=== PATIENT | male | born 2000 | race African-American/Black ===

== ENCOUNTER 2020-11-23 13:03 | Emergency (ER) | payer OTHER ==
[~2020-11-23] VITALS: Ht 185.4 cm; Wt 80.0 kg
[~2020-11-23 13:03] MED LIST: ASPE4PAD TOP; METH-1165 PO; NAPR-837 PO
--- NOTE | 2020-11-23 15:15 | REP ---
INDICATION: pain, dizziness after injury. COMPARISON: None. TECHNIQUE: 4.5 mm contiguous transaxial sections were obtained from the skull base to the cerebral convexities with thin cuts through the posterior fossa without the administration of intravenous contrast. FINDINGS: The ventricles and sulci are consistent with the patient's age. There are no extra-axial fluid collections. There is no mass effect. The deep cerebral white matter is consistent with the patient's age. The orbital and petrous structures, cerebellopontine angles, and posterior fossa are unremarkable. The sella turcica, cavernous, and paracavernous structures are essentially unremarkable. The visualized portions of the paranasal sinuses and mastoid air cells are clear. Images of the skull base show no gross abnormality. IMPRESSION: Essentially unremarkable CT examination of the brain. <Electronically signed by George Simms > 11/23/20 [id number]
[2020-11-23] MEDS ORDERED: diphenhydrAMINE 25MG CAP PO ONE (16:30)
[2020-11-23] MEDS ORDERED: ONDANSETRON 4 MG ORAL DISINTEGRATING TAB PO ONE (16:30)
[2020-11-23] MEDS ORDERED: KETOROLAC 60MG 2ML VIAL IM ONE (17:00)
--- NOTE | 2020-11-23 19:00 | REPVR ---
PROCEDURE INFORMATION: Exam: CT Cervical Spine Without Contrast Exam date and time: 11/23/2020 4:52 PM Age: 20 years old Clinical indication: Neck pain TECHNIQUE: Imaging protocol: Computed tomography images of the cervical spine without contrast. Radiation optimization: All CT scans at this facility use at least one of these dose optimization techniques: automated exposure control; mA and/or kV adjustment per patient size (includes targeted exams where dose is matched to clinical indication); or iterative reconstruction. COMPARISON: CT Head without contrast 11/23/2020 2:52 PM FINDINGS: Bones/joints: No acute fracture. Normal alignment. Discs/Spinal canal/Neural foramina: No significant disc protrusion. No severe spinal canal stenosis. No significant neural foraminal narrowing. Lungs: Lung apices are normal. Soft tissues: Unremarkable. IMPRESSION: No acute findings. Electronically signed by: Eloy Hanna On 11/23/2020 19:00:45 PM
[2020-11-23 19:21] VITALS: BP 140/68
== END 2020-11-23 19:26 | disposition home or self-care (01) ==
LOC: M ED 13:03
DX: G44.319 Acute post-traumatic headache, not intractable (principal)
CPT/HCPCS: 70450; 72125; 96372; 99283; J1885; Q0162

== ENCOUNTER 2020-12-03 17:23 | Emergency (ER) | payer OTHER ==
[~2020-12-03] VITALS: Ht 185.4 cm; Wt 79.3 kg
[2020-12-03 17:23] VITALS: BP 121/64
[2020-12-03] MEDS ORDERED: NAPR-885 (17:37)
[2020-12-03] MEDS ORDERED: METH-1165 (17:37)
== END 2020-12-03 19:50 | disposition home or self-care (01) ==
LOC: M ED 17:23
DX: M79.10 Myalgia, unspecified site (principal); R06.02 Shortness of breath; D55.0 Anemia due to glucose-6-phosphate dehydrogenase [G6PD] deficiency; Z88.2 Allergy status to sulfonamides; Z88.8 Allergy status to other drugs, medicaments and biological substances; Z88.6 Allergy status to analgesic agent; Z79.1 Long term (current) use of non-steroidal anti-inflammatories (NSAID); Z79.899 Other long term (current) drug therapy

== ENCOUNTER 2020-12-13 14:13 | Emergency (ER) | payer OTHER ==
[~2020-12-13] VITALS: Ht 180.3 cm; Wt 77.7 kg
[~2020-12-13 14:13] MED LIST changes: +METH-1165; +NAPR-885
[2020-12-13 14:14] VITALS: BP 132/72
[2020-12-13 16:19] LABS: GC DNA AMPLIFICATION NEGATIVE (NEGATIVE)
[2020-12-13] MEDS ORDERED: AMIT25TA17 PO (21:57)
[2020-12-13] MEDS ORDERED: CIPR500T39 PO (23:13)
[2021-03-20] MEDS ORDERED: TIZA10TA (18:54)
== END 2020-12-13 17:35 | disposition left against medical advice (07) ==
LOC: M ED 14:13
DX: Z11.3 Encounter for screening for infections with a predominantly sexual mode of transmission (principal); N39.0 Urinary tract infection, site not specified; D55.0 Anemia due to glucose-6-phosphate dehydrogenase [G6PD] deficiency; Z79.899 Other long term (current) drug therapy; Z88.8 Allergy status to other drugs, medicaments and biological substances; Z88.6 Allergy status to analgesic agent; Z88.2 Allergy status to sulfonamides

== ENCOUNTER 2020-12-13 21:43 | Emergency (ER) | payer OTHER ==
[~2020-12-13] VITALS: Ht 180.3 cm; Wt 78.9 kg
[2020-12-13] MEDS ORDERED: AMIT25TA17 PO (21:57)
[2020-12-13] MEDS ORDERED: CIPROFLOXACIN 500MG TABLET PO ONE (23:05)
[2020-12-13] MEDS ORDERED: CIPR500T39 PO (23:13)
[2020-12-13 23:19] VITALS: BP 119/69
[2021-03-20] MEDS ORDERED: TIZA10TA (18:54)
== END 2020-12-13 23:20 | disposition home or self-care (01) ==
LOC: M ED 21:43
DX: Z11.3 Encounter for screening for infections with a predominantly sexual mode of transmission (principal); N39.0 Urinary tract infection, site not specified; D55.0 Anemia due to glucose-6-phosphate dehydrogenase [G6PD] deficiency; Z79.899 Other long term (current) drug therapy; Z88.2 Allergy status to sulfonamides; Z88.8 Allergy status to other drugs, medicaments and biological substances; Z88.6 Allergy status to analgesic agent

== ENCOUNTER 2020-12-25 07:50 | Emergency (ER) | payer OTHER ==
[~2020-12-25] VITALS: Ht 180.3 cm; Wt 78.1 kg
[~2020-12-25 07:50] MED LIST changes: +AMIT25TA17 PO; +CIPR500T39 PO
[2020-12-25] MEDS ORDERED: diphenhydrAMINE 50MG/ML VIAL (J1200) IV STA (08:09)
[2020-12-25] MEDS ORDERED: METOCLOPRAMIDE INJ 10MG/2ML VIAL (J2765 PER 1) IV ONE (08:10)
[2020-12-25] MEDS ORDERED: KETOROLAC 30 MG/ML 1ML VIAL IV ONE (08:10)
[2020-12-25] MEDS ORDERED: NS 1,000 ML IV ONE (08:10)
[2020-12-25] MEDS ORDERED: PROMETHAZINE INJ 25 MG/ML VIAL (J2550) IV ONE (09:40)
[2020-12-25] MEDS ORDERED: PROMETHAZINE INJ 25 MG/ML VIAL (J2550) IM ONE (09:55)
[2020-12-25 14:05] VITALS: BP 122/73
== END 2020-12-25 14:06 | disposition home or self-care (01) ==
LOC: M ED 07:50
DX: R51.9 Headache, unspecified (principal); Z88.1 Allergy status to other antibiotic agents; Z88.2 Allergy status to sulfonamides; Z88.6 Allergy status to analgesic agent; Z88.8 Allergy status to other drugs, medicaments and biological substances
CPT/HCPCS: 96361; 96372; 96374; 99283; J1200; J1885; J2765

== ENCOUNTER 2021-01-17 10:54 | Emergency (ER) | payer OTHER ==
[~2021-01-17] VITALS: Ht 180.3 cm; Wt 77.6 kg
[2021-01-17] MEDS ORDERED: DULO1CAP4 (11:17)
[2021-01-17] MEDS ORDERED: CYCL5TAB (11:17)
[2021-01-17 12:35] LABS: BASO % 0.8 % (0.0-1.0); EOS # 0.1 10^3/uL (0.0-0.5); EOS % 1.4 % (0.0-3.0); HEMATOCRIT 46.3 % (42.0-52.0); HEMOGLOBIN 15.6 g/dl (13.5-17.5); LYMPH # 1.6 10^3/uL (1.5-5.0); LYMPH % 43.2 % (24.0-44.0); MEAN CORPUSCULAR HEMOGLOBIN 31.4 pg (27.0-33.0); MEAN CORPUSCULAR HGB CONC 33.7 g/dl (32.0-36.5); MEAN CORPUSCULAR VOLUME 93.2 fl (80.0-96.0); MONO # 0.4 10^3/uL (0.0-0.8); MONO % 11.1 % (2.0-8.0); NEUTROPHILS # 1.6 10^3/uL (1.5-8.5); NEUTROPHILS % 43.2 % (36.0-66.0); PLATELET COUNT, AUTOMATED 143 10^3/uL (150-450); RED BLOOD COUNT 4.97 10^6/uL (4.30-6.10); WHITE BLOOD COUNT 3.7 10^3/uL (4.0-10.0)
[2021-01-17 13:07] LABS: ERYTHROCYTE SEDIMENTATION RATE 2 mm/hr (0-15)
[2021-01-17 13:09] LABS: ALT/SGPT 25 U/L (12-78); BILIRUBIN,DIRECT 0.2 MG/DL (0.0-0.2); BILIRUBIN,TOTAL 1.9 MG/DL (0.2-1.0); C REACTIVE PROTEIN QUANTITATIV < 0.30 MG/DL (0.00-0.30); LIPASE 80 U/L (73-393); TOTAL PROTEIN 7.6 GM/DL (6.4-8.2)
[2021-01-17 13:28] VITALS: BP 117/59
== END 2021-01-17 13:30 | disposition home or self-care (01) ==
LOC: M ED 10:54
DX: K62.5 Hemorrhage of anus and rectum (principal); D72.819 Decreased white blood cell count, unspecified; D69.6 Thrombocytopenia, unspecified; R10.9 Unspecified abdominal pain; D55.0 Anemia due to glucose-6-phosphate dehydrogenase [G6PD] deficiency; F41.9 Anxiety disorder, unspecified; Z88.2 Allergy status to sulfonamides; Z88.8 Allergy status to other drugs, medicaments and biological substances; Z88.6 Allergy status to analgesic agent; Z79.899 Other long term (current) drug therapy

== ENCOUNTER 2021-01-30 10:23 | Emergency (ER) | payer OTHER ==
[~2021-01-30] VITALS: Ht 185.4 cm; Wt 79.0 kg
[~2021-01-30 10:23] MED LIST changes: +CYCL5TAB; +DULO1CAP4
[2021-01-30 12:46] LABS: HEMATOCRIT 44.6 % (42.0-52.0); HEMOGLOBIN 15.1 g/dl (13.5-17.5); MEAN CORPUSCULAR HEMOGLOBIN 31.5 pg (27.0-33.0); MEAN CORPUSCULAR HGB CONC 33.9 g/dl (32.0-36.5); MEAN CORPUSCULAR VOLUME 93.1 fl (80.0-96.0); PLATELET COUNT, AUTOMATED 169 10^3/uL (150-450); RED BLOOD COUNT 4.79 10^6/uL (4.30-6.10); WHITE BLOOD COUNT 4.7 10^3/uL (4.0-10.0)
[2021-01-30] MEDS ORDERED: ISOVUE-370 76% 100ML VIAL As Ordered ONE (13:22)
[2021-01-30 13:32] LABS: ALBUMIN 4.2 GM/DL (3.2-5.2); BILIRUBIN,DIRECT 0.4 MG/DL (0.0-0.2); BILIRUBIN,TOTAL 1.7 MG/DL (0.2-1.0); TOTAL PROTEIN 7.9 GM/DL (6.4-8.2)
[2021-01-30 13:42] LABS: ATYPICAL LYMPH 9 % (0-5); BASOPHILS 2 % (0-1); EOSINOPHILS 1 % (0-3); LYMPHOCYTES 47 % (16-44); MONOCYTES 1 % (0-5); NEUTROPHILS 40 % (28-66); PLATELET ESTIMATE NORMAL (NORMAL)
--- NOTE | 2021-01-30 13:50 | REP ---
INDICATION: lower abd pain/diarrhea. COMPARISON: None TECHNIQUE: Axial contrast-enhanced images from the lung bases to the pubic symphysis using 100 cc Isovue 370 intravenous contrast material. Coronal and sagittal reformations obtained. This CT examination was performed using the following dose reduction techniques: Automated exposure control, adjustment of mA and/or kv according to the patient's size, and the use of iterative reconstruction technique. FINDINGS: Lung bases are clear. Liver, spleen, pancreas, gallbladder, bilateral adrenal glands and kidneys are normal. The enteric system is without obstruction or acute inflammatory process. Normal terminal ileum and appendix are identified in the right lower quadrant. Pelvis demonstrates normal bladder and age-appropriate prostate/seminal vesicles. No ascites. No free air. No intraperitoneal or retroperitoneal adenopathy. Abdominal aorta and vasculature appear normal. Musculoskeletal structures are intact and without acute osseous abnormality. IMPRESSION: No acute abdominopelvic pathology appreciated. <Electronically signed by Alfred Alejandra > 01/30/21 [id number]
[2021-01-30 14:30] VITALS: BP 139/80
[2021-01-30 14:36] LABS: MONO REFLEX EBV COMP NEGATIVE (NEGATIVE)
[2021-01-30 16:05] LABS: HEPATITIS A ANTIBODY IGM NEGATIVE (NEGATIVE); HEPATITIS B CORE ANTIBODY IGM NEGATIVE (NEGATIVE); HEPATITIS B SURFACE ANTIGEN NEGATIVE (NEGATIVE); HIV 1&2 SCREEN CENTAUR NEGATIVE (NEGATIVE)
[2021-02-02 14:12] LABS: EBV AB TO NUCLEAR ANTIGEN >600.0 U/mL (0.0-17.9); EBV VIRAL CAPSID AG IgM <36.0 U/mL (0.0-35.9)
== END 2021-01-30 14:30 | disposition home or self-care (01) ==
LOC: M ED 10:23
DX: D72.820 Lymphocytosis (symptomatic) (principal); R19.7 Diarrhea, unspecified; R51.9 Headache, unspecified; R19.5 Other fecal abnormalities; R11.2 Nausea with vomiting, unspecified; D55.0 Anemia due to glucose-6-phosphate dehydrogenase [G6PD] deficiency; Z88.2 Allergy status to sulfonamides; Z88.6 Allergy status to analgesic agent; Z79.899 Other long term (current) drug therapy
CPT/HCPCS: 36415; 74177; 80047; 80076; 83690; 85025; 86308; 86664; 86665; 86705; 86709; 86780; 86803; 87340; 87389; 87471; 99284; Q9967

== ENCOUNTER 2021-02-04 10:39 | Emergency (ER) | payer OTHER ==
[~2021-02-04] VITALS: Ht 180.3 cm; Wt 80.3 kg
[2021-02-04] MEDS ORDERED: PREPARATION H OINTMENT (HEMORRHOID) TOP ONE (13:35)
[2021-02-04 13:37] LABS: HEMATOCRIT 47.6 % (42.0-52.0); MEAN CORPUSCULAR HEMOGLOBIN 31.3 pg (27.0-33.0); MEAN CORPUSCULAR HGB CONC 33.6 g/dl (32.0-36.5); PLATELET COUNT, AUTOMATED 180 10^3/uL (150-450); RED BLOOD COUNT 5.12 10^6/uL (4.30-6.10); WHITE BLOOD COUNT 4.8 10^3/uL (4.0-10.0)
[2021-02-04 13:43] LABS: ALBUMIN 4.2 GM/DL (3.2-5.2); BILIRUBIN,DIRECT 0.3 MG/DL (0.0-0.2); BILIRUBIN,TOTAL 1.4 MG/DL (0.2-1.0); TOTAL PROTEIN 7.9 GM/DL (6.4-8.2)
[2021-02-04] MEDS ORDERED: NS 1,000 ML IV ONE (13:45)
[2021-02-04] MEDS ORDERED: TOPA1TAB PO (14:05)
[2021-02-04 14:21] LABS: ATYPICAL LYMPH 10 % (0-5); BASOPHILS 1 % (0-1); LYMPHOCYTES 41 % (16-44); MONOCYTES 5 % (0-5); NEUTROPHILS 42 % (28-66)
[2021-02-04 14:22] LABS: PLATELET ESTIMATE NORMAL (NORMAL)
--- NOTE | 2021-02-04 15:14 | REPVR ---
PROCEDURE INFORMATION: Exam: CT Lumbar Spine Without Contrast Exam date and time: 02/04/2021 2:57 PM Age: 21 years old Clinical indication: Low back pain; Additional info: 3 months back pain with lymphocytosis TECHNIQUE: Imaging protocol: Computed tomography images of the lumbar spine without contrast. Axial, coronal and sagittal reformatted images were created and reviewed. Radiation optimization: All CT scans at this facility use at least one of these dose optimization techniques: automated exposure control; mA and/or kV adjustment per patient size (includes targeted exams where dose is matched to clinical indication); or iterative reconstruction. 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 Normal lumbar lordosis. Alignment anatomic. Mild levoscoliosis. No CT evidence of acute fracture, dislocation or subluxation. Vertebral body heights maintained. Discs/Spinal canal/Neural foramina: Intervertebral disc spaces preserved. No significant spinal canal or neural foraminal stenosis. Soft tissues: Grossly unremarkable. IMPRESSION: No acute lumbar spine pathology. Electronically signed by: Chacho Tierney On 02/04/2021 15:14:21 PM
[2021-02-04 15:48] VITALS: BP 131/69
== END 2021-02-04 15:58 | disposition home or self-care (01) ==
LOC: M ED 10:39
DX: K52.9 Noninfective gastroenteritis and colitis, unspecified (principal); K64.9 Unspecified hemorrhoids; D72.89 Other specified disorders of white blood cells; M54.9 Dorsalgia, unspecified; G89.29 Other chronic pain; Z88.2 Allergy status to sulfonamides; Z88.8 Allergy status to other drugs, medicaments and biological substances; Z86.69 Personal history of other diseases of the nervous system and sense organs

== ENCOUNTER 2021-02-23 19:35 | Emergency (ER) | payer OTHER ==
[~2021-02-23] VITALS: Ht 185.4 cm; Wt 79.2 kg
[~2021-02-23 19:35] MED LIST changes: +TOPA1TAB PO
[2021-02-23 19:36] VITALS: BP 134/74
[2021-02-23] MEDS ORDERED: methocarbamoL 750 MG TAB PO ONE (23:15)
[2021-02-23] MEDS ORDERED: ACETAMINOPHEN 500 MG TAB PO ONE (23:15)
[2021-02-23] MEDS ORDERED: METH-1165 PO (23:59)
--- NOTE | 2021-02-24 00:16 | REPVR ---
PROCEDURE INFORMATION: Exam: XR Right Knee Exam date and time: 02/23/2021 11:25 PM Age: 21 years old Clinical indication: Pain; Knee; Bilateral; Additional info: Knee pain, swelling, R/O tumor TECHNIQUE: Imaging protocol: XR Right knee. Views: 1 or 2 views. COMPARISON: No relevant prior studies available. FINDINGS: Bones/joints: No fracture. No dislocation. Joint spaces are preserved. No lytic or blastic lesions. Soft tissues: Normal. IMPRESSION: No acute findings. PROCEDURE INFORMATION: Exam: XR Left Knee Exam date and time: 02/23/2021 11:25 PM Age: 21 years old Clinical indication: Pain; Knee; Bilateral; Additional info: Knee pain, swelling, R/O tumor TECHNIQUE: Imaging protocol: XR Left knee. Views: 1 or 2 views. COMPARISON: No relevant prior studies available. FINDINGS: Bones/joints: No fracture. No dislocation. Joint spaces are preserved. No lytic or blastic lesions. Soft tissues: Normal. IMPRESSION: No acute findings. Electronically signed by: José Locke On 02/24/2021 00:16:07 AM
--- NOTE | 2021-02-24 00:18 | REPVR ---
PROCEDURE INFORMATION: Exam: XR Thoracic Spine Exam date and time: 02/23/2021 11:25 PM Age: 21 years old Clinical indication: Pain in thoracic spine; Other: Unknown; Additional info: Pain whole back TECHNIQUE: Imaging protocol: XR of the thoracic spine. Views: 3 views. COMPARISON: CT Spine, lumbar w/o contrast 02/04/2021 2:35 PM FINDINGS: Bones/joints: Normal. No acute fracture. Normal alignment. Soft tissues: Unremarkable. IMPRESSION: No acute fracture. Electronically signed by: José Locke On 02/24/2021 00:18:07 AM
--- NOTE | 2021-02-24 00:19 | REPVR ---
PROCEDURE INFORMATION: Exam: XR Lumbosacral Spine Exam date and time: 02/23/2021 11:25 PM Age: 21 years old Clinical indication: Low back pain; Additional info: Whole back pain TECHNIQUE: Imaging protocol: XR of the lumbosacral spine. Views: 4 or 5 views. COMPARISON: CT Spine, lumbar w/o contrast 02/04/2021 2:35 PM FINDINGS: Bones/joints: Normal. No acute fracture. Normal alignment. Disc spaces and vertebral body heights are well preserved. Soft tissues: Unremarkable. IMPRESSION: No acute findings. Electronically signed by: José Locke On 02/24/2021 00:19:05 AM
[2021-02-25 17:10] LABS: Lyme Disease IgG/IgM Antibodie <0.91 ISR (0.00-0.90); Lyme Disease IgM Ab Quantitati <0.80 index (0.00-0.79)
== END 2021-02-24 00:34 | disposition home or self-care (01) ==
LOC: M ED 19:35
DX: G89.29 Other chronic pain (principal); M54.9 Dorsalgia, unspecified; M25.561 Pain in right knee; M25.562 Pain in left knee; D75.A Glucose-6-phosphate dehydrogenase (G6PD) deficiency without anemia; R51.9 Headache, unspecified; Z79.899 Other long term (current) drug therapy; Z88.1 Allergy status to other antibiotic agents; Z88.2 Allergy status to sulfonamides; Z88.8 Allergy status to other drugs, medicaments and biological substances

== ENCOUNTER 2021-03-02 17:57 | Emergency (ER) | payer OTHER ==
[~2021-03-02] VITALS: Ht 185.4 cm; Wt 77.7 kg
[2021-03-02 17:58] VITALS: BP 140/76
[2021-03-02] MEDS ORDERED: ALLE12TA31 PO (22:06)
[2021-03-02] MEDS ORDERED: AFRISPR3 (22:06)
== END 2021-03-02 22:21 | disposition home or self-care (01) ==
LOC: M ED 17:57
DX: J30.89 Other allergic rhinitis (principal); D75.A Glucose-6-phosphate dehydrogenase (G6PD) deficiency without anemia; Z79.899 Other long term (current) drug therapy
CPT/HCPCS: 99283; U0003

== ENCOUNTER 2021-03-08 15:45 | Emergency (ER) | payer OTHER ==
[~2021-03-08] VITALS: Ht 185.4 cm; Wt 81.0 kg
[~2021-03-08 15:45] MED LIST changes: +AFRISPR3; +ALLE12TA31 PO
[2021-03-08] MEDS ORDERED: ACET1TAB55 PO (17:27)
[2021-03-08] MEDS ORDERED: VITA1CAP25 PO (17:27)
[2021-03-08] MEDS ORDERED: PROC2.5C PR (17:27)
[2021-03-08] MEDS ORDERED: [UNRECOGNIZED DRUG - OTHER] PO (17:27)
[2021-03-08 18:16] LABS: BASO % 0.6 % (0.0-1.0); EOS # 0.1 10^3/uL (0.0-0.5); EOS % 1.2 % (0.0-3.0); HEMATOCRIT 46.4 % (42.0-52.0); LYMPH # 2.3 10^3/uL (1.5-5.0); LYMPH % 46.3 % (24.0-44.0); MEAN CORPUSCULAR HEMOGLOBIN 31.6 pg (27.0-33.0); MEAN CORPUSCULAR HGB CONC 34.5 g/dl (32.0-36.5); MEAN CORPUSCULAR VOLUME 91.5 fl (80.0-96.0); MONO # 0.5 10^3/uL (0.0-0.8); MONO % 9.1 % (2.0-8.0); NEUTROPHILS # 2.2 10^3/uL (1.5-8.5); NEUTROPHILS % 42.6 % (36.0-66.0); PLATELET COUNT, AUTOMATED 174 10^3/uL (150-450); RED BLOOD COUNT 5.07 10^6/uL (4.30-6.10); WHITE BLOOD COUNT 5.1 10^3/uL (4.0-10.0)
[2021-03-08 18:26] LABS: INR 0.97; PROTHROMBIN TIME 13.3 SECONDS (12.7-14.5)
[2021-03-08 18:27] LABS: PARTIAL THROMBOPLASTIN TIME 27.4 SECONDS (25.9-37.0)
--- NOTE | 2021-03-08 18:44 | REP ---
INDICATION: pain. Bilateral testalgia. COMPARISON: None. TECHNIQUE: High-resolution bilateral scrotal sonography. FINDINGS: Testicular parenchyma is homogeneous bilaterally. Right testis measures 4.5 x 2.1 x 2.8 cm. Left testicular dimensions are 4.3 x 1.8 x 2.5 cm. No intratesticular mass lesion is seen. The right epididymis is slightly larger than the left but not hyperemic. There is no evidence of hydrocele, varicocele, or hernia. Testicular Doppler flow is preserved. Resistive indices are 0.43 and 0.62 on the right and left respectively. IMPRESSION: Normal bilateral scrotal sonography. <Electronically signed by Sarmad West > 03/08/21 [id number]
[2021-03-08 18:50] LABS: ALT/SGPT 24 U/L (12-78); BILIRUBIN,DIRECT 0.2 MG/DL (0.0-0.2); BILIRUBIN,TOTAL 1.3 MG/DL (0.2-1.0); LIPASE 83 U/L (73-393)
[2021-03-08 18:52] LABS: GC DNA AMPLIFICATION NEGATIVE (NEGATIVE)
[2021-03-08 20:04] LABS: BLOOD UREA NITROGEN 17 MG/DL (7-18); CALCIUM LEVEL 9.4 MG/DL (8.5-10.1); CARBON DIOXIDE LEVEL 26 MEQ/L (21-32); CHLORIDE LEVEL 105 MEQ/L (98-107); CREATININE FOR GFR 1.14 MG/DL (0.70-1.30); GLOMERULAR FILTRATION RATE > 60.0 (>60); GLUCOSE, FASTING 103 MG/DL (70-100); POTASSIUM SERUM 5.6 MEQ/L (3.5-5.1); SODIUM LEVEL 137 MEQ/L (136-145)
[2021-03-08] MEDS ORDERED: ISOVUE-370 76% 100ML VIAL As Ordered ONE (20:11)
--- NOTE | 2021-03-08 21:20 | REPVR ---
PROCEDURE INFORMATION: Exam: CT Abdomen And Pelvis With Contrast Exam date and time: 03/08/2021 8:34 PM Age: 21 years old Clinical indication: Other: Urinary incontinence; Abdominal pain; Additional info: Abd pain TECHNIQUE: Imaging protocol: Computed tomography of the abdomen and pelvis with contrast. Radiation optimization: All CT scans at this facility use at least one of these dose optimization techniques: automated exposure control; mA and/or kV adjustment per patient size (includes targeted exams where dose is matched to clinical indication); or iterative reconstruction. Contrast material: ISOVUE 370; Contrast volume: 100 ml; Contrast route: INTRAVENOUS (IV); COMPARISON: CT ABD/PEL W/IV CONTRAST ONLY 01/30/2021 1:24 PM FINDINGS: Liver: There is a diffuse decrease in hepatic parenchymal density, consistent with steatosis. Gallbladder and bile ducts: Normal. No calcified stones. No ductal dilation. Pancreas: Normal. No ductal dilation. Spleen: Normal. No splenomegaly. Adrenal glands: Normal. No mass. Kidneys and ureters: Normal. No hydronephrosis. Stomach and bowel: Unremarkable. No obstruction. No mucosal thickening. Appendix: No evidence of appendicitis. Intraperitoneal space: Minimal free fluid in the dependent pelvis. Vasculature: Unremarkable. No abdominal aortic aneurysm. Lymph nodes: Unremarkable. No enlarged lymph nodes. Urinary bladder: Unremarkable as visualized. Reproductive: Unremarkable as visualized. Bones/joints: Unremarkable. No acute fracture. Soft tissues: Unremarkable. IMPRESSION: 1. There is a diffuse decrease in hepatic parenchymal density, consistent with steatosis. 2. Minimal free fluid in the dependent pelvis. 3. No acute findings. Electronically signed by: Lamont Siegel On 03/08/2021 21:20:34 PM
[2021-03-08 21:44] VITALS: BP 124/70
== END 2021-03-08 21:47 | disposition home or self-care (01) ==
LOC: M ED 15:45
DX: R32 Unspecified urinary incontinence (principal); R35.0 Frequency of micturition; R36.9 Urethral discharge, unspecified; N48.89 Other specified disorders of penis; D55.0 Anemia due to glucose-6-phosphate dehydrogenase [G6PD] deficiency; R51.9 Headache, unspecified; Z88.2 Allergy status to sulfonamides; Z88.6 Allergy status to analgesic agent; Z88.8 Allergy status to other drugs, medicaments and biological substances
CPT/HCPCS: 36415; 74177; 76870; 80048; 80076; 81001; 83690; 85025; 85610; 85730; 87661; 93976; 99284; Q9967

== ENCOUNTER 2021-03-17 17:55 | Emergency (ER) | payer OTHER ==
[~2021-03-17] VITALS: Ht 185.4 cm; Wt 80.2 kg
[2021-03-17 17:55] VITALS: BP 130/63
[~2021-03-17 17:55] MED LIST changes: +ACET1TAB55 PO; +PROC2.5C PR; +VITA1CAP25 PO; +[UNRECOGNIZED DRUG - OTHER] PO
== END 2021-03-17 23:53 | disposition left against medical advice (07) ==
LOC: M ED 17:55
DX: Z53.21 Procedure and treatment not carried out due to patient leaving prior to being seen by health care provider (principal)

== ENCOUNTER 2021-03-20 18:45 | Emergency (ER) | payer OTHER ==
[~2021-03-20] VITALS: Ht 185.4 cm; Wt 79.9 kg
[2021-03-20] MEDS ORDERED: TIZA4TAB4 (18:54)
--- OUTSIDE RECORDS SUMMARY | 2021-03-20 18:57 | CCD ---
Author Author [facility] Organization [facility] Address Unknown Phone Unavailable Care Team Providers Care Crane Hooker Name Role Phone NO, PCP Unavailable Unavailable Alexi Leiva MD Unavailable Unavailable Alexi Leiva MD Unavailable Unavailable Alexi Leiva MD Unavailable Unavailable Alexi Leiva MD Unavailable Unavailable Alexi Leiva MD Unavailable Unavailable Alexi Leiva MD Unavailable Unavailable Alexi Leiva MD Unavailable Unavailable Alexi Leiva MD Unavailable Unavailable Alexi Leiva MD Unavailable Unavailable Alexi Leiva MD Unavailable Unavailable Alexi Leiva MD Unavailable Unavailable Alexi Leiva MD Unavailable Unavailable Alexi Leiva MD Unavailable Unavailable Alexi Leiva MD Unavailable Unavailable Alexi Leiva MD Unavailable Unavailable Alexi Leiva MD Unavailable Unavailable Alexi Leiva MD Unavailable Unavailable Alexi Leiva MD Unavailable Unavailable Alexi Leiva MD Unavailable Unavailable Alexi Leiva MD Unavailable Unavailable Alexi Leiva MD Unavailable Unavailable Alexi Leiva MD Unavailable Unavailable Alexi Leiva MD Unavailable Unavailable Alexi Leiva MD Unavailable Unavailable Alexi Leiva MD Unavailable Unavailable Alexi Leiva MD Unavailable Unavailable Alexi Leiva MD Unavailable Unavailable Alexi Leiva MD Unavailable Unavailable Alexi Leiva MD Unavailable Unavailable Alexi Leiva MD Unavailable Unavailable Alexi Leiva MD Unavailable Unavailable Alexi Leiva MD Unavailable Unavailable BolAlexi hernandez MD Unavailable Unavailable Alexi Leiva MD Unavailable Unavailable BolAlexi hernandez MD Unavailable Unavailable Alexi Leiva MD Unavailable Unavailable BolAlexi hernandez MD Unavailable Unavailable Alexi Leiva MD Unavailable Unavailable BolAlexi hernandez MD Unavailable Unavailable Alexi Leiva MD Unavailable Unavailable BolAlexi hernandez MD Unavailable Unavailable Alexi Leiva MD Unavailable Unavailable Alexi Leiva MD Unavailable Unavailable Alexi Leiva MD Unavailable Unavailable Alexi Leiva MD Unavailable Unavailable Alexi Leiva MD Unavailable Unavailable Alexi Leiva MD Unavailable Unavailable Alexi Leiva MD Unavailable Unavailable Alexi Leiva MD Unavailable Unavailable Shivani Winn MD Unavailable Unavailable Shivani Winn MD Unavailable Unavailable Shivani Winn MD Unavailable Unavailable Shivani Winn MD Unavailable Unavailable Shivani Winn MD Unavailable Unavailable Shivani Winn MD Unavailable Unavailable Shivani Winn MD Unavailable Unavailable Shivani Winn MD Unavailable Unavailable Shivani Winn MD Unavailable Unavailable Shivani Winn MD Unavailable Unavailable Shivani Winn MD Unavailable Unavailable Shivani Winn MD Unavailable Unavailable Shivani Winn MD Unavailable Unavailable Shivani Winn MD Unavailable Unavailable Shivani Winn MD Unavailable Unavailable Shivani Winn MD Unavailable Unavailable Shivani Winn MD Unavailable Unavailable Shivani Winn MD Unavailable Unavailable Shivani Winn MD Unavailable Unavailable Shivani Winn MD Unavailable Unavailable Shivani Winn MD Unavailable Unavailable Shivani Winn MD Unavailable Unavailable Shivani Winn MD Unavailable Unavailable Shivani Winn MD Unavailable Unavailable Shivani Winn MD Unavailable Unavailable Shivani Winn MD Unavailable Unavailable Shivani Winn MD Unavailable Unavailable Shivani Winn MD Unavailable Unavailable Shivani Winn MD Unavailable Unavailable Shivani Winn MD Unavailable Unavailable Shivani Winn MD Unavailable Unavailable hSivani Winn MD Unavailable Unavailable Shivani Winn MD Unavailable Unavailable Shivani Winn MD Unavailable Unavailable Shivani Winn MD Unavailable Unavailable Shivani Winn MD Unavailable Unavailable Shivani Winn MD Unavailable Unavailable Shivani Winn MD Unavailable Unavailable Shivani Winn MD Unavailable Unavailable Shivani Winn MD Unavailable Unavailable Shivani Winn MD Unavailable Unavailable Shivani Winn MD Unavailable Unavailable Shivani Winn MD Unavailable Unavailable Shivani Winn MD Unavailable Unavailable Sihvani Winn MD Unavailable Unavailable Shivani Winn MD Unavailable Unavailable Shivani Winn MD Unavailable Unavailable Shivani Winn MD Unavailable Unavailable Shivani Winn MD Unavailable Unavailable Shivani Winn MD Unavailable Unavailable Shivani Winn MD Unavailable Unavailable Shivani Winn MD Unavailable Unavailable Shivani Winn MD Unavailable Unavailable Shivani Winn MD Unavailable Unavailable Shivani Winn MD Unavailable Unavailable Shivani Winn MD Unavailable Unavailable Shivani Winn MD Unavailable Unavailable Shivani Winn MD Unavailable Unavailable Shivani Winn MD Unavailable Unavailable Shivani Winn MD Unavailable Unavailable Shivani Winn MD Unavailable Unavailable Shivani Winn MD Unavailable Unavailable Shivani Winn MD Unavailable Unavailable Shivani Winn MD Unavailable Unavailable Shivani Winn MD Unavailable Unavailable Shivani Winn MD Unavailable Unavailable Shivani Winn MD Unavailable Unavailable Shivani Winn MD Unavailable Unavailable Shivani Winn MD Unavailable Unavailable Tatum, O Samah MD Unavailable Unavailable Tatum, O Samah MD Unavailable Unavailable Tatum, O Samah MD Unavailable Unavailable Tatum, O Samah MD Unavailable Unavailable Tatum, O Samah MD Unavailable Unavailable Tatum, O Samah MD Unavailable Unavailable Tatum, O Samah MD Unavailable Unavailable Tatum, O Samah MD Unavailable Unavailable Tatum, O Samah MD Unavailable Unavailable Tatum, O Samah MD Unavailable Unavailable ATIF ZAPATA SUNIL Unavailable Unavailable ANNIE, L CECY MD Unavailable Unavailable ANNIE, L CECY MD Unavailable Unavailable ANNIE, L CECY MD Unavailable Unavailable ANNIE, L CECY MD Unavailable Unavailable ANNIE, L CECY MD Unavailable Unavailable ANNIE, L CECY MD Unavailable Unavailable ANNIE, L CECY MD Unavailable Unavailable ANNIE, L CECY MD Unavailable Unavailable ANNIE, L CECY MD Unavailable Unavailable ANNIE, L CECY MD Unavailable Unavailable ANNIE, L CECY MD Unavailable Unavailable ANNIE, L CECY MD Unavailable Unavailable ANNIE, L CECY MD Unavailable Unavailable ANNIE, L CECY MD Unavailable Unavailable ANNIE, L CECY MD Unavailable Unavailable ANNIE, L CECY MD Unavailable Unavailable ANNIE, L CECY MD Unavailable Unavailable ANNIE, L CECY MD Unavailable Unavailable ANNIE, L CECY MD Unavailable Unavailable ANNIE, L CECY MD Unavailable Unavailable Re-disclosure Warning The records that you are about to access may contain information from federally-assisted alcohol or drug abuse programs. If such information is present, then the following federally mandated warning applies: This information has been disclosed to you from records protected by federal confidentiality rules (42 CFR part 2). The federal rules prohibit you from making any further disclosure of this information unless further disclosure is expressly permitted by the written consent of the person to whom it pertains or as otherwise permitted by 42 CFR part 2. A general authorization for the release of medical or other information is NOT sufficient for this purpose. The Federal rules restrict any use of the information to criminally investigate or prosecute any alcohol or drug abuse patient.The records that you are about to access may contain highly sensitive health information, the redisclosure of which is protected by Article 27-F of the [facility] Public Health law. If you continue you may have access to information: Regarding HIV / AIDS; Provided by facilities licensed or operated by the [facility] Office of Mental Health; or Provided by the [facility] Office for People With Developmental Disabilities. If such information is present, then the following [facility] mandated warning applies: This information has been disclosed to you from confidential records which are protected by state law. State law prohibits you from making any further disclosure of this information without the specific written consent of the person to whom it pertains, or as otherwise permitted by law. Any unauthorized further disclosure in violation of state law may result in a fine or chcf sentence or both. A general authorization for the release of medical or other information is NOT sufficient authorization for further disc losure. Encounters Encounter Providers Location Date Indications Data Source(s ) Emergency Attender: CECY VALENCIA MDConsultant: PCP NO 03/15/2021 03:33:00 PM EDT - 03/15/2021 03:53:00 PM EDT [facility] Patient discharged. Lucas Leiva MD: [id number] [address], [place] [address], Ph. Attender: Lucas Leiva MD [place] - [facility] - Main Office 03/10/2021 12:00:00 AM EDT [facility] ([facility]) Emergency Attender: CECY VALENCIA MDConsultant: PCP NO 02/28/2021 01:50:00 PM EDT - 02/28/2021 04:32:00 PM EDT [facility] Patient discharged. Outpatient Attender: Deirdre Winn MD Main office [facility] 02/02/2021 08:00:00 AM EDT [facility] ([facility]) Outpatient Attender: SUNIL ZAPATAConsultant: PCP NO 12/22/2020 07:01:00 AM EDT - 12/22/2020 08:01:00 AM EDT [facility] Emergency Attender: CECY LENTZonsultant: PCP NO 12/18/2020 03:12:00 PM EDT - 12/18/2020 06:04:00 PM EDT [facility] Patient discharged. Medications Medication Brand Name Start Date Product Form Dose Route Admi nistrative Instructions Pharmacy Instructions Status Indications Reaction Description Data Source(s) topiramate 25 MG Oral Tablet Topiramate 02/02/2021 12:00:00 AM EDT active [facility] ([facility], ) Nurtec Nurtec 02/02/2021 12:00:00 AM EDT active [facility] ([facility], ) topiramate 100 MG Oral Tablet Topiramate 02/02/2021 12:00:00 AM EDT ORAL active [facility] ([facility], ) Natural Fiber Laxative Therapy oral powder completed Natural Fiber Laxative Therapy oral powder [facility] ([facility]) Hydrocortisone 25 MG/ML Topical Cream [P roctosol] Proctosol HC 2.5 % topical cream perineal applicator Proctosol HC 2.5 % topical cream perineal applicator completed hydrocortisone 25 MG/ML Topical Cream [Proctosol] [facility] ([facility]) duloxetine 20 MG Delayed Release Oral Ca psule duloxetine 20 mg capsule,delayed release duloxetine 20 mg capsule,delayed release completed duloxetine 20 MG Delayed Release Oral Capsule [facility] ([facility]) Acetaminophen 325 MG Oral Tablet acetaminophen 325 mg tablet acetaminophen 325 mg tablet completed acetaminophe n 325 MG Oral Tablet [facility] ([facility]) Ciprofloxacin 500 MG Oral Tablet ciprofl oxacin 500 mg tablet TAKE 1 TABLET BY MOUTH TWICE DAILY ciprofloxacin 500 mg tablet TAKE 1 TABLE T BY MOUTH TWICE DAILY completed ciprofloxacin 50 0 MG Oral Tablet [facility] ([facility]) Amitriptyline Hydrochloride 25 MG Oral Tablet amitript yline 25 mg tablet amitriptyline 25 mg tablet completed amitriptyline hydrochloride 25 MG Oral Tablet [facility] ([facility]) Sumatriptan 50 MG Oral Tablet sumatriptan 50 mg tablet sumat riptan 50 mg tablet completed sumatriptan 50 MG Oral Tablet [facility] ([facility]) Methocarbamol 500 MG Oral Tablet methocarbamol 500 mg tablet methocarbamol 500 mg tablet completed methocarbamo l 500 MG Oral Tablet [facility] ([facility]) Diclofenac Sodium 0.01 MG/MG Topical Gel [Voltaren] Vo ltaren 1 % topical gel Voltaren 1 % topical gel completed diclofenac sodium 0.01 MG/MG Topical Gel [Voltaren] [facility] ([facility]) Naproxen 500 MG Oral Tablet naproxen 500 mg tablet TAKE 1 TABLET BY MOUTH TWICE DAILY TAKE WITH FOOD naproxen 500 mg tablet TAKE 1 TABLET BY MOUTH TWICE DAILY TAKE WITH FOOD completed naproxe n 500 MG Oral Tablet [facility] ([facility]) topiramate 25 MG Oral Tablet topiramate 25 mg tablet topiramate 25 mg tablet completed topiramate 25 MG Oral Tablet [facility] ([facility]) Methocarbamol 750 MG Oral Tablet methocarbamol 750 mg tablet methocarbamol 750 mg tablet completed methocarbamo l 750 MG Oral Tablet [facility] ([facility]) Cyclobenzaprine hydrochloride 5 MG Oral Tablet cyclobe nzaprine 5 mg tablet cyclobenzaprine 5 mg tablet completed cyclobenzaprine hydrochloride 5 MG Oral Tablet [facility] ([facility]) Amitriptyline Hydrochloride 10 MG Oral Tablet amitript yline 10 mg tablet amitriptyline 10 mg tablet completed amitriptyline hydrochloride 10 MG Oral Tablet [facility] ([facility]) Insurance Providers Payer name Policy type / Coverage type Policy ID Covered libertarian ID Covered libertarian's relationship to covarrubias Policy Covarrubias Plan Information [facility] [employer] [facility] [id number] SP [id number] [facility] HUMA[employer] - O/P [id number] 18 [id number] [facility] [employer] - O/P [id number] 18 [id number] [facility] HU[employer] - O/P . 18 . 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 Diagnosis 02/28/2021 01:5 0:00 PM EDT [facility] N433 Hydrocele, unspecified Hydrocele, unspecified Diagnosi s 02/28/2021 01:50:00 PM EDT [facility] R300 Dysuria Dysuria Diagnosis 02/28/2021 01:50:00 PM ED T [facility] [id number] Personal history of traumatic brain inju ry Personal history of traumatic brain injury Diagnosis 12/22/2020 07:01:00 AM EDT [facility] R2689 Other abnormalities of gait and mobility Other abnormalities of gait and mobility Diagnosis 12/22/2020 07:01:00 AM EDT [facility] J26507 Migraine, unspecified, not intractable, without status migrainosus Migraine, unspecified, not intractable, without status migrainosus Diagnosis 12/22/2020 07:01:00 AM EDT [facility] [id number] Chronic migraine without aura, intractab le, with status migrainosus Chronic migraine without aura, intractable, with status migrainosus Diagnosis 12/18/2020 03:12:00 PM EDT [facility] R519 Headache, unspecified Headache, unspecified Diagnosis 12/18/2020 03:12:00 PM EDT [facility] [id number] Concussion injury of brain Concussion injury of brain Problem 02/02/2021 12:00:00 AM EDT [facility] ([facility] ) [id number] Migraine Migraine Problem 02/02/2021 12:00:00 AM ED T [facility] ([facility]) Surgeries/Procedures Procedure Description Date Indications Data Source(s) MRI, lumbar spine, w/o contrast 03/10/2021 12:00:00 AM EDT [facility] ([facility]) OFFICE CONSULTATION NEW/ESTAB PATIENT 60 MIN 12:00:00 AM EDT [facility] ([facility], ) Results ID Date Data Source [id number] 03/15/2021 03:33:00 PM EDT [facility] 1 Medication Reconciliation Report [facility] Emergency Department [address] [place] [address] Phone #: ext- [phone] 03/15/2021 15:01 Patient: JULISA GHOSH Sex: M : 2000 Age: 21yWeight: 77.5 kgHeight/Length: 73 in.BMI: 22.5ALLERGIES: No Known Drug AllergyThe patient's Home Medications are listed below:CONTINUE TAKING THE FOLLOWING MEDICATIONS: Methocarbamol Oral (750 mg) 1 tablet, daily Topiramate Oral 100 mg, dailyThe source(s) of the original Home Medication information:Not obtained.The following Medications were given to the patient in the Emergency Department:None.The following Medications were prescribed to the patient:Benadryl 25 mg capsule Take 1 capsule three times a day as needed for 10 days -- for pruritus. [id number] capsule. Refills: 0. Substitution permitted.Pharmacy - [facility] - [id number] ; [place] [address]. . -- MICHAEL Ramsey Name Value Range Interpretation Code Description Data [facility](s) Supporting Document(s) ID Date Data Source [id number] 03/15/2021 03:33:00 PM EDT [place] [address] Medication Administration Record [facility] Emergency Department [address] [place] [address] Phone #: ext- [phone] 03/15/2021 15:01 Patient: JULISA GHOSH Sex: M : 2000 Age: 21yWeight: 77.5 kgHeight/Length: 73 inBMI: 22.5ALLERGIES: No Known Drug AllergyDate/Time Medication Administered Medication Ordered Name Value Range Interpretation Code Description Data [facility] rce(s) Supporting Document(s) ID Date Data Source [id number] 03/15/2021 03:33:00 PM EDT [facility] 1 General Instructions [facility] Emergency Department [address] [place] [address] Phone #: ext- [phone] 03/15/2021 15:01 Patient: JULISA GHOSH Sex: M : 2000 Age: 21yGeneralized pruritus of undetermined cause.INSTRUCTIONSWarnings: Further evaluation is necessary. It is very important to follow up with a healthcare provider.GENERAL WARNINGS: Return or contact your physician immediately if your condition worsens orchanges unexpectedly, if not improving as expected, or if other problems arise. Specifically return if pain,vomiting, bleeding, breathing difficulty or fever.Your Current Medications: Your current home medications have been reviewed.CONTINUE TAKING THE FOLLOWING MEDICATIONS:Methocarbamol Oral : Tablet 750 mg, 1 tablet daily.Topiramate Oral : 100 mg daily.Prescription Medications:Benadryl 25 mg capsule Take 1 capsule three times a day as needed for 10 days -- for pruritus. [id number] capsule. Refills: 0. Substitution permitted.Pharmacy - [facility] - [address] ; [place] [id number]. .Understanding of the discharge instructions verbalized by patient. Expected course of illness, dischargeinstructions, activity level, follow-up appointment and risks and bene fits of treatment reviewed with patientand understanding verbalized. Agrees to plan of care.Follow-up with: [facility] [place] [facility], , , [address], [place], [address] Follow up in one even if well. Call for the next available appointment. Reason for referral: evaluation nilo dermatology/electrical subcontractor referral if symptoms persist. Summary of care provided to patient viapaper. 2 General Instructions [facility] Emergency Department [address] [place] [address] Phone #: ext- [phone] 03/15/2021 15:01 Patient: JULISA GHOSH Sex: M : 2000 Age: 21y(Electronically signed by MICHAEL Ramsey 03/15/2021 16:26) Name Value Range Interpretation Code Description Data Ina rce(s) Supporting Document(s) ID Date Data Source [id number] 03/15/2021 03:33:00 PM EDT [facility] 1 Clinical Report - Nurses [facility] Emergency Department [address] [place] [address] Phone #: ext- [phone] 03/15/2021 15:01 Patient: JULISA GHOSH Sex: M : 2000 Age: 21yTRIAGEArrived by private vehicle. Historian: patient. Accompanied by friend.Acuity: LEVEL 4.Chief Complaint: (generalized itching).Onset. (6 months ago). 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 SEPSIS SCREEN NEGATIVE. No suspected or confirmedsigns of infection present.ELIEZER COMA SCORE: 15- eyes open- spontaneous (4); best verbal response- oriented (5); bestmotor response- obeys commands (6). --15:03/15/21 Roe Hurley RN15:04 03/15/21. BP: 121/69. MAP: 86. HR: 67. RR: 16. O2 saturation: 98%. Temp: 99.8 F. Pain level now:0/10. --15:09 03/15/21 Roe Hurley RN.Weight: 77.5 kg stated. Height/Length: 73 inches Per Patient. BMI: 22.5. --15:04 03/15/21 Roe Hurley RN.MedicationsTopiramate Oral 100 mg, daily. --15:06 03/15/21 Roe Hurley RN Methocarbamol Oral (Tablet 750 mg) 1 tablet, daily. --15:06 03/15/21 Roe Hurley RN.AllergiesNo Known Drug Allergy. --15:06 03/15/21 Roe Hurley RN.PROBLEMS:Back Pain.TBI. --15:07 03/15/21 Roe Hurley RN.ADDITIONAL SURGERIES:no known surgeries.HistoryPAST MEDICAL HX: Immunizations: up-to-date. 2 Clinical Report - Nurses [facility] Emergency Department [address] [place] [address] Phone #: ext- [phone] 03/15/2021 15:01 Patient: JULISA GHOSH Sex: M : 2000 Age: 21y SOCIAL HX: Never smoker. No alcohol use or drug use. He was offered HIV testing but declined and hepatitis C testing but declined. He has not traveled outside the [place] Infectious disease exposure: No infectious disease exposure. The patient was not exposed to Coronavirus. SELF HARM ASSESSMENT: Self harm assessment was performed. The patient answered "no" to the question(s) "Have you recently felt down, depressed, or hopeless?", "Do you have thoughts of harming or killing yourself?", "Do you have a plan for harming or killing yourself?", "Have you recently had thoughts about harming or killing others?", "Do you have any dangerous items in your possession?", "Have you noticed less interest or pleasure in doing things?", "Are you here because you tried to hurt yourself?" and "Have you ever tried to hurt yourself before today?". ABUSE ASSESSMENT: No report of abuse. NUTRITIONAL RISK ASSESSMENT: The nutritional risk assessment revealed no deficiencies. FUNCTIONAL ASSESSMENT: Functional assessment: no impairments noted. LEARNING NEEDS ASSESSMENT: The learning needs assessment revealed no barriers. FALL RISK ASSESSMENT: Fall risk assessment completed. No risk factors identified. SKIN INTEGRITY ASSESSMENT: Skin integrity risk assessment completed. No skin integrity risk identified. --15:03/15/21 Roe Hurley RN. Interventions Identification band on patient. To treatment room. --15:03/15/21 Roe Hurley RN.PHYSICAL [id number] 03/15/21. Ambulatory to room.GENERAL / NEURO / PSYCH: Alert. Oriented X 4. Appears in no acute distress.HEENT: No facial asymmetry noted. Mucous membranes are pink.RESPIRATORY: Respirations not labored. Chest nontender.CVS: Pulses within normal limits.GI / : Abdomen soft and nontender.SKIN: Skin intact. Skin is warm and dry. Normal skin turgor. No skin rash. --15:24 03/15/21 CYNDI Hernandez.NURSING PROGRESS NOTES15:15 03/15/21. Patient gowned. Two patient identifiers checked. Call light placed in reach. Bedplaced in lowest position. Brakes of bed on. Patient ready for evaluation- PA notified. --15:25 03/15/21Michelle Sam RN.DISPOSITION / DISCHARGE 15:53 03/15/21. Condition at departure: stable. No learning barriers present. Discharge instructions 3 Clinical Report - Nurses [facility] Emergency Department [address] [place] [address] Phone #: ext- [phone] 03/15/2021 15:01 Patient: JULISA GHOSH Sex: M : 2000 Age: 21y provided and reviewed with the patient. Reviewed medication(s) side effects, precautions, dosing and course information. Prescription(s) sent electronically to pharmacy ([facility]). Patient verbalized understanding. Written instructions provided in Taiwanese. The patient was discharged home. He left ambulatory and via private vehicle. Patient driving. --15:54 03/15/21 Michelle Sam RN 15:50 03/15/21. BP: 117/72. MAP: 87. HR: 66. RR: 14. O2 saturation: 100%. Temp: 99 F. Pain level now: 010. --15:54 03/15/21 Michelle Sam RN.Locked/Released at 03/15/2021 15:55 by Michelle Sam RN Name Value Range Interpretation Code Description Data Ina rce(s) Supporting Document(s) ID Date Data Source [id number] 03/15/2021 03:33:00 PM EDT [facility] 1 Clinical Report - Physicians/Mid Levels [facility] Emergency Department [address] [place] [address] Phone #: ext- [phone] 03/15/2021 15:01 Patient: JULISA GHOSH Sex: M : 2000 Age: 21y Time Seen: 15:20 03/15/2021. Arrived- By private vehicle. Historian- patient. Disposition decision: 15:29 03/15/2021.HISTORY OF PRESENT ILLNESS Chief Complaint: (itching all over x 6 mos.). This started about 6 months ago; Pt states he has had bouts of daily episodic itchiness to entire body x 6 mos. No palliative/provocative factors, no skin rash, no fever, or other constitutional symptoms. It is described as itchy. Not painful. It has been generalized in location. No cause has been identified. No recent medication, insect bite or food exposure. Was not recently exposed to poison donnell or poison oak. Similar symptoms previously. Patient has had similar symptoms many times. Recent medical care: Not recently seen/assessed.REVIEW OF SYSTEMSNo fever, chills, sore throat, cough or difficulty breathing. No hoarseness, lump in throat, enlarged l ymphnodes, headache or eye irritation. No chest pain, abdominal pain, nausea, diarrhea or difficulty withurination. No genital lesions, joint pain or vomiting.PAST HISTORYSee nurses notes. Tetanus immunization status is up-to-date. Problems: Back Pain. TBI. Additional Surgeries: no known surgeries. Medications: Methocarbamol Oral (Tablet 750 mg) 1 tablet, daily. Topiramate Oral 100 mg, daily. Allergies: No Known Drug Allergy.SOCIAL HISTORYNever smoker. No alcohol use or drug use. No recent travel.ADDITIONAL NOTESThe nursing notes have been reviewed with agreement regarding the chief complaint, HPI, ROS, PMH andpatient medications and allergies. 2 Clinical Report - Physicians/Mid Levels [facility] Emergency Department [address] [place] [address] Phone #: ext- [phone] 03/15/2021 15:01 Patient: JULISA GHOSH Sex: M : 2000 Age: 21yPHYSICAL EXAMVital Signs: 03/15/2021 15:04 BP: 121/69. MAP: 86. HR: 67. RR: 16. O2 saturation: 98%. Temp: 99.8 F.Pain level now: 0/10. Have been reviewed as normal and appear to be correct. Blood pressure normal.Mean arterial pressure- normal. Heart rate normal. Respiratory rate normal. Temperature normal.Oxygen saturation normal.Appearance: Alert. Oriented X3. No acute distress.Eyes: Pupils equal, round and reactive to light. Conjunctivae and eyelids normal.ENT: Ears normal. Nose normal. Pharynx normal.Neck: Neck supple.CVS: Normal heart rate and rhythm. Heart sounds normal.Respiratory: No respiratory distress. Breath sounds normal. Chest nontender.Abdomen: Nontender. No organomegaly.Skin: Skin warm and dry. Normal skin color. No rash. Normal skin turgor.Extremities: Normal external inspection. Extremities nontender.Neuro: Oriented X 3. No motor deficit. No sensory deficit.PROGRESS AND PROCEDURESDisposition: Discharged home in good and improved condition.Discharge decision based on the following: p michaelient's condition is stable; patient is ambulatory; patient'sexam is stable; stable condition on repeat evaluation; social support is adequate; transportation isavailable; follow-up is available; clinical impression is consistent with outpatient treatment.CLINICAL IMPRESSION Generalized pruritus of undetermined cause.INSTRUCTIONS Warnings: Further evaluation is necessary. It is very important to follow up with a healthcare provider. GENERAL WARNINGS: Return or contact your physician immediately if your condition worsens or changes unexpectedly, if not improving as expected, or if other problems arise. Specifically return if pain, vomiting, bleeding, breathing difficulty or fever. Your Current Medications: Your current home medications have been reviewed. CONTINUE TAKING THE FOLLOWING MEDICATIONS: Methocarbamol Oral : Tablet 750 mg, 1 tablet daily. Topiramate Oral : 100 mg daily. Prescription Medications: Benadryl 25 mg capsule Take 1 capsule three times a day as needed for 10 days -- for pruritus. Dispense 30 capsule. Refills: 0. Substitution permitted. 3 Clinical Report - Physicians/Mid Levels [facility] Emergency Department [address] [place] [address] Phone #: ext- [phone] 03/15/2021 15:01 Patient: JULISA GHOSH Sex: M : 2000 Age: 21y Pharmacy - [facility] [address] [facility] ; [place] [address]. . Understanding of the discharge instructions verbalized by patient. Expected course of illness, discharge instructions, activity level, follow-up appointment and risks and benefits of treatment reviewed with patient and understanding verbalized. Agrees to plan of care. Follow-[facility] with: [facility] [place] [facility], , , [id number] [place] [address], , [place], [address] Follow up in one even if well. Call for the next available appointment. Reason for referral: evaluation and recommend dermatology/electrical subcontractor referral if symptoms persist. Summary of care provided to patient via paper.(Electronically signed by MICHAEL Ramsey 03/15/2021 16:26) Name Value Range Interpretation Code Description Data Ina rce(s) Supporting Document(s) ID Date Data Source [id number] 03/02/2021 09:25:00 PM EDT [facility] Name Value Range Interpretation Code Description Data Ina rce(s) Supporting Document(s) SARS COVID ANTIGEN NEGATIVE [facility] This lab was ordered by KAUSHAL goins nd reported by [facility]. ID Date Data Source [id number] 03/01/2021 10:32:00 AM EDT [facility] [address] [place] [address] PHONE: [phone] FAX: [phone] Name .................. : DAVINA Parrish Acct Number.................. : [id number] ROOM. ................. : VT-08 Number ................... : [id number] Stay type ............. : E/R Discharge Date......... ... : 02/28/21 Admit Date ......... : 02/28/21 Admit Phys .................... : COONEYNORM Date of ....... : 2000 Family Phys ................... : NO PCP Phone .................. : [phone] Age ................................ : 21 Film# .................. .:[id number] Sex ................................. : M Unsigned transcriptions are preliminary reports and do not represent a medical or legal document SCROTAL [id number] COMPLETE:02/28/21 14:22 [id number] Reason(s): Testicle/Scrotum Pain ULTRASOUND SCROTUM INDICATION: Testicular/scrotal pain COMPARISON: None TECHNIQUE: Multiple images were taken in longitudinal and transverse projections. Limited Color Doppler was also performed. FINDINGS: RIGHT: TESTICLE: 4.0 x 1.9 x 2.4 cm. Volume 9.8 cc. Uniform, homogenous echogenicity. No masses. Normal blood flow. EPIDIDYMIS: The epididymis is unremarkable. HYDROCELE: Small VARICOCELE: Moderate varicocele. Maximum vessel diameter at rest 4.5 mm which increases to 4.8 mm with Valsalva. LEFT: TESTICLE: 4.3 x 1.9 x 3.0 cm. Volume 12.9 cc. Uniform, homogenous echogenicity. No masses. Normal blood flow. EPIDIDYMIS: The epididymis is unremarkable. HYDROCELE: None. VARICOCELE: Small varicocele. Maximum vessel diameter at rest 1.7 mm, increases to 2.2 mm with Valsalva. IMPRESSION: 1. No evidence of testicular torsion. Page 1 of 2 [facility] [address] [place] [address] PHONE: [phone] FAX: [phone] Name .................. : YOUSUFCLAY HDZY Shivani Acct Number.................. : [id number] ROOM. ................. : VT-08 Number ................... : [id number] Stay type ............. : E/R Discharge Date......... ... : 02/28/21 Admit Date ......... : 02/28/21 Admit Phys .................... : COONEYNORM Date of ....... : 2000 Family Phys ................... : NO PCP Phone .................. : [phone] Age ................................ : 21 Film# .................. .:[id number] Sex ................................. : M Unsigned transcriptions are preliminary reports and do not represent a medical or legal document SCROTAL [id number] COMPLETE:02/28/21 14:22 [id number] Reason(s): Testicle/Scrotum Pain 2. Bilateral varicoceles, right greater than left. 3. Small bilateral hydroceles. Preliminary report for this exam was provided by [facility]. Electronically Reviewed and Signed By Neeraj Raygoza MD , 03/01/21 10:32, JWAlexi Transcribe Initials: HAYLEY , Transcribe Date: 02/28/21 17:13, Dictation Date: Copy for: MATTHEW GRANADO via fax Copy for: EMERGENCY DEPT via mode Copy for: 710 MED REC DISCHARGED Page 2 of 2 Name Value Range Interpretation Code Description Data Ina rce(s) Supporting Document(s) ID Date Data Source [id number] 02/28/2021 01:50:00 PM EDT [facility] 1 OrderSheet [facility] Emergency Department [address] [place] [address] Phone #: [phone]- [phone] 02/28/2021 13:48 Patient: JULISA GHOSH Sex: M : 2000 Age: 21yWEIGHT:77.5 kg HEIGHT:73 inches BMI:22.5ALLERGIES: Aspirin, Macrobid, Primaquine Phosphate, SulfaCHIEF COMPLAINT: dysuria, Rt, testicular pain:, LtDIAGNOSIS: Hydrocele, Scrotal varicesLAB ORDERSOrder Description Priority Entered Acknowledged InitialedUA Reflex to UA 14:22 02/28/2021 14:31 [place] Tech[facility] PA; Qipn5Cujmuewrc/GC STAT 14:22 02/28/2021 14:31 [facility] TechLewis; Tech1 NOTES: urineSyphilis 14:22 02/28/2021 15:03 Johnnie Mcclain R.N. PA;DIAGNOSTIC STUDY ORDERSOrder Description Priority Entered Acknowledged InitialedUS Scrotal STAT 14:22 02/28/2021 14:34 [place](Oxygen?(No)) Johnnie [facility] TechLewis; Tech1 Reason for Study: Testicle/Scrotum PainMEDICATION/IV/DRIP/FLUID ORDERSOrder Description Priority Entered Acknowledged InitialedGENERAL ORDERSOrder Description Priority Entered Acknowledged Initialed[Electronically signed by Sheri Drew R.N. (16:32 02/28/2021)][Electronically signed by Johnnie Ulrich (22:06 02/28/2021)][Electronically locked by Sheri Drew R.N. (16:32 02/28/2021)] Name Value Range Interpretation Code Description Data Ina rce(s) Supporting Document(s) ID Date Data Source [id number] 02/28/2021 01:50:00 PM EDT [facility] 1 Medication Reconciliation Report [facility] Emergency Department [address] [place] [address] Phone #: [phone]- [phone] 02/28/2021 13:48 Patient: JULISA GHOSH Sex: M : 2000 Age: 21yWeight: 77.5 kgHeight/Length: 73 in.BMI: 22.5ALLERGIES: Aspirin, Macrobid, Primaquine Phosphate, SulfaThe patient's Home Medications are listed below:CONTINUE TAKING THE FOLLOWING MEDICATIONS: Amitriptyline HCl Oral Robaxin Oral SUMAtriptan Succinate Oral Topiramate Oral Vitamin D OralThe source(s) of the original Home Medication information:Not obtained.The following Medications were given to the patient in the Emergency Department:None.The following Medications were prescribed to the patient:Pending - ibuprofen 800 mg tablet Take 1 tablet three times a day as needed for pain for 15 days --Dispense 45 tablet. Refills: 0. Substitution permitted.Pharmacy - [facility] [phone] ; [place] [address]. . -- MICHAEL Buck Name Value Range Interpretation Code Description Data Ina rce(s) Supporting Document(s) ID Date Data Source [id number] 02/28/2021 01:50:00 PM EDT [facility] 1 Medication Administration Record [facility] Emergency Department [address] [place] [address] Phone #: ext- [phone] 02/28/2021 13:48 Patient: JULISA GHOSH Acct#: [id number] Sex: M : 2000 Age: 21yWeight: 77.5 kgHeight/Length: 73 inBMI: 22.5ALLERGIES: Macrobid, Aspirin, Sulfa, Primaquine PhosphateDate/Time Medication Administered Medication Ordered Name Value Range Interpretation Code Description Data Ina rce(s) Supporting Document(s) ID Date Data Source [id number] 02/28/2021 01:50:00 PM EDT [facility] 1 General Instructions [facility] Emergency Department [address] [place] [address] Phone #: ext- [phone] 02/28/2021 13:48 Patient: JULISA GHOSH Sex: M : 2000 Age: 21yRight and left acute hydrocele. No infected hydrocele.Scrotal varicocele on the right side.Erectile Dysfunction.INSTRUCTIONS(see your BN PA for a referral to Urology).Warnings: Further evaluation is necessary in order to conduct further tests. It is very important to follow upwith a healthcare provider.GENERAL WARNINGS: Return or contact your physician immediately if your condition worsens orchanges unexpectedly, if not improving as expected, or if other problems arise. Sp ecifically return if painworsens.Your Current Medications: Your current home medications have been reviewed.CONTINUE TAKING THE FOLLOWING MEDICATIONS:Amitriptyline HCl Oral.Robaxin Oral.SUMAtriptan Succinate Oral.Topiramate Oral.Vitamin D Oral.Prescription Medications:Pending - ibuprofen 800 mg tablet Take 1 tablet three times a day as needed for pain for 15 days --Dispense 45 tablet. Refills: 0. Substitution permitted.Pharmacy - [facility] [phone] ; [place] [address]. .Understanding of the discharge instructions verbalized by patient.Follow-up with: Rajan Doe M.D., Urology, , [address] [place] [address], [id number] Follow up. Call for the next available appointment. Reason for referral: evaluation and treatment.Summary of care provided to patient. ADDITIONAL INFORMATIONHydrocele (Type Not Specified) 2 General Instructions [facility] Emergency Department [address] [place] [address] Phone #: ext- [phone] 02/28/2021 13:48 Patient: JULISA GHOSH Sex: M : 2000 Age: 21yThe testicles first form in the abdomen of the male fetus. Just before , the testicles move downinto the scrotum. As this happens, fluid from the abdomen may pass into the scrotum and becomesealed off there in a small sac. This is called a non-communicating hydrocele.In some babies, the passage between the abdomen and the scrotum remains open. In this case, thebulge may get bigger and smaller as the fluid passes back and forth fr om the abdomen to thescrotum. This is called a communicating hydrocele.The danger of this second kind of hydrocele is that it can lead to a hernia. A hernia looks like apainless bulge in the groin or scrotum. A hernia in a baby can cause tissue (gangrene) andrupture of the intestine. This is a life- threatening emergency and requires surgery right away. So youshould watch for this condition.Most hydroceles shrink and disappear by the age of 1 or 2 years and need no treatment. If thehydrocele doesn't go away by 2 years of age, it may need to be corrected with surgery.Home careA small hydrocele won't interfere in any way with normal activity. You don't need to take any specialprecautions. Just observe the size of your baby's scrotum as you provide daily care and tell yourchild's healthcare provider right away if you notice any changes.Follow-up careFollow up with your child's healthcare provider, or as advised. This is to be sure the hydrocele isshrinking and that no hernia appears.When to seek medical adviceCall your child's healthcare provider right away if any of these occur: A new bulge in the groin that appears just above the thigh crease or in the scrotum Changes in size of the hydrocele. This can mean that it gets smaller, then larger, then smaller. Or it gets larger and stays larger. Pain, redness or tenderness in the hydrocele Pain in the testicle that happens with nausea, vomiting, or both [employer]. [address] [place] [address]. All rights reserved. This information is not intended as asubstitute for professional medical care. Always follow your healthcare professional's instructions.VaricoceleA varicocele is a swelling in the veins above the testicles. It's similar to a varicose vein in the legs. 3 General Instructions [facility] Emergency Department [address] [place] [address] Phone #: ext- [phone] 02/28/2021 13:48 Patient: JULISA GHOSH Sex: M : 2000 Age: 21yThe swelling happens when too much blood collects in the veins. It most often occurs around the lefttesticle. A varicocele may cause the sac of skin covering the testicles (the scrotum) to have a bluishcolor. It may also cause an achy or heavy feeling in the scrotum. The pain may be worse later in theday or after you have been standing for a long time. Some varicoceles can be seen all the time.Others can be seen only when you are standing. Or they may only be seen when a Valsalvamaneuver is done. This means bearing down in your belly (abdomen) to increase pressure.In most cases, a varicocele is not serious and doesn't need to be treated. But it's linked to beingunable to have a child (infertility). If you and your partner are trying to have a baby, talk with yourhealthcare provider about your options.No medicines are available to fix this condition. Surgery can be done to close off the enlarged veins.A varicocele is not serious. And all surgery has risks. So you and your healthcare provider mayconsider surgery only if: The pain becomes worse or you have new symptoms The testicle shrinks (atrophy) You want to try to improve your fertilityHome careTo help lessen discomfort, aching, or pain: Wear a jockstrap or snug underwear 4 General Instructions [facility] Emergency Department [address] [place] [address] Phone #: ext- [phone] 02/28/2021 13:48 Patient: JULISA GHOSH Sex: M : 2000 Age: 21y Take an [id number] pain reliever, such as ibuprofenFollow-up careFollow up with your healthcare provider, or as advised. Schedule regular exams with your provider sothe varicocele can be watched. Be sure to keep all your appointments. Tell your provider if you noticeany changes in your testicles or scrotum.When to seek medical adviceCall your healthcare provider right away if any of these occur: Increasing pain in your scrotum Trouble urinating A lump in the testicle A bulge in the groin area appears or gets bigger [phone] [employer]. [address] [place] [address]. All rights reserved. This information is not intended as asubstitute for professional medical care. Always follow your healthcare professional's instructions. You have been given the following additional information: Hydrocele, Type Not Specified Varicocele(Electronically signed by MICHAEL Buck 02/28/2021 22:06) Name Value Range Interpretation Code Description Data Ina rce(s) Supporting Document(s) ID Date Data Source [id number] 02/28/2021 01:50:00 PM EDT [facility] 1 Clinical Report - Nurses [facility] Emergency Department [address] [place] [address] Phone #: ext- [phone] 02/28/2021 13:48 Patient: JULISA GHOSH Sex: M : 2000 Age: 21yTRIAGEArrived by private vehicle. Historian: patient.Chief Complaint: PAIN WITH URINATION and TESTICULAR PAIN.( Pt reports erectile dysfunction x2 months, reports genital itching that went away, +dysuria.). He has hadtesticular pain, and discomfort with urination and been unable to void. No fever.SEPSIS SCREEN: SIRS SCREEN NEGATIVE. SEPSIS SCREEN NEGATIVE. No suspected or confirmedsigns of infection present. --14:07 02/28/21 Adele Cruz R.N.14:00 02/28/21. BP: 126/76. MAP: 92. HR: 73. RR: 18. O2 saturation: 97%. Temp: 98.8 F. Pain level now:8/10. Describes the quality as aching. Additional comments: Pain to back, neck, knee, feet. --14:0702/28/21 Adele Cruz R.N.Acuity: LEVEL 3. --14:07 02/28/21 Adele Cruz R.N.Weight: 77.5 kg. Height/Length: 73 inches. BMI: 22.5. --14:06 02/28/21 Adele Cruz R.N.MedicationsTopiramate Oral. --14:03 02/28/21 Adele Cruz R.N. Amitriptyline HCl Oral. --14:04 02/28/21 Adele Cruz R.N. Robaxin Oral. --14:04 02/28/21 Adele Cruz R.N. Vitamin D Oral. --14:04 02/28/21 Adele Cruz R.N. SUMAtriptan Succinate Oral. --14:04 02/28/21 Adele Cruz R.N.AllergiesPrimaquine Phosphate. --14:02 02/28/21September R.N.Sulfa. --14:03 02/28/21September RPepeN.Aspirin. --14:03 02/28/21September R.N.Macrobid. --14:03 02/28/21 AnthonySeptember, R.N.ADDITIONAL SURGERIES:no known surgeries.HistoryPAST MEDICAL HX: No history of UTI or sexually transmitted disease. Immunizations: up-to-date.SOCIAL HX: Never smoker. No alcohol use or drug use. He was offered HIV testing but declined andhepatitis C testing but declined. He has not traveled outside the [place]Infectious disease exposure: No infectious disease exposure. The patient was not exposed to Coronavirus. 2 Clinical Report - Nurses [facility] Emergency Department [address] [place] [address] Phone #: ext- [phone] 02/28/2021 13:48 Patient: JULISA GHOSH Sex: M : 2000 Age: 21y SELF HARM ASSESSMENT: Self harm assessment was performed. The patient answered "no" to the question(s) "Have you recently felt down, depressed, or hopeless?" and "Have you recently had thoughts about harming or killing others?". ABUSE ASSESSMENT: Abuse assessment. No suspicion of abuse. No report of abuse. NUTRITIONAL RISK ASSESSMENT: The nutritional risk assessment revealed no deficiencies. FUNCTIONAL ASSESSMENT: Functional assessment: no impairments noted. LEARNING NEEDS ASSESSMENT: The learning needs assessment revealed no barriers. FALL RISK ASSESSMENT: Fall risk assessment completed. No risk factors identified. SKIN INTEGRITY ASSESSMENT: Skin integrity risk assessment completed. No skin integrity risk identified. --14:07 02/28/21 Anthony Adele, R.N.PHYSICAL ASSESSMENTAmbulatory to room.GENERAL / NEURO / PSYCH: Alert. Oriented X 4. Appears in no acute distress. Appears anxious.RESPIRATORY: Respirations not labored.CVS: Normal heart rate and rhythm.GI / : Penile abnormality noted associated with painful urination (Genital exam deferred.).SKIN: Skin is warm and dry. --14:21 02/28/21 Adele Cruz R.N.NURSING PROGRESS NOTESPatient gowned. Two patient identifiers checked. Call light placed in reach. Patient placed in chair.Patient ready for evaluation- chart flagged and ED physician notified. ( Pt given urine cup, encouragedsample, pt unable at this time.). --14:20 02/28/21 Adele Cruz R.N. Patient transported to hospital for behavioral medicine by wheelchair with mask and radiology assistant. --14:35 02/28/21 [place] fish bailer, [place], ER Tech1.DISPOSITION / DISCHARGE 16:32 02/28/21. [place] Coma Scale: 15- eyes open- spontaneous (4); best verbal response- oriented (5); best motor response- obeys commands (6). Condition at departure: improved and stable. No learning barriers present. Discharge instructions provided and reviewed with the patient. Reviewed medication(s) side effects, precautions, dosing and course information. Prescription(s) sent electronically to pharmacy. Patient verbalized understanding. Written instructions provided in Taiwanese. The patient was discharged by the physician. He was discharged home. He left ambulatory and via private vehicle. Patient driving. --16:32 02/28/21 Sheri Drew R.N. 16:31 02/28/21. BP: 115/69. MAP: 84. HR: 61. RR: 16. O2 saturation: 100%. Temp: 98.1 F. Pain level 3 Clinical Report - Nurses [facility] Emergency Department [address] [place] [address] Phone #: ext- [phone] 02/28/2021 13:48 Patient: JULISA GHOSH Sex: M : 2000 Age: 21y now: 12/13. --16:32 02/28/21 Sheri Drew R.N.Locked/Released at 02/28/2021 16:32 by Sheri Drew R.N. Name Value Range Interpretation Code Description Data Ina rce(s) Supporting Document(s) ID Date Data Source [id number] 02/28/2021 01:50:00 PM EDT [facility] 1 Clinical Report - Physicians/Mid Levels [facility] Emergency Department [address] [place] [address] Phone #: ext- [phone] 02/28/2021 13:48 Patient: JULSIA GHOSH Sex: M : 2000 Age: 21y Time Seen: 14:20 02/28/2021. Arrived- By private vehicle. Historian- patient.HISTORY OF PRESENT ILLNESS Chief Complaint: DYSURIA and RIGHT and LEFT TESTICULAR PAIN. (ED). This started ED x 2 month; Pt reports erectile dysfunction x2 months, reports genital itching that went away, +dysuria.). He has had testicular pain, and discomfort with urination and been unable to void. No fever. and is still present. The problem is described as mild. It was gradual in onset and has been constant. No penile discharge, urinary frequency, genital lesion, urgency of urination or Garay catheter problem. No inguinal swelling or problem with the foreskin. He has had discomfort with urination. He has had mild testicular pain, involving the right testicle and left testicle. Able to void. Not voiding only small amounts. The patient has had unprotected intercourse. Similar symptoms previously. Patient has had similar symptoms several times. Recent medical care: Not recently seen/assessed.REVIEW OF SYSTEMSNo fever, chills, flank pain, hematuria or abdominal pain. No vomiting, diarrhea, black stools, bloodystools or headache. No sore throat, blurred vision, chest pain, difficulty breathing or cough. No joint painor back pain.PAST HISTORYAdditional Surgeries:no known surgeries. Medications: SUMAtriptan Succinate Oral. Vitamin D Oral. Robaxin Oral. Amitriptyline HCl Oral. Topiramate Oral. Allergies: Aspirin. Macrobid. Primaquine Phosphate. Sulfa.SOCIAL HISTORYNever smoker. No alcohol use or drug use. 2 Clinical Report - Physicians/Mid Levels [facility] Emergency Department [address] [place] [address] Phone #: ext- [phone] 02/28/2021 13:48 Patient: JULISA GHOSH Sex: M : 2000 Age: 21yPHYSICAL EXAMVital Signs: 02/28/2021 14:00 BP: 126/76. MAP: 92. HR: 73. RR: 18. O2 saturation: 97%. Temp: 98.8 F.Pain level now: 8/10. Have been reviewed as normal. Oxygen saturation normal.Appearance: Alert. Oriented X3. No acute distress.ENT: Normal external inspection. Pharynx normal.Neck: Neck supple.CVS: Heart sounds normal.Respiratory: No respiratory distress. Painless inspiration.Abdomen: Nontender.Back: Normal external inspection.: Mild tenderness of the right testicle and epididymis and left testicle and epididymis. No urethraldischarge, genital lesion, herpes-like lesions or hernia mass. No scrotal mass or swelling or inguinallymphadenopathy.Skin: Skin warm and dry. Normal skin color. No rash. Normal skin turgor.Extremities: Extremities exhibit normal ROM. No lower extremity edema.Neuro: Oriented X 3.LABS, X-RAYS, AND EKGScrotal Sonogram: 1. Normal testicles.2. Small nonspecific bilateral hydroceles.3. Mild right varicocele. The exam was performed by a medical technician assistant. The study was interpreted by theradiologist and contemporaneously by me. Interpretation time: 16:19 02/28/2021.Laboratory Tests: Laboratory tests have been ordered, with results reviewed and considered in themedical decision making process. UA REFLEX TO UA CULTURE: (CARMEN: 02/28/2021 14:20) ( [facility] 02/28/2021 14:58) Final results Test Result Flag Units (Reference) UA REFLEX TO UA CULTURE URINALYSIS SOURCE Clean Catch COLOR

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
--- OUTSIDE RECORDS SUMMARY | 2021-03-20 18:57 | CCD ---
Author Organization Unknown Address [address] [place] [address] Phone [phone] Care Team Providers Care Mirror Specialist Name Role Phone KERRI SLAUGHTER MD 3 [phone] Allergies Code Code System Name Reaction Severity Status Onset 588456 RxNorm Macrobid Other Moderate Active 87 RxNorm Primaquine Other Moderate Active Sulfa (Sulfonamide Antibiotics) Other Active 20230807 RxNorm Tylenol Insomnia Moderate to Severe Active Medications Name Status Start Date Stop Date acetaminophen 325 mg tablet Completed 10/2020 amitriptyline 10 mg tablet Completed 03/10 amitriptyline 25 mg tablet Completed 03/10 cholecalciferol (vitamin D3) 1,250 mcg (50,000 unit) capsule Act veronica Not available ciprofloxacin 500 mg tablet TAKE 1 TABLET BY MOUTH TWICE DAILY Completed 10/2020 cyclobenzaprine 5 mg tablet Completed 10/2020 duloxetine 20 mg capsule,delayed release Completed 03/10/2021 ibuprofen 200 mg tablet Active Not avai lable Loratadine-D 10 mg-240 mg tablet,extended release 24 hr Active Not available methocarbamol 500 mg tablet Completed 10/2020 methocarbamol 750 mg tablet Completed 10/2020 naproxen 500 mg tablet TAKE 1 TABLET BY MOUTH TWICE DAILY TAKE WITH FOOD Completed 03/10/2021 Nasal [place] (oxymetazoline) 0.05 % Active Not available Natural Fiber Laxative Therapy oral powder Completed 03/10/2021 ondansetron 4 mg disintegrating tablet Active Not available Proctosol HC 2.5 % topical cream perineal applicator Completed 03/10/2021 sumatriptan 50 mg tablet Completed topiramate 100 mg tablet Active Not haylie ilable topiramate 25 mg tablet Completed 03/10/20 Voltaren 1 % topical gel Completed Zanaflex 4 mg tablet Take 1 tablet 3 times a day by oral route as needed. Active Not available Problems None recorded. Procedures Date Name Performed by 03/10/2021 MRI, Lumbar Spine, W/o Contrast Informat ion not available Results Lab Results None recorded. Past Encounters 03/10/2021 Lumbosacral Spondylosis without Myelopathy; Lumbar Radiculopathy; Myofascial Pain Lucas Leiva MD: [id number] [facility] [address], [place] [address], Ph. Social History Tobacco Smoking Status Never Smoker Vaccine List None recorded. Plan of Care Reminders Provider Appointments None recorded. Lab None recorded. Referral None recorded. Procedures None recorded. Surgeries None recorded. Imaging None recorded. Vitals Height Weight BMI Blood Pressure 6 ft 1 in 171 lbs 22.6 kg/m2 160/83 mm[Hg]
--- OUTSIDE RECORDS SUMMARY | 2021-03-21 01:55 | CCD ---
Author Author [facility] Organization [facility] Address Unknown Phone Unavailable Care Team Providers Care Special Certificate Dictator Name Role Phone NO, PCP Unavailable Unavailable [...] Unavailable Unavailable Alexi Leiva MD Unavailable Unavailable Alxei Leiva MD Unavailable Unavailable Alexi Leiva MD [...] Unavailable Shivani Winn MD Unavailable Unavailable Shivani iWnn MD Unavailable Unavailable Shivani Winn MD Unavailable [...] is protected by Article 27-F of the [facility] Public Health law. If you continue you may have access to information: Regarding HIV / AIDS; Provided by facilities licensed or operated by the [facility] Office of Mental Health; or Provided by the [facility] Office for People With Developmental Disabilities. If such information is present, then the following [facility] mandated warning applies: This information has [...] law may result in a fine or senior living sentence or both. A general authorization for the release of medical or other information is NOT sufficient authorization for further disc losure. Encounters Encounter Providers Location Date Indications Data Source(s ) Emergency Attender: CECY VALENCIA MDConsultant: PCP NO 03/15/2021 03:33:00 PM EDT - 03/15/2021 03:53:00 PM EDT [facility] Patient discharged. Lucas Leiva MD: [id number] [address], [place] [address], Ph. Attender: Lucas Leiva MD ID - [facility] - Main Office 03/10/2021 12:00:00 AM EDT [facility] ([facility]) Emergency Attender: CECY VALENCIA MDConsultant: PCP NO 02/28/2021 01:50:00 PM EDT - 02/28/2021 04:32:00 PM EDT [facility] Patient discharged. Outpatient Attender: Deirdre Winn MD Main office [facility] 02/02/2021 08:00:00 AM EDT MEDFELIBERTO ([facility] DALJIT cleaning) Outpatient Attender: SUNIL ZAPATAConsultant: PCP NO 12/22/2020 07:01:00 AM EDT - 12/22/2020 08:01:00 AM EDT [facility] Emergency Attender: CECY LENTZonsultant: PCP NO 12/18/2020 03:12:00 PM EDT - 12/18/2020 06:04:00 PM EDT [facility] Patient discharged. Medications Medication Brand Name Start Date Product Form Dose Route Admi nistrative Instructions Pharmacy Instructions Status Indications Reaction Description Data Source(s) topiramate 25 MG Oral Tablet Topiramate 02/02/2021 12:00:00 AM EDT active [facility] ([facility], ) Nurtec Nurtec 02/02/2021 12:00:00 AM EDT active [facility] ([facility], ) topiramate 100 MG Oral Tablet Topiramate 02/02/2021 12:00:00 AM EDT ORAL active [facility] ([facility], ) Natural Fiber Laxative Therapy oral powder completed Natural Fiber Laxative Therapy oral powder [facility] ([facility]) Hydrocortisone 25 MG/ML Topical Cream [P roctosol] Proctosol HC 2.5 % topical cream perineal applicator Proctosol HC 2.5 % topical cream perineal applicator completed hydrocortisone 25 MG/ML Topical Cream [Proctosol] [facility] ([facility]) duloxetine 20 MG Delayed Release Oral Ca psule duloxetine 20 mg capsule,delayed release duloxetine 20 mg capsule,delayed release completed duloxetine 20 MG Delayed Release Oral Capsule [facility] ([facility]) Acetaminophen 325 MG Oral Tablet acetaminophen 325 mg tablet acetaminophen 325 mg tablet completed acetaminophe n 325 MG Oral Tablet [facility] ([facility]) Ciprofloxacin 500 MG Oral Tablet ciprofl oxacin 500 mg tablet TAKE 1 TABLET BY MOUTH TWICE DAILY ciprofloxacin 500 mg tablet TAKE 1 TABLE T BY MOUTH TWICE DAILY completed ciprofloxacin 50 0 MG Oral Tablet [facility] ([facility]) Amitriptyline Hydrochloride 25 MG Oral Tablet amitript yline 25 mg tablet amitriptyline 25 mg tablet completed amitriptyline hydrochloride 25 MG Oral Tablet [facility] ([facility]) Sumatriptan 50 MG Oral Tablet sumatriptan 50 mg tablet sumat riptan 50 mg tablet completed sumatriptan 50 MG Oral Tablet [facility] ([facility]) Methocarbamol 500 MG Oral Tablet methocarbamol 500 mg tablet methocarbamol 500 mg tablet completed methocarbamo l 500 MG Oral Tablet [facility] ([facility]) Diclofenac Sodium 0.01 MG/MG Topical Gel [Voltaren] Vo ltaren 1 % topical gel Voltaren 1 % topical gel completed diclofenac sodium 0.01 MG/MG Topical Gel [Voltaren] [facility] ([facility]) Naproxen 500 MG Oral Tablet naproxen 500 mg tablet TAKE 1 TABLET BY MOUTH TWICE DAILY TAKE WITH FOOD naproxen 500 mg tablet TAKE 1 TABLET BY MOUTH TWICE DAILY TAKE WITH FOOD completed naproxe n 500 MG Oral Tablet [facility] ([facility]) topiramate 25 MG Oral Tablet topiramate 25 mg tablet topiramate 25 mg tablet completed topiramate 25 MG Oral Tablet [facility] ([facility]) Methocarbamol 750 MG Oral Tablet methocarbamol 750 mg tablet methocarbamol 750 mg tablet completed methocarbamo l 750 MG Oral Tablet [facility] ([facility]) Cyclobenzaprine hydrochloride 5 MG Oral Tablet cyclobe nzaprine 5 mg tablet cyclobenzaprine 5 mg tablet completed cyclobenzaprine hydrochloride 5 MG Oral Tablet [facility] ([facility]) Amitriptyline Hydrochloride 10 MG Oral Tablet amitript yline 10 mg tablet amitriptyline 10 mg tablet completed amitriptyline hydrochloride 10 MG Oral Tablet [facility] ([facility]) Insurance Providers Payer name Policy type / Coverage type Policy ID Covered republican ID Covered republican's relationship to covarrubias Policy Covarrubias Plan Information [facility] ACTIVE DUTY [id number] SP [id number] [facility] HUMANA - O/P [id number] 18 [id number] [facility] HUMANA - O/P [id number] 18 [id number] [facility] HUMANA - O/P . 18 . 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 Diagnosis 02/28/2021 01:5 0:00 PM EDT [facility] N433 Hydrocele, unspecified Hydrocele, unspecified Diagnosi s 02/28/2021 01:50:00 PM EDT [facility] R300 Dysuria Dysuria Diagnosis 02/28/2021 01:50:00 PM ED T [facility] [id number] Personal history of traumatic brain inju ry Personal history of traumatic brain injury Diagnosis 12/22/2020 07:01:00 AM EDT [facility] R2689 Other abnormalities of gait and mobility Other abnormalities of gait and mobility Diagnosis 12/22/2020 07:01:00 AM EDT [facility] K69159 Migraine, unspecified, not intractable, without status migrainosus Migraine, unspecified, not intractable, without status migrainosus Diagnosis 12/22/2020 07:01:00 AM EDT [facility] [id number] Chronic migraine without aura, intractab le, with status migrainosus Chronic migraine without aura, intractable, with status migrainosus Diagnosis 12/18/2020 03:12:00 PM EDT [facility] R519 Headache, unspecified Headache, unspecified Diagnosis 12/18/2020 03:12:00 PM EDT [facility] [id number] Concussion injury of brain Concussion injury of brain Problem 02/02/2021 12:00:00 AM EDT [facility] ([facility], ) [id number] Migraine Migraine Problem 02/02/2021 12:00:00 AM ED T [facility] ([facility]) Surgeries/Procedures Procedure Description Date Indications Data Source(s) MRI, lumbar spine, w/o contrast 03/10/2021 12:00:00 AM EDT [facility] ([facility]) OFFICE CONSULTATION NEW/ESTAB PATIENT 60 MIN 12:00:00 AM EDT [facility] ([facility], ) Results ID Date Data Source [id number] 03/15/2021 03:33:00 PM EDT [facility] 1 Medication Reconciliation Report [facility] Emergency Department [address] [place] [address] Phone #: ext- [phone] 03/15/2021 15:01 Patient: [...] needed for 10 days -- for pruritus. Sabmekme50 capsule. Refills: 0. Substitution permitted.Pharmacy - [facility] - [address] [facility] ; [place] [address]. . -- MICHAEL Ramsey Name Value Range Interpretation Code Description Data [facility](s) Supporting Document(s) ID Date Data Source [id number] 03/15/2021 03:33:00 PM EDT [address] [address] Medication Administration Record [facility] Emergency Department [address] [place] [address] Phone #: ext- [phone] 03/15/2021 15:01 Patient: JULISA GHOSH Sex: M : 2000 Age: 21yWeight: 77.5 kgHeight/Length: 73 inBMI: 22.5ALLERGIES: No Known Drug AllergyDate/Time Medication Administered Medication Ordered Name Value Range Interpretation Code Description Data [facility] rce(s) Supporting Document(s) ID Date Data Source [id number] 03/15/2021 03:33:00 PM EDT [facility] 1 General Instructions [facility] Emergency Department [address] [place] [address] Phone #: ext- [phone] 03/15/2021 15:01 Patient: [...] needed for 10 days -- for pruritus. Shcojrlv32 capsule. Refills: 0. Substitution permitted.Pharmacy - [facility] - [address] [facility] ; [place] [id number]. .Understanding of the discharge instructions verbalized by patient. Expected course of illness, dischargeinstructions, activity level, follow-up appointment and risks and bene fits of treatment reviewed with patientand understanding verbalized. Agrees to plan of care.Follow-up with: [facility], , , [address], [place], [address] Follow up in one even if well. Call for the next available appointment. Reason for referral: evaluation nilo dermatology/seed laboratory technician referral if symptoms persist. Summary of care provided to patient viapaper. 2 General Instructions [facility] Emergency Department [address] [place] [address] Phone #: ext- [phone] 03/15/2021 15:01 Patient: JULISA GHOSH Sex: M : 2000 Age: 21y(Electronically signed by MICHAEL Ramsey 03/15/2021 16:26) Name Value Range Interpretation Code Description Data Ina rce(s) Supporting Document(s) ID Date Data Source [id number] 03/15/2021 03:33:00 PM EDT [facility] 1 Clinical Report - Nurses [facility] Emergency Department [address] [place] [address] Phone #: ext- [phone] 03/15/2021 15:01 Patient: JULISA GHOSH Sex: M : 2000 Age: 21yTRIAGEArrived by private vehicle. Historian: patient. Accompanied by friend.Acuity: LEVEL 4.Chief Complaint: (generalized itching).Onset. (6 months ago). ( pt states he has no rash but has had a generalized itching for about the past 6months, has not been seen for this as of yet).Treatment RIFLE CASE REPAIRER:None.SEPSIS SCREEN: SIRS SCREEN NEGATIVE. SEPSIS SCREEN NEGATIVE. [...] Immunizations: up-to-date. 2 Clinical Report - Nurses [facility] Emergency Department [address] [place] [address] Phone #: ext- [phone] 03/15/2021 15:01 Patient: [...] To treatment room. --15:03/15/21 Roe Hurley RN.PHYSICAL [id number] 03/15/21. Ambulatory to room.GENERAL / NEURO / [...] Discharge instructions 3 Clinical Report - Nurses [facility] Emergency Department [address] [place] [address] Phone #: ext- [phone] 03/15/2021 15:01 Patient: JULISA GHOSH Sex: M : 2000 Age: 21y provided and reviewed with the patient. Reviewed medication(s) side effects, precautions, dosing and course information. Prescription(s) sent electronically to pharmacy ([facility]). Patient verbalized understanding. Written instructions provided in Nicaraguan. The patient was discharged home. He left [...] rce(s) Supporting Document(s) ID Date Data Source [id number] 03/15/2021 03:33:00 PM EDT [facility] 1 Clinical Report - Physicians/Mid Levels [facility] Emergency Department [address] [place] [address] Phone #: ext- [phone] 03/15/2021 15:01 Patient: [...] allergies. 2 Clinical Report - Physicians/Mid Levels [facility] Emergency Department [address] [place] [address] Phone #: ext- [phone] 03/15/2021 15:01 Patient: JULISA GHOSH Sex: M [...] permitted. 3 Clinical Report - Physicians/Mid Levels [facility] Emergency Department [address] [place] [address] Phone #: ext- [phone] 03/15/2021 15:01 Patient: JULISA GHOSH Sex: M : 2000 Age: 21y Pharmacy - [facility] [address] [facility] ; [place] [address]. . Understanding of the discharge instructions verbalized by patient. Expected course of illness, discharge instructions, activity level, follow-up appointment and risks and benefits of treatment reviewed with patient and understanding verbalized. Agrees to plan of care. Follow-up with: [facility], , , [address] [place] [address], , [place], [address] Follow up in one even if well. Call for the next available appointment. Reason for referral: evaluation and recommend dermatology/seed laboratory technician referral if symptoms persist. Summary of care provided to patient via paper.(Electronically signed by MICHAEL Ramsey 03/15/2021 16:26) Name Value Range Interpretation Code Description Data Ina rce(s) Supporting Document(s) ID Date Data Source [id number] 03/02/2021 09:25:00 PM EDT [facility] Name Value Range Interpretation Code Description Data Ina rce(s) Supporting Document(s) SARS COVID ANTIGEN NEGATIVE [facility] This lab was ordered by KAUSHAL goins nd reported by [facility]. ID Date Data Source [id number] 03/01/2021 10:32:00 AM EDT [facility] [address] [place] [address] PHONE: [phone] FAX: [phone] Name .................. : DAVINA Parrish Acct Number.................. : [id number] ROOM. ................. : VT-08 Number ................... : [id number] Stay type ............. : E/R Discharge Date......... ... : 02/28/21 Admit Date ......... : 02/28/21 Admit Phys .................... : COONEYNORM Date of ....... : 2000 Family Phys ................... : NO PCP Phone .................. : [phone] Age ................................ : 21 Film# .................. .:[id number] Sex ................................. : M Unsigned transcriptions are preliminary reports and do not represent a medical or legal document SCROTAL [id number] COMPLETE:02/28/21 14:22 [id number] Reason(s): Testicle/Scrotum Pain ULTRASOUND SCROTUM INDICATION: Testicular/scrotal [...] of testicular torsion. Page 1 of 2 [facility] [address] [place] [address] PHONE: [phone] FAX: [phone] Name .................. : YOUSUFCLAY HDZY Shivani Acct Number.................. : [id number] ROOM. ................. : VT-08 Number ................... : [id number] Stay type ............. : E/R Discharge Date......... ... : 02/28/21 Admit Date ......... : 02/28/21 Admit Phys .................... : COONEYNORM Date of ....... : 2000 Family Phys ................... : NO PCP Phone .................. : [phone] Age ................................ : 21 Film# .................. .:[id number] Sex ................................. : M Unsigned transcriptions are preliminary reports and do not represent a medical or legal document SCROTAL [id number] COMPLETE:02/28/21 14:22 [id number] Reason(s): Testicle/Scrotum Pain 2. Bilateral varicoceles, right [...] rce(s) Supporting Document(s) ID Date Data Source [id number] 02/28/2021 01:50:00 PM EDT [facility] 1 OrderSheet [facility] Emergency Department [address] [place] [address] Phone #: [phone]- [phone] 02/28/2021 13:48 Patient: JULISA GHOSH Sex: M : 2000 Age: 21yWEIGHT:77.5 kg HEIGHT:73 inches BMI:22.5ALLERGIES: Aspirin, Macrobid, Primaquine Phosphate, SulfaCHIEF COMPLAINT: dysuria, Rt, testicular pain:, LtDIAGNOSIS: Hydrocele, Scrotal varicesLAB ORDERSOrder Description Priority Entered Acknowledged InitialedUA Reflex to UA 14:22 02/28/2021 14:31 [facility] TechLewis PA; Luer6Jpdcbjias/GC STAT 14:22 02/28/2021 14:31 [facility] TechLewis; Tech1 NOTES: urineSyphilis 14:22 02/28/2021 15:03 Johnnie Mcclain R.N. PA;DIAGNOSTIC STUDY ORDERSOrder Description Priority Entered Acknowledged InitialedUS Scrotal STAT 14:22 02/28/2021 14:34 [place](Oxygen?(No)) Johnnie [facility] TechLewis; Tech1 Reason for Study: Testicle/Scrotum PainMEDICATION/IV/DRIP/FLUID ORDERSOrder Description Priority Entered Acknowledged InitialedGENERAL ORDERSOrder Description Priority Entered Acknowledged Initialed[Electronically signed by Sheri Drew R.N. (16:32 02/28/2021)][Electronically signed by Johnnie Ulrich (22:06 02/28/2021)][Electronically locked by Sheri Drew R.N. (16:32 02/28/2021)] Name Value Range Interpretation Code Description Data Ina rce(s) Supporting Document(s) ID Date Data Source [id number] 02/28/2021 01:50:00 PM EDT [facility] 1 Medication Reconciliation Report [facility] Emergency Department [address] [place] [address] Phone #: suc- [phone] 02/28/2021 13:48 Patient: JULISA GHOSH Sex: M [...] 45 tablet. Refills: 0. Substitution permitted.Pharmacy - [facility] [phone] ; [place] [address]. . -- MCIHAEL Buck Name Value Range Interpretation Code Description Data Ina rce(s) Supporting Document(s) ID Date Data Source [id number] 02/28/2021 01:50:00 PM EDT [facility] 1 Medication Administration Record [facility] Emergency Department [address] [place] [address] Phone #: ext- [phone] 02/28/2021 13:48 Patient: JULISA GHOSH Acct#: [id number] Sex: M : 2000 Age: 21yWeight: 77.5 kgHeight/Length: 73 inBMI: 22.5ALLERGIES: Macrobid, Aspirin, Sulfa, Primaquine PhosphateDate/Time Medication Administered Medication Ordered Name Value Range Interpretation Code Description Data Ina rce(s) Supporting Document(s) ID Date Data Source [id number] 02/28/2021 01:50:00 PM EDT [facility] 1 General Instructions [facility] Emergency Department [address] [place] [address] Phone #: ext- [phone] 02/28/2021 13:48 Patient: [...] 45 tablet. Refills: 0. Substitution permitted.Pharmacy - [facility] [address] ; [place] [address]. .Understanding of the discharge instructions verbalized by patient.Follow-up with: Rajan Doe M.D., Urology, , [address] [place] [address], [address] Follow up. Call for the next available appointment. Reason for referral: evaluation and treatment.Summary of care provided to patient. ADDITIONAL INFORMATIONHydrocele (Type Not Specified) 2 General Instructions [facility] Emergency Department [address] [place] [address] Phone #: ext- [phone] 02/28/2021 13:48 Patient: [...] happens with nausea, vomiting, or both [employer]. [address] [place] [address]. All rights reserved. This information is not intended as asubstitute for professional medical care. Always follow your healthcare professional's instructions.VaricoceleA varicocele is a swelling in the veins above the testicles. It's similar to a varicose vein in the legs. 3 General Instructions [facility] Emergency Department [address] [place] [address] Phone #: ext- [phone] 02/28/2021 13:48 Patient: [...] jockstrap or snug underwear 4 General Instructions [facility] Emergency Department [address] [place] [address] Phone #: ext- [phone] 02/28/2021 13:48 Patient: JULISA GHOSH Sex: M : 2000 Age: 21y Take an ulni-vfz-spplrds pain reliever, such as ibuprofenFollow-up careFollow up [...] the groin area appears or gets bigger [id number] [employer]. [address] [place] [address]. All rights reserved. This information is not intended as asubstitute for professional medical care. Always follow your healthcare professional's instructions. You have been given the following additional information: Hydrocele, Type Not Specified Varicocele(Electronically signed by MICHAEL Buck 02/28/2021 22:06) Name Value Range Interpretation Code Description Data Ina rce(s) Supporting Document(s) ID Date Data Source [id number] 02/28/2021 01:50:00 PM EDT [facility] 1 Clinical Report - Nurses [facility] Emergency Department [address] [place] [address] Phone #: ext- [phone] 02/28/2021 13:48 Patient: JULISA GHOSH Sex: M [...] to Coronavirus. 2 Clinical Report - Nurses [facility] Emergency Department [address] [place] [address] Phone #: ext- [phone] 02/28/2021 13:48 Patient: [...] 02/28/21 Adele Cruz R.N. Patient transported to [facility] by wheelchair with mask and transmission technician. --14:35 02/28/21 [place] head screen worker, [place], ER Tech1.DISPOSITION / DISCHARGE 16:32 02/28/21. [place] Coma Scale: 15- eyes open- spontaneous (4); best verbal response- oriented (5); best motor response- obeys commands (6). Condition at departure: improved and stable. No learning barriers present. Discharge instructions provided and reviewed with the patient. Reviewed medication(s) side effects, precautions, dosing and course information. Prescription(s) sent electronically to pharmacy. Patient verbalized understanding. Written instructions provided in Nicaraguan. The patient was discharged by the physician. He was discharged home. He left ambulatory and via private vehicle. Patient driving. --16:32 02/28/21 Sheri Drew R.N. 16:31 02/28/21. BP: 115/69. MAP: 84. HR: 61. RR: 16. O2 saturation: 100%. Temp: 98.1 F. Pain level 3 Clinical Report - Nurses [facility] Emergency Department [address] [place] [address] Phone #: ext- [phone] 02/28/2021 13:48 Patient: JULISA GHOSH Sex: M : 2000 Age: 21y now: 12/13. --16:32 02/28/21 Sheri Drew R.N.Locked/Released at 02/28/2021 16:32 by Shrei Drew R.N. Name Value Range Interpretation Code Description Data Ina rce(s) Supporting Document(s) ID Date Data Source [id number] 02/28/2021 01:50:00 PM EDT [facility] 1 Clinical Report - Physicians/Mid Levels [facility] Emergency Department [address] [place] [address] Phone #: ext- [phone] 02/28/2021 13:48 Patient: [...] use. 2 Clinical Report - Physicians/Mid Levels [facility] Emergency Department [address] [place] [address] Phone #: ext- [phone] 02/28/2021 13:48 Patient: [...] varicocele. The exam was performed by a is technician. The study was interpreted by theradiologist and contemporaneously by me. Interpretation time: 16:19 02/28/2021.Laboratory Tests: Laboratory tests have been ordered, with results reviewed and considered in themedical decision making process. UA REFLEX TO UA CULTURE: (CARMEN: 02/28/2021 14:20) ( [facility] 02/28/2021 14:58) Final results Test Result Flag [...] Not Indicate Syphilis: (CARMEN: 02/28/2021 14:30) ( [facility] 02/28/2021 16:01) Final results Test Result Flag Units (Reference) SYPHILIS NON-REACTIVE (NORMAL:NON RE. 3 Clinical Report - Physicians/Mid Levels [facility] Emergency Department [address] [place] [address] Phone #: ext- [phone] 02/28/2021 13:48 Patient: [...] tablet. Refills: 0. Substitution permitted. Pharmacy - [facility] [phone] ; [place] [address]. . Understanding of the discharge instructions verbalized by patient. 4 Clinical Report - Physicians/Mid Levels [facility] Emergency Department [address] [place] [address] Phone #: ext- [phone] 02/28/2021 13:48 Patient: JULISA GHOSH Sex: M : 2000 Age: 21y Follow-up with: Rajan Doe M.D., Urology, , [address] [place] [address], [facility] Follow up. Call for the next available appointment. Reason for referral: evaluation and treatment. Summary of care provided to patient.(Electronically signed by MICHAEL Buck 02/28/2021 22:06) Name Value Range Interpretation Code Description Data Ina rce(s) Supporting Document(s) ID Date Data Source [id number] 02/28/2021 04:01:00 PM EDT [facility] Name Value Range Interpretation Code Description Data Ina rce(s) Supporting Document(s) Treponema pallidum Ab [Presence] in Serum NON-REACTIVE NORMAL:NON VELMA CTIVE [facility] ID Date Data Source [id number] 03/03/2021 07:40:00 AM EDT [facility] Name Value Range Interpretation Code Description Data Ina rce(s) Supporting Document(s) Chlamydia trachomatis rRNA [Presence] in Unspecified specimen by Probe and target amplification method Negative Negative [facility] Neisseria gonorrhoeae rRNA [Presence] in Unspecified specimen by Probe and target amplification method Negative Negative [facility] ID Date Data Source [id number] 02/28/2021 02:57:00 PM EDT [facility] Name Value Range Interpretation Code Description Data Ina rce(s) Supporting Document(s) UA REFLEX TO UA CULTURE [facility] URINALYSIS SOURCE Clean Catch [facility] ital COLOR yellow NORMAL: Yellow [facility] ospital CLARITY clear NORMAL: Clear [facility] Specific gravity of Urine by Test strip 1.015 1.001 - 1.030 [facility] pH 6 5 - 9 [facility] Glucose [Mass/volume] in Urine by Test strip NORM NORMAL: Negat [facility] Bilirubin.total [Presence] in Urine by Test strip NEG NORMAL: Negative [facility] Ketones [Presence] in Urine by Test strip NEG NORMAL: Negative [facility] Protein [Mass/volume] in Urine by Test strip NEG NORMAL: Negat [facility] Nitrite [Presence] in Urine by Test strip NEG NORMAL: Negative [facility] BLOOD NEG NORMAL: Negative [facility] Leukocyte esterase [Presence] in Urine by Test strip NEG CECY L: Negative [facility] Urobilinogen [Mass/volume] in Urine by Test strip NOR less bernie n 1.0 mg/dL [facility] MICROSCOPIC Not Indicate [facility] ID Date Data Source [id number] 12/23/2020 09:58:00 AM EDT [facility] [address] [place] [address] PHONE: [phone] FAX: [phone] Name .................. : DAVINA Parrish Acct Number.................. : [id number] ROOM. ................. : MR Number ................... : [id number] Stay type ............. : O/P Discharge Date......... ... : 12/22/20 Admit Date ......... : 12/22/20 Admit Phys .................... : BENNY HALLS Date of ....... : 2000 Family Phys ................... : NO PCP Phone .................. : [phone] Age ................................ : 20 Film# .................. .:[id number] Sex ................................. 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 : DAVINA PEARSON Shivani Acct Number.................. : [id number] ROOM. ................. : VT-02 Number ................... : [id number] Stay type ............. : E/R Discharge Date......... ... : 12/18/20 Admit Date ......... : 12/18/20 Admit Phys .................... : COONEYNORM Date of ....... : 2000 Family Phys ................... : NO PCP Phone .................. : [phone] Age ................................ : 20 Film# .................. .:[id number] Sex ................................. : M Unsigned transcriptions are preliminary reports and do not represent a medical or legal document CT HEAD W/O CONTRAST [id number] COMPLETE:12/18/20 20:24 DLA 87866 Reason(s): Head Injury CT OF THE HEAD [...] By Daquan Miller M.D. , 12/19/20 14:07, [facility] Transcribe Initials: HAYLEY , Transcribe Date: 12/19/20 02:56, Dictation Date: Page 1 of 2 [place] [address] PHONE: [phone] FAX: [phone] Name .................. : DAVINA Parrish Acct Number.................. : [id number] ROOM. ................. : [place] MR Number ................... : [id number] Stay type ............. : E/R Discharge Date......... ... : 12/18/20 Admit Date ......... : 12/18/20 Admit Phys .................... : COONEYNORM Date of ....... : 2000 Family Phys ................... : NO PCP Phone .................. : [phone] Age ................................ : 20 Film# .................. .:[id number] Sex ................................. : M Unsigned transcriptions are preliminary reports and do not represent a medical or legal document CT HEAD W/O CONTRAST [id number] COMPLETE:12/18/20 20:24 DLA 20186 Reason(s): Head Injury Copy for: CARLOZ LOZANO via fax Copy for: EMERGENCY DEPT via modem Copy for: 710 MED REC DISCHARGED Page 2 of 2 Name Value Range Interpretation Code Description Data Ina rce(s) Supporting Document(s) ID Date Data Source [id number] 12/18/2020 03:12:00 PM EDT [facility] 1 OrderSheet [facility] Emergency Department [address] [place] [address] Phone #: ext- [phone] 12/18/2020 15:09 Patient: [...] 16:40 Richard Horton RN P.A.-C; 2 OrderSheet [facility] Emergency Department [address] [place] [address] Phone #: ext- [phone] 12/18/2020 15:09 Patient: MICHEL GHOSH Sex: M : 2000 Age: 20yGENERAL ORDERSOrder Description Priority Entered Acknowledged InitialedSaline Lock 16:06 12/18/2020 16:40 Richard Horton RN, P.A.-C;[Electronically signed by Lucrecia Lynn R.N. (18:04 12/18/2020)][Electronically signed by Gordon Glover P.A.-C (01:09 12/19/2020)][Electronically locked by Lucrecia Lynn R.N. (18:04 12/18/2020)] Name Value Range Interpretation Code Description Data Ina rce(s) Supporting Document(s) ID Date Data Source [id number] 12/18/2020 03:12:00 PM EDT [facility] 1 Medication Reconciliation Report [facility] Emergency Department [address] [place] [address] Phone #: ext- [phone] 12/18/2020 15:09 Patient: MICHEL GHOSH Sex: M [...] rce(s) Supporting Document(s) ID Date Data Source [id number] 12/18/2020 03:12:00 PM EDT [facility] 1 Medication Administration Record [facility] Emergency Department [address] [place] [address] Phone #: ext [phone] 12/18/2020 15:09 Patient: MICHEL GHOSH Sex: M : 2000 Age: 20yWeight: 77.5 kgHeight/Length: 71 inBMI: 23.8ALLERGIES: Primaquine Phosphate, Macrobid, Aspirin, Sulfa Antibiotics Date/Time Medication Administered Medication OrderedStart NS [IV] IV NS 1000 mL Bolus : Bolus 749532:30 12/18/2020 Dose: IV Fluids mL (X1)Richard Horton RN Bolus: 1000 mL over 1 hour(s)---- Dispensed: 1000 mL bagStop Site: #1 right [id number] 12/18/2020Tersanjay Horton RNGiven ZOFRAN [IVP] (ONDANSETRON HCL) Zofran IVP 4 mg16:32 12/18/2020 Dose: 4 mg IVManny Horton RN Site: #1 right forearmGiven BENADRYL [IVP] (DIPHENHYDRAMINE Benadryl IVP 25 mg16:31 12/18/2020 HCL)Richard Horton RN Dose: 25 mg IVP Site: #1 right forearm Name Value Range Interpretation Code Description Data Ina rce(s) Supporting Document(s) ID Date Data Source [id number] 12/18/2020 03:12:00 PM EDT [facility] 1 General Instructions [facility] Emergency Department [address] [place] [address] Phone #: [phone] ext- [phone] 12/18/2020 15:09 Patient: MICHEL GHOSH Sex: M [...] Other triggers include certain 2 General Instructions [facility] Emergency Department [address] [place], [place] [id number] Phone #: ext- [phone] 12/18/2020 15:09 Patient: [...] salami Liver Avocados Bananas 3 General Instructions [facility] Emergency Department [address] [place] [address] Phone #: ext- [phone] 12/18/2020 15:09 Patient: [...] sinuses, ears, or throat 4 General Instructions [facility] Emergency Department [address] [place] [address] Phone #: ext- [phone] 12/18/2020 15:09 Patient: [...] of your face Trouble talking or seeing [phone] [employer] [place] [address]. All rights reserved. This information is not [...] rce(s) Supporting Document(s) ID Date Data Source [id number] 12/18/2020 03:12:00 PM EDT [facility] 1 Clinical Report - Nurses [facility] Emergency Department [address] [place] [address] Phone #: ext- [phone] 12/18/2020 15:09 Patient: [...] Carlos MohamudPrimaquine Phosphate. --15:16 12/18/20 Juan Carlos Moahmud.PROBLEMS:Headache. --15:18 12/18/20 Juan Carlos Mohamud.Medication/allergy information source: [...] carrier of 2 Clinical Report - Nurses [facility] Emergency Department [address] [place] [address] Phone #: ext- [phone] 12/18/2020 15:09 Patient: [...] Patientready for evaluation- PA notified. --15:53 12/18/20 Richadr Horton RN 16:29 12/18/2020 Site #1 started [...] Horton RN 3 Clinical Report - Nurses [facility] Emergency Department [address] [place] [address] Phone #: ext- [phone] 12/18/2020 15:09 Patient: [...] and birthdate. Blood samples drawn by tech. ([id number]). --16:41 12/18/20 Richard Horton RN Patient transported to [place] by wheelchair with mask and transmission technician. ([id number]). --16:58 12/18/20 Richard Horton RN 17:40 12/18/2020 [...] patient was discharged home and accompanied by farmworker chicken farm. He left ambulatory and via private vehicle. Numerical Control Programmer driving. --18:04 12/18/20 Lucrecia Lynn R.N. Departure time: 18:04 12/18/2020. --18:04 12/18/20 Lucrecia Lynn R.N. 4 Clinical Report - Nurses [facility] Emergency Department [address] [place] [address] Phone #: ext- [phone] 12/18/2020 15:09 Patient: MICHEL GHOSH Sex: M : 2000 Age: 20yLocked/Released at 12/18/2020 18:04 by Lucrecia Lynn R.N. Name Value Range Interpretation Code Description Data Ina rce(s) Supporting Document(s) ID Date Data Source [id number] 12/18/2020 03:12:00 PM EDT [facility] 1 Clinical Report - Physicians/Mid Levels [facility] Emergency Department [address] [place] [address] Phone #: ext- [phone] 12/18/2020 15:09 Patient: MICHEL GHOSH Sex: M [...] NAYAK. Sts that he eventaully went to [facility] for eval and imaigng. PT sts [...] NOTES 2 Clinical Report - Physicians/Mid Levels [facility] Emergency Department [address] [place] [address] Phone #: ext- [phone] 12/18/2020 15:09 Patient: MICHEL GHOSH Sex: M [...] 51.0) 3 Clinical Report - Physicians/Mid Levels [facility] Emergency Department [address] [place] [address] Phone #: ext- [phone] 12/18/2020 15:09 Patient: [...] NOT INDICATEDSed. Rate: (CARMEN: 12/18/2020 16:14) ( [facility] 12/18/2020 16:40) Final results Test Result Flag Units (Reference) SED RATE 1 mm/hr (0 - 15) SED RATE REENTER 1CRP: (CARMEN: 12/18/2020 16:14) ( [facility] 12/18/2020 16:39) Final results Test Result Flag Units (Reference) CRP-HS 0.20 L MG/L (1.00 - 3.00) CDC/S HS-CRP CUT-OFF: RELATIVE RISK: <1.0 mg/LLow 1.0 - 3.0 mg/L Average >3.0 mg/LHigh Optimally, the average of HS-CRP results repeated two weeks apart should be used forrisk assessment.CMP: (CARMEN: 12/18/2020 16:14) ( [facility] 12/18/2020 16:37) Final results Test Result Flag [...] 56) 4 Clinical Report - Physicians/Mid Levels [facility] Emergency Department [address] [place] [address] Phone #: ext- [phone] 12/18/2020 15:09 Patient: MICHEL GHOSH Sex: M [...] had since August 05 injury. Seen at [facility] ER and TBI clinic. Seen by TBI clinic yesterday. PE demos NV intact b/l UE. Noted sinus tenderness. ? acute sinusititis vs acute on chronic. Will obtian labs and imaigng for further evla. Pending resutls. Reviewed results. Enter room and patient lying peacefully in bed in NAD. Patient stable. Denies any new issues, concerns, or complaints. Pt sts that he [facility]. Sts that s/s are almost [...] treatment. 5 Clinical Report - Physicians/Mid Levels [facility] Emergency Department [address] [place] [address] Phone #: ext- [phone] 12/18/2020 15:09 Patient: [...] rce(s) Supporting Document(s) ID Date Data Source [id number] 12/18/2020 04:40:00 PM EDT [facility] Name Value Range Interpretation Code Description Data Ina rce(s) Supporting Document(s) Erythrocyte sedimentation rate by Westergren method 1 mm/hr 0 - 15 [facility] SED RATE REENTER 1 [facility] ID Date Data Source [id number] 12/18/2020 04:39:00 PM EDT [facility] Name Value Range Interpretation Code Description Data Ina rce(s) Supporting Document(s) C reactive protein [Mass/volume] in Serum or Plasma by High sensitivity method 0.20 MG/L 1.00 - 3.00 L [facility] HS-CRP CUT-OFF: RELATIVE RISK: <1.0 mg/L Low 1.0 - 3.0 mg/L Average >3.0 mg/L High Optimally, the average of HS-CRP results repeated two weeks apart should be used for risk assessment. ID Date Data Source [id number] 12/18/2020 04:37:00 PM EDT [facility] Name Value Range Interpretation Code Description Data Ina rce(s) Supporting Document(s) COMPREHENSIVE METABOLIC PANEL [facility] COMPREHENSIVE METABOLIC PANEL Sodium [Moles/volume] in Serum or Plasma 139 mEq/L 134 - 153 [facility] Potassium [Moles/volume] in Serum or Plasma 4.0 mEq/L 3.6 - 5.0 [facility] Chloride [Moles/volume] in Serum or Plasma 105 mEq/L 98 - 107 [facility] Carbon dioxide, total [Moles/volume] in Serum or Plasma 26 MEQ/L 22 - 30 [facility] Glucose [Mass/volume] in Serum or Plasma 97 MG/DL 70 - 99 [facility] BUN 10 MG/DL 7 - 21 [facility] Creatinine [Mass/volume] in Serum or Plasma 0.9 MG/DL 0.7 - 1.5 [facility] BUN/CREAT 11 8 - 27 [facility] Protein [Mass/volume] in Serum or Plasma 7.6 G/DL 6.3 - 8.2 [facility] Albumin [Mass/volume] in Serum or Plasma 4.5 G/DL 3.9 - 5.0 [facility] Globulin [Mass/volume] in Serum by calculation 3.1 GM/DL 2.4 - 3.2 [facility] A/G RATIO 1.5 0.8 - 2.0 [facility] Calcium [Mass/volume] in Serum or Plasma 9.7 MG/DL 8.4 - 10.2 [facility] Bilirubin.total [Mass/volume] in Serum or Plasma 1.0 MG/DL 0.2 - 1.3 [facility] Alkaline phosphatase [Enzymatic activity/volume] in Serum or Plasma 76 U/L 38 - 126 [facility] Aspartate aminotransferase [Enzymatic activity/volume] in Serum or Plasma 21 U/L 5 - 40 [facility] Alanine aminotransferase [Enzymatic activity/volume] in Seru m or Plasma 15 U/L 7 - 56 [facility] Anion gap 3 in Serum or Plasma 8.0 mmol/L 8.0 - 16.0 [facility] AGE 20 yrs [facility] NON-AA GFR >60 mL/min [facility] ital AFR AMER GFR >60 mL/min [facility] Male GFR In terprentation 20-49 [...] >32 mL/min Normal ID Date Data Source [id number] 12/18/2020 04:19:00 PM EDT [facility] Name Value Range Interpretation Code Description Data Ina rce(s) Supporting Document(s) CBC W/AUTOMATED DIFF [facility] COMPLETE BLOOD COUNT Leukocytes [#/volume] in Blood by Automated count 5.1 10^3/uL 4.2 - 1 1.0 [facility] Erythrocytes [#/volume] in Blood by Automated count 4.61 10^6/uL 4. 50 - 6.30 [facility] Hemoglobin [Mass/volume] in Blood 14.7 g/dL 14.0 - 16.0 [facility] Hematocrit [Volume Fraction] of Blood by Automated count 43.0 % 4 1.0 - 51.0 [facility] Erythrocyte mean corpuscular volume [Entitic volume] by Auto mated count 93.3 fL 80.0 - 94.0 [facility] Erythrocyte mean corpuscular hemoglobin [Entitic mass] by Automated count 31.9 pg 27.0 - 34.0 [facility] Erythrocyte mean corpuscular hemoglobin concentration [Mass/volume] by Automated count 34.2 g/dL 31.0 - 36.0 [facility] Erythrocyte distribution width [Ratio] by Automated count 11.9 % 11.5 - 14.8 [facility] Platelets [#/volume] in Blood by Automated count 181 10^3/uL 150 - 45 0 [facility] Platelet mean volume [Entitic volume] in Blood by Automated count 10.9 fL 7.4 - 10.4 H [facility] Neutrophils/100 leukocytes in Blood by Automated count 47.6 % 37. 0 - 80.0 [facility] Lymphocytes/100 leukocytes in Blood by Manual count 42.2 % 25.0 - 40.0 H [facility] Monocytes/100 leukocytes in Blood by Automated count 8.2 % 3.0 - 8.0 H [facility] Eosinophils/100 leukocytes in Blood by Automated count 1.2 % 0.0 - 7.0 [facility] Basophils/100 leukocytes in Blood by Automated count 0.6 % 0.0 - 2.0 [facility] %IG 0.2 % 0.0 - 0.0 H [facility] %NRBC 0.0 % 0.0 - 0.0 [facility]rophils [#/volume] in Blood by Automated count 2.45 10^3/uL 2.00 - 6.90 [facility] Lymphocytes [#/volume] in Blood by Automated count 2.17 10^3/uL 0.60 - 3.40 [facility] Monocytes [#/volume] in Blood by Automated count 0.42 10^3/uL 0.00 - 0.90 [facility] Eosinophils [#/volume] in Blood by Automated count 0.06 10^3/uL 0.00 - 0.70 [facility] Basophils [#/volume] in Blood by Automated count 0.03 10^3/uL 0.00 - 0.20 [facility] #IG 0.01 10^3/uL 0.00 - 0.10 [facility] #NRBC 0.00 10^3/uL 0.00 - 0.00 [facility] MANUAL DIFF NOT INDICATED [facility] RBC MORPH NOT INDICATED [facility] Procedure Social History No Information Vital Signs ID Date Data Source UNK Name Value Range Interpretation Code Description Data Source(s) Diastolic blood pressure 83 mm[Hg] 83 mm[Hg] CHANEL ([facility]) Body height 73 [in_i] 73 [in_i] CHANEL ([facility]) Body mass index (BMI) [Ratio] 22.6 kg/m2 22.6 k g/m2 CHANEL ([facility]) Systolic blood pressure 160 mm[Hg] 160 mm[Hg] A THENA ([facility]) Body weight 171 [lb_av] 171 [lb_av] CHANEL ([facility]) Respiratory rate 12 /min 12 /min MEDENT ( [facility], ) Body height 71 [in_i] 71 [in_i] MEDENT ([facility], ) 5'11" Body weight 171.00 [lb_av] 171.00 [lb_av] MEDEN T ([facility], ) Body mass index (BMI) [Ratio] 23.8 kg/m2 23.8 k g/m2 MEDENT ([facility], ) [place] body weight 172 [lb_av] 172 [lb_av] GIULIANO T ([facility], ) Patient Treatment Plan of Care Planned Activity Planned Date Details Description Data Source (s) Diclofenac Sodium 0.01 MG/MG Topical Gel [Voltaren] CHANEL ([facility]) topiramate 25 MG Oral Tablet [facility]EL ([facility]) Sumatriptan 50 MG Oral Tablet [facility]EL ([facility]) Hydrocortisone 25 MG/ML Topical Cream [Proctosol] CHANEL ([facility]) Natural Fiber Laxative Therapy oral powder CHANEL ([facility]) Naproxen 500 MG Oral Tablet CHANEL ([facility]) Methocarbamol 750 MG Oral Tablet CHANEL ([facility]) Methocarbamol 500 MG Oral Tablet CHANEL ([facility]) duloxetine 20 MG Delayed Release Oral Capsule CHANEL ([facility]) Cyclobenzaprine hydrochloride 5 MG Oral Tablet CHANEL ([facility]) Ciprofloxacin 500 MG Oral Tablet CHANEL ([facility]) Amitriptyline Hydrochloride 25 MG Oral Tablet CHANEL ([facility]) Amitriptyline Hydrochloride 10 MG Oral Tablet CHANEL ([facility]) Acetaminophen 325 MG Oral Tablet CHANEL ([facility])
[2021-03-21] MEDS ORDERED: MORPHINE 2 MG/ML 1ML VIAL (J2270) IV ONE (02:55)
--- NOTE | 2021-03-21 06:10 | REPVR ---
PROCEDURE INFORMATION: Exam: MR Lumbar Spine Without Contrast Exam date and time: 03/21/2021 3:39 AM Age: 21 years old Clinical indication: Lumbago with sciatica; Bilateral; Patient HX: PT states injured 6 months ago and recently has been experiencing pain and numbness down the legs and groin pain; Additional info: Low back pain, incontinence, saddle parestesia TECHNIQUE: Imaging protocol: Multiplanar magnetic resonance images of the lumbar spine without intravenous contrast. COMPARISON: CT Spine, lumbar w/o contrast 02/04/2021 2:35 PM FINDINGS: Vertebrae: Mild levoscoliosis. Spinal cord: Conus at L2. L1-L2: No significant disc disease. No significant spinal canal stenosis. No neural foraminal stenosis. L2-L3: No significant disc disease. No significant spinal canal stenosis. No neural foraminal stenosis. L3-L4: No significant disc disease. No significant spinal canal stenosis. No neural foraminal stenosis. L4-L5: No significant disc disease. No significant spinal canal stenosis. No neural foraminal stenosis. L5-S1: No significant disc disease. No significant spinal canal stenosis. No neural foraminal stenosis. Soft tissues: Unremarkable. IMPRESSION: No acute findings. Electronically signed by: Mariano Lora On 03/21/2021 06:10:02 AM
[2021-03-21 08:04] VITALS: BP 132/69
== END 2021-03-21 08:14 | disposition home or self-care (01) ==
LOC: M ED 18:45
DX: R32 Unspecified urinary incontinence (principal); G89.29 Other chronic pain; M54.9 Dorsalgia, unspecified; M25.551 Pain in right hip; M25.552 Pain in left hip; D55.0 Anemia due to glucose-6-phosphate dehydrogenase [G6PD] deficiency; Z87.820 Personal history of traumatic brain injury; Z88.2 Allergy status to sulfonamides; Z88.8 Allergy status to other drugs, medicaments and biological substances; Z88.6 Allergy status to analgesic agent; Z79.899 Other long term (current) drug therapy

== ENCOUNTER 2021-04-03 16:23 | Emergency (ER) | payer OTHER ==
[~2021-04-03] VITALS: Ht 185.4 cm; Wt 83.4 kg
[~2021-04-03 16:23] MED LIST changes: +TIZA4TAB4
--- OUTSIDE RECORDS SUMMARY | 2021-04-03 16:30 | CCD | Continuity of Care Document ---
Author Author Michael DENNISON M.D. Organization Unknown Address [address] [place] [id number] Phone [phone] Problems Active Problems Provider Date Migraine Deirdre Dennisno M.D. Onset: 02/02/2021 Concussion injury of brain Deirdre Dennison M.D. Onset: 01/06 Social History Type Date Description Comments Sex Unknown Tobacco Use Start: Unknown Patient has never smoked Allergies and adverse reactions Active Allergies Criticality Reaction | Severity Comments Date Aspirin Unable to assess criticality 02/02/2021 Macrobid Unable to assess criticality 02/02/2021 Primaquine Unable to assess criticality 02/02/2021 Sulfa Antibiotics Unable to assess criticality 02/02/2021 Medications Active Medications SIG Qnty Indications Ordering Provide r Date Emgality 120mg/ml Solution Auto-In ject Dispense one 120mg sc injection once per month. 1ml Deirdre Dennison M.D. 03/18/2021 Nurtec 75mg Tablets Dispers Take 1 tablet at the immediate onset of migraine. Patient failed Imitrex. 8belem Dennison M.D. 02/02/2021 History Medications Topiramate 100mg Tablets Take 1.5 tabs at bedtime. Patient will wean off of this as it is not tollerated. 45tazully Dennison M.D. 03/09/2021 - 04/01/2021 Topiramate 25mg Tablets Take 1 tab qhs x7day, then 2 tabs qhs x7days, then 3 tabs qhs x7days, then 100mg tab qhs. 42tazully Dennison M.D. 02/02/2021 - 03/09 Topiramate 100mg Tablets take one tablet by mouth at bedtime 30tabs Deirdre Dennison M.D. 2020 - 03/09/2021 Immunizations Description No Information Available Vital Signs Date Vital Result Comment 02/02/2021 8:28am Respiratory Rate 12 /min Height 71 inches 5'11" Weight 171.00 lb BMI (Body Mass Index) 23.8 kg/m2 [place] Body Weight 172 lb Results Description No Information Available Procedures Date Code Description Status 02/02/2021 [id number] Office Consultation Level 4 Comp leted Medical Devices Description No Information Available Encounters Type Date Location Provider Dx Diagnosis Office Visit 02/02/2021 8:00a [facility] Deirdre griffin M.D. G43.719 Chronic migraine w/o [...] 12:45 pm - Deirdre Dennison M.D. at [facility] Functional Status Description No Information Available Mental Status Description No Information Available Referrals Refer to Dr Reason for Referral Status Appt Date Deirdre Dennison M.D. Created [address] [place] [address] [phone]
--- OUTSIDE RECORDS SUMMARY | 2021-04-03 16:30 | CCD ---
Author Author [facility] Organization [facility] Address Unknown Phone Unavailable Care Team Providers Care Supervisor Sign Shop Name Role Phone NO, PCP Unavailable Unavailable [...] Unavailable Unavailable Alexi Leiva MD Unavailable Unavailable Bolmary, Alexi Zavala MD Unavailable Unavailable Bolla, Alexi Zavala MD Unavailable Unavailable Bolla, Alexi Zavala MD Unavailable Unavailable Bolla, Alexi Zavala MD Unavailable Unavailable Bolmary, Alexi Zavala MD Unavailable Unavailable Bolmary, Alexi Zavala MD Unavailable Unavailable Bolla, Alexi Zavala MD Unavailable Unavailable Bolmary, Alexi Zavala MD Unavailable Unavailable Bolla, Alexi Zavala MD Unavailable Unavailable Bolla, Alexi Zavala MD Unavailable Unavailable Bolla, Alexi Zavala MD Unavailable Unavailable Bolla, Alexi Zavala MD Unavailable Unavailable Bolla, Alexi Zavala MD Unavailable Unavailable Bolmary, Alexi Zavala MD Unavailable Unavailable Bolla, Alexi Zavala MD Unavailable Unavailable Bolla, Alexi Zavala MD Unavailable Unavailable Bolla, Alexi Zavala MD Unavailable Unavailable Bolmary, Alexi Zavala MD Unavailable Unavailable Bolmary, Alexi Zavala MD Unavailable Unavailable Bolmary, Alexi Zavala MD Unavailable Unavailable Bolla, Alexi Zavala MD Unavailable Unavailable Bolmary, Alexi Zavala MD Unavailable Unavailable Bolmary, Alexi Zavala MD Unavailable Unavailable Bolmary, Alexi Zavala MD Unavailable Unavailable Bolmary, Alexi Zavala MD Unavailable Unavailable Bolmary, Alexi Zavala MD Unavailable Unavailable Degroot, M Alexander PA-C Unavailable Unavailable Degroot, M Alexander PA-C Unavailable Unavailable Jumalon, M Annemarie PAPER CONE MAKER Unavailable Unavailable Jumalon, M Annemarie PAPER CONE MAKER Unavailable Unavailable Jumalon, M Annemarie PAPER CONE MAKER Unavailable Unavailable Jumalon, M Annemarie PAPER CONE MAKER Unavailable Unavailable Jumalon, M Annemarie PAPER CONE MAKER Unavailable Unavailable Jumalon, M Annemarie PAPER CONE MAKER Unavailable Unavailable Jumalon, M Annmearie PAPER CONE MAKER Unavailable Unavailable Jumalon, M Annemarie PAPER CONE MAKER Unavailable Unavailable Jumalon, M Annemarie PAPER CONE MAKER Unavailable Unavailable Jumalon, M Annemarie PAPER CONE MAKER Unavailable Unavailable Jumalon, M Annemarie PAPER CONE MAKER Unavailable Unavailable Jumalon, M Annemarie PAPER CONE MAKER Unavailable Unavailable Jumalon, M Annemarie PAPER CONE MAKER Unavailable Unavailable Jumalon, M Annemarie PAPER CONE MAKER Unavailable Unavailable Jumalon, M Annemarie PAPER CONE MAKER Unavailable Unavailable Jumalon, M Annemarie PAPER CONE MAKER Unavailable Unavailable Jumalon, M Annemarie PAPER CONE MAKER Unavailable Unavailable Jumalon, M Annemarie PAPER CONE MAKER Unavailable Unavailable Jumalon, M Annemarie PAPER CONE MAKER Unavailable Unavailable Jumalon, M Annemarie PAPER CONE MAKER Unavailable Unavailable Jumalon, M Annemarie PAPER CONE MAKER Unavailable Unavailable Jumalon, M Annemarie PAPER CONE MAKER Unavailable Unavailable Jumalon, M Annemarie PAPER CONE MAKER Unavailable Unavailable Jumalon, M Annemarie PAPER CONE MAKER Unavailable Unavailable Jumalon, M Annemarie PAPER CONE MAKER Unavailable Unavailable Jumalon, M Annemarie PAPER CONE MAKER Unavailable Unavailable Jumalon, M Annemarie PAPER CONE MAKER Unavailable Unavailable Jumalon, M Annemarie PAPER CONE MAKER Unavailable Unavailable Jumalon, M Annemarie PAPER CONE MAKER Unavailable Unavailable Jumalon, M Annemarie PAPER CONE MAKER Unavailable Unavailable Shivani Winn MD Unavailable Unavailable [...] Unavailable Unavailable Shivani Winn MD Unavailable Unavailable Tatum O Deirdre COHEN Unavailable Unavailable Tatum O Deirdre COHEN Unavailable Unavailable Tatum O Deirdre COHEN Unavailable Unavailable Tatum O Deirdre COHEN Unavailable Unavailable Shivani Winn MD Unavailable Unavailable Shivani Winn MD Unavailable Unavailable Tatum O Deirdre COHEN Unavailable Unavailable Shivani Winn MD Unavailable Unavailable [...] Unavailable Unavailable Shivani Winn MD Unavailable Unavailable ATIF ZAPATA Unavailable Unavailable ANNIE, L CECY MD Unavailable [...] is protected by Article 27-F of the [facility] Public Health law. If you continue you may have access to information: Regarding HIV / AIDS; Provided by facilities licensed or operated by the [facility] Office of Mental Health; or Provided by the [facility] Office for People With Developmental Disabilities. If such information is present, then the following [facility] mandated warning applies: This information has [...] law may result in a fine or custodial sentence or both. A general authorization for the release of medical or other information is NOT sufficient authorization for further disc losure. Encounters Encounter Providers Location Date Indications Data Source(s ) Emergency Attender: Alexander Degroot PA-C 07:34:00 PM EDT - 03/31/2021 11:08:00 PM EDT STOMACH PAIN,RECTUM BLEEDING, VOMITING [facility] STOMACH PAIN,RECTUM BLEEDING, VOMITING Patient discharged. Annemarie Pickens, INFRASTRUCTURE ARCHITECT: [id number], [place] [address], Ph. Attender: Annemarie PALOMINO [place] - [facility] 03/25/2021 12:00:00 AM EDT ATHKarl WAYNE ([facility]) Emergency Attender: CECY VALENCIA MDConsultant: PCP NO 03/15/2021 03:33:00 PM EDT - 03/15/2021 03:53:00 PM EDT [facility] Patient discharged. Lucas Leiva MD: [id number] [facility] [address], [place] [address], Ph. Attender: Lucas Leiva MD [facility] 03/10/2021 12:00:00 AM EDT [facility] ([facility]) Lucas Leiva MD: [id number] [facility] [address], [place] [address], Ph. Attender: Lucas Leiva MD [facility] 03/10/2021 12:00:00 AM EDT [facility] ([facility]) Emergency Attender: CECY VALENCIA MDConsultant: PCP NO 02/28/2021 01:50:00 PM EDT - 02/28/2021 04:32:00 PM EDT [facility] Patient discharged. Outpatient Attender: Deirdre Winn MD Main office - [facility] 02/02/2021 08:00:00 AM EDT [facility] ([facility] ) Outpatient Attender: SUNIL ZAPATAConsultant: PCP NO 12/22/2020 07:01:00 AM EDT - 12/22/2020 08:01:00 AM EDT [facility] Emergency Attender: CECY VALENCIA MDConsultant: PCP NO 12/18/2020 03:12:00 PM EDT - 12/18/2020 06:04:00 PM EDT [facility] Patient discharged. Medications Medication Brand Name Start Date Product Form Dose Route Admi nistrative Instructions Pharmacy Instructions Status Indications Reaction Description Data Source(s) Emgality Emgality 03/18/2021 12:00:00 AM EDT activ e [facility] ([facility], ) topiramate 100 MG Oral Tablet Topiramate 03/09/2021 12:00:00 AM EDT completed [facility] ([facility], ) topiramate 25 MG Oral Tablet Topiramate 02/02/2021 12:00:00 AM EDT completed [facility] ([facility] ) Nurtec Nurtec 02/02/2021 12:00:00 AM EDT active [facility] ([facility] ) topiramate 100 MG Oral Tablet Topiramate 02/02/2021 12:00:00 AM EDT ORAL completed [facility] ([facility], ) Diclofenac Sodium 0.01 MG/MG Topical Gel [Voltaren] Vo ltaren 1 % topical gel Voltaren 1 % topical gel completed diclofenac sodium 0.01 MG/MG Topical Gel [Voltaren] [facility] ([facility]) Methocarbamol 750 MG Oral Tablet methocarbamol 750 mg tablet methocarbamol 750 mg tablet completed methocarbamo l 750 MG Oral Tablet [facility] ([facility]) Natural Fiber Laxative Therapy oral powder completed Natural Fiber Laxative Therapy oral powder [facility] ([facility]) Sumatriptan 50 MG Oral Tablet sumatriptan 50 mg tablet sumat riptan 50 mg tablet completed sumatriptan 50 MG Oral Tablet [facility] ([facility]) Acetaminophen 325 MG Oral Tablet acetaminophen 325 mg tablet acetaminophen 325 mg tablet completed acetaminophe n 325 MG Oral Tablet [facility] ([facility]) Ciprofloxacin 500 MG Oral Tablet ciprofl oxacin 500 mg tablet TAKE 1 TABLET BY MOUTH TWICE DAILY ciprofloxacin 500 mg tablet TAKE 1 TABLE T BY MOUTH TWICE DAILY completed ciprofloxacin 50 0 MG Oral Tablet [facility] ([facility]) Methocarbamol 500 MG Oral Tablet methocarbamol 500 mg tablet methocarbamol 500 mg tablet completed methocarbamo l 500 MG Oral Tablet [facility] ([facility]) Amitriptyline Hydrochloride 25 MG Oral Tablet amitript yline 25 mg tablet amitriptyline 25 mg tablet completed amitriptyline hydrochloride 25 MG Oral Tablet [facility] ([facility]) Diclofenac Sodium 0.01 MG/MG Topical Gel [Voltaren] Vo ltaren 1 % topical gel Voltaren 1 % topical gel completed diclofenac sodium 0.01 MG/MG Topical Gel [Voltaren] [facility] ([facility]) topiramate 25 MG Oral Tablet topiramate 25 mg tablet topiramate 25 mg tablet completed topiramate 25 MG Oral Tablet [facility] ([facility]) duloxetine 20 MG Delayed Release Oral Ca psule duloxetine 20 mg capsule,delayed release duloxetine 20 mg capsule,delayed release completed duloxetine 20 MG Delayed Release Oral Capsule [facility] ([facility]) Methocarbamol 750 MG Oral Tablet methocarbamol 750 mg tablet methocarbamol 750 mg tablet completed methocarbamo l 750 MG Oral Tablet [facility] ([facility]) Cyclobenzaprine hydrochloride 5 MG Oral Tablet cyclobe nzaprine 5 mg tablet cyclobenzaprine 5 mg tablet completed cyclobenzaprine hydrochloride 5 MG Oral Tablet [facility] ([facility]) Amitriptyline Hydrochloride 10 MG Oral Tablet amitript yline 10 mg tablet amitriptyline 10 mg tablet completed amitriptyline hydrochloride 10 MG Oral Tablet [facility] ([facility]) Methocarbamol 500 MG Oral Tablet methocarbamol 500 mg tablet methocarbamol 500 mg tablet completed methocarbamo l 500 MG Oral Tablet [facility] ([facility]) Hydrocortisone 25 MG/ML Topical Cream [P roctosol] Proctosol HC 2.5 % topical cream perineal applicator Proctosol HC 2.5 % topical cream perineal applicator completed hydrocortisone 25 MG/ML Topical Cream [Proctosol] [facility] ([facility]) Amitriptyline Hydrochloride 10 MG Oral Tablet amitript yline 10 mg tablet amitriptyline 10 mg tablet completed amitriptyline hydrochloride 10 MG Oral Tablet [facility] ([facility]) duloxetine 20 MG Delayed Release Oral Ca psule duloxetine 20 mg capsule,delayed release duloxetine 20 mg capsule,delayed release completed duloxetine 20 MG Delayed Release Oral Capsule [facility] ([facility]) Naproxen 500 MG Oral Tablet naproxen 500 mg tablet TAKE 1 TABLET BY MOUTH TWICE DAILY TAKE WITH FOOD naproxen 500 mg tablet TAKE 1 TABLET BY MOUTH TWICE DAILY TAKE WITH FOOD completed naproxe n 500 MG Oral Tablet [facility] ([facility]) Hydrocortisone 25 MG/ML Topical Cream [P roctosol] Proctosol HC 2.5 % topical cream perineal applicator Proctosol HC 2.5 % topical cream perineal applicator completed hydrocortisone 25 MG/ML Topical Cream [Proctosol] [facility] ([facility]) Cyclobenzaprine hydrochloride 5 MG Oral Tablet cyclobe nzaprine 5 mg tablet cyclobenzaprine 5 mg tablet completed cyclobenzaprine hydrochloride 5 MG Oral Tablet [facility] ([facility]) Amitriptyline Hydrochloride 25 MG Oral Tablet amitript yline 25 mg tablet amitriptyline 25 mg tablet completed amitriptyline hydrochloride 25 MG Oral Tablet [facility] ([facility]) Sumatriptan 50 MG Oral Tablet sumatriptan 50 mg tablet sumat riptan 50 mg tablet completed sumatriptan 50 MG Oral Tablet [facility] ([facility]) Naproxen 500 MG Oral Tablet naproxen 500 mg tablet TAKE 1 TABLET BY MOUTH TWICE DAILY TAKE WITH FOOD naproxen 500 mg tablet TAKE 1 TABLET BY MOUTH TWICE DAILY TAKE WITH FOOD completed naproxe n 500 MG Oral Tablet [facility] ([facility]) topiramate 25 MG Oral Tablet topiramate 25 mg tablet topiramate 25 mg tablet completed topiramate 25 MG Oral Tablet [facility] ([facility]) Natural Fiber Laxative Therapy oral powder completed Natural Fiber Laxative Therapy oral powder [facility] ([facility]) Ciprofloxacin 500 MG Oral Tablet ciprofl oxacin 500 mg tablet TAKE 1 TABLET BY MOUTH TWICE DAILY ciprofloxacin 500 mg tablet TAKE 1 TABLE T BY MOUTH TWICE DAILY completed ciprofloxacin 50 0 MG Oral Tablet [facility] ([facility]) Insurance Providers Payer name Policy type / Coverage type Policy ID Covered democrat ID Covered democrat's relationship to covarrubias Policy Covarrubias Plan Information [facility] ACTIVE DUTY [id number] SP [id number] [facility] HUMANA - O/P [id number] 18 [id number] [facility] HUMA[employer] - O/P [id number] 18 [id number] [facility] HUMANA - O/P . 18 . 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 Diagnosis 02/28/2021 01:5 0:00 PM EDT [facility] N433 Hydrocele, unspecified Hydrocele, unspecified Diagnosi s 02/28/2021 01:50:00 PM EDT [facility] R300 Dysuria Dysuria Diagnosis 02/28/2021 01:50:00 PM ED [facility] [id number] Personal history of traumatic brain inju ry Personal history of traumatic brain injury Diagnosis 12/22/2020 07:01:00 AM [facility] [id number] Other abnormalities of gait and mobility Other abnormalities of gait and mobility Diagnosis 12/22/2020 07:01:00 AM T [facility] [id number] Migraine, unspecified, not intractable, without status migrainosus Migraine, unspecified, not intractable, without status migrainosus Diagnosis 12/22/2020 07:01:00 AM [facility] [id number] Chronic migraine without aura, intractab le, with status migrainosus Chronic migraine without aura, intractable, with status migrainosus Diagnosis 12/18/2020 03:12:00 PM T [facility] R519 Headache, unspecified Headache, unspecified Diagnosis 12/18/2020 03:12:00 PM T [facility] [id number] Concussion injury of brain Concussion injury of brain Problem 02/02/2021 12:00:00 AM EDT [facility] ([facility] ) [id number] Migraine Migraine Problem 02/02/2021 12:00:00 AM ED T [facility] ([facility], ) Surgeries/Procedures Procedure Description Date Indications Data Source(s) MRI, lumbar spine, w/o contrast 03/10/2021 12:00:00 AM EDT [facility] ([facility]) OFFICE CONSULTATION NEW/ESTAB PATIENT 60 MIN 12:00:00 AM EDT [facility] ([facility], ) Results ID Date Data Source [id number] 03/31/2021 09:53:00 PM EDT [facility] ED Physician Documentation NAME: JULISA GHOSH : 2000 AGE: 21 MR#: [id number] SERVICE DATE: 03/31/[address]: Alexander Degroot MD PRIMARY CARE DR: No Family PHYS Provided ROOM#: [facility] (Adult, General) General Chief Complaint: GI Stated Complaint: STOMACH PAIN,RECTUM BLEEDING, VOMITING Time Seen by Provider: 03/31/21 20:19 History of Present Illness Initial Comments: Pleasant 21-year-old male from [facility] [place] with 9-monthhistory of intermittent cramping abdominal pain essentially diffuse lower in nature with intermittent bloody stools. Also concern for occasional discharge. No flank pain however nor any hematuria or fever or chills. Is being evaluated by his Pcp and upcoming GI but as of yet has not gi work-up ROS otherwise acutely noncontributory PSH negative for GI/abdominal PMH essentially otherwise noncontributory , , Allergies/Home Meds Home Medications Medication Instructions Recorded Confirmed Last Taken Type dicyclomine 10 mg capsule 10 mg PO QID PRN #20 cap 03/31/21 Unknown Rx ER plan Plan: See ED orders PMH (from Triage) Patient Medical History PMH Reviewed/Updat ed as Needed: Yes Hx Drug Resistant Infections Hx Other Resistant Infection?: No Isolation: Standard precautions Hx Recent Travel Nurse screening for coronavirus: Recent Travel outside the No country (where) Has patient experienced No coronavirus symptoms Social History Are you in a relationship with/Does anyone hit you, yell/swear at you, steal from you?: No Substance Use Second Hand Smoke Exposure: No Tobacco Use Hx Chewing Tobacco Use: No Vaccination History Hx/Date of Influenza Vaccination: No Hx/Date of Pneumococcal Vaccination: No Immunizations Up to Date: Yes PFSH Social History Does the Patient have a Healthcare Proxy: No Does Patient have a DNR?: No Does Patient have a Living Will?: No ROS Review of Systems ROS Narrative: ROS data limited to that of the pertinent data of the HPI section only. Is otherwise acutely noncontributory/ neg in their entirety at this time Physical Exam General General appearance: alert, anxious and in distress (mild) Head Head exam: Present atraumatic, normocephalic and normal inspection Eye Eye exam: Present normal apperance, PERRL and EOMI; Absent scleral icterus or conjunctival injection Pupils: Present normal accommodation ENT ENT exam: Present normal exam, normal orophraynx, mucous membranes moist and normal external ear exam Neck Neck exam: Present normal inspection, full ROM and supple; Absent tenderness, meningismus or lymphadenopathy Respiratory Respiratory exam: Present normal lung sounds bilaterally; Absent respiratory distress, wheezes, rales, rhonchi, stridor, chest wall tenderness, accessory muscle use, decreased breath sounds or prolonged expiratory Cardiovascular Cardiovascular Exam: Present regular rate, normal rhythm, normal heart sounds and no murmur; Absent rubs, gallop, clicks, JVD, S3 or S4 GI/Abdominal GI/Abdominal exam: Present Abd soft, bowel sounds present all quadrents, soft, tenderness (Diffuse deep palp tenderness without guarding rigidity or rebound especially notable on the left and left lower quadrant no guarding) and normal bowel sounds; Absent distended, guarding, rebound, organomegaly, mass, bruit, hernia or pulsatile mass Rectal Rectal exam: Present deferred and normal inspection exam: Present normal inspection and other (wnl); Absent testicular tenderness, urethral dischargeor scrotal swelling External exam: Present normal external exam Extremities Exam Extremities exam: Present Full ROM without tenderness, capillary refill brisk, full ROM and capillary refill brisk; Absent tenderness, pedal edema or calf tenderness Back Exam Back exam: Present normal inspection; Absent CVA tenderness (R), CVA tenderness (L), paraspinal tenderness or vertebral tenderness Neurological Exam Neurological exam: Present alert, oriented X3, CN II-XII intact and normal gait; Absent motor sensory deficit Psychiatric Psychiatric exam: Present normal affect and normal mood Skin Skin exam: Present warm, dry and intact; Absent rash or cyanosis Vital Signs Vital Signs: Vital Signs 03/31/21 20:14 Temperature 98.7 F Pulse Rate 67 Respiratory Rate 18 Blood Pressure 124/74 O2 Sat by Pulse Oximetry 97 MDM (comprehensive) Lab Data Labs: 03/31/21 20:50 03/31/21 20:50 Laboratory Results Last 24 hours 03/31/21 20:50: WBC 6.3, RBC 4.90, Hgb 15.6, Hct 44.6, MCV 91, MCH 32 H, MCHC 35, RDW 12, Plt Count 174, MPV 11.1, Immature Gran % (Auto) 0.3, Neut % (Auto) 53.2, Lymph % (Auto) 36.9, [place] % (Auto) 8.3, Eos % (Auto) 0.8, Baso % (Auto) 0.5, Lymph # (Auto) 2.3, Abs Immat Gran (auto) 0.0, Add Manual Diff No, Absolute Neutrophils 3.3, Monocytes # 0.5, Absolute Eosinophils 0.1, Absolute Basophils 0.0 03/31/21 20:50: Sodium 139, Potassium 3.8, Chloride 106, Carbon Dioxide 28, Anion Gap 9, BUN 16, Creatinine 1.1, GFR Calculation Greater than 60, Glucose 102, Calcium 10.0, Total Bilirubin 1.3 H, AST 25, ALT 39, Alkaline Phosphatase 81, Serum Total Protein 8.6 H, Albumin 4.2, Amylase 93, Lipase 90 03/31/21 20:50: Lactic Acid 0.7 03/31/21 20:55: Urine Color Yellow, Urine Appearance Clear, Urine pH 6.5, Ur Specific Milmay 1.031 A, Urine Protein Negative, Urine Ketones Trace A, Urine Blood Negative, Urine Nitrate Negative, Urine Bilirubin Negative, Urine Urobilinogen 1 eu/dl, Ur Leukocyte Esterase Negative, Add Ur Microanalysis No, Urine Glucose Negative Radiology Data Radiology impressions: CT Abd pel s = No acute * pathology found Medical Decision Making Free Text/Narative:: 2222 min change vss Will await stool C S /or colonoscopy prior to any new ssx ( GI eval ) , Differential Diagnosis Differential Diagnosis: Extensive Critical Care Time Critical Care Time Critical Care Time: Yes ED Critical Care Time - [facility]: 31-74 Minutes Total Critical Care Time: 33 Critical Care Time: Patient presenting with acute on chronic abdominal pain with bloody diarrhea etiology to be determined requiring extensive work-up relatively speaking and further outpatient diagnoses including GI consult and scopes Plan Plan Plan: per above DC data Discharge Plan Adm ission/Discharge Dx Primary DC Diagnosis: A/C abdominal pain Bloody Diarrhea: Etiology TBD ED Provider: Alexander Degroot ED Status: Physician Time Seen by Provider: 03/31/21 20:19 Triaged At: 03/31/21 19:35 Condition Condition: Stable Discharge Detail Disposition: Home, Self-Care Med Rec New Prescriptions: New dicyclomine 10 mg capsule 10 mg PO QID PRN (Reason: pain) Qty: 20 0RF Discharge Education Printouts: Abdominal Pain (ED) Follow Up Visit/Referrals: Chacho Tian [REGISTERED PHYSICIAN'S ASST] - Can Peng [PHYSICIAN] - Jani Deluna MD [PHYSICIAN] - Medications Medication reconciliation performed by provider at discharge: Yes Forms Forms Work Release: Work/School/Activ/Gym Release Follow Up Care/Instructions Diet/Activity/Wound Care..: see Dx's see Rx can add tylenol see a pcp [place] [address] Regi mattson - call in am see GI MD dislap also ie Dr Peng RTED if sx pain bleeding fever or new ssx , , , *Discharge Patient* Discharge Orders: Discharge Order (Routine); Ordered 03/31/21 Ordered By: Alexander Degroot Interventions Interventions: ED GI Gastrointestinal Last Done: 03/31/21 19:45 Report Signers: <Electronically signed by Alexander Degroot MD> Alexander Degroot MD 03/31/212236 Alexander Degroot MD SIGNATURE DA Report Cosigners: D: CHELSEA 03/31/212152 T: CHELSEA 03/31/212152 CC: No Family PHYS Provided Name Value Range Interpretation Code Description Data Ina rce(s) Supporting Document(s) ID Date Data Source [id number] 03/31/2021 09:48:00 PM EDT [facility] [address] [place] [address] [phone] NAME SEX PT STATUS ACCOUNT NUMBER JULISA GHOSH REG ER [id number] ORDERING PHYSICIAN LOCATION MEDICAL RECORD NO. Alexander Degroot MD ER [id number] ATTENDING PHYSICIAN DATE OF DATE OF EXAM/TIME Doctor Provided,No Family 2000 03/31/212026 TYPE / EXAM CT Abd/pel w/o contrast REASON FOR EXAM doffuse abdom pain bloody diarrhea Clinical History/Indication for Exam: doffuse abdom pain bloody diarrhea CT ABDOMEN AND PELVIS WITHOUT INTRAVENOUS CONTRAST INDICATION: Diffuse abdominal pain/bloody diarrhea TECHNIQUE: Axial computed tomography images of the abdomen and pelvis without intravenous contrast. Sagittal and coronal reformatted images were created and reviewed. This CT exam was performed using one or more of the following dose reduction techniques: automated exposure control,adjustment of the mA and/or kV according to patient size, and/or use of iterative reconstruction technique. COMPARISON: No relevant prior studies available. FINDINGS: Lung bases: Unremarkable. No mass. No consolidation. ABDOMEN: Liver: Unremarkable. Gallbladder and bile ducts: Unremarkable. No calcified stones. No ductal dilation. Pancreas: Unremarkable. No ductal dilation. Spleen: Unremarkable. No splenomegaly. Adrenals: Unremarkable. No mass. Kidneys and ureters: Unremarkable. No obstructing stones. No hydronephrosis. Stomach and bowel: Unremarkable. No obstruction. No mucosal thickening. PELVIS: Appendix: No findings to suggest acute appendicitis. Bladder: Unremarkable. No stones. Reproductive: Unremarkable as visualized. ABDOMEN and PELVIS: Intraperitoneal space: Unremarkable. No free air. No significant fluid collection. Bones/joints: No acute fracture. No dislocation. Soft tissues: Unremarkable. Vasculature: Unremarkable. No abdominal aortic aneurysm. Lymph nodes: Unremarkable. No enlarged lymph nodes. IMPRESSION: No significant evidence for acute abnormality to explain the patient's symptoms Automatic exposure control was used as a dose lowering technique. REPORT SIGNATURE ON FILE 03/31/2021 (21:48 Eastern Time ) Signed by: Hamilton Roach M.D. Reported By Hamilton Roach MD on 03/31/212147 Signed By Hamilton Roach MD on 03/31/212147 Date Time CC: No Family PHYS Provided; Hamilton Roach MD Techn: SPANI Trans Dt/Tm: Trans by: DT Prt Dt/Tm: 0798-4977: Total DLP = 405.00 mGy-cm 5420-3230: Total Radiation Dose = 6.0750 mSv Lifetime Dose: 6.0750 mSv Name Value Range Interpretation Code Description Data Ina rce(s) Supporting Document(s) ID Date Data Source [id number] 03/31/2021 11:53:00 PM EDT [facility] CT/NG IS A QUALITATIVE IN VITRO REAL-SHASHANK E PCR TEST FORDETECTION OF CHLAMYDIA TRACHOMATIS (CT) AND NEISSERIAGONORRHOEAE (NG)NORMAL VALUE FOR CT/NG IS " NO ORGANISMS DETECTED "0x95 False negative results may occur if the organism(s) ispresent at levels below the analytical limit of detection.0x95 Because the detection of CT and NG is dependent on the DNApresent in the sample, reliable results are dependent onproper sample collection, handling and storage.0x95 With endocervical specimens, assay interference may beobserved in the presence of: blood (>1% v/v) or mucin (>0.8%w/v).0x95 With urine specimens, assay interference may be observedin the presence of: blood (>0.3% v/v), mucin (>0.2% w/v),bilirubin (>0.2 mg/mL), or Vagisil feminine powder (>0.2%w/v).0x95 Collection and testing of urine specimens with the XpertCT/NG test is not intended to replace cervical exams andendocervical sampling for diagnosis of urogenital infection.Other genitourinary tract infections can be caused by otherinfectious agents.0x95 The effects of other potential variables such as vaginaldischarge, use of tampons, douching, and specimen collectionvariables have not been determined.0x95 A negative test result does not exclude the possibility ofinfection because test results may be affected by improperspecimen collection, technical error, specimen mix-up,concurrent antibiotic therapy, or the number of organisms inthe specimen which may be below the sensitivity of the test.0x[address]/NG test should not be used for the evaluationof suspected sexual abuse or for other medico-legalindications. Additional testing is recommended in anycircumstance when false positive or false negative resultscould lead to adverse medical, social, or psychologicalconsequences.0x[address]/NG test provides qualitative results. Nocorrelation can be drawn between the magnitude of the Ctvalue and the number of cells in an infected sample.0x95 Positive results may be observed after successfulantibiotic treatment due to target nucleic acids fromresidual non-viable chlamydia.0x[address]/NG performance has not been evaluated inpatients less than 14 years of age.0x[address]/NG performance has not been evaluated inpatients with a history of hysterectomy.0x[address]/NG test has not been evaluated with patientswho are currently being treated with antimicrobial agentsactive against CT or NG.0x95 As with many diagnostic tests, results from the XpertCT/NG test should be interpreted in conjunction with otherlaboratory and clinical data available to the clinician.0x95 Mutations or other changes within the regions of thebacterial genomes covered by the primers and/or probes inthe Xpert assay may result in failure to detect the targetorganisms.C trach DNA Vag Ql TINO+probeN gonorrhoea rRNA Vag Ql TINO+probe Name Value Range Interpretation Code Description Data Ina rce(s) Supporting Document(s) ID Date Data Source [id number] 03/31/2021 09:03:00 PM EDT [facility] Reason for ordering culture: Abnormal fi ndings UAMethod of Collection:: Voided Name Value Range Interpretation Code Description Data Ina rce(s) Supporting Document(s) Color of Urine [facility] Appearance of Urine CLEAR [facility] pH of Urine by Test strip 6.5 5-8 [facility] Specific gravity of Urine by Refractometry 1.031 1.005 -1.030 Abnormal (applies to non-numeric results) [facility] Leukocyte esterase [Presence] in Urine by Test strip NEGAT ABENA [facility] Nitrite [Presence] in Urine by Test strip NEGATIVE [facility] Protein [Presence] in Urine by Test strip NEGATIVE [facility] Glucose [Mass/volume] in Urine by Automated test strip NEGATIVE NEG ATIVE [facility] Ketones [Presence] in Urine by Test strip NEGATI VE Abnormal (applies to non- numeric results) [facility] Urobilinogen [Presence] in Urine 0.2-1 EU/dl [facility] Bilirubin.total [Presence] in Urine by Automated test strip NEGATIVE [facility] Erythrocytes [#/volume] in Urine by Test strip NEGATIVE NEGATIVE [facility] URINE MICROSCOPIC? (CIF) NO [facility] ID Date Data Source [id number] 04/01/2021 08:51:00 AM EDT [facility] Special Instructions: Lab may order repe at test if initial test elevatedPhysician If elevated, reflex second test in 4-6 hrs Name Value Range Interpretation Code Description Data Ina rce(s) Supporting Document(s) Campylobacter coli+jejuni+mihai fusA gene [Presence] in Stool by Probe and target amplification method [facility] Salmonella sp rpoD gene [Presence] in St ool by Probe and target amplification method [facility] ital Shigella species+EIEC invasion plasmid a ntigen H (ipaH) gene [Presence] in Stool by Probe and target amplification method [facility] Vibrio cholerae+parahaemolyticus rfbL+tr kH+tnaA genes [Presence] in Stool by Probe and target amplification method [facility] Yersinia enterocolitica recN gene [Prese nce] in Stool by Probe and target amplification method [facility] Escherichia coli shiga-like toxin 1 (stx 1) gene [Presence] in Stool by Probe and target amplification method [facility] Escherichia coli shiga-like toxin 2 (stx 2) gene [Presence] in Stool by Probe and target amplification method [facility] Norovirus genogroup I+II orf1-orf2 junct ion region [Presence] in Stool by Probe and target amplification method [facility] Rotavirus A nsp5 gene [Presence] in Stoo l by Probe and target amplification method [facility] ital NORMAL VALUE FOR TEST IS "NOT DETECTED"T he Verigene Enteric Pathogens Nucleic Acid Test (EP) is amultiplexed, qualitative test for simultaneous detection andidentification of common pathogenic enteric bacteria,viuruses, and genetic virulence markers from liquid or softstool preserved in Letha-Luca medium, collected fromindividuals with signs and symptoms of gastrointestinalinfection.The test is performed on the automated Fiberspar Systemutilizing reverse clother in (RT), polymerase chainreaction (PCR), and array hybridization to detect specificgastrointestinal microbial nucleic acid ge ne sequencesassociated with the following pathogenic bacteria andviruses:Campylobacter Group(composed of C.Coli,C.Jejuni, and C.mihai), Salmonella species, Shigella species, (dysenteriae,boydii, sonnei, flexneri), Vibrio Group (cholerae,parahaemolyticus), Yersinia enterocolitica, norovirusGI/GII,and rotavirus A. In addition, EP detects the Shigatoxin I and II.EP is indicated as an aid in the diagnosis of specificagents of gastrointestial illness, in conjunction with otherclinical, laboratory, and epidemiological information;however,is not to be used to monitor these infections. EPalso aids in the detection and identification of acutegastroenteritis in the context of outbreaks. Due to thelimited number of positve specimens collected for certainorganisms durning the prospective clincal study, performancecharacteristics for Yersinia enterocolitica, Vibrio Groupand Shigella species were primarily established withcontrived specimens. Concomitant culture is necessary fororganism recovery and further typing of bacterial agents. EPresults should not be used as the sole basis for diagnosis,treatment, or other patient management decisions. Confirmedpositive results do not rule out co-infection with otherorganisms that are not detected by this test, and may not bethe sole or definitive cause of patient illness. Negative EPresults in the setting of clinical illness compatible withgastroenteritis may be due to infection by pathogens thatare not detected by this test or nonifectious causes such asulcerativecolitis, irritable bowel syndrome or Crohn'sdisease. ID Date Data Source [id number] 03/31/2021 09:04:00 PM EDT [facility] Special Instructions: Lab may order repe at test if initial test elevatedPhysician If elevated, reflex second test in 4-6 hrs Name Value Range Interpretation Code Description Data Ina rce(s) Supporting Document(s) Leukocytes [#/volume] in Blood by Automated count 6.3 10*3/uL 4.45-10 .71 N [facility] Erythrocytes [#/volume] in Blood by Automated count 4.90 10*6/uL 4.3- 6.1 N [facility] Hemoglobin [Moles/volume] in Blood 15.6 g/dL 13-18 N [facility] Hematocrit [Volume Fraction] of Blood by Automated count 44.6 % 4 2-52 N [facility] Erythrocyte mean corpuscular volume [Ent itic volume] in Cord blood by Automated count 91 fL 80-96 N [facility] ital Erythrocyte mean corpuscular hemoglobin [Entitic mass] by Au tomated count 32 pg 27-31 Above high normal [facility] Erythrocyte mean corpuscular hemoglobin concentration [Mass/volume] in Cord blood 35 g/dL 33-37 N [facility] ital Erythrocyte distribution width [Entitic volume] by Automated count 12 % 11-15 N [facility] Platelets [#/volume] in Blood by Automated count 174 10*3/uL 130-472 N [facility] Platelet mean volume [Entitic volume] in Blood 11.1 fL 9.1-13.1 N [facility] Neutrophils/100 leukocytes in Blood by Automated count 53.2 % 41- 77 N [facility] Neutrophils [#/volume] in Blood by Automated count 3.3 U 1.7-7.6 N [facility] Lymphocytes/100 leukocytes in Blood by Automated count 36.9 % 14- 46 N [facility] Lymphocytes [#/volume] in Blood by Automated count 2.3 U 0.6-4.6 N [facility] Monocytes/100 leukocytes in Blood by Automated count 8.3 % 4-12 N [facility] Monocytes [#/volume] in Blood by Automated count 0.5 U 0.2-1.2 N [facility] Eosinophils/100 leukocytes in Blood by Automated count 0.8 % 0-7 N [facility] Eosinophils [#/volume] in Blood by Automated count 0.1 U 0.0-0.5 N [facility] Basophils/100 leukocytes in Blood by Automated count 0.5 % 0.4-1 .3 N [facility] Basophils [#/volume] in Blood by Automated count 0.0 U 0.0-0.2 N [facility] NUCLEATED RED BLOOD CELL 0 % [facility] NUCLEATED RED BLOOD CELL# 0 U [facility] Immature granulocytes [Presence] in Blood by Automated count 0-2 N [facility] Immature granulocytes [#/volume] in Blood by Automated count 0.0 U 0-0.1 N [facility] Manual Differential panel - Blood NO [facility] ID Date Data Source [id number] 03/31/2021 09:26:00 PM EDT [facility] Special Instructions: Lab may order repe at test if initial test elevatedPhysician If elevated, reflex second test in 4-6 hrs Name Value Range Interpretation Code Description Data Ina rce(s) Supporting Document(s) Urea nitrogen [Mass/volume] in Serum or Plasma 16 mg/dL 9-23 N [facility] Sodium [Moles/volume] in Serum or Plasma 139 mmol/L 132-146 [facility] Potassium [Moles/volume] in Serum or Plasma 3.8 mmol/L 3.5-5.5 [facility] Chloride [Moles/volume] in Serum or Plasma 106 mmol/L 99-109 [facility] Carbon dioxide, total [Moles/volume] in Serum or Plasma 28 mmol/L 20 -31 [facility] Anion gap in Serum or Plasma 9 mmol/L 8-16 [facility] Glucose [Mass/volume] in Serum or Plasma 102 mg/dL 74-106 N [facility] Creatinine 1.1 mg/dL 0.5-1.1 [facility] Glomerular filtration rate/1.73 sq M.pre dicted [Volume Rate/Area] in Serum or Plasma Greater Than 60 ABOVE 60 [facility] Alanine aminotransferase [Enzymatic acti vity/volume] in Serum or Plasma by With P-5'-P 39 U/L 10-49 N [facility] ital Aspartate aminotransferase [Enzymatic ac tivity/volume] in Serum or Plasma by With P-5'-P 25 U/L 0-33 [facility] pital Alkaline phosphatase [Enzymatic activity/volume] in Serum or Plasma 81 U/L 45-129 N [facility] Calcium [Mass/volume] in Serum or Plasma 10.0 mg/dL 8.5-10.1 [facility] Bilirubin.total [Mass/volume] in Serum or Plasma 1.3 mg/dL 0.3-1.2 Above high normal [facility] Albumin [Mass/volume] in Serum or Plasma by Bromocresol purple (BCP) dye binding method 4.2 g/dL 3.2-4.8 [facility] ital Protein [Mass/volume] in Serum or Plasma 8.6 g/dL 5.7-8.2 Above high normal [facility] ID Date Data Source [id number] 03/31/2021 09:29:00 PM EDT [facility] Special Instructions: Lab may order repe at test if initial test elevatedPhysician If elevated, reflex second test in 4-6 hrs Name Value Range Interpretation Code Description Data Ina rce(s) Supporting Document(s) Lactic w Rfx (if elevated) 0.7 mmol/L 0.5-2.0 [facility] ID Date Data Source [id number] 03/15/2021 03:33:00 PM EDT [facility] 1 Medication Reconciliation Report [facility] Emergency Department [address] [place] [address] Phone #: ext- [phone] 03/15/2021 15:01 Patient: [...] needed for 10 days -- for pruritus. [id number] capsule. Refills: 0. Substitution permitted.Pharmacy - [facility] - [id number] ; [place] [address]. . -- MICHAEL Ramsey Name Value Range Interpretation Code Description Data Ina rce(s) Supporting Document(s) ID Date Data Source [id number] 03/15/2021 03:33:00 PM EDT [place] [address] Medication Administration Record [facility] Emergency Department [address] [place] [address] Phone #: ext- [phone] 03/15/2021 15:01 Patient: JULISA GHOSH Sex: M : 2000 Age: 21yWeight: 77.5 kgHeight/Length: 73 inBMI: 22.5ALLERGIES: No Known Drug AllergyDate/Time Medication Administered Medication Ordered Name Value Range Interpretation Code Description Data Ina e(s) Supporting Document(s) ID Date Data Source [id number] 03/15/2021 03:33:00 PM EDT [facility] 1 General Instructions [facility] Emergency Department [address] [place] [address] Phone #: ext- [phone] 03/15/2021 15:01 Patient: [...] needed for 10 days -- for pruritus. [id number] capsule. Refills: 0. Substitution permitted.Pharmacy - [facility] - [id number] ; [place] [id number]. .Understanding of the discharge instructions verbalized by patient. Expected course of illness, dischargeinstructions, activity level, follow-up appointment and risks and bene fits of treatment reviewed with patientand understanding verbalized. Agrees to plan of care.Follow-up with: [facility], , , [address] [place] [address], , [place], [address] Follow up in one even if well. Call for the next available appointment. Reason for referral: evaluation nilo dermatology/merchandise flow team leader referral if symptoms persist. Summary of care provided to patient viapaper. 2 General Instructions [facility] Emergency Department [address] [place] [address] Phone #: ext- [phone] 03/15/2021 15:01 Patient: JULISA GHOSH Sex: M : 2000 Age: 21y(Electronically signed by MICHAEL Ramsey 03/15/2021 16:26) Name Value Range Interpretation Code Description Data Ina rce(s) Supporting Document(s) ID Date Data Source [id number] 03/15/2021 03:33:00 PM EDT [facility] 1 Clinical Report - Nurses [facility] Emergency Department [address] [place] [address] Phone #: ext- [phone] 03/15/2021 15:01 Patient: JULISA GHOSH Sex: M : 2000 Age: 21yTRIAGEArrived by private vehicle. Historian: patient. Accompanied by friend.Acuity: LEVEL 4.Chief Complaint: (generalized itching).Onset. (6 months ago). ( pt states he has no rash but has had a generalized itching for about the past 6months, has not been seen for this as of yet).Treatment [employer]ER:None.SEPSIS SCREEN: SIRS SCREEN NEGATIVE. SEPSIS SCREEN NEGATIVE. No suspected or confirmedsigns of infection present.DEMOND COMA SCORE: 15- eyes open- spontaneous (4); best verbal response- oriented (5); bestmotor response- obeys commands (6). --15:03/15/21 Roe Hurley RN15:04 03/15/21. BP: 121/69. MAP: 86. HR: 67. RR: 16. O2 saturation: 98%. Temp: 99.8 F. Pain level now:0/10. --15:03/15/21 Roe Hurley RN.Weight: 77.5 kg stated. Height/Length: 73 inches Per Patient. BMI: 22.5. --15:03/15/21 Roe Hurley RN.MedicationsTopiramate Oral 100 mg, daily. --15:03/15/21 Roe Hurley RN Methocarbamol Oral (Tablet 750 mg) 1 tablet, daily. --15:03/15/21 Roe Hurley RN.AllergiesNo Known Drug Allergy. --15:03/15/21 Roe Hurley RN.PROBLEMS:Back Pain.TBI. --15:03/15/21 Roe Hurley RN.ADDITIONAL SURGERIES:no known surgeries.HistoryPAST MEDICAL HX: Immunizations: up-to-date. 2 Clinical Report - Nurses [facility] Emergency Department [address] [place] [address] Phone #: ext- [phone] 03/15/2021 15:01 Patient: [...] To treatment room. --15:03/15/21 Roe Hurley RN.PHYSICAL [id number]:03/15/21. Ambulatory to room.GENERAL / NEURO / PSYCH: [...] Discharge instructions 3 Clinical Report - Nurses [facility] Emergency Department [address] [place] [address] Phone #: ext- [phone] 03/15/2021 15:01 Patient: JULISA GHOSH Sex: M : 2000 Age: 21y provided and reviewed with the patient. Reviewed medication(s) side effects, precautions, dosing and course information. Prescription(s) sent electronically to pharmacy ([facility]). Patient verbalized understanding. Written instructions provided in Greenlandic. The patient was discharged home. He left ambulatory and via private vehicle. Patient driving. --15:54 03/15/21 Michelle Sam RN 15:50 03/15/21. BP: 117/72. MAP: 87. HR: 66. RR: 14. O2 saturation: 100%. Temp: 99 F. Pain level now: 0/10. --15:54 03/15/21 Michelle Sam RN.Locked/Released at 03/15/2021 15:55 by Michelle Sam RN Name Value Range Interpretation Code Description Data Ina rce(s) Supporting Document(s) ID Date Data Source [id number] 03/15/2021 03:33:00 PM EDT [facility] 1 Clinical Report - Physicians/Mid Levels [facility] Emergency Department [address] [place] [address] Phone #: ext- [phone] 03/15/2021 15:01 Patient: [...] allergies. 2 Clinical Report - Physicians/Mid Levels [facility] Emergency Department [address] [place] [address] Phone #: ext- [phone] 03/15/2021 15:01 Patient: [...] condition.Discharge decision based on the following: p atient's condition is stable; patient is ambulatory; patient'sexam [...] permitted. 3 Clinical Report - Physicians/Mid Levels [facility] Emergency Department [address] [place] [address] Phone #: ext- [phone] 03/15/2021 15:01 Patient: JULISA GHOSH Sex: M : 2000 Age: 21y Pharmacy - [facility] - [id number] ; [place] [address]. . Understanding of the discharge instructions verbalized by patient. Expected course of illness, discharge instructions, activity level, follow-up appointment and risks and benefits of treatment reviewed with patient and understanding verbalized. Agrees to plan of care. Follow-up with: [facility] [place] [facility], , , [address] [place] [address], , [place], [address] Follow up in one even if well. Call for the next available appointment. Reason for referral: evaluation and recommend dermatology/merchandise flow team leader referral if symptoms persist. Summary of care provided to patient via paper.(Electronically signed by MICHAEL Ramsey 03/15/2021 16:26) Name Value Range Interpretation Code Description Data Ina rce(s) Supporting Document(s) ID Date Data Source [id number] 03/02/2021 09:25:00 PM EDT [facility] Name Value Range Interpretation Code Description Data Ina rce(s) Supporting Document(s) SARS COVID ANTIGEN NEGATIVE [facility] This lab was ordered by KAUSHAL goins nd reported by [facility]. ID Date Data Source [id number] 03/01/2021 10:32:00 AM EDT [facility] [address] [place] [address] PHONE: [phone] FAX: [phone] Name .................. : DAVINA Parrish Acct Number.................. : [id number] ROOM. ................. : VT-08 Number ................... : [id number] Stay type ............. : E/R Discharge Date......... ... : 02/28/21 Admit Date ......... : 02/28/21 Admit Phys .................... : COONEYNORM Date of ....... : 2000 Family Phys ................... : NO PCP Phone .................. : [phone] Age ................................ : 21 Film# .................. .:[id number] Sex ................................. : M Unsigned transcriptions are preliminary reports and do not represent a medical or legal document SCROTAL [id number] COMPLETE:02/28/21 14:22 [id number] Reason(s): Testicle/Scrotum Pain ULTRASOUND SCROTUM INDICATION: Testicular/scrotal [...] of testicular torsion. Page 1 of 2 [place] [address] PHONE: [phone] FAX: [phone] Name .................. : DAVINA Parrish Acct Number.................. : [id number] ROOM. ................. : VT-08 Number ................... : [id number] Stay type ............. : E/R Discharge Date......... ... : 02/28/21 Admit Date ......... : 02/28/21 Admit Phys .................... : COONEYNORM Date of ....... : 2000 Family Phys ................... : NO PCP Phone .................. : [phone] Age ................................ : 21 Film# .................. .:[id number] Sex ................................. : M Unsigned transcriptions are preliminary reports and do not represent a medical or legal document SCROTAL [id number] COMPLETE:02/28/21 14:22 [id number] Reason(s): Testicle/Scrotum Pain 2. Bilateral varicoceles, right greater than left. 3. Small bilateral hydroceles. Preliminary report for this exam was provided by [facility]. Electronically Reviewed and Signed By Neeraj Raygoza MD , 03/01/21 10:32, RACHAEL Transcribe Initials: HAYLEY , Transcribe Date: 02/28/21 17:13, Dictation Date: Copy for: MATTHEW GRANADO via fax Copy for: EMERGENCY DEPT via modem Copy for: 710 MED REC DISCHARGED Page 2 of 2 Name Value Range Interpretation Code Description Data Ina rce(s) Supporting Document(s) ID Date Data Source [id number] 02/28/2021 01:50:00 PM EDT [facility] 1 OrderSheet [facility] Emergency Department [address] [place] [address] Phone #: ext- [phone] 02/28/2021 13:48 Patient: JULISA GHOSH Sex: M : 2000 Age: 21yWEIGHT:77.5 kg HEIGHT:73 inches BMI:22.5ALLERGIES: Aspirin, Macrobid, Primaquine Phosphate, SulfaCHIEF COMPLAINT: dysuria, Rt, testicular pain:, LtDIAGNOSIS: Hydrocele, Scrotal varicesLAB ORDERSOrder Description Priority Entered Acknowledged InitialedUA Reflex to UA 14:22 02/28/2021 14:31 KinsleyCulture Johnnie Ulrich community association managerLewis; Nvsh5Uddgycppk/GC STAT 14:22 02/28/2021 14:31 Nirmala Johnnie Muñ[facility]Four [facility] TechLewis; Tech1 NOTES: urineSyphilis 14:22 02/28/2021 15:03 Johnnie Mcclain R.N.;DIAGNOSTIC STUDY ORDERSOrder Description Priority Entered Acknowledged InitialedUS Scrotal STAT 14:22 02/28/2021 14:34 Kinsley(Oxygen?(No)) Johnnie MuñozAustin Hospital and ClinicLewis; Tech1 Reason for Study: Testicle/Scrotum PainMEDICATION/IV/DRIP/FLUID ORDERSOrder Description Priority Entered Acknowledged InitialedGENERAL ORDERSOrder Description Priority Entered Acknowledged Initialed[Electronically signed by Sheri Drew R.N. (16:32 02/28/2021)][Electronically signed by Johnnie Ulrich (22:06 02/28/2021)][Electronically locked by Sheri Drew R.N. (16:32 02/28/2021)] Name Value Range Interpretation Code Description Data Ina rce(s) Supporting Document(s) ID Date Data Source [id number] 02/28/2021 01:50:00 PM EDT [facility] 1 Medication Reconciliation Report [facility] Emergency Department [address] [place] [address] Phone #: [phone]- [phone] 02/28/2021 13:48 Patient: JULISA GHOSH Sex: M [...] 45 tablet. Refills: 0. Substitution permitted.Pharmacy - [facility] [phone] ; [place] [address]. . -- MICHAEL Buck Name Value Range Interpretation Code Description Data Ina e(s) Supporting Document(s) ID Date Data Source [id number] 02/28/2021 01:50:00 PM EDT [place] [address] Medication Administration Record [facility] Emergency Department [address] [place] [address] Phone #: ext- [phone] 02/28/2021 13:48 Patient: JULISA GHOSH Acct#: [id number] Sex: M : 2000 Age: 21yWeight: 77.5 kgHeight/Length: 73 inBMI: 22.5ALLERGIES: Macrobid, Aspirin, Sulfa, Primaquine PhosphateDate/Time Medication Administered Medication Ordered Name Value Range Interpretation Code Description Data Ina rce(s) Supporting Document(s) ID Date Data Source [id number] 02/28/2021 01:50:00 PM EDT [facility] 1 General Instructions [facility] Emergency Department [address] [place] [address] Phone #: ext [phone] 02/28/2021 13:48 Patient: JULISA GHOSH Sex: M [...] 45 tablet. Refills: 0. Substitution permitted.Pharmacy - [facility] [phone] ; [place] [address]. .Understanding of the discharge instructions verbalized by patient.Follow-up with: Rajan Doe M.D., Urology, , [address] [place] [address], [id number] Follow up. Call for the next available appointment. Reason for referral: evaluation and treatment.Summary of care provided to patient. ADDITIONAL INFORMATIONHydrocele (Type Not Specified) 2 General Instructions [facility] Emergency Department [address] [place] [address] Phone #: ext- [phone] 02/28/2021 13:48 Patient: JULISA GHOSH Sex: M [...] happens with nausea, vomiting, or both [employer]. [address] [place] [address]. All rights reserved. This information is not intended as asubstitute for professional medical care. Always follow your healthcare professional's instructions.VaricoceleA varicocele is a swelling in the veins above the testicles. It's similar to a varicose vein in the legs. 3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 [facility] MANUAL DIFF NOT INDICATED [facility] RBC MORPH NOT INDICATED [facility] spital Procedure Social History No Information Vital Signs ID Date Data Source UNK Name Value Range Interpretation Code Description Data Source(s) Diastolic blood pressure 79 mm[Hg] 79 mm[Hg] CHANEL ([facility]) Body height 73 [in_i] 73 [in_i] CHANEL ([facility]) Systolic blood pressure 123 mm[Hg] 123 mm[Hg] A THENA ([facility]) Diastolic blood pressure 83 mm[Hg] 83 mm[Hg] CHANEL ([facility]) Body height 73 [in_i] 73 [in_i] CHANEL ([facility]) Body mass index (BMI) [Ratio] 22.6 kg/m2 22.6 k g/m2 CHANEL ([facility]) Systolic blood pressure 160 mm[Hg] 160 mm[Hg] A THENA ([facility]) Body weight 171 [lb_av] 171 [lb_av] CHANEL ([facility]) Diastolic blood pressure 83 mm[Hg] 83 mm[Hg] CHANEL ([facility]) Body height 73 [in_i] 73 [in_i] CHANEL ([facility]) Body mass index (BMI) [Ratio] 22.6 kg/m2 22.6 k g/m2 CHANEL ([facility]) Systolic blood pressure 160 mm[Hg] 160 mm[Hg] A THENA ([facility]) Body weight 171 [lb_av] 171 [lb_av] CHANEL ([facility]) Respiratory rate 12 /min 12 /min MEDENT ( [facility], ) Body height 71 [in_i] 71 [in_i] MEDENT ([facility], ) 5'11" Body weight 171.00 [lb_av] 171.00 [lb_av] MEDEN T ([facility], ) Body mass index (BMI) [Ratio] 23.8 kg/m2 23.8 k g/m2 MEDENT ([facility], ) [place] body weight 172 [lb_av] 172 [lb_av] MEDEN T ([facility], ) Patient Treatment Plan of Care Planned Activity Planned Date Details Description Data Source (s) Diclofenac Sodium 0.01 MG/MG Topical Gel [Voltaren] CHANEL ([facility]) topiramate 25 MG Oral Tablet CHANEL ([facility]) Sumatriptan 50 MG Oral Tablet CHANEL ([facility]) Hydrocortisone 25 MG/ML Topical Cream [Proctosol] CHANEL ([facility]) Natural Fiber Laxative Therapy oral powder CHANEL ([facility]) Naproxen 500 MG Oral Tablet CHANEL ([facility]) Methocarbamol 750 MG Oral Tablet CHANEL ([facility]) Methocarbamol 500 MG Oral Tablet CHANEL ([facility]) duloxetine 20 MG Delayed Release Oral Capsule CHANEL ([facility]) Cyclobenzaprine hydrochloride 5 MG Oral Tablet CHANEL ([facility]) Ciprofloxacin 500 MG Oral Tablet CHANEL ([facility]) Amitriptyline Hydrochloride 25 MG Oral Tablet CHANEL ([facility]) Amitriptyline Hydrochloride 10 MG Oral Tablet CHANEL ([facility]) Diclofenac Sodium 0.01 MG/MG Topical Gel [Voltaren] CHANEL ([facility]) topiramate 25 MG Oral Tablet CHANEL ([facility]) Sumatriptan 50 MG Oral Tablet CHANEL ([facility]) Hydrocortisone 25 MG/ML Topical Cream [Proctosol] CHANEL ([facility]) Natural Fiber Laxative Therapy oral powder CHANEL ([facility]) Naproxen 500 MG Oral Tablet CHANEL ([facility]) Methocarbamol 750 MG Oral Tablet CHANEL ([facility]) Methocarbamol 500 MG Oral Tablet CHANEL ([facility]) duloxetine 20 MG Delayed Release Oral Capsule CHANEL ([facility]) Cyclobenzaprine hydrochloride 5 MG Oral Tablet CHANEL ([facility]) Ciprofloxacin 500 MG Oral Tablet CHANEL ([facility]) Amitriptyline Hydrochloride 25 MG Oral Tablet CHANEL ([facility]) Amitriptyline Hydrochloride 10 MG Oral Tablet CHANEL ([facility]) Acetaminophen 325 MG Oral Tablet CHANEL ([facility])
--- OUTSIDE RECORDS SUMMARY | 2021-04-03 16:30 | CCD ---
Author Organization Unknown Address [address] [place] [address] Phone [phone] Care Team Providers Care Accountant Cost Name Role Phone KERRI SLAUGHTER MD 3 [phone] Allergies Code Code System Name Reaction Severity Status Onset 050257 RxNorm Macrobid Other Moderate Active 8686 RxNorm Primaquine Other Moderate Active Sulfa (Sulfonamide Antibiotics) Other Active 20230807 RxNorm Tylenol Insomnia Moderate to Severe Active Medications Name Status Start Date Stop Date acetaminophen 325 mg tablet Active Not available Allergy Relief (diphenhydramine) 25 mg capsule Active Not available amitriptyline 10 mg tablet Completed 03/10 amitriptyline 25 mg tablet Completed 03/10 Celebrex 200 mg capsule Take 1 capsule every day by oral route as needed. Active Not available cholecalciferol (vitamin D3) 1,250 mcg (50,000 unit) [...] DAILY TAKE WITH FOOD Completed 03/10/2021 Nasal Ewing (oxymetazoline) 0.05 % Active Not available Natural Fiber Laxative Therapy oral powder Completed 03/10/2021 ondansetron 4 mg disintegrating tablet Active Not available Proctosol HC 2.5 % topical cream perineal applicator Completed 03/10/2021 sumatriptan 50 mg tablet Completed tizanidine 4 mg tablet Active Not avail able topiramate 100 mg tablet Active Not haylie ilable topiramate 25 mg tablet Completed 03/10/20 21 Voltaren 1 % topical gel Completed 021 Problems None recorded. Procedures Date Name Performed by 03/10/2021 MRI, Lumbar Spine, W/o Contrast [facility] [address] [place], [place] [id number] (Work Place) Results Lab Results None recorded. Past Encounters 03/25/2021 Lumbosacral Spondylosis without Myelopathy; Lumbar Radiculopathy; Myofascial Pain Annemarie Pickens NP: [id number] [facility] [address], [place] [address], Ph. 03/10/2021 Lumbosacral Spondylosis without Myelopathy; Lumbar Radiculopathy; Myofascial Pain Lucas Leiva MD: [id number] [facility] [address], [facility] [place] [address], Ph. Social History Tobacco Smoking Status Never Smoker Vaccine List None recorded. Plan of Care Reminders Provider Appointments None recorded. Lab None recorded. Referral None recorded. Procedures None recorded. Surgeries None recorded. Imaging None recorded. Vitals 03/25/2021 01:15PM FOLLOW-UP Height Blood Pressure 6 ft 1 in 123/79 mm[Hg] 03/10/2021 02:30PM NEW PATIENT Height Weight BMI Blood Pressure 6 ft 1 in 171 lbs 22.6 kg/m2 160/83 mm[Hg]
--- OUTSIDE RECORDS SUMMARY | 2021-04-03 19:25 | CCD ---
Author Author [facility] Organization [facility] Address Unknown Phone Unavailable Care Team Providers Care Retail Administrative Assistant Name Role Phone NO, PCP Unavailable Unavailable [...] Alexander PA-C Unavailable Unavailable Jumalon, M Annemarie MEDIUM CYCLE SALESPERSON Unavailable Unavailable Jumalon, M Annemarie MEDIUM CYCLE SALESPERSON Unavailable Unavailable Jumalon, M Annemarie MEDIUM CYCLE SALESPERSON Unavailable Unavailable Jumalon, M Annemarie MEDIUM CYCLE SALESPERSON Unavailable Unavailable Jumalon, M Annemarie MEDIUM CYCLE SALESPERSON Unavailable Unavailable Jumalon, M Annemarie MEDIUM CYCLE SALESPERSON Unavailable Unavailable Jumalon, M Annemarie MEDIUM CYCLE SALESPERSON Unavailable Unavailable Jumalon, M Annemarie MEDIUM CYCLE SALESPERSON Unavailable Unavailable Jumalon, M Annemarie MEDIUM CYCLE SALESPERSON Unavailable Unavailable Jumalon, M Annemarie MEDIUM CYCLE SALESPERSON Unavailable Unavailable Jumalon, M Annemarie MEDIUM CYCLE SALESPERSON Unavailable Unavailable Jumalon, M Annemarie MEDIUM CYCLE SALESPERSON Unavailable Unavailable Jumalon, M Annemarie MEDIUM CYCLE SALESPERSON Unavailable Unavailable Jumalon, M Annemarie MEDIUM CYCLE SALESPERSON Unavailable Unavailable Jumalon, M Annemarie MEDIUM CYCLE SALESPERSON Unavailable Unavailable Jumalon, M Annemarie MEDIUM CYCLE SALESPERSON Unavailable Unavailable Jumalon, M Annemarie MEDIUM CYCLE SALESPERSON Unavailable Unavailable Jumalon, M Annemarie MEDIUM CYCLE SALESPERSON Unavailable Unavailable Jumalon, M Annemarie MEDIUM CYCLE SALESPERSON Unavailable Unavailable Jumalon, M Annemarie MEDIUM CYCLE SALESPERSON Unavailable Unavailable Jumalon, M Annemarie MEDIUM CYCLE SALESPERSON Unavailable Unavailable Jumalon, M Annemarie MEDIUM CYCLE SALESPERSON Unavailable Unavailable Jumalon, M Annemarie MEDIUM CYCLE SALESPERSON Unavailable Unavailable Jumalon, M Annemarie MEDIUM CYCLE SALESPERSON Unavailable Unavailable Jumalon, M Annemarie MEDIUM CYCLE SALESPERSON Unavailable Unavailable Jumalon, M Annemarie MEDIUM CYCLE SALESPERSON Unavailable Unavailable Jumalon, M Annemarie MEDIUM CYCLE SALESPERSON Unavailable Unavailable Jumalon, M Annemarie MEDIUM CYCLE SALESPERSON Unavailable Unavailable Jumalon, M Annemarie MEDIUM CYCLE SALESPERSON Unavailable Unavailable Jumalon, M Annemarie MEDIUM CYCLE SALESPERSON Unavailable Unavailable Shivani Winn MD Unavailable Unavailable [...] O Deirdre COHEN Unavailable Unavailable Tatum O Deridre COHEN Unavailable Unavailable Shivani Winn MD Unavailable [...] is protected by Article 27-F of the [facility] Public Health law. If you continue you may have access to information: Regarding HIV / AIDS; Provided by facilities licensed or operated by the [facility] Office of Mental Health; or Provided by the [facility] Office for People With Developmental Disabilities. If such information is present, then the following [facility] mandated warning applies: This information has [...] law may result in a fine or usp sentence or both. A general authorization for the release of medical or other information is NOT sufficient authorization for further disc losure. Encounters Encounter Providers Location Date Indications Data Source(s ) Emergency Attender: Alexander Degroot PA-C 07:34:00 PM EDT - 03/31/2021 11:08:00 PM EDT STOMACH PAIN,RECTUM BLEEDING, VOMITING [facility] STOMACH PAIN,RECTUM BLEEDING, VOMITING Patient discharged. Annemarie Pickens, ASSISTANT MEN'S SOCCER COACH: [address], [place] [address], Ph. Attender: Annemarie PALOMINO MD - [facility] 03/25/2021 12:00:00 AM EDT ATHKarl WAYNE ([facility]) Emergency Attender: CECY VALENCIA MDConsultant: PCP NO 03/15/2021 03:33:00 PM EDT - 03/15/2021 03:53:00 PM EDT [facility] Patient discharged. Lucas Leiva MD: [address] [facility] [address], [place] [address], Ph. Attender: Lucas Leiva MD [facility] 03/10/2021 12:00:00 AM EDT [facility] ([facility]) Lucas Leiva MD: [address] [facility] [address], [place] [address], Ph. Attender: Lucas Leiva MD [facility] 03/10/2021 12:00:00 AM EDT [facility] ([facility]) Emergency Attender: CECY VALENCIA MDConsultant: PCP NO 02/28/2021 01:50:00 PM EDT - 02/28/2021 04:32:00 PM EDT [facility] Patient discharged. Outpatient Attender: Deirdre Winn MD Main office - [facility] 02/02/2021 08:00:00 AM EDT [facility] ([facility] ) Outpatient Attender: SUNIL ZAPATAConsultant: PCP NO 12/22/2020 07:01:00 AM EDT - 12/22/2020 08:01:00 AM EDT [facility] Emergency Attender: CECY VALENCIA MDConsultant: PCP NO 12/18/2020 03:12:00 PM EDT - 12/18/2020 06:04:00 PM EDT [facility] Patient discharged. Medications Medication Brand Name Start Date Product Form Dose Route Admi nistrative Instructions Pharmacy Instructions Status Indications Reaction Description Data Source(s) Emgality Emgality 03/18/2021 12:00:00 AM EDT activ e [facility] ([facility], ) topiramate 100 MG Oral Tablet Topiramate 03/09/2021 12:00:00 AM EDT completed [facility] ([facility], ) topiramate 25 MG Oral Tablet Topiramate 02/02/2021 12:00:00 AM EDT completed [facility] ([facility] ) Nurtec Nurtec 02/02/2021 12:00:00 AM EDT active [facility] ([facility] ) topiramate 100 MG Oral Tablet Topiramate 02/02/2021 12:00:00 AM EDT ORAL completed [facility] ([facility], ) Diclofenac Sodium 0.01 MG/MG Topical Gel [Voltaren] Vo ltaren 1 % topical gel Voltaren 1 % topical gel completed diclofenac sodium 0.01 MG/MG Topical Gel [Voltaren] [facility] ([facility]) Methocarbamol 750 MG Oral Tablet methocarbamol 750 mg tablet methocarbamol 750 mg tablet completed methocarbamo l 750 MG Oral Tablet [facility] ([facility]) Natural Fiber Laxative Therapy oral powder completed Natural Fiber Laxative Therapy oral powder [facility] ([facility]) Sumatriptan 50 MG Oral Tablet sumatriptan 50 mg tablet sumat riptan 50 mg tablet completed sumatriptan 50 MG Oral Tablet [facility] ([facility]) Acetaminophen 325 MG Oral Tablet acetaminophen 325 mg tablet acetaminophen 325 mg tablet completed acetaminophe n 325 MG Oral Tablet [facility] ([facility]) Ciprofloxacin 500 MG Oral Tablet ciprofl oxacin 500 mg tablet TAKE 1 TABLET BY MOUTH TWICE DAILY ciprofloxacin 500 mg tablet TAKE 1 TABLE T BY MOUTH TWICE DAILY completed ciprofloxacin 50 0 MG Oral Tablet [facility] ([facility]) Methocarbamol 500 MG Oral Tablet methocarbamol 500 mg tablet methocarbamol 500 mg tablet completed methocarbamo l 500 MG Oral Tablet [facility] ([facility]) Amitriptyline Hydrochloride 25 MG Oral Tablet amitript yline 25 mg tablet amitriptyline 25 mg tablet completed amitriptyline hydrochloride 25 MG Oral Tablet [facility] ([facility]) Diclofenac Sodium 0.01 MG/MG Topical Gel [Voltaren] Vo ltaren 1 % topical gel Voltaren 1 % topical gel completed diclofenac sodium 0.01 MG/MG Topical Gel [Voltaren] [facility] ([facility]) topiramate 25 MG Oral Tablet topiramate 25 mg tablet topiramate 25 mg tablet completed topiramate 25 MG Oral Tablet [facility] ([facility]) duloxetine 20 MG Delayed Release Oral Ca psule duloxetine 20 mg capsule,delayed release duloxetine 20 mg capsule,delayed release completed duloxetine 20 MG Delayed Release Oral Capsule [facility] ([facility]) Methocarbamol 750 MG Oral Tablet methocarbamol 750 mg tablet methocarbamol 750 mg tablet completed methocarbamo l 750 MG Oral Tablet [facility] ([facility]) Cyclobenzaprine hydrochloride 5 MG Oral Tablet cyclobe nzaprine 5 mg tablet cyclobenzaprine 5 mg tablet completed cyclobenzaprine hydrochloride 5 MG Oral Tablet [facility] ([facility]) Amitriptyline Hydrochloride 10 MG Oral Tablet amitript yline 10 mg tablet amitriptyline 10 mg tablet completed amitriptyline hydrochloride 10 MG Oral Tablet [facility] ([facility]) Methocarbamol 500 MG Oral Tablet methocarbamol 500 mg tablet methocarbamol 500 mg tablet completed methocarbamo l 500 MG Oral Tablet [facility] ([facility]) Hydrocortisone 25 MG/ML Topical Cream [P roctosol] Proctosol HC 2.5 % topical cream perineal applicator Proctosol HC 2.5 % topical cream perineal applicator completed hydrocortisone 25 MG/ML Topical Cream [Proctosol] [facility] ([facility]) Amitriptyline Hydrochloride 10 MG Oral Tablet amitript yline 10 mg tablet amitriptyline 10 mg tablet completed amitriptyline hydrochloride 10 MG Oral Tablet [facility] ([facility]) duloxetine 20 MG Delayed Release Oral Ca psule duloxetine 20 mg capsule,delayed release duloxetine 20 mg capsule,delayed release completed duloxetine 20 MG Delayed Release Oral Capsule [facility] ([facility]) Naproxen 500 MG Oral Tablet naproxen 500 mg tablet TAKE 1 TABLET BY MOUTH TWICE DAILY TAKE WITH FOOD naproxen 500 mg tablet TAKE 1 TABLET BY MOUTH TWICE DAILY TAKE WITH FOOD completed naproxe n 500 MG Oral Tablet [facility] ([facility]) Hydrocortisone 25 MG/ML Topical Cream [P roctosol] Proctosol HC 2.5 % topical cream perineal applicator Proctosol HC 2.5 % topical cream perineal applicator completed hydrocortisone 25 MG/ML Topical Cream [Proctosol] [facility] ([facility]) Cyclobenzaprine hydrochloride 5 MG Oral Tablet cyclobe nzaprine 5 mg tablet cyclobenzaprine 5 mg tablet completed cyclobenzaprine hydrochloride 5 MG Oral Tablet [facility] ([facility]) Amitriptyline Hydrochloride 25 MG Oral Tablet amitript yline 25 mg tablet amitriptyline 25 mg tablet completed amitriptyline hydrochloride 25 MG Oral Tablet [facility] ([facility]) Sumatriptan 50 MG Oral Tablet sumatriptan 50 mg tablet sumat riptan 50 mg tablet completed sumatriptan 50 MG Oral Tablet [facility] ([facility]) Naproxen 500 MG Oral Tablet naproxen 500 mg tablet TAKE 1 TABLET BY MOUTH TWICE DAILY TAKE WITH FOOD naproxen 500 mg tablet TAKE 1 TABLET BY MOUTH TWICE DAILY TAKE WITH FOOD completed naproxe n 500 MG Oral Tablet [facility] ([facility]) topiramate 25 MG Oral Tablet topiramate 25 mg tablet topiramate 25 mg tablet completed topiramate 25 MG Oral Tablet [facility] ([facility]) Natural Fiber Laxative Therapy oral powder completed Natural Fiber Laxative Therapy oral powder [facility] ([facility]) Ciprofloxacin 500 MG Oral Tablet ciprofl oxacin 500 mg tablet TAKE 1 TABLET BY MOUTH TWICE DAILY ciprofloxacin 500 mg tablet TAKE 1 TABLE T BY MOUTH TWICE DAILY completed ciprofloxacin 50 0 MG Oral Tablet [facility] ([facility]) Insurance Providers Payer name Policy type / Coverage type Policy ID Covered democrat ID Covered democrat's relationship to covarrubias Policy Covarrubias Plan Information [facility] ACTIVE DUTY [id number] SP [id number] [facility] HUMANA - O/P [id number] 18 [id number] [facility] [employer] - O/P [id number] 18 [id number] [facility] HU[employer] - O/P . 18 . 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 Diagnosis 02/28/2021 01:5 0:00 PM EDT [facility] N433 Hydrocele, unspecified Hydrocele, unspecified Diagnosi s 02/28/2021 01:50:00 PM EDT [facility] R300 Dysuria Dysuria Diagnosis 02/28/2021 01:50:00 PM ED [facility] [id number] Personal history of traumatic brain inju ry Personal history of traumatic brain injury Diagnosis 12/22/2020 07:01:00 AM [facility] R2689 Other abnormalities of gait and mobility Other abnormalities of gait and mobility Diagnosis 12/22/2020 07:01:00 AM T [facility] [id number] Migraine, unspecified, not intractable, without status migrainosus Migraine, unspecified, not intractable, without status migrainosus Diagnosis 12/22/2020 07:01:00 AM [facility] [id number] Chronic migraine without aura, intractab le, with status migrainosus Chronic migraine without aura, intractable, with status migrainosus Diagnosis 12/18/2020 03:12:00 PM T [facility] R519 Headache, unspecified Headache, unspecified Diagnosis 12/18/2020 03:12:00 PM T [facility] [id number] Concussion injury of brain Concussion injury of brain Problem 02/02/2021 12:00:00 AM EDT [facility] ([facility] ) [id number] Migraine Migraine Problem 02/02/2021 12:00:00 AM ED T [facility] ([facility] ) Surgeries/Procedures Procedure Description Date Indications Data Source(s) MRI, lumbar spine, w/o contrast 03/10/2021 12:00:00 AM EDT [facility] ([facility]) OFFICE CONSULTATION NEW/ESTAB PATIENT 60 MIN 12:00:00 AM EDT [facility] ([facility] ) Results ID Date Data Source [id number] 03/31/2021 09:53:00 PM EDT [facility] ED Physician Documentation NAME: JULISA GHOSH : 2000 AGE: 21 MR#: [id number] SERVICE DATE: 03/31/[address]: Alexander Degroot MD PRIMARY CARE DR: No Family PHYS Provided ROOM#: [facility] (Adult, General) General Chief Complaint: GI Stated Complaint: STOMACH PAIN,RECTUM BLEEDING, VOMITING Time Seen by Provider: 03/31/21 20:19 History of Present Illness Initial Comments: Pleasant 21-year-old male from [facility] [place] [...] % (Auto) 53.2, Lymph % (Auto) 36.9, Stewart % (Auto) 8.3, Eos % (Auto) 0.8, [...] Appearance Clear, Urine pH 6.5, Ur Specific [place] 1.031 A, Urine Protein Negative, Urine Ketones [...] rce(s) Supporting Document(s) ID Date Data Source [id number] 03/31/2021 09:48:00 PM EDT [facility] [address] [place] [address] [phone] NAME SEX PT STATUS ACCOUNT NUMBER JULISA GHOSH REG ER [id number] ORDERING PHYSICIAN LOCATION MEDICAL RECORD NO. Alexander Degroot MD ER [id number] ATTENDING PHYSICIAN DATE OF DATE OF EXAM/TIME [...] Trans Dt/Tm: Trans by: DT Prt Dt/Tm: 3330-6014: Total DLP = 405.00 mGy-cm 4562-1384: Total Radiation Dose = 6.0750 mSv Lifetime Dose: 6.0750 mSv Name Value Range Interpretation Code Description Data Ina rce(s) Supporting Document(s) ID Date Data Source [id number] 03/31/2021 11:53:00 PM EDT [facility] CT/NG IS A QUALITATIVE IN VITRO REAL-SHASHANK [...] rce(s) Supporting Document(s) ID Date Data Source [id number] 03/31/2021 09:03:00 PM EDT [facility] Reason for ordering culture: Abnormal fi ndings UAMethod of Collection:: Voided Name Value Range Interpretation Code Description Data Ina rce(s) Supporting Document(s) Color of Urine [facility] Appearance of Urine CLEAR [facility] pH of Urine by Test strip 6.5 5-8 [facility] Specific gravity of Urine by Refractometry 1.031 1.005 -1.030 Abnormal (applies to non-numeric results) [facility] Leukocyte esterase [Presence] in Urine by Test strip NEGAT ABENA [facility] Nitrite [Presence] in Urine by Test strip NEGATIVE [facility] Protein [Presence] in Urine by Test strip NEGATIVE [facility] Glucose [Mass/volume] in Urine by Automated test strip NEGATIVE NEG ATIVE [facility] Ketones [Presence] in Urine by Test strip NEGATI VE Abnormal (applies to non- numeric results) [facility] Urobilinogen [Presence] in Urine 0.2-1 EU/dl [facility] Bilirubin.total [Presence] in Urine by Automated test strip NEGATIVE [facility] Erythrocytes [#/volume] in Urine by Test strip NEGATIVE NEGATIVE [facility] URINE MICROSCOPIC? (CIF) NO [facility] ID Date Data Source [id number] 04/01/2021 08:51:00 AM EDT [facility] Special Instructions: Lab may order repe at test if initial test elevatedPhysician If elevated, reflex second test in 4-6 hrs Name Value Range Interpretation Code Description Data Ina rce(s) Supporting Document(s) Campylobacter coli+jejuni+mihai fusA gene [Presence] in Stool by Probe and target amplification method [facility] Salmonella sp rpoD gene [Presence] in St ool by Probe and target amplification method [facility] ital Shigella species+EIEC invasion plasmid a ntigen H (ipaH) gene [Presence] in Stool by Probe and target amplification method [facility] Vibrio cholerae+parahaemolyticus rfbL+tr kH+tnaA genes [Presence] in Stool by Probe and target amplification method [facility] Yersinia enterocolitica recN gene [Prese nce] in Stool by Probe and target amplification method [facility] Escherichia coli shiga-like toxin 1 (stx 1) gene [Presence] in Stool by Probe and target amplification method [facility] Escherichia coli shiga-like toxin 2 (stx 2) gene [Presence] in Stool by Probe and target amplification method [facility] Norovirus genogroup I+II orf1-orf2 junct ion region [Presence] in Stool by Probe and target amplification method [facility] Rotavirus A nsp5 gene [Presence] in Stoo l by Probe and target amplification method [facility] ital NORMAL VALUE FOR TEST IS "NOT DETECTED"T he [facility]ene Enteric Pathogens Nucleic Acid Test (EP) is amultiplexed, qualitative test for simultaneous detection andidentification of common pathogenic enteric bacteria,viuruses, and genetic virulence markers from liquid or softstool preserved in Letha-Luca medium, collected fromindividuals with signs and symptoms of gastrointestinalinfection.The test is performed on the automated HoverWind Systemutilizing reverse confectionery maker (RT), polymerase chainreaction (PCR), and array hybridization [...] syndrome or Crohn'sdisease. ID Date Data Source [id number] 03/31/2021 09:04:00 PM EDT [facility] Special Instructions: Lab may order repe at test if initial test elevatedPhysician If elevated, reflex second test in 4-6 hrs Name Value Range Interpretation Code Description Data Ina rce(s) Supporting Document(s) Leukocytes [#/volume] in Blood by Automated count 6.3 10*3/uL 4.45-10 .71 N [facility] Erythrocytes [#/volume] in Blood by Automated count 4.90 10*6/uL 4.3- 6.1 N [facility] Hemoglobin [Moles/volume] in Blood 15.6 g/dL 13-18 N [facility] Hematocrit [Volume Fraction] of Blood by Automated count 44.6 % 4 2-52 N [facility] Erythrocyte mean corpuscular volume [Ent itic volume] in Cord blood by Automated count 91 fL 80-96 N [facility] ital Erythrocyte mean corpuscular hemoglobin [Entitic mass] by Au tomated count 32 pg 27-31 Above high normal [facility] Erythrocyte mean corpuscular hemoglobin concentration [Mass/volume] in Cord blood 35 g/dL 33-37 N [facility] ital Erythrocyte distribution width [Entitic volume] by Automated count 12 % 11-15 N [facility] Platelets [#/volume] in Blood by Automated count 174 10*3/uL 130-472 N [facility] Platelet mean volume [Entitic volume] in Blood 11.1 fL 9.1-13.1 N [facility] Neutrophils/100 leukocytes in Blood by Automated count 53.2 % 41- 77 N [facility] Neutrophils [#/volume] in Blood by Automated count 3.3 U 1.7-7.6 N [facility] Lymphocytes/100 leukocytes in Blood by Automated count 36.9 % 14- 46 N [facility] Lymphocytes [#/volume] in Blood by Automated count 2.3 U 0.6-4.6 N [facility] Monocytes/100 leukocytes in Blood by Automated count 8.3 % 4-12 N [facility] Monocytes [#/volume] in Blood by Automated count 0.5 U 0.2-1.2 N [facility] Eosinophils/100 leukocytes in Blood by Automated count 0.8 % 0-7 N [facility] Eosinophils [#/volume] in Blood by Automated count 0.1 U 0.0-0.5 N [facility] Basophils/100 leukocytes in Blood by Automated count 0.5 % 0.4-1 .3 N [facility] Basophils [#/volume] in Blood by Automated count 0.0 U 0.0-0.2 N [facility] NUCLEATED RED BLOOD CELL 0 % [facility] NUCLEATED RED BLOOD CELL# 0 U [facility] Immature granulocytes [Presence] in Blood by Automated count 0-2 N [facility] Immature granulocytes [#/volume] in Blood by Automated count 0.0 U 0-0.1 N [facility] Manual Differential panel - Blood NO [facility] ID Date Data Source [id number] 03/31/2021 09:26:00 PM EDT [facility] Special Instructions: Lab may order repe at test if initial test elevatedPhysician If elevated, reflex second test in 4-6 hrs Name Value Range Interpretation Code Description Data Ina rce(s) Supporting Document(s) Urea nitrogen [Mass/volume] in Serum or Plasma 16 mg/dL 9-23 N [facility] Sodium [Moles/volume] in Serum or Plasma 139 mmol/L 132-146 [facility] Potassium [Moles/volume] in Serum or Plasma 3.8 mmol/L 3.5-5.5 [facility] Chloride [Moles/volume] in Serum or Plasma 106 mmol/L 99-109 [facility] Carbon dioxide, total [Moles/volume] in Serum or Plasma 28 mmol/L 20 -31 [facility] Anion gap in Serum or Plasma 9 mmol/L 8-16 [facility] Glucose [Mass/volume] in Serum or Plasma 102 mg/dL 74-106 N [facility] Creatinine 1.1 mg/dL 0.5-1.1 [facility] Glomerular filtration rate/1.73 sq M.pre dicted [Volume Rate/Area] in Serum or Plasma Greater Than 60 ABOVE 60 [facility] Alanine aminotransferase [Enzymatic acti vity/volume] in Serum or Plasma by With P-5'-P 39 U/L 10-49 N [facility] ital Aspartate aminotransferase [Enzymatic ac tivity/volume] in Serum or Plasma by With P-5'-P 25 U/L 0-33 [facility] pital Alkaline phosphatase [Enzymatic activity/volume] in Serum or Plasma 81 U/L 45-129 [facility] [facility] Calcium [Mass/volume] in Serum or Plasma 10.0 mg/dL 8.5-10.1 [facility] Bilirubin.total [Mass/volume] in Serum or Plasma 1.3 mg/dL 0.3-1.2 Above high normal [facility] Albumin [Mass/volume] in Serum or Plasma by Bromocresol purple (BCP) dye binding method 4.2 g/dL 3.2-4.8 [facility] ital Protein [Mass/volume] in Serum or Plasma 8.6 g/dL 5.7-8.2 Above high normal [facility] ID Date Data Source [id number] 03/31/2021 09:29:00 PM EDT [facility] Special Instructions: Lab may order repe at test if initial test elevatedPhysician If elevated, reflex second test in 4-6 hrs Name Value Range Interpretation Code Description Data Ina rce(s) Supporting Document(s) Lactic w Rfx (if elevated) 0.7 mmol/L 0.5-2.0 [facility] ID Date Data Source [id number] 03/15/2021 03:33:00 PM EDT [facility] 1 Medication Reconciliation Report [facility] [address] [place] [address] Phone #: ext- [phone] 03/15/2021 15:01 Patient: [...] needed for 10 days -- for pruritus. [id number] capsule. Refills: 0. Substitution permitted.Pharmacy - [facility] - [address] ; [place] [address]. . -- MICHAEL Ramsey Name Value Range Interpretation Code Description Data Ina rce(s) Supporting Document(s) ID Date Data Source [id number] 03/15/2021 03:33:00 PM EDT [place] [address] Medication Administration Record [facility] [address] [place] [address] Phone #: ext- [phone] 03/15/2021 15:01 Patient: JULISA GHOSH Sex: M : 2000 Age: 21yWeight: 77.5 kgHeight/Length: 73 inBMI: 22.5ALLERGIES: No Known Drug AllergyDate/Time Medication Administered Medication Ordered Name Value Range Interpretation Code Description Data Ina e(s) Supporting Document(s) ID Date Data Source [id number] 03/15/2021 03:33:00 PM EDT [facility] 1 General Instructions [facility] [address] [place] [address] Phone #: ext- [phone] 03/15/2021 15:01 Patient: [...] needed for 10 days -- for pruritus. Rjvsvpyl76 capsule. Refills: 0. Substitution permitted.Pharmacy - [facility] - [address] ; [place] [id number]. .Understanding of the discharge instructions verbalized by patient. Expected course of illness, dischargeinstructions, activity level, follow-up appointment and risks and bene fits of treatment reviewed with patientand understanding verbalized. Agrees to plan of care.Follow-up with: [facility], , , [address] [place] [address], , [place], [address] Follow up in one even if well. Call for the next available appointment. Reason for referral: evaluation nilo dermatology/shrimp cleaner referral if symptoms persist. Summary of care provided to patient viapaper. 2 General Instructions [facility] [address] [place] [address] Phone #: ext- [phone] 03/15/2021 15:01 Patient: JULISA GHOSH Sex: M : 2000 Age: 21y(Electronically signed by MICHAEL Ramsey 03/15/2021 16:26) Name Value Range Interpretation Code Description Data Ina rce(s) Supporting Document(s) ID Date Data Source [id number] 03/15/2021 03:33:00 PM EDT [facility] 1 Clinical Report - Nurses [facility] [address] [place] [address] Phone #: ext- [phone] 03/15/2021 15:01 Patient: JULISA GHOSH Sex: M : 2000 Age: 21yTRIAGEArrived by private vehicle. Historian: patient. Accompanied by friend.Acuity: LEVEL 4.Chief Complaint: (generalized itching).Onset. (6 months ago). ( pt states he has no rash but has had a generalized itching for about the past 6months, has not been seen for this as of yet).Treatment RUBBER FLAP CUTTER:None.SEPSIS SCREEN: SIRS SCREEN NEGATIVE. SEPSIS SCREEN NEGATIVE. [...] Immunizations: up-to-date. 2 Clinical Report - Nurses [facility] [address] [place] [address] Phone #: ext- [phone] 03/15/2021 15:01 Patient: [...] To treatment room. --15:03/15/21 Roe Hurley RN.PHYSICAL [id number]:03/15/21. Ambulatory to room.GENERAL / NEURO / PSYCH: [...] Discharge instructions 3 Clinical Report - Nurses [facility] [address] [place] [address] Phone #: ext- [phone] 03/15/2021 15:01 Patient: JULISA GHOSH Sex: M : 2000 Age: 21y provided and reviewed with the patient. Reviewed medication(s) side effects, precautions, dosing and course information. Prescription(s) sent electronically to pharmacy ([facility] Patient verbalized understanding. Written instructions provided in Palauan. The patient was discharged home. He left [...] rce(s) Supporting Document(s) ID Date Data Source [id number] 03/15/2021 03:33:00 PM EDT [facility] 1 Clinical Report - Physicians/Mid Levels [facility] [address] [place] [address] Phone #: ext- [phone] 03/15/2021 15:01 Patient: [...] allergies. 2 Clinical Report - Physicians/Mid Levels [facility] [address] [place] [address] Phone #: ext- [phone] 03/15/2021 15:01 Patient: [...] permitted. 3 Clinical Report - Physicians/Mid Levels [facility] [address] [place] [address] Phone #: ext- [phone] 03/15/2021 15:01 Patient: JULISA GHOSH Sex: M : 2000 Age: 21y Pharmacy - [facility] - [id number] ; [place] [address]. . Understanding of the discharge instructions verbalized by patient. Expected course of illness, discharge instructions, activity level, follow-up appointment and risks and benefits of treatment reviewed with patient and understanding verbalized. Agrees to plan of care. Follow-up with: [facility], , , [id number] [place] [address], , [place], [address] Follow up in one even if well. Call for the next available appointment. Reason for referral: evaluation and recommend dermatology/shrimp cleaner referral if symptoms persist. Summary of care provided to patient via paper.(Electronically signed by MICHAEL Ramsey 03/15/2021 16:26) Name Value Range Interpretation Code Description Data Ina rce(s) Supporting Document(s) ID Date Data Source [id number] 03/02/2021 09:25:00 PM EDT [facility] Name Value Range Interpretation Code Description Data Ina rce(s) Supporting Document(s) SARS COVID ANTIGEN NEGATIVE [place] This lab was ordered by KAUSHAL goins nd reported by [facility]. ID Date Data Source [id number] 03/01/2021 10:32:00 AM EDT [facility] [address] [place] [address] PHONE: [phone] FAX: [phone] Name .................. : DAVINA Parrish Acct Number.................. : [id number] ROOM. ................. : VT-08 Number ................... : [id number] Stay type ............. : E/R Discharge Date......... ... : 02/28/21 Admit Date ......... : 02/28/21 Admit Phys .................... : COONEYNORM Date of ....... : 2000 Family Phys ................... : NO PCP Phone .................. : [phone] Age ................................ : 21 Film# .................. .:[id number] Sex ................................. : M Unsigned transcriptions are preliminary reports and do not represent a medical or legal document SCROTAL [id number] COMPLETE:02/28/21 14:22 06645 Reason(s): Testicle/Scrotum Pain ULTRASOUND SCROTUM INDICATION: Testicular/scrotal [...] of testicular torsion. Page 1 of 2 [place] [address] PHONE: [phone] FAX: [phone] Name .................. : DAVINA Parrish Acct Number.................. : [id number] ROOM. ................. : VT-08 Number ................... : [id number] Stay type ............. : E/R Discharge Date......... ... : 02/28/21 Admit Date ......... : 02/28/21 Admit Phys .................... : COONEYNORM Date of ....... : 2000 Family Phys ................... : NO PCP Phone .................. : [phone] Age ................................ : 21 Film# .................. .:[id number] Sex ................................. : M Unsigned transcriptions are preliminary reports and do not represent a medical or legal document SCROTAL [id number] COMPLETE:02/28/21 14:22 56019 Reason(s): Testicle/Scrotum Pain 2. Bilateral varicoceles, right [...] rce(s) Supporting Document(s) ID Date Data Source [id number] 02/28/2021 01:50:00 PM EDT [facility] 1 OrderSheet [facility] [address] [place] [address] Phone #: ext- [phone] 02/28/2021 13:48 Patient: JULISA GHOSH Sex: M : 2000 Age: 21yWEIGHT:77.5 kg HEIGHT:73 inches BMI:22.5ALLERGIES: Aspirin, Macrobid, Primaquine Phosphate, SulfaCHIEF COMPLAINT: dysuria, Rt, testicular pain:, LtDIAGNOSIS: Hydrocele, Scrotal varicesLAB ORDERSOrder Description Priority Entered Acknowledged InitialedUA Reflex to UA 14:22 02/28/2021 14:31 NewnanCulture Johnnie Ulrich inspector and clerkLewis; Opii5Miiibzppp/GC STAT 14:22 02/28/2021 14:31 Nirmala [facility] TechLewis; Tech1 NOTES: urineSyphilis 14:22 02/28/2021 15:03 Johnnie Mcclain R.N.;DIAGNOSTIC STUDY ORDERSOrder Description Priority Entered Acknowledged InitialedUS Scrotal STAT 14:22 02/28/2021 14:34 [place](Oxygen?(No)) Johnnie MuñozAlomere Health HospitalLewis; Tech1 Reason for Study: Testicle/Scrotum PainMEDICATION/IV/DRIP/FLUID ORDERSOrder Description Priority Entered Acknowledged InitialedGENERAL ORDERSOrder Description Priority Entered Acknowledged Initialed[Electronically signed by Sheri Drew R.N. (16:32 02/28/2021)][Electronically signed by Johnnie Ulrich (22:06 02/28/2021)][Electronically locked by Sheri Drew R.N. (16:32 02/28/2021)] Name Value Range Interpretation Code Description Data Ina rce(s) Supporting Document(s) ID Date Data Source [id number] 02/28/2021 01:50:00 PM EDT [facility] 1 Medication Reconciliation Report [facility] [address] [place] [address] Phone #: hht- [phone] 02/28/2021 13:48 Patient: JULISA GHOSH Sex: M [...] 45 tablet. Refills: 0. Substitution permitted.Pharmacy - [facility] [address] ; [place] [address]. . -- MICHAEL Buck Name Value Range Interpretation Code Description Data Ina e(s) Supporting Document(s) ID Date Data Source [id number] 02/28/2021 01:50:00 PM EDT [place] [address] Medication Administration Record [facility] [address] [place] [address] Phone #: ext- [phone] 02/28/2021 13:48 Patient: JULISA GHOSH Acct#: [id number] Sex: M : 2000 Age: 21yWeight: 77.5 kgHeight/Length: 73 inBMI: 22.5ALLERGIES: Macrobid, Aspirin, Sulfa, Primaquine PhosphateDate/Time Medication Administered Medication Ordered Name Value Range Interpretation Code Description Data Ina rce(s) Supporting Document(s) ID Date Data Source [id number] 02/28/2021 01:50:00 PM EDT [facility] 1 General Instructions [facility] [address] [place] [address] Phone #: ext [phone] 02/28/2021 13:48 Patient: JULISA GHOSH Sex: M [...] 45 tablet. Refills: 0. Substitution permitted.Pharmacy - [facility] [address] ; [place] [address]. .Understanding of the discharge instructions verbalized by patient.Follow-up with: Rajan Doe M.D., Urology, , [address] [place] [address], [address] Follow up. Call for the next available appointment. Reason for referral: evaluation and treatment.Summary of care provided to patient. ADDITIONAL INFORMATIONHydrocele (Type Not Specified) 2 General Instructions [facility] [address] [place] [address] Phone #: ext- [phone] 02/28/2021 13:48 Patient: JULISA GHOSH Sex: M [...] happens with nausea, vomiting, or both [employer]. [address] [place] [address]. All rights reserved. This information is not intended as asubstitute for professional medical care. Always follow your healthcare professional's instructions.VaricoceleA varicocele is a swelling in the veins above the testicles. It's similar to a varicose vein in the legs. 3 General Instructions [facility] [address] [place] [address] Phone #: ext- [phone] 02/28/2021 13:48 Patient: [...] jockstrap or snug underwear 4 General Instructions [facility] [address] [place] [address] Phone #: ext- [phone] 02/28/2021 13:48 Patient: JULISA GHOSH Sex: M : 2000 Age: 21y Take an beff-uae-npammxj pain reliever, such as ibuprofenFollow-up careFollow up [...] the groin area appears or gets bigger [employer]. [address] [place] [address]. All rights reserved. This information is not intended as asubstitute for professional medical care. Always follow your healthcare professional's instructions. You have been given the following additional information: Hydrocele, Type Not Specified Varicocele(Electronically signed by MICHAEL Buck 02/28/2021 22:06) Name Value Range Interpretation Code Description Data Ina rce(s) Supporting Document(s) ID Date Data Source [id number] 02/28/2021 01:50:00 PM EDT [facility] 1 Clinical Report - Nurses [facility] [address] [place] [address] Phone #: ext- [phone] 02/28/2021 13:48 Patient: [...] to Coronavirus. 2 Clinical Report - Nurses [facility] [address] [place] [address] Phone #: ext- [phone] 02/28/2021 13:48 Patient: JULISA GHOSH Sex: M [...] 02/28/21 Adele Cruz R.N. Patient transported to [facility] by wheelchair with mask and interventional radiology technologist. --14:35 02/28/21 [place] inspector and clerk, VETO Saucedo Tech1.DISPOSITION / DISCHARGE 16:32 02/28/21. [...] Patient verbalized understanding. Written instructions provided in Palauan. The patient was discharged by the physician. He was discharged home. He left ambulatory and via private vehicle. Patient driving. --16:32 02/28/21 Sheri Drew R.N. 16:31 02/28/21. BP: 115/69. MAP: 84. HR: 61. RR: 16. O2 saturation: 100%. Temp: 98.1 F. Pain level 3 Clinical Report - Nurses [facility] [address] [place] [address] Phone #: ext- [phone] 02/28/2021 13:48 Patient: JULISA GHOSH Sex: M : 2000 Age: 21y now: 12/13. --16:32 02/28/21 Sheri Drew R.N.Locked/Released at 02/28/2021 16:32 by Sheri Drew R.N. Name Value Range Interpretation Code Description Data Ina rce(s) Supporting Document(s) ID Date Data Source [id number] 02/28/2021 01:50:00 PM EDT [facility] 1 Clinical Report - Physicians/Mid Levels [facility] [address] [place] [address] Phone #: ext- [phone] 02/28/2021 13:48 Patient: [...] use. 2 Clinical Report - Physicians/Mid Levels [facility] [address] [place] [address] Phone #: ext- [phone] 02/28/2021 13:48 Patient: [...] varicocele. The exam was performed by a hvac operations technician. The study was interpreted by theradiologist [...] RE. 3 Clinical Report - Physicians/Mid Levels [facility] [address] [place] [address] Phone #: ext- [phone] 02/28/2021 13:48 Patient: [...] tablet. Refills: 0. Substitution permitted. Pharmacy - [facility] [address] ; [place] [id number]. . Understanding of the discharge instructions verbalized by patient. 4 Clinical Report - Physicians/Mid Levels [facility] [address] [place] [address] Phone #: ext- [phone] 02/28/2021 13:48 Patient: JULISA GHOSH Sex: M : 2000 Age: 21y Follow-up with: Rajan Doe M.D., Urology, , [address] [place] [address], [address] Follow up. Call for the next available appointment. Reason for referral: evaluation and treatment. Summary of care provided to patient.(Electronically signed by MICHAEL Buck 02/28/2021 22:06) Name Value Range Interpretation Code Description Data Ina rce(s) Supporting Document(s) ID Date Data Source [id number] 02/28/2021 04:01:00 PM EDT [facility] Name Value Range Interpretation Code Description Data Ina rce(s) Supporting Document(s) Treponema pallidum Ab [Presence] in Serum NON-REACTIVE NORMAL:NON VELMA CTIVE [facility] ID Date Data Source [id number] 03/03/2021 07:40:00 AM EDT [facility] Name Value Range Interpretation Code Description Data Ina rce(s) Supporting Document(s) Chlamydia trachomatis rRNA [Presence] in Unspecified specimen by Probe and target amplification method Negative Negative [facility] Neisseria gonorrhoeae rRNA [Presence] in Unspecified specimen by Probe and target amplification method Negative Negative [facility] ID Date Data Source [id number] 02/28/2021 02:57:00 PM EDT [facility] Name Value Range Interpretation Code Description Data Ina rce(s) Supporting Document(s) UA REFLEX TO UA CULTURE [facility] URINALYSIS SOURCE Clean Catch [facility] ital COLOR yellow NORMAL: Yellow [facility] CLARITY clear NORMAL: Clear [facility] Specific gravity of Urine by Test strip 1.015 1.001 - 1.030 [facility] 6 5 - [facility] Gl[facility] [Mass/volume] in Urine by Test strip NORM NORMAL: Negat [facility] Bilirubin.total [Presence] in Urine by Test strip NEG NORMAL: Negative [facility] Ketones [Presence] in Urine by Test strip NEG NORMAL: Negative [facility] Protein [Mass/volume] in Urine by Test strip NEG NORMAL: Negat [facility] Nitrite [Presence] in Urine by Test strip NEG NORMAL: Negative [facility] BLOOD NEG NORMAL: Negative [facility] Leukocyte esterase [Presence] in Urine by Test strip NEG CECY L: Negative [facility] Urobilinogen [Mass/volume] in Urine by Test strip NOR less bernie n 1.0 mg/dL [facility] MICROSCOPIC Not Indicate [facility] ID Date Data Source [id number] 12/23/2020 09:58:00 AM EDT [facility] [address] [place] [address] PHONE: [phone] FAX: [phone] Name .................. : DAVINA Parrish Acct Number.................. : [id number] ROOM. ................. : Number ................... : [id number] Stay type ............. : O/P Discharge Date......... ... : 12/22/20 Admit Date ......... : 12/22/20 Admit Phys .................... : BENNY STILES Date of ....... : 2000 Family Phys ................... : NO PCP Phone .................. : [phone] Age ................................ : 20 Film# .................. .:[id number] Sex ................................. : M Unsigned transcriptions are preliminary reports and do not represent a medical or legal document MRI BRAIN W/O CONTRAST [id number] COMPLETE:12/22/20 08:35 ALDA 11018 Reason for Exam: TBI 08/24, MIGRAINES WORSENING, [...] , Transcribe Date: 12/22/20 21:44, Dictation Date: Licensed Club Manager y for: BENNY GRANDE Copy for: [facility] REC Page 1 of 1 Name Value Range Interpretation Code Description Data Ina rce(s) Supporting Document(s) ID Date Data Source [id number] 12/19/2020 02:07:00 PM EDT [facility] [address] [place] [address] PHONE: [phone] FAX: [phone] Name .................. : DAVINA PEARSON Shivani Acct Number.................. : [id number] ROOM. ................. : VT-02 MR Number ................... : [id number] Stay type ............. : E/R Discharge Date......... ... : 12/18/20 Admit Date ......... : 12/18/20 Admit Phys .................... : COONEYNORM Date of ....... : 2000 Family Phys ................... : NO PCP Phone .................. : [phone] Age ................................ : 20 Film# .................. .:[id number] Sex ................................. : M Unsigned transcriptions are preliminary reports and do not represent a medical or legal document CT HEAD W/O CONTRAST [id number] COMPLETE:12/18/20 20:24 DLA 45001 Reason(s): Head Injury CT OF THE HEAD [...] By Daquan Miller M.D. , 12/19/20 14:07, [facility] Transcribe Initials: HAYLEY , Transcribe Date: 12/19/20 02:56, Dictation Date: Page 1 of 2 [place] [address] PHONE: [phone] FAX: [phone] Name .................. : DAVINA PEARSON Shivani Acct Number.................. : [id number] ROOM. ................. : VT-02 MR Number ................... : [id number] Stay type ............. : E/R Discharge Date......... ... : 12/18/20 Admit Date ......... : 12/18/20 Admit Phys .................... : COONEYNORM Date of ....... : 2000 Family Phys ................... : NO PCP Phone .................. : [phone] Age ................................ : 20 Film# .................. .:[id number] Sex ................................. : M Unsigned transcriptions are preliminary reports and do not represent a medical or legal document CT HEAD W/O CONTRAST [id number] COMPLETE:12/18/20 20:24 DLA 71716 Reason(s): Head Injury Copy for: CARLOZ LOZANO via fax Copy for: EMERGENCY DEPT via modem Copy for: 710 MED REC DISCHARGED Page 2 of 2 Name Value Range Interpretation Code Description Data Ina rce(s) Supporting Document(s) ID Date Data Source [id number] 12/18/2020 03:12:00 PM EDT [facility] 1 OrderSheet [facility] [address] [place] [address] Phone #: ext- [phone] 12/18/2020 15:09 Patient: MICHEL GHOSH Sex: M : 2000 Age: 20yWEIGHT:77.5 kg (S) HEIGHT:71 inches (S) BMI:23.8ALLERGIES: Aspirin, Macrobid, Primaquine Phosphate, Sulfa AntibioticsCHIEF COMPLAINT: headacheDIAGNOSIS: MigraineLAB ORDERSOrder Description Priority Entered Acknowledged InitialedCALDWELL [facility] w Diff STAT 16:06 12/04 16:17 Richard [...] 16:40 Richard Horton RN P.A.-C; 2 OrderSheet [facility] [address] [place] [address] Phone #: ext- [phone] 12/18/2020 15:09 Patient: MICHEL GHOSH Sex: M : 2000 Age: 20yGENERAL ORDERSOrder Description Priority Entered Acknowledged InitialedSaline Lock 16:06 12/18/2020 16:40 RichardBobbi Horton RN P.A.-C;[Electronically signed by Lucrecia Lynn R.N. (18:04 12/18/2020)][Electronically signed by Gordon Glover P.A.-C (01:09 12/19/2020)][Electronically locked by Lucrecia Lynn R.N. (18:04 12/18/2020)] Name Value Range Interpretation Code Description Data Ina rce(s) Supporting Document(s) ID Date Data Source [id number] 12/18/2020 03:12:00 PM EDT [facility] 1 Medication Reconciliation Report [facility] [address] [place] [address] Phone #: ext- [phone] 12/18/2020 15:09 Patient: MICHEL GHOSH Sex: M [...] rce(s) Supporting Document(s) ID Date Data Source [id number] 12/18/2020 03:12:00 PM EDT [facility] 1 Medication Administration Record [facility] [address] [place] [address] Phone #: ext [phone] 12/18/2020 15:09 Patient: MICHEL GHOSH Sex: M : 2000 Age: 20yWeight: 77.5 kgHeight/Length: 71 inBMI: 23.8ALLERGIES: Primaquine Phosphate, Macrobid, Aspirin, Sulfa Antibiotics Date/Time Medication Administered Medication OrderedStart NS [IV] IV NS 1000 mL Bolus : Bolus 863751:30 12/18/2020 Dose: IV Fluids mL (X1)Richard Horton RN Bolus: 1000 mL over 1 hour(s)---- Dispensed: 1000 mL bagStop Site: #1 right fyfvzrx72:40 12/18/2020Tersanjay Horton RNGiven ZOFRAN [IVP] (ONDANSETRON HCL) Zofran IVP 4 mg16:32 12/18/2020 Dose: 4 mg IVManny Horton RN Site: #1 right forearmGiven BENADRYL [IVP] (DIPHENHYDRAMINE Benadryl IVP 25 mg16:31 12/18/2020 HCL)Richard Horton RN Dose: 25 mg IVP Site: #1 right forearm Name Value Range Interpretation Code Description Data Ina rce(s) Supporting Document(s) ID Date Data Source [id number] 12/18/2020 03:12:00 PM EDT [facility] 1 General Instructions [facility] [address] [place] [address] Phone #: ext- [phone] 12/18/2020 15:09 Patient: MICHEL GHOSH Sex: M : 2000 Age: 20yChronic migraine headache without aura, with status migrainosus- refractory to treatment.INSTRUCTIONSTake Tylenol (Acetaminophen) or Motrin (Ibuprofen) as needed for fever control. Take medicationaccording to label instructions. No strenuous activity for two weeks (Recommend no PT as this mayexcerbate your symptoms.).(Please f/u with the [facility] clinic as you have a [...] Other triggers include certain 2 General Instructions [facility] [address] [place] [address], [place] [address] Phone #: ext- [phone] 12/18/2020 15:09 Patient: MICHEL GHOSH Sex: M [...] salami Liver Avocados Bananas 3 General Instructions [facility] [address] [place] [address] Phone #: ext- [phone] 12/18/2020 15:09 Patient: MICHEL GHOSH Sex: M [...] sinuses, ears, or throat 4 General Instructions [facility] [address] [place] [address] Phone #: ext- [phone] 12/18/2020 15:09 Patient: [...] of your face Trouble talking or seeing [employer]. [address] [place] [address]. All rights reserved. This information is not [...] rce(s) Supporting Document(s) ID Date Data Source [id number] 12/18/2020 03:12:00 PM EDT [facility] 1 Clinical Report - Nurses [facility] [address] [place] [address] Phone #: ext- [phone] 12/18/2020 15:09 Patient: MICHEL GHOSH Sex: M [...] carrier of 2 Clinical Report - Nurses [facility] [address] [place] [address] Phone #: ext- [phone] 12/18/2020 15:09 Patient: MICHEL GHOSH Sex: M [...] Horton RN 3 Clinical Report - Nurses [facility] [address] [place] [address] Phone #: ext- [phone] 12/18/2020 15:09 Patient: [...] name and birthdate. Blood samples drawn by Nezasa. (1610). --16:41 12/18/20 Richard Horton RN Patient transported to NE by wheelchair with mask and interventional radiology technologist. (7063). --16:58 12/18/20 Richard Horton RN 17:40 12/18/2020 [...] patient was discharged home and accompanied by tongue and groove machine operator. He left ambulatory and via private vehicle. Balance Staff Staker driving. --18:04 12/18/20 Lucrecia Lynn R.N. Departure time: 18:04 12/18/2020. --18:04 12/18/20 Lucrecia Lynn R.N. 4 Clinical Report - Nurses [facility] [address] [place] [address] Phone #: ext- [phone] 12/18/2020 15:09 Patient: MICHEL GHOSH Sex: M : 2000 Age: 20yLocked/Released at 12/18/2020 18:04 by Lucrecia Lynn R.N. Name Value Range Interpretation Code Description Data Ina rce(s) Supporting Document(s) ID Date Data Source [id number] 12/18/2020 03:12:00 PM EDT [facility] 1 Clinical Report - Physicians/Mid Levels [facility] [address] [place] [address] Phone #: ext [phone] 12/18/2020 15:09 Patient: MICHEL GHOSH Sex: M [...] sts that he finally seen by the [facility] clinic last month and seen [...] NOTES 2 Clinical Report - Physicians/Mid Levels [facility] [address] [place] [address] Phone #: ext- [phone] 12/18/2020 15:09 Patient: MICHEL GHOSH Sex: M [...] 51.0) 3 Clinical Report - Physicians/Mid Levels [facility] [address] [place] [address] Phone #: ext- [phone] 12/18/2020 15:09 Patient: [...] (0 - 15) SED RATE REENTER 1CRP: (CAREMN: 12/18/2020 16:14) ( [facility] 12/18/2020 16:39) Final results Test Result Flag Units (Reference) CRP-HS 0.20 L MG/L (1.00 - 3.00) CDC/S HS-CRP CUT-OFF: RELATIVE RISK: <1.0 mg/LLow 1.0 - 3.0 mg/L Average >3.0 mg/LHigh Optimally, the average of HS-CRP results repeated two weeks apart should be used forrisk assessment.CMP: (CARMEN: 12/18/2020 16:14) ( [facility] 12/18/2020 16:37) Final results Test Result [...] 56) 4 Clinical Report - Physicians/Mid Levels [facility] [address] [place] [address] Phone #: ext- [phone] 12/18/2020 15:09 Patient: MICHEL GHOSH Sex: M [...] complaints. Pt sts that he feels [facility] better. Sts that s/s are almost [...] treatment. 5 Clinical Report - Physicians/Mid Levels [facility] [address] [place] [address] Phone #: ext- [phone] 12/18/2020 15:09 Patient: MICHEL GHOSH Sex: M : 2000 Age: 20yINSTRUCTIONS Take Tylenol (Acetaminophen) or Motrin (Ibuprofen) as needed for fever control. Take medication according to label instructions. No strenuous activity for two weeks (Recommend no PT as this may excerbate your symptoms.). (Please f/u with the [facility] clinic as you have a [...] rce(s) Supporting Document(s) ID Date Data Source [id number] 12/18/2020 04:40:00 PM EDT [facility] Name Value Range Interpretation Code Description Data Ina rce(s) Supporting Document(s) Erythrocyte sedimentation rate by Westergren method 1 mm/hr 0 - 15 [facility] SED RATE REENTER 1 [facility] ID Date Data Source [id number] 12/18/2020 04:39:00 PM EDT [facility] Name Value Range Interpretation Code Description Data Ina rce(s) Supporting Document(s) C reactive protein [Mass/volume] in Serum or Plasma by High sensitivity method 0.20 MG/L 1.00 - 3.00 L [facility] CDC/S HS-CRP CUT-OFF: RELATIVE RISK: <1.0 mg/L Low 1.0 - 3.0 mg/L Average >3.0 mg/L High Optimally, the average of HS-CRP results repeated two weeks apart should be used for risk assessment. ID Date Data Source [id number] 12/18/2020 04:37:00 PM EDT [facility] Name Value Range Interpretation Code Description Data Ina rce(s) Supporting Document(s) COMPREHENSIVE METABOLIC PANEL [facility] COMPREHENSIVE METABOLIC PANEL Sodium [Moles/volume] in Serum or Plasma 139 mEq/L 134 - 153 [facility] Potassium [Moles/volume] in Serum or Plasma 4.0 mEq/L 3.6 - 5.0 [facility] Chloride [Moles/volume] in Serum or Plasma 105 mEq/L 98 - 107 [facility] Carbon dioxide, total [Moles/volume] in Serum or Plasma 26 MEQ/L 22 - 30 [facility] Glucose [Mass/volume] in Serum or Plasma 97 MG/DL 70 - 99 [facility] BUN 10 MG/DL 7 - [facility] Creat[facility] [Mass/volume] in Serum or Plasma 0.9 MG/DL 0.7 - 1.5 [facility] BUN/CREAT 11 8 - 27 [facility] al Protein [Mass/volume] in Serum or Plasma 7.6 G/DL 6.3 - 8.2 [facility] Albumin [Mass/volume] in Serum or Plasma 4.5 G/DL 3.9 - 5.0 [facility] Globulin [Mass/volume] in Serum by calculation 3.1 GM/DL 2.4 - 3.2 [facility] A/G RATIO 1.5 0.8 - 2.0 [facility] Calcium [Mass/volume] in Serum or Plasma 9.7 MG/DL 8.4 - 10.2 [facility] Bilirubin.total [Mass/volume] in Serum or Plasma 1.0 MG/DL 0.2 - 1.3 [facility] Alkaline phosphatase [Enzymatic activity/volume] in Serum or Plasma 76 U/L 38 - 126 [facility] Aspartate aminotransferase [Enzymatic activity/volume] in Serum or Plasma 21 U/L 5 - 40 [facility] Alanine aminotransferase [Enzymatic activity/volume] in Seru m or Plasma 15 U/L 7 - 56 [facility] Anion gap 3 in Serum or Plasma 8.0 mmol/L 8.0 - 16.0 [facility] AGE 20 yrs [facility] al NON-AA GFR >60 mL/min [facility] ital AFR AMER GFR >60 mL/min [facility] spital Male GFR In terprentation 20-49 [...] >32 mL/min Normal ID Date Data Source [id number] 12/18/2020 04:19:00 PM EDT [facility] Name Value Range Interpretation Code Description Data Ina rce(s) Supporting Document(s) CBC W/AUTOMATED DIFF [facility] COMPLETE BLOOD COUNT Leukocytes [#/volume] in Blood by Automated count 5.1 10^3/uL 4.2 - 1 1.0 [facility] Erythrocytes [#/volume] in Blood by Automated count 4.61 10^6/uL 4. 50 - 6.30 [facility] Hemoglobin [Mass/volume] in Blood 14.7 g/dL 14.0 - 16.0 [facility] Hematocrit [Volume Fraction] of Blood by Automated count 43.0 % 4 1.0 - 51.0 [facility] Erythrocyte mean corpuscular volume [Entitic volume] by Auto mated count 93.3 fL 80.0 - 94.0 [facility] Erythrocyte mean corpuscular hemoglobin [Entitic mass] by Automated count 31.9 pg 27.0 - 34.0 [facility] Erythrocyte mean corpuscular hemoglobin concentration [Mass/volume] by Automated count 34.2 g/dL 31.0 - 36.0 [facility] Erythrocyte distribution width [Ratio] by Automated count 11.9 % 11.5 - 14.8 [facility] Platelets [#/volume] in Blood by Automated count 181 10^3/uL 150 - 45 0 [facility] Platelet mean volume [Entitic volume] in Blood by Automated count 10.9 fL 7.4 - 10.4 H [facility] Neutrophils/100 leukocytes in Blood by Automated count 47.6 % 37. 0 - 80.0 [facility] Lymphocytes/100 leukocytes in Blood by Manual count 42.2 % 25.0 - 40.0 H [facility] Monocytes/100 leukocytes in Blood by Automated count 8.2 % 3.0 - 8.0 H [facility] Eosinophils/100 leukocytes in Blood by Automated count 1.2 % 0.0 - 7.0 [facility] Basophils/100 leukocytes in Blood by Automated count 0.6 % 0.0 - 2.0 [facility] %IG 0.2 % 0.0 - 0.0 [facility] %NRBC 0.0 % 0.0 - 0.0 [facility] al Neutrophils [#/volume] in Blood by Automated count 2.45 10^3/uL 2.00 - 6.90 [facility] Lymphocytes [#/volume] in Blood by Automated count 2.17 10^3/uL 0.60 - 3.40 [facility] Monocytes [#/volume] in Blood by Automated count 0.42 10^3/uL 0.00 - 0.90 [facility] Eosinophils [#/volume] in Blood by Automated count 0.06 10^3/uL 0.00 - 0.70 [facility] Basophils [#/volume] in Blood by Automated count 0.03 10^3/uL 0.00 - 0.20 [facility] #IG 0.01 10^3/uL 0.00 - 0.10 [facility] #NRBC 0.00 10^3/uL 0.00 - 0.00 [facility] MANUAL DIFF NOT INDICATED [facility] RBC MORPH NOT INDICATED [facility] spital Procedure Social History No Information Vital Signs ID Date Data Source UNK Name Value Range Interpretation Code Description Data Source(s) Diastolic blood pressure 79 mm[Hg] 79 mm[Hg] CHANLE ([facility]) Body height 73 [in_i] 73 [in_i] CHANEL ([facility]) Systolic blood pressure 123 mm[Hg] 123 mm[Hg] A THENA ([facility]) Diastolic blood pressure 83 mm[Hg] 83 mm[Hg] CHANEL ([facility]) Body height 73 [in_i] 73 [in_i] CHANEL ([facility]) Body mass index (BMI) [Ratio] 22.6 kg/m2 22.6 k g/m2 CHANEL ([facility]) Systolic blood pressure 160 mm[Hg] 160 mm[Hg] A THENA ([facility]) Body weight 171 [lb_av] 171 [lb_av] CHANEL ([facility]) Diastolic blood pressure 83 mm[Hg] 83 mm[Hg] CHANEL ([facility]) Body height 73 [in_i] 73 [in_i] CHANEL ([facility]) Body mass index (BMI) [Ratio] 22.6 kg/m2 22.6 k g/m2 CHANEL ([facility]) Systolic blood pressure 160 mm[Hg] 160 mm[Hg] A THENA ([facility]) Body weight 171 [lb_av] 171 [lb_av] CHANEL ([facility]) Respiratory rate 12 /min 12 /min MEDENT ( [facility], ) Body height 71 [in_i] 71 [in_i] MEDENT ([facility], ) 5'11" Body weight 171.00 [lb_av] 171.00 [lb_av] MEDEN T ([facility], ) Body mass index (BMI) [Ratio] 23.8 kg/m2 23.8 k g/m2 MEDENT ([facility], ) [place] body weight 172 [lb_av] 172 [lb_av] MEDEN T ([facility], ) Patient Treatment Plan of Care Planned Activity Planned Date Details Description Data Source (s) Diclofenac Sodium 0.01 MG/MG Topical Gel [Voltaren] CHANEL ([facility]) topiramate 25 MG Oral Tablet CHANEL ([facility]) Sumatriptan 50 MG Oral Tablet CHANEL ([facility]) Hydrocortisone 25 MG/ML Topical Cream [Proctosol] CHANEL ([facility]) Natural Fiber Laxative Therapy oral powder CHANEL ([facility]) Naproxen 500 MG Oral Tablet CHANEL ([facility]) Methocarbamol 750 MG Oral Tablet CHANEL ([facility]) Methocarbamol 500 MG Oral Tablet CHANEL ([facility]) duloxetine 20 MG Delayed Release Oral Capsule CHANEL ([facility]) Cyclobenzaprine hydrochloride 5 MG Oral Tablet CHANEL ([facility]) Ciprofloxacin 500 MG Oral Tablet CHANEL ([facility]) Amitriptyline Hydrochloride 25 MG Oral Tablet CHANEL ([facility]) Amitriptyline Hydrochloride 10 MG Oral Tablet CHANEL ([facility]) Diclofenac Sodium 0.01 MG/MG Topical Gel [Voltaren] CHANEL ([facility]) topiramate 25 MG Oral Tablet CHANEL ([facility]) Sumatriptan 50 MG Oral Tablet CHANEL ([facility]) Hydrocortisone 25 MG/ML Topical Cream [Proctosol] CHANEL ([facility]) Natural Fiber Laxative Therapy oral powder CHANEL ([facility]) Naproxen 500 MG Oral Tablet CHANEL ([facility]) Methocarbamol 750 MG Oral Tablet CHANEL ([facility]) Methocarbamol 500 MG Oral Tablet CHANEL ([facility]) duloxetine 20 MG Delayed Release Oral Capsule CHANEL ([facility]) Cyclobenzaprine hydrochloride 5 MG Oral Tablet CHANEL ([facility]) Ciprofloxacin 500 MG Oral Tablet CHANEL ([facility]) Amitriptyline Hydrochloride 25 MG Oral Tablet CHANEL ([facility]) Amitriptyline Hydrochloride 10 MG Oral Tablet CHANEL ([facility]) Acetaminophen 325 MG Oral Tablet CHANEL ([facility])
[2021-04-03 19:52] VITALS: BP 129/68
== END 2021-04-03 19:55 | disposition home or self-care (01) ==
LOC: M ED 16:23
DX: L29.0 Pruritus ani (principal); K64.4 Residual hemorrhoidal skin tags; R10.9 Unspecified abdominal pain; R11.2 Nausea with vomiting, unspecified; R19.7 Diarrhea, unspecified; D55.0 Anemia due to glucose-6-phosphate dehydrogenase [G6PD] deficiency; Z88.6 Allergy status to analgesic agent; Z88.8 Allergy status to other drugs, medicaments and biological substances; Z79.899 Other long term (current) drug therapy

== ENCOUNTER → 2021-04-04 | Outpatient (REF) | payer OTHER | LOC: M LAB REF 13:24 | PROVIDERS: ATTEND Physician Assistant Medical | DX: R19.7 Diarrhea, unspecified (principal) ==

== ENCOUNTER 2021-04-11 06:56 | Emergency (ER) | payer OTHER ==
[~2021-04-11] VITALS: Ht 185.4 cm; Wt 82.9 kg
[2021-04-11 06:57] VITALS: BP 125/74
--- OUTSIDE RECORDS SUMMARY | 2021-04-11 07:03 | CCD | Continuity of Care Document ---
Author Author Michael DENNISON M.D. Organization Unknown Address [address] [place] [id number] Phone [phone] Problems Active Problems Provider Date Migraine Deirdre [...] lb BMI (Body Mass Index) 23.8 kg/m2 [place] Body Weight 172 lb Results Description No Information Available Procedures Date Code Description Status 04/01/2021 12565 Chemotherpy Admin Subcutaneous/I m Non-Hormonal Anti-Neoplastic Completed 02/02/2021 70043 Office Consultation Level 4 Comp leted Medical Devices Description No Information Available Encounters Type Date Location Provider Dx Diagnosis Office Visit 02/02/2021 8:00a [facility] Deirdre griffin M.D. G43.719 Chronic migraine w/o aura, intractable, w/o stat migr S06.0x1A Concussion w Loc of 30 minut es or less, init Assessments Date Code Description Provider 04/01/2021 R51.9 Headache, unspecified Deirdre severino M.D. 02/02/2021 G43.719 Chronic migraine wit hout aura, intractable, without status migrainosus Deirdre Dennison M.D. 02/02/2021 S06.0x1A Concussion with loss of consciousness of 30 minutes or less, initial encounter Deirdre Dennison M.D. Plan of Treatment Future Appointment(s):* 05/18/2021 12:45 pm - Deirdre Dennison M.D. at [facility] Functional Status Description No Information Available Mental Status Description No Information Available Referrals Refer to Dr Reason for Referral Status Appt Date Deirdre Dennison M.D. Created 0 [address] [place] [address] [phone]
--- OUTSIDE RECORDS SUMMARY | 2021-04-11 07:03 | CCD ---
Author Author [facility] Organization [facility] Address Unknown Phone Unavailable Care Team Providers Care Mud Trucker Name Role Phone NO, PCP Unavailable Unavailable [...] Unavailable Alexi Leiva MD Unavailable Unavailable Alexi Levia MD Unavailable Unavailable Alexi Leiva MD Unavailable [...] Alexander PA-C Unavailable Unavailable Jumalon, M Annemarie TAKER OFF HEMP FIBER Unavailable Unavailable Jumalon, M Annemarie TAKER OFF HEMP FIBER Unavailable Unavailable Jumalon, M Annemarie TAKER OFF HEMP FIBER Unavailable Unavailable Jumalon, M Annemarie TAKER OFF HEMP FIBER Unavailable Unavailable Jumalon, M Annemarie TAKER OFF HEMP FIBER Unavailable Unavailable Jumalon, M Annemarie TAKER OFF HEMP FIBER Unavailable Unavailable Jumalon, M Annemarie TAKER OFF HEMP FIBER Unavailable Unavailable Jumalon, M Annemarie TAKER OFF HEMP FIBER Unavailable Unavailable Jumalon, M Annemarie TAKER OFF HEMP FIBER Unavailable Unavailable Jumalon, M Annemarie TAKER OFF HEMP FIBER Unavailable Unavailable Jumalon, M Annemarie TAKER OFF HEMP FIBER Unavailable Unavailable Jumalon, M Annemarie TAKER OFF HEMP FIBER Unavailable Unavailable Jumalon, M Annemarie TAKER OFF HEMP FIBER Unavailable Unavailable Jumalon, M Annemarie TAKER OFF HEMP FIBER Unavailable Unavailable Jumalon, M Annemarie TAKER OFF HEMP FIBER Unavailable Unavailable Jumalon, M Annemarie TAKER OFF HEMP FIBER Unavailable Unavailable Jumalon, M Annemarie TAKER OFF HEMP FIBER Unavailable Unavailable Jumalon, M Annemarie TAKER OFF HEMP FIBER Unavailable Unavailable Jumalon, M Annemarie TAKER OFF HEMP FIBER Unavailable Unavailable Jumalon, M Annemarie TAKER OFF HEMP FIBER Unavailable Unavailable Jumalon, M Annemarie TAKER OFF HEMP FIBER Unavailable Unavailable Jumalon, M Annemarie TAKER OFF HEMP FIBER Unavailable Unavailable Jumalon, M Annemarie TAKER OFF HEMP FIBER Unavailable Unavailable Jumalon, M Annemarie TAKER OFF HEMP FIBER Unavailable Unavailable Jumalon, M Annemarie TAKER OFF HEMP FIBER Unavailable Unavailable Jumalon, M Annemarie TAKER OFF HEMP FIBER Unavailable Unavailable Jumalon, M Annemarie TAKER OFF HEMP FIBER Unavailable Unavailable Jumalon, M Annemarie TAKER OFF HEMP FIBER Unavailable Unavailable Jumalon, M Annemarie TAKER OFF HEMP FIBER Unavailable Unavailable Jumalon, M Annemarie TAKER OFF HEMP FIBER Unavailable Unavailable Shivani Winn MD Unavailable Unavailable [...] Unavailable Unavailable Shivani Winn MD Unavailable Unavailable Shviani Winn MD Unavailable Unavailable Shivani Winn MD [...] is protected by Article 27-F of the [facility] Public Health law. If you continue you may have access to information: Regarding HIV / AIDS; Provided by facilities licensed or operated by the [facility] Office of Mental Health; or Provided by the [facility] Office for People With Developmental Disabilities. If such information is present, then the following [facility] mandated warning applies: This information has [...] law may result in a fine or longterm sentence or both. A general authorization for the release of medical or other information is NOT sufficient authorization for further disc losure. Encounters Encounter Providers Location Date Indications Data Source(s ) Emergency Attender: Alexander Degroot PA-C 07:34:00 PM EDT - 03/31/2021 11:08:00 PM EDT STOMACH PAIN,RECTUM BLEEDING, VOMITING [facility] STOMACH PAIN,RECTUM BLEEDING, VOMITING Patient discharged. Annemarie Pickens, SOAP INSPECTOR: [address], [place] [address], Ph. Attender: Annemarie PALOMINO [place] - [facility] 03/25/2021 12:00:00 AM EDT ATHKarl WAYNE ([facility]) Emergency Attender: CECY VALENCIA MDConsultant: PCP NO 03/15/2021 03:33:00 PM EDT - 03/15/2021 03:53:00 PM EDT [facility] Patient discharged. Lucas Leiva MD: [id number] [facility] [address], [place] [address], Ph. Attender: Lucas Leiva MD [facility] 03/10/2021 12:00:00 AM EDT [facility] ([facility]) Lucas Leiva MD: [id number] [facility] [address], [place] [address], Ph. Attender: Lucas Leiva MD [facility] 03/10/2021 12:00:00 AM EDT [facility] ([facility]) Emergency Attender: CECY VALENCIA MDConsultant: PCP NO 02/28/2021 01:50:00 PM EDT - 02/28/2021 04:32:00 PM EDT [facility] Patient discharged. Outpatient Attender: Deirdre Winn MD Main office - [facility] 02/02/2021 08:00:00 AM EDT [facility] ([facility] ) Outpatient Attender: SUNIL ZAPATAConsultant: PCP NO 12/22/2020 07:01:00 AM EDT - 12/22/2020 08:01:00 AM EDT [facility] Emergency Attender: CECY VALENCIA MDConsultant: PCP NO 12/18/2020 03:12:00 PM EDT - 12/18/2020 06:04:00 PM EDT [facility] Patient discharged. Medications Medication Brand Name Start Date Product Form Dose Route Admi nistrative Instructions Pharmacy Instructions Status Indications Reaction Description Data Source(s) Emgality Emgality 03/18/2021 12:00:00 AM EDT activ e [facility] ([facility] ) topiramate 100 MG Oral Tablet Topiramate 03/09/2021 12:00:00 AM EDT completed [facility] ([facility], ) topiramate 25 MG Oral Tablet Topiramate 02/02/2021 12:00:00 AM EDT completed [facility] ([facility] ) Nurtec Nurtec 02/02/2021 12:00:00 AM EDT active [facility] ([facility] ) topiramate 100 MG Oral Tablet Topiramate 02/02/2021 12:00:00 AM EDT ORAL completed [facility] ([facility], ) Diclofenac Sodium 0.01 MG/MG Topical Gel [Voltaren] Vo ltaren 1 % topical gel Voltaren 1 % topical gel completed diclofenac sodium 0.01 MG/MG Topical Gel [Voltaren] [facility] ([facility]) Methocarbamol 750 MG Oral Tablet methocarbamol 750 mg tablet methocarbamol 750 mg tablet completed methocarbamo l 750 MG Oral Tablet [facility] ([facility]) Natural Fiber Laxative Therapy oral powder completed Natural Fiber Laxative Therapy oral powder [facility] ([facility]) Sumatriptan 50 MG Oral Tablet sumatriptan 50 mg tablet sumat riptan 50 mg tablet completed sumatriptan 50 MG Oral Tablet [facility] ([facility]) Acetaminophen 325 MG Oral Tablet acetaminophen 325 mg tablet acetaminophen 325 mg tablet completed acetaminophe n 325 MG Oral Tablet [facility] ([facility]) Ciprofloxacin 500 MG Oral Tablet ciprofl oxacin 500 mg tablet TAKE 1 TABLET BY MOUTH TWICE DAILY ciprofloxacin 500 mg tablet TAKE 1 TABLE T BY MOUTH TWICE DAILY completed ciprofloxacin 50 0 MG Oral Tablet [facility] ([facility]) Methocarbamol 500 MG Oral Tablet methocarbamol 500 mg tablet methocarbamol 500 mg tablet completed methocarbamo l 500 MG Oral Tablet [facility] ([facility]) Amitriptyline Hydrochloride 25 MG Oral Tablet amitript yline 25 mg tablet amitriptyline 25 mg tablet completed amitriptyline hydrochloride 25 MG Oral Tablet [facility] ([facility]) Diclofenac Sodium 0.01 MG/MG Topical Gel [Voltaren] Vo ltaren 1 % topical gel Voltaren 1 % topical gel completed diclofenac sodium 0.01 MG/MG Topical Gel [Voltaren] [facility] ([facility]) topiramate 25 MG Oral Tablet topiramate 25 mg tablet topiramate 25 mg tablet completed topiramate 25 MG Oral Tablet [facility] ([facility]) duloxetine 20 MG Delayed Release Oral Ca psule duloxetine 20 mg capsule,delayed release duloxetine 20 mg capsule,delayed release completed duloxetine 20 MG Delayed Release Oral Capsule [facility] ([facility]) Methocarbamol 750 MG Oral Tablet methocarbamol 750 mg tablet methocarbamol 750 mg tablet completed methocarbamo l 750 MG Oral Tablet [facility] ([facility]) Cyclobenzaprine hydrochloride 5 MG Oral Tablet cyclobe nzaprine 5 mg tablet cyclobenzaprine 5 mg tablet completed cyclobenzaprine hydrochloride 5 MG Oral Tablet [facility] ([facility]) Amitriptyline Hydrochloride 10 MG Oral Tablet amitript yline 10 mg tablet amitriptyline 10 mg tablet completed amitriptyline hydrochloride 10 MG Oral Tablet [facility] ([facility]) Methocarbamol 500 MG Oral Tablet methocarbamol 500 mg tablet methocarbamol 500 mg tablet completed methocarbamo l 500 MG Oral Tablet [facility] ([facility]) Hydrocortisone 25 MG/ML Topical Cream [P roctosol] Proctosol HC 2.5 % topical cream perineal applicator Proctosol HC 2.5 % topical cream perineal applicator completed hydrocortisone 25 MG/ML Topical Cream [Proctosol] [facility] ([facility]) Amitriptyline Hydrochloride 10 MG Oral Tablet amitript yline 10 mg tablet amitriptyline 10 mg tablet completed amitriptyline hydrochloride 10 MG Oral Tablet [facility] ([facility]) duloxetine 20 MG Delayed Release Oral Ca psule duloxetine 20 mg capsule,delayed release duloxetine 20 mg capsule,delayed release completed duloxetine 20 MG Delayed Release Oral Capsule [facility] ([facility]) Naproxen 500 MG Oral Tablet naproxen 500 mg tablet TAKE 1 TABLET BY MOUTH TWICE DAILY TAKE WITH FOOD naproxen 500 mg tablet TAKE 1 TABLET BY MOUTH TWICE DAILY TAKE WITH FOOD completed naproxe n 500 MG Oral Tablet [facility] ([facility]) Hydrocortisone 25 MG/ML Topical Cream [P roctosol] Proctosol HC 2.5 % topical cream perineal applicator Proctosol HC 2.5 % topical cream perineal applicator completed hydrocortisone 25 MG/ML Topical Cream [Proctosol] [facility] ([facility]) Cyclobenzaprine hydrochloride 5 MG Oral Tablet cyclobe nzaprine 5 mg tablet cyclobenzaprine 5 mg tablet completed cyclobenzaprine hydrochloride 5 MG Oral Tablet [facility] ([facility]) Amitriptyline Hydrochloride 25 MG Oral Tablet amitript yline 25 mg tablet amitriptyline 25 mg tablet completed amitriptyline hydrochloride 25 MG Oral Tablet [facility] ([facility]) Sumatriptan 50 MG Oral Tablet sumatriptan 50 mg tablet sumat riptan 50 mg tablet completed sumatriptan 50 MG Oral Tablet [facility] ([facility]) Naproxen 500 MG Oral Tablet naproxen 500 mg tablet TAKE 1 TABLET BY MOUTH TWICE DAILY TAKE WITH FOOD naproxen 500 mg tablet TAKE 1 TABLET BY MOUTH TWICE DAILY TAKE WITH FOOD completed naproxe n 500 MG Oral Tablet [facility] ([facility]) topiramate 25 MG Oral Tablet topiramate 25 mg tablet topiramate 25 mg tablet completed topiramate 25 MG Oral Tablet [facility] ([facility]) Natural Fiber Laxative Therapy oral powder completed Natural Fiber Laxative Therapy oral powder [facility] ([facility]) Ciprofloxacin 500 MG Oral Tablet ciprofl oxacin 500 mg tablet TAKE 1 TABLET BY MOUTH TWICE DAILY ciprofloxacin 500 mg tablet TAKE 1 TABLE T BY MOUTH TWICE DAILY completed ciprofloxacin 50 0 MG Oral Tablet [facility] ([facility]) Insurance Providers Payer name Policy type / Coverage type Policy ID Covered constitution party ID Covered constitution party's relationship to covarrubias Policy Covarrubias Plan Information [facility] ACTIVE DUTY [id number] SP [id number] [facility] HUMANA - O/P [id number] 18 [id number] [facility] HUMANA - O/P [id number] 18 [id number] [facility] HUMANA - O/P . 18 . 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 Diagnosis 02/28/2021 01:5 0:00 PM EDT [facility] N433 Hydrocele, unspecified Hydrocele, unspecified Diagnosi s 02/28/2021 01:50:00 PM EDT [facility] R300 Dysuria Dysuria Diagnosis 02/28/2021 01:50:00 PM ED [facility] [id number] Personal history of traumatic brain inju ry Personal history of traumatic brain injury Diagnosis 12/22/2020 07:01:00 AM [facility] R2689 Other abnormalities of gait and mobility Other abnormalities of gait and mobility Diagnosis 12/22/2020 07:01:00 AM T [facility] [id number] Migraine, unspecified, not intractable, without status migrainosus Migraine, unspecified, not intractable, without status migrainosus Diagnosis 12/22/2020 07:01:00 AM [facility] [id number] Chronic migraine without aura, intractab le, with status migrainosus Chronic migraine without aura, intractable, with status migrainosus Diagnosis 12/18/2020 03:12:00 PM T [facility] R519 Headache, unspecified Headache, unspecified Diagnosis 12/18/2020 03:12:00 PM T [facility] [id number] Concussion injury of brain Concussion injury of brain Problem 02/02/2021 12:00:00 AM EDT [facility] ([facility] ) [id number] Migraine Migraine Problem 02/02/2021 12:00:00 AM ED T [facility] ([facility] ) Surgeries/Procedures Procedure Description Date Indications Data Source(s) Chemotherpy Admin Subcutaneous/Im Non-Hormonal Anti-Neoplast ic 04/01/2021 12:00:00 AM EDT [facility] ([facility] ) MRI, lumbar spine, w/o contrast 03/10/2021 12:00:00 AM EDT [facility] ([facility]) OFFICE CONSULTATION NEW/ESTAB PATIENT 60 MIN 12:00:00 AM EDT [facility] ([facility] ) Results ID Date Data Source [id number] 03/31/2021 09:53:00 PM EDT [facility] ED Physician Documentation NAME: JULISA GHOSH : 2000 AGE: 21 MR#: [id number] SERVICE DATE: 03/31/[address]: Alexander Degroot MD PRIMARY CARE DR: No Family PHYS Provided ROOM#: [facility] (Adult, General) General Chief Complaint: GI Stated Complaint: STOMACH PAIN,RECTUM BLEEDING, VOMITING Time Seen by Provider: 03/31/21 20:19 History of Present Illness Initial Comments: Pleasant 21-year-old male from [facility] [place] [...] % (Auto) 53.2, Lymph % (Auto) 36.9, Kane % (Auto) 8.3, Eos % (Auto) 0.8, [...] Appearance Clear, Urine pH 6.5, Ur Specific [place] 1.031 A, Urine Protein Negative, Urine Ketones [...] - call in am see GI MD mattson also ie Dr Peng RTED if sx [...] rce(s) Supporting Document(s) ID Date Data Source [id number] 03/31/2021 09:48:00 PM EDT [facility] [address] [place] [address] [phone] NAME SEX PT STATUS ACCOUNT NUMBER JULISA GHOSH [facility] ER [id number] ORDERING PHYSICIAN LOCATION MEDICAL RECORD NO. Alexander Degroot MD ER [id number] ATTENDING PHYSICIAN DATE OF DATE OF EXAM/TIME [...] Trans Dt/Tm: Trans by: DT Prt Dt/Tm: 2556-9316: Total DLP = 405.00 mGy-cm 6350-8741: Total Radiation Dose = 6.0750 mSv Lifetime Dose: 6.0750 mSv Name Value Range Interpretation Code Description Data Ina rce(s) Supporting Document(s) ID Date Data Source [id number] 03/31/2021 11:53:00 PM EDT [facility] CT/NG IS A QUALITATIVE IN VITRO [...] rce(s) Supporting Document(s) ID Date Data Source [id number] 03/31/2021 09:03:00 PM EDT [facility] Reason for ordering culture: Abnormal fi ndings UAMethod of Collection:: Voided Name Value Range Interpretation Code Description Data Ina rce(s) Supporting Document(s) Color of Urine [facility] Appearance of Urine CLEAR [facility] pH of Urine by Test strip 6.5 5-8 [facility] Specific gravity of Urine by Refractometry 1.031 1.005 -1.030 Abnormal (applies to non-numeric results) [facility] Leukocyte esterase [Presence] in Urine by Test strip NEGAT ABENA [facility] Nitrite [Presence] in Urine by Test strip NEGATIVE [facility] Protein [Presence] in Urine by Test strip NEGATIVE [facility] Glucose [Mass/volume] in Urine by Automated test strip NEGATIVE NEG ATIVE [facility] Ketones [Presence] in Urine by Test strip NEGATI VE Abnormal (applies to non- numeric results) [facility] Urobilinogen [Presence] in Urine 0.2-1 EU/dl [facility] Bilirubin.total [Presence] in Urine by Automated test strip NEGATIVE [facility] Erythrocytes [#/volume] in Urine by Test strip NEGATIVE NEGATIVE [facility] URINE MICROSCOPIC? (CIF) NO [facility] ID Date Data Source [id number] 04/01/2021 08:51:00 AM EDT [facility] Special Instructions: Lab may order repe at test if initial test elevatedPhysician If elevated, reflex second test in 4-6 hrs Name Value Range Interpretation Code Description Data Ina rce(s) Supporting Document(s) Campylobacter coli+jejuni+mihai fusA gene [Presence] in Stool by Probe and target amplification method [facility] Salmonella sp rpoD gene [Presence] in [facility] by Probe and target amplification method [facility] ital Shigella species+EIEC invasion plasmid a ntigen H (ipaH) gene [Presence] in Stool by Probe and target amplification method [facility] Vibrio cholerae+parahaemolyticus rfbL+tr kH+tnaA genes [Presence] in Stool by Probe and target amplification method [facility] Yersinia enterocolitica recN gene [Prese nce] in Stool by Probe and target amplification method [facility] Escherichia coli shiga-like toxin 1 (stx 1) gene [Presence] in Stool by Probe and target amplification method [facility] Escherichia coli shiga-like toxin 2 (stx 2) gene [Presence] in Stool by Probe and target amplification method [facility] Norovirus genogroup I+II orf1-orf2 junct ion region [Presence] in Stool by Probe and target amplification method [facility] Rotavirus A nsp5 gene [Presence] in Stoo l by Probe and target amplification method [facility] ital NORMAL VALUE FOR TEST IS "NOT DETECTED"T he Haitaobeiigene Enteric Pathogens Nucleic Acid Test (EP) is amultiplexed, qualitative test for simultaneous detection andidentification of common pathogenic enteric bacteria,viuruses, and genetic virulence markers from liquid or softstool preserved in Letha-Luca medium, collected fromindividuals with signs and symptoms of gastrointestinalinfection.The test is performed on the automated [employer] Systemutilizing reverse planting machine operator (RT), polymerase chainreaction (PCR), and array hybridization [...] syndrome or Crohn'sdisease. ID Date Data Source [id number] 03/31/2021 09:04:00 PM EDT [facility] Special Instructions: Lab may order repe at test if initial test elevatedPhysician If elevated, reflex second test in 4-6 hrs Name Value Range Interpretation Code Description Data Ina rce(s) Supporting Document(s) Leukocytes [#/volume] in Blood by Automated count 6.3 10*3/uL 4.45-10 .71 N [facility] Erythrocytes [#/volume] in Blood by Automated count 4.90 10*6/uL 4.3- 6.1 N [facility] Hemoglobin [Moles/volume] in Blood 15.6 g/dL 13-18 N [facility] Hematocrit [Volume Fraction] of Blood by Automated count 44.6 % 4 2-52 N [facility] Erythrocyte mean corpuscular volume [Ent itic volume] in Cord blood by Automated count 91 fL 80-96 N [facility] ital Erythrocyte mean corpuscular hemoglobin [Entitic mass] by Au tomated count 32 pg 27-31 Above high normal [facility] Erythrocyte mean corpuscular hemoglobin concentration [Mass/volume] in Cord blood 35 g/dL 33-37 N [facility] ital Erythrocyte distribution width [Entitic volume] by Automated count 12 % 11-15 N [facility] Platelets [#/volume] in Blood by Automated count 174 10*3/uL 130-472 N [facility] Platelet mean volume [Entitic volume] in Blood 11.1 fL 9.1-13.1 N [facility] Neutrophils/100 leukocytes in Blood by Automated count 53.2 % 41- 77 N [facility] Neutrophils [#/volume] in Blood by Automated count 3.3 U 1.7-7.6 N [facility] Lymphocytes/100 leukocytes in Blood by Automated count 36.9 % 14- 46 N [facility] Lymphocytes [#/volume] in Blood by Automated count 2.3 U 0.6-4.6 N [facility] Monocytes/100 leukocytes in Blood by Automated count 8.3 % 4-12 N [facility] Monocytes [#/volume] in Blood by Automated count 0.5 U 0.2-1.2 N [facility] Eosinophils/100 leukocytes in Blood by Automated count 0.8 % 0-7 N [facility] Eosinophils [#/volume] in Blood by Automated count 0.1 U 0.0-0.5 N [facility] Basophils/100 leukocytes in Blood by Automated count 0.5 % 0.4-1 .3 N [facility] Basophils [#/volume] in Blood by Automated count 0.0 U 0.0-0.2 N [facility] NUCLEATED RED BLOOD CELL 0 % [facility] NUCLEATED RED BLOOD CELL# [facility] Immature granulocytes [Presence] in Blood by Automated count 0-2 N [facility] Immature granulocytes [#/volume] in Blood by Automated count 0.0 U 0-0.1 N [facility] Manual Differential panel - Blood NO [facility] ID Date Data Source [id number] 03/31/2021 09:26:00 PM EDT [facility] Special Instructions: Lab may order repe at test if initial test elevatedPhysician If elevated, reflex second test in 4-6 hrs Name Value Range Interpretation Code Description Data Ina rce(s) Supporting Document(s) Urea nitrogen [Mass/volume] in Serum or Plasma 16 mg/dL 9-23 N [facility] Sodium [Moles/volume] in Serum or Plasma 139 mmol/L 132-146 [facility] Potassium [Moles/volume] in Serum or Plasma 3.8 mmol/L 3.5-5.5 [facility] Chloride [Moles/volume] in Serum or Plasma 106 mmol/L 99-109 [facility] Carbon dioxide, total [Moles/volume] in Serum or Plasma 28 mmol/L 20 -31 N [facility] Anion gap in Serum or Plasma 9 mmol/L 8-16 N [facility] Glucose [Mass/volume] in Serum or Plasma 102 mg/dL 74-106 N [facility] Creatinine 1.1 mg/dL 0.5-1.1 [facility] Glomerular filtration rate/1.73 sq M.pre dicted [Volume Rate/Area] in Serum or Plasma Greater Than 60 ABOVE 60 [facility] Alanine aminotransferase [Enzymatic acti vity/volume] in Serum or Plasma by With P-5'-P 39 U/L 10-49 N [facility] ital Aspartate aminotransferase [Enzymatic ac tivity/volume] in Serum or Plasma by With P-5'-P 25 U/L 0-33 N [facility] pital Alkaline phosphatase [Enzymatic activity/volume] in Serum or Plasma 81 U/L 45-129 N [facility] Calcium [Mass/volume] in Serum or Plasma 10.0 mg/dL 8.5-10.1 [facility] Bilirubin.total [Mass/volume] in Serum or Plasma 1.3 mg/dL 0.3-1.2 Above high normal [facility] Albumin [Mass/volume] in Serum or Plasma by Bromocresol purple (BCP) dye binding method 4.2 g/dL 3.2-4.8 N [facility] ital Protein [Mass/volume] in Serum or Plasma 8.6 g/dL 5.7-8.2 [facility] ID Date Data Source [id number] 03/31/2021 09:29:00 PM [facility] Special Instructions: Lab may order repe at test if initial test elevatedPhysician If elevated, reflex second test in 4-6 hrs Name Value Range Interpretation Code Description Data Ina rce(s) Supporting Document(s) Lactic w Rfx (if elevated) 0.7 mmol/L 0.5-2.0 N [facility] ID Date Data Source [id number] 04/05/2021 08:54:00 PM [facility] Special Instructions: Lab may order repe at test if initial test elevatedPhysician If elevated, reflex second test in 4-6 hrs Name Value Range Interpretation Code Description Data Ina rce(s) Supporting Document(s) Bacteria identified in Blood by Culture [facility] NO GROWTH AFTER 5 DAYS ID Date Data Source [id number] 03/31/2021 09:26:00 PM [facility] Special Instructions: Lab may order repe at test if initial test elevatedPhysician If elevated, reflex second test in 4-6 hrs Name Value Range Interpretation Code Description Data Ina rce(s) Supporting Document(s) Amylase [Enzymatic activity/volume] in Serum or Plasma 93 U/L 30- 118 N [facility] ID Date Data Source [id number] 03/31/2021 09:26:00 PM [facility] Special Instructions: Lab may order repe at test if initial test elevatedPhysician If elevated, reflex second test in 4-6 hrs Name Value Range Interpretation Code Description Data Ina rce(s) Supporting Document(s) Lipase [Enzymatic activity/volume] in Serum or Plasma 90 U/L 73-3 93 N [facility] ID Date Data Source [id number] 03/15/2021 03:33:00 PM EDT [facility] 1 Medication Reconciliation Report [facility] Emergency Department [address] [place] [address] Phone #: ext- [phone] 03/15/2021 15:01 Patient: [...] needed for 10 days -- for pruritus. Ekwrimdp21 capsule. Refills: 0. Substitution permitted.Pharmacy - [facility] - [address] ; [place] [address]. . -- MICHAEL Ramsey Name Value Range Interpretation Code Description Data Ina rce(s) Supporting Document(s) ID Date Data Source [id number] 03/15/2021 03:33:00 PM EDT [facility] 1 Medication Administration Record [facility] Emergency Department [address] [place] [address] Phone #: ext- [phone] 03/2021 15:01 Patient: JULISA GHOSH Sex: M : 2000 Age: 21yWeight: 77.5 kgHeight/Length: 73 inBMI: 22.5ALLERGIES: No Known Drug AllergyDate/Time Medication Administered Medication Ordered Name Value Range Interpretation Code Description Data Ina rce(s) Supporting Document(s) ID Date Data Source [id number] 03/15/2021 03:33:00 PM EDT [facility] 1 General Instructions [facility] Emergency Department [address] [place] [address] Phone #: ext- [phone] 03/15/2021 15:01 Patient: UJLISA GHOSH Sex: M : 2000 Age: 21yGeneralized [...] needed for 10 days -- for pruritus. Wawxuctj50 capsule. Refills: 0. Substitution permitted.Pharmacy - [facility] - [address] ; [place] [address]. .Understanding of the discharge instructions verbalized by patient. Expected course of illness, dischargeinstructions, activity level, follow-up appointment and risks and bene fits of treatment reviewed with patientand understanding verbalized. Agrees to plan of care.Follow-up with: [facility] [place] [facility], , , [address], , [place], [place], [facility] Follow up in one even if well. Call for the next available appointment. Reason for referral: evaluation andrecommend dermatology/flight controls engineer referral if symptoms persist. Summary of care provided to patient viapaper. 2 General Instructions [facility] Emergency Department [address] [place] [address] Phone #: ext- [phone] 03/15/2021 15:01 Patient: JULISA GHOSH Sex: M : 2000 Age: 21y(Electronically signed by MICHAEL Ramsey 03/15/2021 16:26) Name Value Range Interpretation Code Description Data Ina rce(s) Supporting Document(s) ID Date Data Source [id number] 03/15/2021 03:33:00 PM EDT [facility] 1 Clinical Report - Nurses [facility] Emergency Department [address] [place] [address] Phone #: ext- [phone] 03/15/2021 15:01 Patient: JULISA GHOSH Sex: M : 2000 Age: 21yTRIAGEArrived by private vehicle. Historian: patient. Accompanied by friend.Acuity: LEVEL 4.Chief Complaint: (generalized itching).Onset. (6 months ago). ( pt states he has no rash but has had a generalized itching for about the past 6months, has not been seen for this as of yet).Treatment DENIER CONTROL OPERATOR:None.SEPSIS SCREEN: SIRS SCREEN NEGATIVE. SEPSIS SCREEN NEGATIVE. No suspected or confirmedsigns of infection present.ELIEZER COMA SCORE: 15- eyes open- spontaneous (4); best verbal response- oriented (5); bestmotor response- obeys commands (6). --15:03/15/21 Roe Hurley RN15:04 03/15/21. BP: 121/69. MAP: 86. HR: 67. RR: 16. O2 saturation: 98%. Temp: 99.8 F. Pain level now:0. --15:03/15/21 Roe Hurley RN.Weight: 77.5 kg stated. Height/Length: 73 inches Per Patient. BMI: 22.5. --15:04 03/15/21 Roe Hurley RN.MedicationsTopiramate Oral 100 mg, daily. --15:03/15/21 Roe Hurley RN Methocarbamol Oral (Tablet 750 mg) 1 tablet, daily. --15:03/15/21 Roe Hurley RN.AllergiesNo Known Drug Allergy. --15:03/15/21 Roe Hurley RN.PROBLEMS:Back Pain.TBI. --15:07 03/15/21 Roe Hurley RN.ADDITIONAL SURGERIES:no known surgeries.HistoryPAST MEDICAL HX: Immunizations: up-to-date. 2 Clinical Report - Nurses [facility] Emergency Department [address] [place] [address] Phone #: ext- [phone] 03/15/2021 15:01 Patient: JULISA GHOSH Sex: M [...] To treatment room. --15:03/15/21 Roe Hurley RN.PHYSICAL ZUVOQGTRGC05:15 03/15/21. Ambulatory to room.GENERAL / NEURO / PSYCH: Alert. Oriented X 4. Appears in no acute distress.HEENT: No facial asymmetry noted. Mucous membranes are pink.RESPIRATORY: Respirations not labored. Chest nontender.CVS: Pulses within normal limits.GI / : Abdomen soft and nontender.SKIN: Skin intact. Skin is warm and dry. Normal skin turgor. No skin rash. --15:24 03/15/21 CYNDI Hernandez.NURSING PROGRESS NOTES15:03/15/21. Patient gowned. Two patient identifiers checked. Call light placed in reach. Bedplaced in lowest position. Brakes of bed on. Patient ready for evaluation- PA notified. --15:25 03/15/21Michelle Sam RN.DISPOSITION / DISCHARGE 15:53 03/15/21. Condition at departure: stable. No learning barriers present. Discharge instructions 3 Clinical Report - Nurses [facility] Emergency Department [address] [place] [address] Phone #: ext- [phone] 03/15/2021 15:01 Patient: JULISA GHOSH Sex: M : 2000 Age: 21y provided and reviewed with the patient. Reviewed medication(s) side effects, precautions, dosing and course information. Prescription(s) sent electronically to pharmacy ([facility]). Patient verbalized understanding. Written instructions provided in Colombian. The patient was discharged home. He left [...] rce(s) Supporting Document(s) ID Date Data Source [id number] 03/15/2021 03:33:00 PM EDT [facility] 1 Clinical Report - Physicians/Mid Levels [facility] Emergency Department [address] [place] [address] Phone #: ext- [phone] 03/15/2021 15:01 Patient: [...] allergies. 2 Clinical Report - Physicians/Mid Levels [facility] Emergency Department [address] [place] [address] Phone #: ext- [phone] 03/15/2021 15:01 Patient: JULISA GHOSH Sex: M [...] improved condition.Discharge decision based on the following: patient's condition is stable; patient is ambulatory; patient'sexam [...] as needed for 10 days -- for prur itus. Dispense 30 capsule. Refills: 0. Substitution permitted. 3 Clinical Report - Physicians/Mid Levels [facility] Emergency Department [address] [place] [address] Phone #: ext- [phone] 03/15/2021 15:01 Patient: JULISA GHOSH Sex: M : 2000 Age: 21y [facility]acy - [facility] - [address] ; [place] [address]. . Understanding of the discharge instructions verbalized by patient. Expected course of illness, discharge instructions, activity level, follow-up appointment and risks and benefits of treatment reviewed with patient and understanding verbalized. Agrees to plan of care. Follow-up with: [facility] [place] G[facility], , , [id number] [place] [address], , [place], [address] Follow up in one even if well. Call for the next available appointment. Reason for referral: evaluation and recommend dermatology/flight controls engineer referral if symptoms persist. Summary of care provided to patient via paper.(Electronically signed by MICHAEL Ramsey 03/15/2021 16:26) Name Value Range Interpretation Code Description Data Ina rce(s) Supporting Document(s) ID Date Data Source [id number] 03/02/2021 09:25:00 PM EDT [facility] Name Value Range Interpretation Code Description Data Ina rce(s) Supporting Document(s) SARS COVID ANTIGEN NEGATIVE [facility] This lab was ordered by KAUSHAL goins nd reported by [facility]. ID Date Data Source [id number] 03/01/2021 10:32:00 AM EDT [facility] [address] [place] [address] PHONE: [phone] FAX: [phone] Name .................. : DAVINA Parrish Acct Number.................. : [id number] ROOM. ................. : VT-08 MR Number ................... : [id number] Stay type ............. : E/R Discharge Date......... ... : 02/28/21 Admit Date ......... : 02/28/21 Admit Phys .................... : COONEYNORM Date of ....... : 2000 Family Phys ................... : NO PCP Phone .................. : [phone] Age ................................ : 21 Film# .................. .:[id number] Sex ................................. : M Unsigned transcriptions are preliminary reports and do not represent a medical or legal document SCROTAL [id number] COMPLETE:02/28/21 14:22 [id number] Reason(s): Testicle/Scrotum Pain ULTRASOUND SCROTUM INDICATION: Testicular/scrotal [...] of testicular torsion. Page 1 of 2 [facility] [address] [place] [address] PHONE: [phone] FAX: [phone] Name .................. : DAVINA Parrish Acct Number.................. : [id number] ROOM. ................. : VT-08 Number ................... : [id number] Stay type ............. : E/R Discharge Date......... ... : 02/28/21 Admit Date ......... : 02/28/21 Admit Phys .................... : COONEYNORM Date of ....... : 2000 Family Phys ................... : NO PCP Phone .................. : [phone] Age ................................ : 21 Film# .................. .:[id number] Sex ................................. : M Unsigned transcriptions are preliminary reports and do not represent a medical or legal document SCROTAL [id number] COMPLETE:02/28/21 14:22 [id number] Reason(s): Testicle/Scrotum Pain 2. Bilateral varicoceles, right greater than left. 3. Small bilateral hydroceles. Preliminary report for this exam was provided by Sol. ____ Electronically Reviewed and Signed By Neeraj Raygoza MD , 03/01/21 10:32, RACHAEL Transcribe Initials: HAYLEY , Transcribe Date: 02/28/21 17:13, Dictation Date: Copy for: MATTHEW GRANADO via fax Copy for: EMERGENCY DEPT via modem Copy for: 710 MED REC DISCHARGED Page 2 of 2 Name Value Range Interpretation Code Description Data Ina rce(s) Supporting Document(s) ID Date Data Source [id number] 02/28/2021 01:50:00 PM EDT [facility] 1 OrderSheet [facility] Emergency Department [address] [place] [address] Phone #: ext- [phone] 02/28/2021 13:48 Patient: JULISA GHOSH Sex: M : 2000 Age: 21yWEIGHT:77.5 kg HEIGHT:73 inches BMI:22.5ALLERGIES: Aspirin, Macrobid, Primaquine Phosphate, SulfaCHIEF COMPLAINT: dysuria, Rt, testicular pain:, LtDIAGNOSIS: Hydrocele, Scrotal varicesLAB ORDERSOrder Description Priority Entered Acknowledged InitialedUA Reflex to UA 14:22 02/28/2021 14:31 NirmalaCulture Johnnie Ulrich store leaderLewis Peterson; Qvxi5Sgfpxrngq/GC STAT 14:22 02/28/2021 14:31 Lewis [facility] ED; Tech1 NOTES: urineSyphilis 14:22 02/28/2021 15:03 Johnnie Mcclain R.N.;DIAGNOSTIC STUDY ORDERSOrder Description Priority Entered Acknowledged InitialedUS Scrotal STAT 14:22 02/28/2021 14:34 Nirmala(Oxygen?(No)) Johnnie Ulrich store leaderLewis Peterson; Tech1 Reason for Study: Testicle/Scrotum PainMEDICATION/IV/DRIP/FLUID ORDERSOrder Description Priority Entered Acknowledged InitialedGENERAL ORDERSOrder Description Priority Entered Acknowledged Initialed[Electronically signed by Sheri Drew R.N. (16:32 02/28/2021)][Electronically signed by Johnnie Ulrich (22:06 02/28/2021)][Electronically locked by Sheri Drew R.N. (16:32 02/28/2021)] Name Value Range Interpretation Code Description Data Ina rce(s) Supporting Document(s) ID Date Data Source [id number] 02/28/2021 01:50:00 PM EDT [facility] 1 Medication Reconciliation Report [facility] Emergency Department [address] [place] [address] Phone #: [phone]- [phone] 02/28/2021 13:48 Patient: JULISA GHOSH Sex: M [...] 45 tablet. Refills: 0. Substitution permitted.Pharmacy - [facility] [id number] ; [place] [address]. . -- MICHAEL Buck Name Value Range Interpretation Code Description Data Ina rce(s) Supporting Document(s) ID Date Data Source [id number] 02/28/2021 01:50:00 PM EDT [facility] 1 Medication Administration Record [facility] Emergency Department [address] [place] [address] Phone #: ext- [phone] 02/28/2021 13:48 Patient: JULISA GHOSH Acct#: [id number] Sex: M : 2000 Age: 21yWeight: 77.5 kgHeight/Length: 73 inBMI: 22.5ALLERGIES: Macrobid, Aspirin, Sulfa, Primaquine PhosphateDate/Time Medication Administered Medication Ordered Name Value Range Interpretation Code Description Data Ina rce(s) Supporting Document(s) ID Date Data Source [id number] 02/28/2021 01:50:00 PM EDT [facility] 1 General Instructions [facility] Emergency Department [address] [place] [address] Phone #: ext- [phone] 02/28/2021 13:48 Patient: JULISA GHOSH Sex: M : 2000 Age: 21yRight and left acute hydrocele. No infected hydrocele.Scrotal varicocele on the right side.Erectile Dysfunction.INSTRUCTIONS(see your INDIRA RODRIGUEZ for a referral to Urology).Warnings: Further evaluation [...] 45 tablet. Refills: 0. Substitution permitted.Pharmacy - [facility] [id number] ; [place] [address]. .Understanding of the discharge instructions verbalized by patient.Follow-up with: Rajan Doe M.D., Urology, , [address] [place] [address], [facility] Follow up. Call for the next available appointment. Reason for referral: evaluation and treatment.Summary of care provided to patient. ADDITIONAL INFORMATIONHydrocele (Type Not Specified) 2 General Instructions [facility] Emergency Department [address] [place] [address] Phone #: ext- [phone] 02/28/2021 13:48 Patient: JULISA GHOSH Sex: M [...] that happens with nausea, vomiting, or both [id number] [employer]. [address] [place] [address]. All rights reserved. This information is not intended as asubstitute for professional medical care. Always follow your healthcare professional's instructions.VaricoceleA varicocele is a swelling in the veins above the testicles. It's similar to a varicose vein in the legs. 3 General Instructions [facility] Emergency Department [address] [place] [address] Phone #: ext- [phone] 02/28/2021 13:48 Patient: JULISA GHOSH Sex: M [...] jockstrap or snug underwear 4 General Instructions [facility] Emergency Department [address] [place] [address] Phone #: ext- [phone] 02/28/2021 13:48 Patient: JULISA GHOSH Sex: M : 2000 Age: 21y Take an mxts-hfa-gogqbss pain reliever, such as ibuprofenFollow-up careFollow up [...] the groin area appears or gets bigger [employer]. [address] [place] [address]. All rights reserved. This information is not intended as asubstitute for professional medical care. Always follow your healthcare professional's instructions. You have been given the following additional information: Hydrocele, Type Not Specified Varicocele(Electronically signed by MICHAEL Buck 02/28/2021 22:06) Name Value Range Interpretation Code Description Data Ina rce(s) Supporting Document(s) ID Date Data Source [id number] 02/28/2021 01:50:00 PM EDT [facility] 1 Clinical Report - Nurses [facility] Emergency Department [address] [place] [address] Phone #: ext- [phone] 02/28/2021 13:48 Patient: [...] comments: Pain to back, neck, knee, feet. --14:September, R.N.Acuity: LEVEL 3. --14:07 02/28/21September, R.N.Weight: 77.5 kg. Height/Length: 73 inches. BMI: 22.5. --14:06 02/28/21September, R.N.MedicationsTopiramate Oral. --14:03 02/28/21September, R.N. Amitriptyline HCl Oral. --14:04 02/28/21September, R.N. Robaxin Oral. --14:04 02/28/21September, R.N. Vitamin D Oral. --14:02/28/21September, R.N. SUMAtriptan Succinate Oral. --14:02/28/21September, R.N.AllergiesPrimaquine Phosphate. --14:02 02/28/21September, R.N.Sulfa. --14:03 02/28/21September, [...] to Coronavirus. 2 Clinical Report - Nurses [facility] Emergency Department [address] [place] [address] Phone #: ext- [phone] 02/28/2021 13:48 Patient: [...] 02/28/21 Adele Cruz R.N. [facility] with mask and downstream biomanufacturing technician. --14:35 02/28/21 Carbon store leader, Lewis, VETO Tech1.DISPOSITION / DISCHARGE 16:32 02/28/21. [place] Coma Scale: 15- eyes open- spontaneous (4); best verbal response- oriented (5); best motor response- obeys commands (6). Condition at departure: improved and stable. No learning barriers present. Discharge instructions provided and reviewed with the patient. Reviewed medication(s) side effects, precautions, dosing and course information. Prescription(s) sent electronically to pharmacy. Patient verbalized understanding. Written instructions provided in Colombian. The patient was discharged by the physician. He was discharged home. He left ambulatory and via private vehicle. Patient driving. --16:32 02/28/21 Sheri Drew R.N. 16:31 02/28/21. BP: 115/69. MAP: 84. HR: 61. RR: 16. O2 saturation: 100%. Temp: 98.1 F. Pain level 3 Clinical Report - Nurses [facility] Emergency Department [address] [place] [address] Phone #: ext- [phone] 02/28/2021 13:48 Patient: JULISA GHOSH Sex: M : 2000 Age: 21y now: 12/13. --16:32 02/28/21 Sheri Drew R.N.Locked/Released at 02/28/2021 16:32 by Sheri Drew R.N. Name Value Range Interpretation Code Description Data Ina rce(s) Supporting Document(s) ID Date Data Source [id number] 02/28/2021 01:50:00 PM EDT [facility] 1 Clinical Report - Physicians/Mid Levels [facility] Emergency Department [address] [place] [address] Phone #: ext- [phone] 02/28/2021 13:48 Patient: JULISA GHOSH Sex: M [...] use. 2 Clinical Report - Physicians/Mid Levels [facility] Emergency Department [address] [place] [address] Phone #: ext- [phone] 02/28/2021 13:48 Patient: [...] varicocele. The exam was performed by a master hearth technician. The study was interpreted by theradiologist and contemporaneously by me. Interpretation time: 16:19 02/28/2021.Laboratory Tests: Laboratory tests have been ordered, with results reviewed and considered in themedical decision making process. UA REFLEX TO UA CULTURE: (CARMEN: 02/28/2021 14:20) ( [facility] 02/28/2021 14:58) Final results Test Result Flag [...] Not Indicate Syphilis: (CARMEN: 02/28/2021 14:30) ( [facility] 02/28/2021 16:01) Final results Test Result Flag Units (Reference) SYPHILIS NON-REACTIVE (NORMAL:NON RE. 3 Clinical Report - Physicians/Mid Levels [facility] Emergency Department [address] [place] [address] Phone #: ext- [phone] 02/28/2021 13:48 Patient: JULISA GHOSH Sex: M [...] Discharged home in good and improved condition (:Feb 28 2021).CLINICAL IMPRESSION Right and left acute [...] tablet. Refills: 0. Substitution permitted. Pharmacy - [facility] [id number] ; [place] [address]. . Understanding of the discharge instructions verbalized by patient. 4 Clinical Report - Physicians/Mid Levels [facility] Emergency Department [address] [place] [address] Phone #: ext- [phone] 02/28/2021 13:48 Patient: JULISA GHOSH Sex: M : 2000 Age: 21y Follow-up with: Rajan Doe M.D., Urology, , [address] [place] [address], [id number] Follow up. Call for the next available appointment. Reason for referral: evaluation and treatment. Summary of care provided to patient.(Electronically signed by MICHAEL Buck 02/28/2021 22:06) Name Value Range Interpretation Code Description Data Ina rce(s) Supporting Document(s) ID Date Data Source [id number] 02/28/2021 04:01:00 PM EDT [facility] Name Value Range Interpretation Code Description Data Ina rce(s) Supporting Document(s) Treponema pallidum Ab [Presence] in Serum NON-REACTIVE NORMAL:NON VELMA CTIVE [facility] ID Date Data Source [id number] 03/03/2021 07:40:00 AM EDT [facility] Name Value Range Interpretation Code Description Data Ina rce(s) Supporting Document(s) Chlamydia trachomatis rRNA [Presence] in Unspecified specimen by Probe and target amplification method Negative Negative [facility] Neisseria gonorrhoeae rRNA [Presence] in Unspecified specimen by Probe and target amplification method Negative Negative [facility] ID Date Data Source [id number] 02/28/2021 02:57:00 PM EDT [facility] Name Value Range Interpretation Code Description Data Ina rce(s) Supporting Document(s) UA REFLEX TO UA CULTURE [facility] URINALYSIS SOURCE Clean Catch [facility] COLOR yellow NORMAL: Yellow [facility] CLARITY clear NORMAL: Clear [facility] Specific gravity of Urine by Test strip 1.015 1.001 - 1.030 [facility] pH 6 5 - 9 [facility] Glucose [Mass/volume] in Urine by Test strip NORM NORMAL: Negat [facility] Bilirubin.total [Presence] in Urine by Test strip NEG NORMAL: Negative [facility] Ketones [Presence] in Urine by Test strip NEG NORMAL: Negative [facility] Protein [Mass/volume] in Urine by Test strip NEG NORMAL: Negat [facility] Nitrite [Presence] in Urine by Test strip NEG NORMAL: Negative [facility] BLOOD NEG NORMAL: Negative [facility] Leukocyte esterase [Presence] in Urine by Test strip NEG CECY L: Negative [facility] Urobilinogen [Mass/volume] in Urine by Test strip NOR less bernie n 1.0 mg/dL [facility] MICROSCOPIC Not Indicate [facility] ID Date Data Source [id number] 12/23/2020 09:58:00 AM EDT [facility] [address] [place] [address] PHONE: [phone] FAX: [phone] Name .................. : DAVINA EGAN Shivani Acct Number.................. : [id number] ROOM. ................. : Number ................... : [id number] Stay type ............. : O/P Discharge Date......... ... : 12/22/20 Admit Date ......... : 12/22/20 Admit Phys .................... : BENNY STILES Date of ....... : 2000 Family Phys ................... : NO PCP Phone .................. : [phone] Age ................................ : 20 Film# .................. .:[id number] Sex ................................. : M Unsigned transcriptions are preliminary reports and do not represent a medical or legal document MRI BRAIN W/O CONTRAST [id number] COMPLETE:12/22/20 08:35 ALDA [id number] Reason for Exam: TBI 08/24, MIGRAINES WORSENING, [...] MD , 12/23/20 09:58, AML Transcribe Initials: HAYLEY , Transcribe Date: 12/22/20 21:44, Dictation Date: Endocrinology Specialist y for: BENNY GRANDE Copy for: [address] [place] [address] REC Page 1 of 1 Name Value Range Interpretation Code Description Data Ina rce(s) Supporting Document(s) ID Date Data Source [id number] 12/19/2020 02:07:00 PM EDT [facility] [address] [place] [address] PHONE: [phone] FAX: [phone] Name .................. : DAVINA Parrish Acct Number.................. : [id number] ROOM. ................. : VT-02 MR Number ................... : [id number] Stay type ............. : E/R Discharge Date......... ... : 12/18/20 Admit Date ......... : 12/18/20 Admit Phys .................... : COONEYNORM Date of ....... : 2000 Family Phys ................... : NO PCP Phone .................. : [phone] Age ................................ : 20 Film# .................. .:[id number] Sex ................................. : M Unsigned transcriptions are preliminary reports and do not represent a medical or legal document CT HEAD W/O CONTRAST [id number] COMPLETE:12/18/20 20:24 DLA [id number] Reason(s): Head Injury CT OF THE HEAD [...] 856.1 mGycm Electronically Reviewed and Signed By aDquan Miller M.D. , 12/19/20 14:07, [place] Transcribe Initials: DZ , Transcribe Date: 12/19/20 02:56, Dictation Date: Page 1 of 2 [facility] [address] [place] [address] PHONE: [phone] FAX: [phone] Name .................. : DAVINA PEARSON Shivani Acct Number.................. : [id number] ROOM. ................. : VT-02 Number ................... : [id number] Stay type ............. : E/R Discharge Date......... ... : 12/18/20 Admit Date ......... : 12/18/20 Admit Phys .................... : COONEYNORM Date of ....... : 2000 Family Phys ................... : NO PCP Phone .................. : [phone] Age ................................ : 20 Film# .................. .:[id number] Sex ................................. : M Unsigned transcriptions are preliminary reports and do not represent a medical or legal document CT HEAD W/O CONTRAST [id number] COMPLETE:12/18/20 20:24 DLA 25954 Reason(s): Head Injury Copy for: CARLOZ LOZANO via fax Copy for: EMERGENCY DEPT via modem Copy for: 710 MED REC DISCHARGED Page 2 of 2 Name Value Range Interpretation Code Description Data Ina rce(s) Supporting Document(s) ID Date Data Source [id number] 12/18/2020 03:12:00 PM EDT [facility] 1 OrderSheet [facility] Emergency Department [address] [place] [address] Phone #: ext- [phone] 12/18/2020 15:09 Patient: MICHEL GHOSH Sex: M : 2000 Age: 20yWEIGHT:77.5 kg (S) HEIGHT:71 inches (S) BMI:23.8ALLERGIES: Aspirin, Macrobid, Primaquine Phosphate, Sulfa AntibioticsCHIEF COMPLAINT: headacheDIAGNOSIS: MigraineLAB ORDERSOrder Description Priority Entered Acknowledged InitialedCBC w Diff STAT 16:06 12/04 16:17 Richard Horton RN P.A.-C;Sed. Rate STAT 16:06 12/18/2020 16:17 Richard Horton RN P.A.-C;CRP STAT 16:06 12/18/2020 16:17 Richard Horton RN P.A.-C;CMP STAT 16:06 12/18/2020 16:17 Richard Horton RN P.A.-C;DIAGNOSTIC STUDY ORDERSOrder Description Priority Entered Acknowledged InitialedCT Head W/O Cont STAT 16:06 12/18/2020 16:17 Richard(Oxygen?(No)) Gordon Horton RN P.A.-C; Reason for Study: Head Injury, Head PainMEDICATION/IV/DRIP/FLUID ORDERSOrder Description Priority Entered Acknowledged InitialedIV NS 1000 mL 16:06 12/18/2020 16:40 TerryBolus : Bolus 1000 Gordon Horton RNmL (X1) P.A.-C;Zofran IVP 4 mg 16:06 12/18/2020 16:40 Richard Horton RN P.A.-C;Benadryl IVP 25 mg 16:06 12/18/2020 16:40 Richard Horton RN P.A.-C; 2 OrderSheet [facility] Emergency Department [address] [place] [address] Phone #: ext- [phone] 12/18/2020 15:09 Patient: MICHEL GHOSH Sex: M : 2000 Age: 20yGENERAL ORDERSOrder Description Priority Entered Acknowledged InitialedSaline Lock 16:06 12/18/2020 16:40 Richard Horton RN P.A.-C;[Electronically signed by Lucrecia Lynn R.N. (18:04 12/18/2020)][Electronically signed by Gordon lGover P.A.-C (01:09 12/19/2020)][Electronically locked by Lucrecia Lynn R.N. (18:12/18/2020)] Name Value Range Interpretation Code Description Data Ina rce(s) Supporting Document(s) ID Date Data Source [id number] 12/18/2020 03:12:00 PM EDT [facility] 1 Medication Reconciliation Report [facility] Emergency Department [address] [place] [address] Phone #: ext- [phone] 12/18/2020 15:09 Patient: [...] rce(s) Supporting Document(s) ID Date Data Source [id number] 12/18/2020 03:12:00 PM EDT [facility] 1 Medication Administration Record [facility] Emergency Department [address] [place] [address] Phone #: ext- [phone] 12/18/2020 15:09 Patient: MICHEL GHOSH Sex: M : 2000 Age: 20yWeight: 77.5 kgHeight/Length: 71 inBMI: 23.8ALLERGIES: Primaquine Phosphate, Macrobid, Aspirin, Sulfa Antibiotics Date/Time Medication Administered Medication OrderedStart NS [IV] IV NS 1000 mL Bolus : Bolus 582767:30 12/18/2020 Dose: IV Fluids mL (X1)Richard Horton RN Bolus: 1000 mL over 1 hour(s)---- Dispensed: 1000 mL bagStop Site: #1 right agpytte87:40 12/18/2020Richard Horton RNGiven ZOFRAN [IVP] (ONDANSETRON HCL) Zofran IVP 4 mg16:32 12/18/2020 Dose: 4 mg IVManny Horton RN Site: #1 right forearmGiven BENADRYL [IVP] (DIPHENHYDRAMINE Benadryl IVP 25 mg16:31 12/18/2020 HCL)Richard Horton RN Dose: 25 mg IVP Site: #1 right forearm Name Value Range Interpretation Code Description Data Ina rce(s) Supporting Document(s) ID Date Data Source [id number] 12/18/2020 03:12:00 PM EDT [facility] 1 General Instructions [facility] Emergency Department [address] [place] [address] Phone #: [phone]- [phone] 12/18/2020 15:09 Patient: MICHEL GHOSH Sex: M : 2000 Age: 20yChronic migraine headache without aura, with status migrainosus- refractory to treatment.INSTRUCTIONSTake Tylenol (Acetaminophen) or Motrin (Ibuprofen) as needed for fever control. Take medicationaccording to label instructions. No strenuous activity for two weeks (Recommend no PT as this mayexcerbate your symptoms.).(Please f/u with the [facility] TBI clinic as you have a [...] Other triggers include certain 2 General Instructions [facility] Emergency Department [address] [place] [address] Phone #: ext- [phone] 12/18/2020 15:09 Patient: [...] salami Liver Avocados Bananas 3 General Instructions [facility] Emergency Department [address] [place] [address] Phone #: ext- [phone] 12/18/2020 15:09 Patient: [...] sinuses, ears, or throat 4 General Instructions [facility] Emergency Department [address] [place] [address] Phone #: ext- [phone] 12/18/2020 15:09 Patient: [...] of your face Trouble talking or seeing [phone] [employer]. [address] [place] [address]. All rights reserved. This information is not [...] rce(s) Supporting Document(s) ID Date Data Source [id number] 12/18/2020 03:12:00 PM EDT [facility] 1 Clinical Report - Nurses [facility] Emergency Department [address] [place] [address] Phone #: ext- [phone] 12/18/2020 15:09 Patient: [...] --15:15 12/18/20 Juan Carlos MohamudMacrobid. --15:15 12/18/20 Cade, Juan CarlosPrimaquine Phosphate. --15:16 12/18/20 Juan Carlos Mohamud.PROBLEMS:Headache. --15:18 [...] carrier of 2 Clinical Report - Nurses [facility] Emergency Department [address] [place] [address] Phone #: ext- [phone] 12/18/2020 15:09 Patient: [...] Horton RN 3 Clinical Report - Nurses [facility] Emergency Department [address] [place] [address] Phone #: ext- [phone] 12/18/2020 15:09 Patient: MICHEL GHOSH Sex: M [...] and birthdate. Blood samples drawn by tech. ([id number]). --16:41 12/18/20 Richard Horton RN Patient transported to [place] by wheelchair with mask and downstream biomanufacturing technician. ([id number]). --16:58 12/18/20 Richard Horton RN 17:40 12/18/2020 [...] patient was discharged home and accompanied by sprinkler repair technician. He left ambulatory and via private vehicle. Intelligence Engineer driving. --18:04 12/18/20 Lucrecia Lynn R.N. Departure time: 18:04 12/18/2020. --18:04 12/18/20 Lucrecia Lynn R.N. 4 Clinical Report - Nurses [facility] Emergency Department [address] [place] [address] Phone #: ext- [phone] 12/18/2020 15:09 Patient: MICHEL GHOSH Sex: M : 2000 Age: 20yLocked/Released at 12/18/2020 18:04 by Lucrecia Lynn R.N. Name Value Range Interpretation Code Description Data Ina rce(s) Supporting Document(s) ID Date Data Source [id number] 12/18/2020 03:12:00 PM EDT [facility] 1 Clinical Report - Physicians/Mid Levels [facility] Emergency Department [address] [place] [address] Phone #: ext- [phone] 12/18/2020 15:09 Patient: MICHEL GHOSH Sex: M [...] NAYAK. Sts that he eventaully went to [facility] for eval and imaigng. PT sts that he finally seen by the [facility] TBI clinic last month and seen [...] NOTES 2 Clinical Report - Physicians/Mid Levels [facility] Emergency Department [address] [place] [address] Phone #: ext- [phone] 12/18/2020 15:09 Patient: MICHEL GHOSH Sex: M [...] 51.0) 3 Clinical Report - Physicians/Mid Levels [facility] Emergency Department [address] [place] [address] Phone #: ext- [phone] 12/18/2020 15:09 Patient: MICHEL GHOSH Sex: M [...] NOT INDICATEDSed. Rate: (CARMEN: 12/18/2020 16:14) ( [facility] 12/18/2020 16:40) Final results Test Result Flag Units (Reference) SED RATE 1 mm/hr (0 - 15) SED RATE REENTER 1CRP: (CARMEN: 12/18/2020 16:14) ( [facility] 12/18/[place] 16:39) Final results Test Result Flag Units (Reference) CRP-HS 0.20 L MG/L (1.00 - 3.00) CDC/S HS-CRP CUT-OFF: RELATIVE RISK: <1.0 mg/LLow 1.0 - 3.0 mg/L Average >3.0 mg/LHigh Optimally, the average of HS-CRP results repeated two weeks apart should be used forrisk assessment.CMP: (CARMEN: 12/18/2020 16:14) ( [facility] 12/18/2020 16:37) Final results Test Result Flag [...] 56) 4 Clinical Report - Physicians/Mid Levels [facility] Emergency Department [address] [place] [address] Phone #: ext- [phone] 12/18/2020 15:09 Patient: MICHEL GHOSH Sex: M [...] had since August 05 injury. Seen at [facility] ER and TBI clinic. Seen by TBI clinic yesterday. PE demos NV intact b/l UE. Noted sinus tenderness. ? acute sinusititis vs acute on chronic. Will obtian labs and imaigng for further evla. Pending resutls. Reviewed results. Enter room and patient lying peacefully in bed in NAD. Patient stable. Denies any new issues, concerns, or complaints. Pt sts that he feels [facility] better. Sts that s/s are almost [...] treatment. 5 Clinical Report - Physicians/Mid Levels [facility] Emergency Department [address] [place] [address] Phone #: ext- [phone] 12/18/2020 15:09 Patient: MICHEL GHOSH Sex: M : 2000 Age: 20yINSTRUCTIONS Take Tylenol (Acetaminophen) or Motrin (Ibuprofen) as needed for fever control. Take medication according to label instructions. No strenuous activity for two weeks (Recommend no PT as this may excerbate your symptoms.). (Please f/u with the [facility] TBI clinic as you have a [...] rce(s) Supporting Document(s) ID Date Data Source [id number] 12/18/2020 04:40:00 PM EDT [facility] Name Value Range Interpretation Code Description Data Ina rce(s) Supporting Document(s) Erythrocyte sedimentation rate by Westergren method 1 mm/hr 0 - 15 [facility] SED RATE REENTER 1 [facility] ID Date Data Source [id number] 12/18/2020 04:39:00 PM EDT [facility] Name Value Range Interpretation Code Description Data Ina rce(s) Supporting Document(s) C reactive protein [Mass/volume] in Serum or Plasma by High sensitivity method 0.20 MG/L 1.00 - 3.00 L [facility] CDC/S HS-CRP CUT-OFF: RELATIVE RISK: <1.0 mg/L Low 1.0 - 3.0 mg/L Average >3.0 mg/L High Optimally, the average of HS-CRP results repeated two weeks apart should be used for risk assessment. ID Date Data Source [id number] 12/18/2020 04:37:00 PM EDT [facility] Name Value Range Interpretation Code Description Data Ina rce(s) Supporting Document(s) COMPREHENSIVE METABOLIC PANEL [facility] COMPREHENSIVE METABOLIC PANEL Sodium [Moles/volume] in Serum or Plasma 139 mEq/L 134 - 153 [facility] Potassium [Moles/volume] in Serum or Plasma 4.0 mEq/L 3.6 - 5.0 [facility] Chloride [Moles/volume] in Serum or Plasma 105 mEq/L 98 - 107 [facility] Carbon dioxide, total [Moles/volume] in Serum or Plasma 26 MEQ/L 22 - 30 [facility] Glucose [Mass/volume] in Serum or Plasma 97 MG/DL 70 - 99 [facility] BUN 10 MG/DL 7 - 21 [facility] al Creatinine [Mass/volume] in Serum or Plasma 0.9 MG/DL 0.7 - 1.5 [facility] BUN/CREAT 11 8 - 27 [facility] Protein [Mass/volume] in Serum or Plasma 7.6 G/DL 6.3 - 8.2 [facility] Albumin [Mass/volume] in Serum or Plasma 4.5 G/DL 3.9 - 5.0 [facility] Globulin [Mass/volume] in Serum by calculation 3.1 GM/DL 2.4 - 3.2 [facility] A/G RATIO 1.5 0.8 - 2.0 [facility] Calcium [Mass/volume] in Serum or Plasma 9.7 MG/DL 8.4 - 10.2 [facility] Bilirubin.total [Mass/volume] in Serum or Plasma 1.0 MG/DL 0.2 - 1.3 [facility] Alkaline phosphatase [Enzymatic activity/volume] in Serum or Plasma 76 U/L 38 - 126 [facility] Aspartate aminotransferase [Enzymatic activity/volume] in Serum or Plasma 21 U/L 5 - 40 [facility] Alanine aminotransferase [Enzymatic activity/volume] in Seru m or Plasma 15 U/L 7 - 56 [facility] Anion gap 3 in Serum or Plasma 8.0 mmol/L 8.0 - 16.0 [facility] AGE 20 yrs [facility] NON-AA GFR >60 mL/min [facility] AFR AMER GFR >60 mL/min [facility] Male GFR In terprentation [...] >32 mL/min Normal ID Date Data Source [id number] 12/18/2020 04:19:00 PM EDT [facility] Name Value Range Interpretation Code Description Data Ina rce(s) Supporting Document(s) CBC W/AUTOMATED DIFF [facility] COMPLETE BLOOD COUNT Leukocytes [#/volume] in Blood by Automated count 5.1 10^3/uL 4.2 - 1 1.0 [facility] Erythrocytes [#/volume] in Blood by Automated count 4.61 10^6/uL 4. 50 - 6.30 [facility] Hemoglobin [Mass/volume] in Blood 14.7 g/dL 14.0 - 16.0 [facility] Hematocrit [Volume Fraction] of Blood by Automated count 43.0 % 4 1.0 - 51.0 [facility] Erythrocyte mean corpuscular volume [Entitic volume] by Auto mated count 93.3 fL 80.0 - 94.0 [facility] Erythrocyte mean corpuscular hemoglobin [Entitic mass] by Automated count 31.9 pg 27.0 - 34.0 [facility] Erythrocyte mean corpuscular hemoglobin concentration [Mass/volume] by Automated count 34.2 g/dL 31.0 - 36.0 [facility] Erythrocyte distribution width [Ratio] by Automated count 11.9 % 11.5 - 14.8 [facility] Platelets [#/volume] in Blood by Automated count 181 10^3/uL 150 - 45 0 [facility] Platelet mean volume [Entitic volume] in Blood by Automated count 10.9 fL 7.4 - 10.4 H [facility] Neutrophils/100 leukocytes in Blood by Automated count 47.6 % 37. 0 - 80.0 [facility] Lymphocytes/100 leukocytes in Blood by Manual count 42.2 % 25.0 - 40.0 H [facility] Monocytes/100 leukocytes in Blood by Automated count 8.2 % 3.0 - 8.0 H [facility] Eosinophils/100 leukocytes in Blood by Automated count 1.2 % 0.0 - 7.0 [facility] Basophils/100 leukocytes in Blood by Automated count 0.6 % 0.0 - 2.0 [facility] %IG 0.2 % 0.0 - 0.0 [facility] %NRBC 0.0 % 0.0 - 0.0 [facility] Neutrophils [#/volume] in Blood by Automated count 2.45 10^3/uL 2.00 - 6.90 [facility] Lymphocytes [#/volume] in Blood by Automated count 2.17 10^3/uL 0.60 - 3.40 [facility] Monocytes [#/volume] in Blood by Automated count 0.42 10^3/uL 0.00 - 0.90 [facility] Eosinophils [#/volume] in Blood by Automated count 0.06 10^3/uL 0.00 - 0.70 [facility] Basophils [#/volume] in Blood by Automated count 0.03 10^3/uL 0.00 - 0.20 [facility] #IG 0.01 10^3/uL 0.00 - 0.10 [facility] #NRBC 0.00 10^3/uL 0.00 - 0.00 [facility] ospital MANUAL DIFF NOT INDICATED [facility] RBC MORPH NOT INDICATED [facility] Procedure Social History No Information Vital Signs ID Date Data Source UNK Name Value Range Interpretation Code Description Data Source(s) Diastolic blood pressure 79 mm[Hg] 79 mm[Hg] CHANEL ([facility]) Body height 73 [in_i] 73 [in_i] CHANEL ([facility]) Systolic blood pressure 123 mm[Hg] 123 mm[Hg] A THENA ([facility]) Diastolic blood pressure 83 mm[Hg] 83 mm[Hg] CHANEL ([facility]) Body height 73 [in_i] 73 [in_i] CHANEL ([facility]) Body mass index (BMI) [Ratio] 22.6 kg/m2 22.6 k g/m2 [facility]ANEL ([facility]) Systolic blood pressure 160 mm[Hg] 160 mm[Hg] A THENA ([facility]) Body weight 171 [lb_av] 171 [lb_av] [facility]ANEL ([facility]) Diastolic blood pressure 83 mm[Hg] 83 mm[Hg] CHANEL ([facility]) Body height 73 [in_i] 73 [in_i] CHANEL ([facility]) Body mass index (BMI) [Ratio] 22.6 kg/m2 22.6 k g/m2 CHANEL ([facility]) Systolic blood pressure 160 mm[Hg] 160 mm[Hg] A THENA ([facility]) Body weight 171 [lb_av] 171 [lb_av] CHANEL ([facility]) Body mass index (BMI) [Ratio] 23.8 kg/m2 23.8 k g/m2 MEDENT ([facility] ) [place] body weight 172 [lb_av] 172 [lb_av] MEDEN T ([facility], ) Respiratory rate 12 /min 12 /min MEDENT ( [facility] ) Body height 71 [in_i] 71 [in_i] MEDENT ([facility], ) 5'11" Body weight 171.00 [lb_av] 171.00 [lb_av] MEDEN T ([facility], ) Patient Treatment Plan of Care Planned Activity Planned Date Details Description Data Source (s) Diclofenac Sodium 0.01 MG/MG Topical Gel [Voltaren] CHANEL ([facility]) topiramate 25 MG Oral Tablet CHANEL ([facility]) Sumatriptan 50 MG Oral Tablet [facility]ANEL ([facility]) Hydrocortisone 25 MG/ML Topical Cream [Proctosol] CHANEL ([facility]) Natural Fiber Laxative Therapy oral powder CHANEL ([facility]) Naproxen 500 MG Oral Tablet CHANEL ([facility]) Methocarbamol 750 MG Oral Tablet CHANEL ([facility]) Methocarbamol 500 MG Oral Tablet CHANEL ([facility]) duloxetine 20 MG Delayed Release Oral Capsule CHANEL ([facility]) Cyclobenzaprine hydrochloride 5 MG Oral Tablet CHANEL ([facility]) Ciprofloxacin 500 MG Oral Tablet CHANEL ([facility]) Amitriptyline Hydrochloride 25 MG Oral Tablet CHANEL ([facility]) Amitriptyline Hydrochloride 10 MG Oral Tablet CHANEL ([facility]) Diclofenac Sodium 0.01 MG/MG Topical Gel [Voltaren] CHANEL ([facility]) topiramate 25 MG Oral Tablet CHANEL ([facility]) Sumatriptan 50 MG Oral Tablet CHANEL ([facility]) Hydrocortisone 25 MG/ML Topical Cream [Proctosol] CHANEL ([facility]) Natural Fiber Laxative Therapy oral powder CHANEL ([facility]) Naproxen 500 MG Oral Tablet HCANEL ([facility]) Methocarbamol 750 MG Oral Tablet CHANEL ([facility]) Methocarbamol 500 MG Oral Tablet CHANEL ([facility]) duloxetine 20 MG Delayed Release Oral Capsule CHANEL ([facility]) Cyclobenzaprine hydrochloride 5 MG Oral Tablet CHANEL ([facility]) Ciprofloxacin 500 MG Oral Tablet CHANEL ([facility]) Amitriptyline Hydrochloride 25 MG Oral Tablet CHANEL ([facility]) Amitriptyline Hydrochloride 10 MG Oral Tablet CHANEL ([facility]) Acetaminophen 325 MG Oral Tablet CHANEL ([facility])
--- OUTSIDE RECORDS SUMMARY | 2021-04-11 08:16 | CCD ---
Author Author [facility] Organization [facility] Address Unknown Phone Unavailable Care Team Providers Care Scrap Sorter Name Role Phone NO, PCP Unavailable Unavailable [...] Unavailable Unavailable Alexi Leiva MD Unavailable Unavailable lAexi Leiva MD Unavailable Unavailable Alexi Leiva MD [...] Alexander PA-C Unavailable Unavailable Jumalon, M Annemarie [employer] Unavailable Unavailable Jumalon, M Annemarie [employer] Unavailable Unavailable Jumalon, M Annemarie [employer] Unavailable Unavailable Jumalon, M Annemarie [employer] Unavailable Unavailable Jumalon, M Annemarie [employer] Unavailable Unavailable Jumalon, M Annemarie [employer]AIL[employer] Unavailable Unavailable Jumalon, M Annemarie [employer]AIL[employer] Unavailable Unavailable Jumalon, M Annemarie [employer]AIL[employer] Unavailable Unavailable Jumalon, M Annemarie [employer]AIL[employer] Unavailable Unavailable Jumalon, M Annemarie [employer] Unavailable Unavailable Jumalon, M Annemarie [employer]AIL[employer] Unavailable Unavailable Jumalon, M Annemarie [employer] Unavailable Unavailable Jumalon, M Annemarie [employer]AILER [employer] Unavailable Unavailable Jumalon, M Annemarie [employer]AIL[employer] Unavailable Unavailable Jumalon, M Annemarie [employer] Unavailable Unavailable Jumalon, M Annemarie [employer]AIL[employer] Unavailable Unavailable Jumalon, M Annemarie DETAILER [employer] Unavailable Unavailable Jumalon, M Annemarie DETAILER [employer] Unavailable Unavailable Jumalon, M Annemarie DETAILER [employer] Unavailable Unavailable Jumalon, M Annemarie [employer]AILER [employer] Unavailable Unavailable Jumalon, M Annemarie DETAIL[employer] Unavailable Unavailable Jumalon, M Annemarie DETAILER [employer] Unavailable Unavailable Jumalon, M Annemarie DETAILER [employer] Unavailable Unavailable Jumalon, M Annemarie [employer] Unavailable Unavailable Jumalon, M Annemarie [employer] Unavailable Unavailable Jumalon, M Annemarie [employer]AIL[employer] Unavailable Unavailable Jumalon, M Annemarie [employer] Unavailable Unavailable Jumalon, M Annemarie [employer] Unavailable Unavailable Jumalon, M Annemarie [employer] Unavailable Unavailable Jumalon, M Annemarie [employer] Unavailable Unavailable Shivani Winn MD Unavailable Unavailable [...] is protected by Article 27-F of the [facility] Public Health law. If you continue you may have access to information: Regarding HIV / AIDS; Provided by facilities licensed or operated by the [facility] Office of Mental Health; or Provided by the [facility] Office for People With Developmental Disabilities. If such information is present, then the following [facility] mandated warning applies: This information has been [...] law may result in a fine or residential sentence or both. A general authorization for the release of medical or other information is NOT sufficient authorization for further disc losure. Encounters Encounter Providers Location Date Indications Data Source(s ) Emergency Attender: Alexander Degroot PA-C 07:34:00 PM EDT - 03/31/2021 11:08:00 PM EDT STOMACH PAIN,RECTUM BLEEDING, VOMITING [facility] STOMACH PAIN,RECTUM BLEEDING, VOMITING Patient discharged. Annemarie Pickens, VOCATIONAL TRAINING TEACHER: [address], [place] [address], Ph. Attender: Annemarie PALOMINO [place] - [facility] 03/25/2021 12:00:00 AM EDT ATHKarl WAYNE ([facility]) Emergency Attender: CECY VALENCIA MDConsultant: PCP NO 03/15/2021 03:33:00 PM EDT - 03/15/2021 03:53:00 PM EDT [facility] Patient discharged. Lucas Leiva MD: [id number] [facility] [address], [place] [address], Ph. Attender: Lucas Leiva MD [facility] 03/10/2021 12:00:00 AM EDT [facility] ([facility]) Lucas Leiva MD: [id number] [facility] [address], [place] [address], Ph. Attender: Lucas Leiva MD [facility] 03/10/2021 12:00:00 AM EDT [facility] ([facility]) Emergency Attender: CECY VALENCIA MDConsultant: PCP NO 02/28/2021 01:50:00 PM EDT - 02/28/2021 04:32:00 PM EDT [facility] Patient discharged. Outpatient Attender: Deirdre Winn MD Main office - [facility] 02/02/2021 08:00:00 AM EDT [facility] ([facility], ) Outpatient Attender: SUNIL ZAPATAConsultant: PCP NO 12/22/2020 07:01:00 AM EDT - 12/22/2020 08:01:00 AM EDT [facility] Emergency Attender: CECY VALENCIA MDConsultant: PCP NO 12/18/2020 03:12:00 PM EDT - 12/18/2020 06:04:00 PM EDT [facility] Patient discharged. Medications Medication Brand Name Start Date Product Form Dose Route Admi nistrative Instructions Pharmacy Instructions Status Indications Reaction Description Data Source(s) Emgality Emgality 03/18/2021 12:00:00 AM EDT activ e [facility] ([facility], ) topiramate 100 MG Oral Tablet Topiramate 03/09/2021 12:00:00 AM EDT completed [facility] ([facility], ) topiramate 25 MG Oral Tablet Topiramate 02/02/2021 12:00:00 AM EDT completed [facility] ([facility], ) Nurtec Nurtec 02/02/2021 12:00:00 AM EDT active [facility] ([facility], ) topiramate 100 MG Oral Tablet Topiramate 02/02/2021 12:00:00 AM EDT ORAL completed [facility] ([facility], ) Diclofenac Sodium 0.01 MG/MG Topical Gel [Voltaren] Vo ltaren 1 % topical gel Voltaren 1 % topical gel completed diclofenac sodium 0.01 MG/MG Topical Gel [Voltaren] [facility] ([facility]) Methocarbamol 750 MG Oral Tablet methocarbamol 750 mg tablet methocarbamol 750 mg tablet completed methocarbamo l 750 MG Oral Tablet [facility] ([facility]) Natural Fiber Laxative Therapy oral powder completed Natural Fiber Laxative Therapy oral powder [facility] ([facility]) Sumatriptan 50 MG Oral Tablet sumatriptan 50 mg tablet sumat riptan 50 mg tablet completed sumatriptan 50 MG Oral Tablet [facility] ([facility]) Acetaminophen 325 MG Oral Tablet acetaminophen 325 mg tablet acetaminophen 325 mg tablet completed acetaminophe n 325 MG Oral Tablet [facility] ([facility]) Ciprofloxacin 500 MG Oral Tablet ciprofl oxacin 500 mg tablet TAKE 1 TABLET BY MOUTH TWICE DAILY ciprofloxacin 500 mg tablet TAKE 1 TABLE T BY MOUTH TWICE DAILY completed ciprofloxacin 50 0 MG Oral Tablet [facility] ([facility]) Methocarbamol 500 MG Oral Tablet methocarbamol 500 mg tablet methocarbamol 500 mg tablet completed methocarbamo l 500 MG Oral Tablet [facility] ([facility]) Amitriptyline Hydrochloride 25 MG Oral Tablet amitript yline 25 mg tablet amitriptyline 25 mg tablet completed amitriptyline hydrochloride 25 MG Oral Tablet [facility] ([facility]) Diclofenac Sodium 0.01 MG/MG Topical Gel [Voltaren] Vo ltaren 1 % topical gel Voltaren 1 % topical gel completed diclofenac sodium 0.01 MG/MG Topical Gel [Voltaren] [facility] ([facility]) topiramate 25 MG Oral Tablet topiramate 25 mg tablet topiramate 25 mg tablet completed topiramate 25 MG Oral Tablet [facility] ([facility]) duloxetine 20 MG Delayed Release Oral Ca psule duloxetine 20 mg capsule,delayed release duloxetine 20 mg capsule,delayed release completed duloxetine 20 MG Delayed Release Oral Capsule [facility] ([facility]) Methocarbamol 750 MG Oral Tablet methocarbamol 750 mg tablet methocarbamol 750 mg tablet completed methocarbamo l 750 MG Oral Tablet [facility] ([facility]) Cyclobenzaprine hydrochloride 5 MG Oral Tablet cyclobe nzaprine 5 mg tablet cyclobenzaprine 5 mg tablet completed cyclobenzaprine hydrochloride 5 MG Oral Tablet [facility] ([facility]) Amitriptyline Hydrochloride 10 MG Oral Tablet amitript yline 10 mg tablet amitriptyline 10 mg tablet completed amitriptyline hydrochloride 10 MG Oral Tablet [facility] ([facility]) Methocarbamol 500 MG Oral Tablet methocarbamol 500 mg tablet methocarbamol 500 mg tablet completed methocarbamo l 500 MG Oral Tablet [facility] ([facility]) Hydrocortisone 25 MG/ML Topical Cream [P roctosol] Proctosol HC 2.5 % topical cream perineal applicator Proctosol HC 2.5 % topical cream perineal applicator completed hydrocortisone 25 MG/ML Topical Cream [Proctosol] [facility] ([facility]) Amitriptyline Hydrochloride 10 MG Oral Tablet amitript yline 10 mg tablet amitriptyline 10 mg tablet completed amitriptyline hydrochloride 10 MG Oral Tablet [facility] ([facility]) duloxetine 20 MG Delayed Release Oral Ca psule duloxetine 20 mg capsule,delayed release duloxetine 20 mg capsule,delayed release completed duloxetine 20 MG Delayed Release Oral Capsule [facility] ([facility]) Naproxen 500 MG Oral Tablet naproxen 500 mg tablet TAKE 1 TABLET BY MOUTH TWICE DAILY TAKE WITH FOOD naproxen 500 mg tablet TAKE 1 TABLET BY MOUTH TWICE DAILY TAKE WITH FOOD completed naproxe n 500 MG Oral Tablet [facility] ([facility]) Hydrocortisone 25 MG/ML Topical Cream [P roctosol] Proctosol HC 2.5 % topical cream perineal applicator Proctosol HC 2.5 % topical cream perineal applicator completed hydrocortisone 25 MG/ML Topical Cream [Proctosol] [facility] ([facility]) Cyclobenzaprine hydrochloride 5 MG Oral Tablet cyclobe nzaprine 5 mg tablet cyclobenzaprine 5 mg tablet completed cyclobenzaprine hydrochloride 5 MG Oral Tablet [facility] ([facility]) Amitriptyline Hydrochloride 25 MG Oral Tablet amitript yline 25 mg tablet amitriptyline 25 mg tablet completed amitriptyline hydrochloride 25 MG Oral Tablet [facility] ([facility]) Sumatriptan 50 MG Oral Tablet sumatriptan 50 mg tablet sumat riptan 50 mg tablet completed sumatriptan 50 MG Oral Tablet [facility] ([facility]) Naproxen 500 MG Oral Tablet naproxen 500 mg tablet TAKE 1 TABLET BY MOUTH TWICE DAILY TAKE WITH FOOD naproxen 500 mg tablet TAKE 1 TABLET BY MOUTH TWICE DAILY TAKE WITH FOOD completed naproxe n 500 MG Oral Tablet [facility] ([facility]) topiramate 25 MG Oral Tablet topiramate 25 mg tablet topiramate 25 mg tablet completed topiramate 25 MG Oral Tablet [facility] ([facility]) Natural Fiber Laxative Therapy oral powder completed Natural Fiber Laxative Therapy oral powder [facility] ([facility]) Ciprofloxacin 500 MG Oral Tablet ciprofl oxacin 500 mg tablet TAKE 1 TABLET BY MOUTH TWICE DAILY ciprofloxacin 500 mg tablet TAKE 1 TABLE T BY MOUTH TWICE DAILY completed ciprofloxacin 50 0 MG Oral Tablet [facility] ([facility]) Insurance Providers Payer name Policy type / Coverage type Policy ID Covered libertarian ID Covered libertarian's relationship to covarrubias Policy Covarrubias Plan Information [facility] ACTIVE DUTY [id number] SP [id number] [facility] HUMANA - O/P [id number] 18 [id number] [facility] [employer] - O/P [id number] 18 [id number] [facility] HUMA[employer] - O/P . 18 . 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 Diagnosis 02/28/2021 01:5 0:00 PM EDT [facility] N433 Hydrocele, unspecified Hydrocele, unspecified Diagnosi s 02/28/2021 01:50:00 PM EDT [facility] R300 Dysuria Dysuria Diagnosis 02/28/2021 01:50:00 PM ED [facility] [id number] Personal history of traumatic brain inju ry Personal history of traumatic brain injury Diagnosis 12/22/2020 07:01:00 AM [facility] R2689 Other abnormalities of gait and mobility Other abnormalities of gait and mobility Diagnosis 12/22/2020 07:01:00 AM T [facility] [id number] Migraine, unspecified, not intractable, without status migrainosus Migraine, unspecified, not intractable, without status migrainosus Diagnosis 12/22/2020 07:01:00 AM [facility] [id number] Chronic migraine without aura, intractab le, with status migrainosus Chronic migraine without aura, intractable, with status migrainosus Diagnosis 12/18/2020 03:12:00 PM T [facility] R519 Headache, unspecified Headache, unspecified Diagnosis 12/18/2020 03:12:00 PM T [facility] [id number] Concussion injury of brain Concussion injury of brain Problem 02/02/2021 12:00:00 AM EDT [facility] ([facility], ) [id number] Migraine Migraine Problem 02/02/2021 12:00:00 AM ED T [facility] ([facility], ) Surgeries/Procedures Procedure Description Date Indications Data Source(s) Chemotherpy Admin Subcutaneous/Im Non-Hormonal Anti-Neoplast ic 04/01/2021 12:00:00 AM EDT [facility] ([facility], ) MRI, lumbar spine, w/o contrast 03/10/2021 12:00:00 AM EDT [facility] ([facility]) OFFICE CONSULTATION NEW/ESTAB PATIENT 60 MIN 12:00:00 AM EDT [facility] ([facility], ) Results ID Date Data Source [id number] 03/31/2021 09:53:00 PM EDT [facility] ED Physician Documentation NAME: JULISA GHOSH : 2000 AGE: 21 MR#: [id number] SERVICE DATE: 03/31/[address]: Alexander Degroot MD PRIMARY CARE DR: No Family PHYS Provided ROOM#: [facility] (Adult, General) General Chief Complaint: GI Stated Complaint: STOMACH PAIN,RECTUM BLEEDING, VOMITING Time Seen by Provider: 03/31/21 20:19 History of Present Illness Initial Comments: Pleasant 21-year-old male from [facility] [place] [...] % (Auto) 53.2, Lymph % (Auto) 36.9, Desha % (Auto) 8.3, Eos % (Auto) 0.8, [...] Appearance Clear, Urine pH 6.5, Ur Specific Dellrose 1.031 A, Urine Protein Negative, Urine Ketones [...] rce(s) Supporting Document(s) ID Date Data Source [id number] 03/31/2021 09:48:00 PM EDT [facility] [address] [place] [address] [phone] NAME SEX PT STATUS ACCOUNT NUMBER JULISA GHOSH [facility] ER [id number] ORDERING PHYSICIAN LOCATION MEDICAL RECORD NO. Alexander Degroot MD ER [id number] ATTENDING PHYSICIAN DATE OF DATE OF EXAM/TIME [...] Trans Dt/Tm: Trans by: DT Prt Dt/Tm: 5122-3938: Total DLP = 405.00 mGy-cm 9218-7626: Total Radiation Dose = 6.0750 mSv Lifetime Dose: 6.0750 mSv Name Value Range Interpretation Code Description Data Ina rce(s) Supporting Document(s) ID Date Data Source [id number] 03/31/2021 11:53:00 PM EDT [facility] CT/NG IS A QUALITATIVE IN VITRO [...] rce(s) Supporting Document(s) ID Date Data Source [id number] 03/31/2021 09:03:00 PM EDT [facility] Reason for ordering culture: Abnormal fi ndings UAMethod of Collection:: Voided Name Value Range Interpretation Code Description Data Ina rce(s) Supporting Document(s) Color of Urine [facility] Appearance of Urine CLEAR [facility] pH of Urine by Test strip 6.5 5-8 [facility] Specific gravity of Urine by Refractometry 1.031 1.005 -1.030 Abnormal (applies to non-numeric results) [facility] Leukocyte esterase [Presence] in Urine by Test strip NEGAT ABENA [facility] Nitrite [Presence] in Urine by Test strip NEGATIVE [facility] Protein [Presence] in Urine by Test strip NEGATIVE [facility] Glucose [Mass/volume] in Urine by Automated test strip NEGATIVE NEG ATIVE [facility] Ketones [Presence] in Urine by Test strip NEGATI VE Abnormal (applies to non- numeric results) [facility] Urobilinogen [Presence] in Urine 0.2-1 EU/dl [facility] Bilirubin.total [Presence] in Urine by Automated test strip NEGATIVE [facility] Erythrocytes [#/volume] in Urine by Test strip NEGATIVE NEGATIVE [facility] URINE MICROSCOPIC? (CIF) NO [facility] ID Date Data Source [id number] 04/01/2021 08:51:00 AM EDT [facility] Special Instructions: Lab may order repe at test if initial test elevatedPhysician If elevated, reflex second test in 4-6 hrs Name Value Range Interpretation Code Description Data Ina rce(s) Supporting Document(s) Campylobacter coli+jejuni+mihai fusA gene [Presence] in Stool by Probe and target amplification method [facility] Salmonella sp rpoD gene [Presence] in [facility] by Probe and target amplification method [facility] ital Shigella species+EIEC invasion plasmid a ntigen H (ipaH) gene [Presence] in Stool by Probe and target amplification method [facility] Vibrio cholerae+parahaemolyticus rfbL+tr kH+tnaA genes [Presence] in Stool by Probe and target amplification method [facility] Yersinia enterocolitica recN gene [Prese nce] in Stool by Probe and target amplification method [facility] Escherichia coli shiga-like toxin 1 (stx 1) gene [Presence] in Stool by Probe and target amplification method [facility] Escherichia coli shiga-like toxin 2 (stx 2) gene [Presence] in Stool by Probe and target amplification method [facility] Norovirus genogroup I+II orf1-orf2 junct ion region [Presence] in Stool by Probe and target amplification method [facility] Rotavirus A nsp5 gene [Presence] in Stoo l by Probe and target amplification method [facility] ital NORMAL VALUE FOR TEST IS "NOT DETECTED"T he [employer] Enteric Pathogens Nucleic Acid Test (EP) is amultiplexed, qualitative test for simultaneous detection andidentification of common pathogenic enteric bacteria,viuruses, and genetic virulence markers from liquid or softstool preserved in Letha-Luca medium, collected fromindividuals with signs and symptoms of gastrointestinalinfection.The test is performed on the automated [employer] Systemutilizing reverse intelligence manager (RT), polymerase chainreaction (PCR), and array hybridization [...] syndrome or Crohn'sdisease. ID Date Data Source [id number] 03/31/2021 09:04:00 PM EDT [facility] Special Instructions: Lab may order repe at test if initial test elevatedPhysician If elevated, reflex second test in 4-6 hrs Name Value Range Interpretation Code Description Data Ina rce(s) Supporting Document(s) Leukocytes [#/volume] in Blood by Automated count 6.3 10*3/uL 4.45-10 .71 N [facility] Erythrocytes [#/volume] in Blood by Automated count 4.90 10*6/uL 4.3- 6.1 N [facility] Hemoglobin [Moles/volume] in Blood 15.6 g/dL 13-18 N [facility] Hematocrit [Volume Fraction] of Blood by Automated count 44.6 % 4 2-52 N [facility] Erythrocyte mean corpuscular volume [Ent itic volume] in Cord blood by Automated count 91 fL 80-96 N [facility] ital Erythrocyte mean corpuscular hemoglobin [Entitic mass] by Au tomated count 32 pg 27-31 Above high normal [facility] Erythrocyte mean corpuscular hemoglobin concentration [Mass/volume] in Cord blood 35 g/dL 33-37 N [facility] ital Erythrocyte distribution width [Entitic volume] by Automated count 12 % 11-15 N [facility] Platelets [#/volume] in Blood by Automated count 174 10*3/uL 130-472 N [facility] Platelet mean volume [Entitic volume] in Blood 11.1 fL 9.1-13.1 N [facility] Neutrophils/100 leukocytes in Blood by Automated count 53.2 % 41- 77 N [facility] Neutrophils [#/volume] in Blood by Automated count 3.3 U 1.7-7.6 N [facility] Lymphocytes/100 leukocytes in Blood by Automated count 36.9 % 14- 46 N [facility] Lymphocytes [#/volume] in Blood by Automated count 2.3 U 0.6-4.6 N [facility] Monocytes/100 leukocytes in Blood by Automated count 8.3 % 4-12 N [facility] Monocytes [#/volume] in Blood by Automated count 0.5 U 0.2-1.2 N [facility] Eosinophils/100 leukocytes in Blood by Automated count 0.8 % 0-7 N [facility] Eosinophils [#/volume] in Blood by Automated count 0.1 U 0.0-0.5 N [facility] Basophils/100 leukocytes in Blood by Automated count 0.5 % 0.4-1 .3 N [facility] Basophils [#/volume] in Blood by Automated count 0.0 U 0.0-0.2 N [facility] NUCLEATED RED BLOOD CELL 0 % [facility] NUCLEATED RED BLOOD CELL# 0 [facility] Immature granulocytes [Presence] in Blood by Automated count 0-2 N [facility] Immature granulocytes [#/volume] in Blood by Automated count 0.0 U 0-0.1 N [facility] Manual Differential panel - Blood NO [facility] ID Date Data Source [id number] 03/31/2021 09:26:00 PM EDT [facility] Special Instructions: Lab may order repe at test if initial test elevatedPhysician If elevated, reflex second test in 4-6 hrs Name Value Range Interpretation Code Description Data Ina rce(s) Supporting Document(s) Urea nitrogen [Mass/volume] in Serum or Plasma 16 mg/dL 9-23 N [facility] Sodium [Moles/volume] in Serum or Plasma 139 mmol/L 132-146 [facility] Potassium [Moles/volume] in Serum or Plasma 3.8 mmol/L 3.5-5.5 [facility] Chloride [Moles/volume] in Serum or Plasma 106 mmol/L 99-109 [facility] Carbon dioxide, total [Moles/volume] in Serum or Plasma 28 mmol/L 20 -31 N [facility] Anion gap in Serum or Plasma 9 mmol/L 8-16 N [facility] Glucose [Mass/volume] in Serum or Plasma 102 mg/dL 74-106 N [facility] Creatinine 1.1 mg/dL 0.5-1.1 [facility] Glomerular filtration rate/1.73 sq M.pre dicted [Volume Rate/Area] in Serum or Plasma Greater Than 60 ABOVE 60 [facility] Alanine aminotransferase [Enzymatic acti vity/volume] in Serum or Plasma by With P-5'-P 39 U/L 10-49 N [facility] ital Aspartate aminotransferase [Enzymatic ac tivity/volume] in Serum or Plasma by With P-5'-P 25 U/L 0-33 N [facility] pital Alkaline phosphatase [Enzymatic activity/volume] in Serum or Plasma 81 U/L 45-129 N [facility] Calcium [Mass/volume] in Serum or Plasma 10.0 mg/dL 8.5-10.1 [facility] Bilirubin.total [Mass/volume] in Serum or Plasma 1.3 mg/dL 0.3-1.2 Above high normal [facility] Albumin [Mass/volume] in Serum or Plasma by Bromocresol purple (BCP) dye binding method 4.2 g/dL 3.2-4.8 N [facility] ital Protein [Mass/volume] in Serum or Plasma 8.6 g/dL 5.7-8.2 Above [facility] ID Date Data Source [id number] 03/31/2021 09:29:00 [facility]: Lab may order repe at test if initial test elevatedPhysician If elevated, reflex second test in 4-6 hrs Name Value Range Interpretation Code Description Data Ina rce(s) Supporting Document(s) Lactic w Rfx (if elevated) 0.7 mmol/L 0.5-2.0 N [facility] ID Date Data Source [id number] 04/05/2021 08:54:00 PM [facility] Special Instructions: Lab may order repe at test if initial test elevatedPhysician If elevated, reflex second test in 4-6 hrs Name Value Range Interpretation Code Description Data Ina rce(s) Supporting Document(s) Bacteria identified in Blood by Culture [facility] NO GROWTH AFTER 5 DAYS ID Date Data Source [id number] 03/31/2021 09:26:00 PM [facility] Special Instructions: Lab may order repe at test if initial test elevatedPhysician If elevated, reflex second test in 4-6 hrs Name Value Range Interpretation Code Description Data Ina rce(s) Supporting Document(s) Amylase [Enzymatic activity/volume] in Serum or Plasma 93 U/L 30- 118 N [facility] ID Date Data Source [id number] 03/31/2021 09:26:00 PM [facility] Special Instructions: Lab may order repe at test if initial test elevatedPhysician If elevated, reflex second test in 4-6 hrs Name Value Range Interpretation Code Description Data Ina rce(s) Supporting Document(s) Lipase [Enzymatic activity/volume] in Serum or Plasma 90 U/L 73-3 93 N [facility] ID Date Data Source [id number] 03/15/2021 03:33:00 PM EDT [facility] 1 Medication Reconciliation Report [facility] Emergency Department [address] [place] [address] Phone #: ext- [phone] 03/15/2021 15:01 Patient: [...] needed for 10 days -- for pruritus. Gjxifckd58 capsule. Refills: 0. Substitution permitted.Pharmacy - [facility] - [address] [facility] ; [place] [address]. . -- MICHAEL Ramsey Name Value Range Interpretation Code Description Data Ina rce(s) Supporting Document(s) ID Date Data Source [id number] 03/15/2021 03:33:00 PM EDT [facility] 1 Medication Administration Record [facility] Emergency Department [address] [place] [address] Phone #: ext- [phone] 03/2021 15:01 Patient: JULISA GHOSH Sex: M : 2000 Age: 21yWeight: 77.5 kgHeight/Length: 73 inBMI: 22.5ALLERGIES: No Known Drug AllergyDate/Time Medication Administered Medication Ordered Name Value Range Interpretation Code Description Data Ina rce(s) Supporting Document(s) ID Date Data Source [id number] 03/15/2021 03:33:00 PM EDT [facility] 1 General Instructions [facility] Emergency Department [address] [place] [address] Phone #: ext- [phone] 03/15/2021 15:01 Patient: JULISA GHOSH Sex: M [...] needed for 10 days -- for pruritus. Ccuvhgox27 capsule. Refills: 0. Substitution permitted.Pharmacy - [facility] - [address] [facility] ; [place] [address]. .Understanding of the discharge instructions verbalized by patient. Expected course of illness, dischargeinstructions, activity level, follow-up appointment and risks and bene fits of treatment reviewed with patientand understanding verbalized. Agrees to plan of care.Follow-up with: [facility], , , [address], , [place], [place], [facility] Follow up in one even if well. Call for the next available appointment. Reason for referral: evaluation andrecommend dermatology/scale attendant referral if symptoms persist. Summary of care provided to patient viapaper. 2 General Instructions [facility] Emergency Department [address] [place] [address] Phone #: ext- [phone] 03/15/2021 15:01 Patient: JULISA GHOSH Sex: M : 2000 Age: 21y(Electronically signed by MICHAEL Ramsey 03/15/2021 16:26) Name Value Range Interpretation Code Description Data Ina rce(s) Supporting Document(s) ID Date Data Source [id number] 03/15/2021 03:33:00 PM EDT [facility] 1 Clinical Report - Nurses [facility] Emergency Department [address] [place] [address] Phone #: ext- [phone] 03/15/2021 15:01 Patient: JULISA GHOSH Sex: M : 2000 Age: 21yTRIAGEArrived by private vehicle. Historian: patient. Accompanied by friend.Acuity: LEVEL 4.Chief Complaint: (generalized itching).Onset. (6 months ago). ( pt states he has no rash but has had a generalized itching for about the past 6months, has not been seen for this as of yet).Treatment AIR AND WATER TESTER:None.SEPSIS SCREEN: SIRS SCREEN NEGATIVE. SEPSIS SCREEN NEGATIVE. [...] Immunizations: up-to-date. 2 Clinical Report - Nurses [facility] Emergency Department [address] [place] [address] Phone #: ext- [phone] 03/15/2021 15:01 Patient: JULISA GHOSH Sex: M [...] To treatment room. --15:03/15/21 Roe Hurley RN.PHYSICAL TOWCSZFGYD64:15 03/15/21. Ambulatory to room.GENERAL / NEURO / PSYCH: Alert. Oriented X 4. Appears in no acute distress.HEENT: No facial asymmetry noted. Mucous membranes are pink.RESPIRATORY: Respirations not labored. Chest nontender.CVS: Pulses within normal limits.GI / : Abdomen soft and nontender.SKIN: Skin intact. Skin is warm and dry. Normal skin turgor. No skin rash. --15:24 03/15/21 YCNDI Hernandez.NURSING PROGRESS NOTES15:03/15/21. Patient gowned. Two patient identifiers checked. Call light placed in reach. Bedplaced in lowest position. Brakes of bed on. Patient ready for evaluation- PA notified. --15:25 03/15/21Michelle Sam RN.DISPOSITION / DISCHARGE 15:53 03/15/21. Condition at departure: stable. No learning barriers present. Discharge instructions 3 Clinical Report - Nurses [facility] Emergency Department [address] [place] [address] Phone #: ext- [phone] 03/15/2021 15:01 Patient: JULISA GHOSH Sex: M : 2000 Age: 21y provided and reviewed with the patient. Reviewed medication(s) side effects, precautions, dosing and course information. Prescription(s) sent electronically to pharmacy ([facility]). Patient verbalized understanding. Written instructions provided in [place]. The patient was discharged home. He left [...] rce(s) Supporting Document(s) ID Date Data Source [id number] 03/15/2021 03:33:00 PM EDT [facility] 1 Clinical Report - Physicians/Mid Levels [facility] Emergency Department [address] [place] [address] Phone #: ext- [phone] 03/15/2021 15:01 Patient: [...] allergies. 2 Clinical Report - Physicians/Mid Levels [facility] Emergency Department [address] [place] [address] Phone #: ext- [phone] 03/15/2021 15:01 Patient: JULISA GHOSH Sex: M [...] permitted. 3 Clinical Report - Physicians/Mid Levels [facility] Emergency Department [address] [place] [address] Phone #: ext- [phone] 03/15/2021 15:01 Patient: JULISA GHOSH Sex: M : 2000 Age: 21y Pharmacy - [facility] - [id number] [facility] ; [place] [address]. . Understanding of the discharge instructions verbalized by patient. Expected course of illness, discharge instructions, activity level, follow-up appointment and risks and benefits of treatment reviewed with patient and understanding verbalized. Agrees to plan of care. Follow-up with: [facility], , , [id number] [place] [address], , [place], [address] Follow up in one even if well. Call for the next available appointment. Reason for referral: evaluation and recommend dermatology/scale attendant referral if symptoms persist. Summary of care provided to patient via paper.(Electronically signed by MICHAEL Ramsey 03/15/2021 16:26) Name Value Range Interpretation Code Description Data Ina rce(s) Supporting Document(s) ID Date Data Source [id number] 03/02/2021 09:25:00 PM EDT [facility] Name Value Range Interpretation Code Description Data Ina rce(s) Supporting Document(s) SARS COVID ANTIGEN NEGATIVE [facility] This lab was ordered by KAUSHAL goins nd reported by [facility]. ID Date Data Source [id number] 03/01/2021 10:32:00 AM EDT [facility] [address] [facility] [place] [address] PHONE: [phone] FAX: [phone] Name .................. : DAVINA Parrish Acct Number.................. : [id number] ROOM. ................. : VT-08 MR Number ................... : [id number] Stay type ............. : E/R Discharge Date......... ... : 02/28/21 Admit Date ......... : 02/28/21 Admit Phys .................... : COONEYNORM Date of ....... : 2000 Family Phys ................... : NO PCP Phone .................. : [phone] Age ................................ : 21 Film# .................. .:[id number] Sex ................................. : M Unsigned transcriptions are preliminary reports and do not represent a medical or legal document SCROTAL [id number] COMPLETE:02/28/21 14:22 [id number] Reason(s): Testicle/Scrotum Pain ULTRASOUND SCROTUM INDICATION: Testicular/scrotal [...] [facility] [address] [place] [address] PHONE: [phone] FAX: [phone] Name .................. : DAVINA Parrish Acct Number.................. : [id number] ROOM. ................. : VT-08 Number ................... : [id number] Stay type ............. : E/R Discharge Date......... ... : 02/28/21 Admit Date ......... : 02/28/21 Admit Phys .................... : COONEYNORM Date of ....... : 2000 Family Phys ................... : NO PCP Phone .................. : [phone] Age ................................ : 21 Film# .................. .:[id number] Sex ................................. : M Unsigned transcriptions are preliminary reports and do not represent a medical or legal document SCROTAL [id number] COMPLETE:02/28/21 14:22 05222 Reason(s): Testicle/Scrotum Pain 2. Bilateral varicoceles, right [...] rce(s) Supporting Document(s) ID Date Data Source [id number] 02/28/2021 01:50:00 PM EDT [facility] 1 OrderSheet [facility] Emergency Department [address] [place] [address] Phone #: ext- [phone] 02/28/2021 13:48 Patient: JULISA GHOSH Sex: M : 2000 Age: 21yWEIGHT:77.5 kg HEIGHT:73 inches BMI:22.5ALLERGIES: Aspirin, Macrobid, Primaquine Phosphate, SulfaCHIEF COMPLAINT: dysuria, Rt, testicular pain:, LtDIAGNOSIS: Hydrocele, Scrotal varicesLAB ORDERSOrder Description Priority Entered Acknowledged InitialedUA Reflex to UA 14:22 02/28/2021 14:31 NirmalaCulture Johnnie Ulrich superintendent container terminalLewis Peterson; Nftf1Pqgmezisg/GC STAT 14:22 02/28/2021 14:31 [facility] [place] ED; Tech1 NOTES: urineSyphilis 14:22 02/28/2021 15:03 Johnnie Mcclain R.N.;DIAGNOSTIC STUDY ORDERSOrder Description Priority Entered Acknowledged InitialedUS Scrotal STAT 14:22 02/28/2021 14:34 Nirmala(Oxygen?(No)) Johnnie Ulrich superintendent container terminalLewis Peterson; Tech1 Reason for Study: Testicle/Scrotum PainMEDICATION/IV/DRIP/FLUID ORDERSOrder Description Priority Entered Acknowledged InitialedGENERAL ORDERSOrder Description Priority Entered Acknowledged Initialed[Electronically signed by Sheri Drew R.N. (16:32 02/28/2021)][Electronically signed by Johnnie Ulrich (22:06 02/28/2021)][Electronically locked by Sheri Drew R.N. (16:32 02/28/2021)] Name Value Range Interpretation Code Description Data Ina rce(s) Supporting Document(s) ID Date Data Source [id number] 02/28/2021 01:50:00 PM EDT [facility] 1 Medication Reconciliation Report [facility] Emergency Department [address] [place] [address] Phone #: tev- [phone] 02/28/2021 13:48 Patient: JULISA GHOSH Sex: M [...] 45 tablet. Refills: 0. Substitution permitted.Pharmacy - [facility] [id number] ; [place] [address]. . -- MICHAEL Buck Name Value Range Interpretation Code Description Data Ina rce(s) Supporting Document(s) ID Date Data Source [id number] 02/28/2021 01:50:00 PM EDT [facility] 1 Medication Administration Record [facility] Emergency Department [address] [place] [address] Phone #: ext- [phone] 02/28/2021 13:48 Patient: UJLISA GHOSH Acct#: [id number] Sex: M : 2000 Age: 21yWeight: 77.5 kgHeight/Length: 73 inBMI: 22.5ALLERGIES: Macrobid, Aspirin, Sulfa, Primaquine PhosphateDate/Time Medication Administered Medication Ordered Name Value Range Interpretation Code Description Data Ina rce(s) Supporting Document(s) ID Date Data Source [id number] 02/28/2021 01:50:00 PM EDT [facility] 1 General Instructions [facility] Emergency Department [address] [place] [address] Phone #: ext- [phone] 02/28/2021 13:48 Patient: [...] Refills: 0. Substitution permitted.Pharmacy - [facility] [address] ; [place] [address]. .Understanding of the discharge instructions verbalized by patient.Follow-up with: Rajan Doe M.D., Urology, , [address] [place] [address], [facility] Follow up. Call for the next available appointment. Reason for referral: evaluation and treatment.Summary of care provided to patient. ADDITIONAL INFORMATIONHydrocele (Type Not Specified) 2 General Instructions [facility] Emergency Department [address] [place] [address] Phone #: ext- [phone] 02/28/2021 13:48 Patient: JULISA GHOSH Sex: M [...] that happens with nausea, vomiting, or both [id number] [employer]. [address] [place] [address]. All rights reserved. This information is not intended as asubstitute for professional medical care. Always follow your healthcare professional's instructions.VaricoceleA varicocele is a swelling in the veins above the testicles. It's similar to a varicose vein in the legs. 3 General Instructions [facility] Emergency Department [address] [place] [address] Phone #: ext- [phone] 02/28/2021 13:48 Patient: JULISA GHOSH Sex: M [...] jockstrap or snug underwear 4 General Instructions [facility] Emergency Department [address] [place] [address] Phone #: ext- [phone] 02/28/2021 13:48 Patient: JULISA GHOSH Sex: M : 2000 Age: 21y Take an idto-obu-cjdmbvu pain reliever, such as ibuprofenFollow-up careFollow up [...] groin area appears or gets bigger [employer]. [address] [place] [address]. All rights reserved. This information is not intended as asubstitute for professional medical care. Always follow your healthcare professional's instructions. You have been given the following additional information: Hydrocele, Type Not Specified Varicocele(Electronically signed by MICHAEL Buck 02/28/2021 22:06) Name Value Range Interpretation Code Description Data Ina rce(s) Supporting Document(s) ID Date Data Source [id number] 02/28/2021 01:50:00 PM EDT [facility] 1 Clinical Report - Nurses [facility] Emergency Department [address] [place] [address] Phone #: ext- [phone] 02/28/2021 13:48 Patient: [...] to Coronavirus. 2 Clinical Report - Nurses [facility] Emergency Department [address] [place] [address] Phone #: ext- [phone] 02/28/2021 13:48 Patient: [...] 02/28/21 Adele Cruz R.N. Patient transported to [facility] by wheelchair with mask and radiology interventional physician. --14:35 02/28/21 [place] superintendent container terminal, Lewis, VETO Tech1.DISPOSITION / DISCHARGE 16:32 02/28/21. [place] Coma Scale: 15- eyes open- spontaneous (4); best verbal response- oriented (5); best motor response- obeys commands (6). Condition at departure: improved and stable. No learning barriers present. Discharge instructions provided and reviewed with the patient. Reviewed medication(s) side effects, precautions, dosing and course information. Prescription(s) sent electronically to pharmacy. Patient verbalized understanding. Written instructions provided in [place]. The patient was discharged by the physician. He was discharged home. He left ambulatory and via private vehicle. Patient driving. --16:32 02/28/21 Sheri Drew R.N. 16:31 02/28/21. BP: 115/69. MAP: 84. HR: 61. RR: 16. O2 saturation: 100%. Temp: 98.1 F. Pain level 3 Clinical Report - Nurses [facility] Emergency Department [address] [place] [address] Phone #: ext- [phone] 02/28/2021 13:48 Patient: JULISA GHOSH Sex: M : 2000 Age: 21y now: 12/13. --16:32 02/28/21 Sheri Drew R.N.Locked/Released at 02/28/2021 16:32 by Sheri Drew R.N. Name Value Range Interpretation Code Description Data Ian rce(s) Supporting Document(s) ID Date Data Source [id number] 02/28/2021 01:50:00 PM EDT [facility] 1 Clinical Report - Physicians/Mid Levels [facility] Emergency Department [address] [place] [address] Phone #: ext- [phone] 02/28/2021 13:48 Patient: JULISA GHOSH Sex: M [...] use. 2 Clinical Report - Physicians/Mid Levels [facility] Emergency Department [address] [place] [address] Phone #: ext- [phone] 02/28/2021 13:48 Patient: [...] varicocele. The exam was performed by a mechatronics technician. The study was interpreted by theradiologist and contemporaneously by me. Interpretation time: 16:19 02/28/2021.Laboratory Tests: Laboratory tests have been ordered, with results reviewed and considered in themedical decision making process. UA REFLEX TO UA CULTURE: (CARMEN: 02/28/2021 14:20) ( [facility] 02/28/[facility] 14:58) Final results Test Result Flag [...] Not Indicate Syphilis: (CARMEN: 02/28/2021 14:30) ( [facility] 02/28/2021 16:01) Final results Test Result Flag Units (Reference) SYPHILIS NON-REACTIVE (NORMAL:NON RE. 3 Clinical Report - Physicians/Mid Levels [facility] Emergency Department [address] [place] [address] Phone #: ext- [phone] 02/28/2021 13:48 Patient: JULISA GHOSH Sex: M [...] tablet. Refills: 0. Substitution permitted. Pharmacy - [facility] [address] ; [place] [address]. . Understanding of the discharge instructions verbalized by patient. 4 Clinical Report - Physicians/Mid Levels [facility] Emergency Department [address] [place] [address] Phone #: ext- [phone] 02/28/2021 13:48 Patient: JULISA GHOSH Sex: M : 2000 Age: 21y Follow-up with: Rajan Doe M.D., Urology, , [address] [place] [address], [address] Follow up. Call for the next available appointment. Reason for referral: evaluation and treatment. Summary of care provided to patient.(Electronically signed by MICHAEL Buck 02/28/2021 22:06) Name Value Range Interpretation Code Description Data Ina rce(s) Supporting Document(s) ID Date Data Source [id number] 02/28/2021 04:01:00 PM EDT [facility] Name Value Range Interpretation Code Description Data Ina rce(s) Supporting Document(s) Treponema pallidum Ab [Presence] in Serum NON-REACTIVE NORMAL:NON VELMA CTIVE [facility] ID Date Data Source [id number] 03/03/2021 07:40:00 AM EDT [facility] Name Value Range Interpretation Code Description Data Ina rce(s) Supporting Document(s) Chlamydia trachomatis rRNA [Presence] in Unspecified specimen by Probe and target amplification method Negative Negative [facility] Neisseria gonorrhoeae rRNA [Presence] in Unspecified specimen by Probe and target amplification method Negative Negative [facility] ID Date Data Source [id number] 02/28/2021 02:57:00 PM EDT [facility] Name Value Range Interpretation Code Description Data Ina rce(s) Supporting Document(s) UA REFLEX TO UA CULTURE [facility] URINALYSIS SOURCE Clean Catch [facility] ital COLOR yellow NORMAL: Yellow [facility] CLARITY clear NORMAL: Clear [facility] Specific gravity of Urine by Test strip 1.015 1.001 - 1.030 [facility] pH 6 5 - 9 [facility] Glucose [Mass/volume] in Urine by Test strip NORM NORMAL: Negat [facility] Bilirubin.total [Presence] in Urine by Test strip NEG NORMAL: Negative [facility] Ketones [Presence] in Urine by Test strip NEG NORMAL: Negative [facility] Protein [Mass/volume] in Urine by Test strip NEG NORMAL: Negat [facility] Nitrite [Presence] in Urine by Test strip NEG NORMAL: Negative [facility] BLOOD NEG NORMAL: Negative [facility] Leukocyte esterase [Presence] in Urine by Test strip NEG CECY L: Negative [facility] Urobilinogen [Mass/volume] in Urine by Test strip NOR less bernie n 1.0 mg/dL [facility] MICROSCOPIC Not Indicate [facility] ID Date Data Source [id number] 12/23/2020 09:58:00 AM EDT [facility] [address] [place] [address] PHONE: [phone] FAX: [phone] Name .................. : DAVINA EGAN Shivani Acct Number.................. : [id number] ROOM. ................. : Number ................... : [id number] Stay type ............. : O/P Discharge Date......... ... : 12/22/20 Admit Date ......... : 12/22/20 Admit Phys .................... : BENNY STILES Date of ....... : 2000 Family Phys ................... : NO PCP Phone .................. : [phone] Age ................................ : 20 Film# .................. .:[id number] Sex ................................. 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 : DAVINA Parrish Acct Number.................. : [id number] ROOM. ................. : VT-02 MR Number ................... : [id number] Stay type ............. : E/R Discharge Date......... ... : 12/18/20 Admit Date ......... : 12/18/20 Admit Phys .................... : COONEYNORM Date of ....... : 2000 Family Phys ................... : NO PCP Phone .................. : [phone] Age ................................ : 20 Film# .................. .:[id number] Sex ................................. : M Unsigned transcriptions are preliminary reports and do not represent a medical or legal document CT HEAD W/O CONTRAST [id number] COMPLETE:12/18/20 20:24 DLA [id number] Reason(s): Head Injury CT OF THE HEAD [...] By Daquan Miller M.D. , 12/19/20 14:07, [place] Transcribe Initials: DZ , Transcribe Date: 12/19/20 02:56, Dictation Date: Page 1 of 2 [facility] [address] [place] [address] PHONE: [phone] FAX: [phone] Name .................. : DAVINA PEARSON Shivani Acct Number.................. : [id number] ROOM. ................. : VT-02 Number ................... : [id number] Stay type ............. : E/R Discharge Date......... ... : 12/18/20 Admit Date ......... : 12/18/20 Admit Phys .................... : COONEYNORM Date of ....... : 2000 Family Phys ................... : NO PCP Phone .................. : [phone] Age ................................ : 20 Film# .................. .:[id number] Sex ................................. : M Unsigned transcriptions are preliminary reports and do not represent a medical or legal document CT HEAD W/O CONTRAST [id number] COMPLETE:12/18/20 20:24 DLA [id number] Reason(s): Head Injury Copy for: CARLOZ LOZANO via fax Copy for: EMERGENCY DEPT via modem Copy for: 710 MED REC DISCHARGED Page 2 of 2 Name Value Range Interpretation Code Description Data Ina rce(s) Supporting Document(s) ID Date Data Source [id number] 12/18/2020 03:12:00 PM EDT [facility] 1 OrderSheet [facility] Emergency Department [address] [place] [address] Phone #: ext- [phone] 12/18/2020 15:09 Patient: [...] 16:40 Richard Horton RN P.A.-C; 2 OrderSheet [facility] Emergency Department [address] [place] [address] Phone #: ext- [phone] 12/18/2020 15:09 Patient: [...] rce(s) Supporting Document(s) ID Date Data Source [id number] 12/18/2020 03:12:00 PM EDT [facility] 1 Medication Reconciliation Report [facility] Emergency Department [address] [place] [address] Phone #: ext- [phone] 12/18/2020 15:09 Patient: [...] rce(s) Supporting Document(s) ID Date Data Source [id number] 12/18/2020 03:12:00 PM EDT [facility] 1 Medication Administration Record [facility] Emergency Department [address] [place] [address] Phone #: ext- [phone] 12/18/2020 15:09 Patient: MICHEL GHOSH Sex: M : 2000 Age: 20yWeight: 77.5 kgHeight/Length: 71 inBMI: 23.8ALLERGIES: Primaquine Phosphate, Macrobid, Aspirin, Sulfa Antibiotics Date/Time Medication Administered Medication OrderedStart NS [IV] IV NS 1000 mL Bolus : Bolus [id number] 12/18/2020 Dose: IV Fluids mL (X1)Richard Horton RN Bolus: 1000 mL over 1 hour(s)---- Dispensed: 1000 mL bagStop Site: #1 right [id number] 12/18/2020Richard Horton RNGiven ZOFRAN [IVP] (ONDANSETRON HCL) Zofran IVP 4 mg16:32 12/18/2020 Dose: 4 mg IVManny Horton RN Site: #1 right forearmGiven BENADRYL [IVP] (DIPHENHYDRAMINE Benadryl IVP 25 mg16:31 12/18/2020 HCL)Richard Horton RN Dose: 25 mg IVP Site: #1 right forearm Name Value Range Interpretation Code Description Data Ina rce(s) Supporting Document(s) ID Date Data Source [id number] 12/18/2020 03:12:00 PM EDT [facility] 1 General Instructions [facility] Emergency Department [address] [place] [address] Phone #: oyu- [phone] 12/18/2020 15:09 Patient: MICHEL GHOSH Sex: M : 2000 Age: 20yChronic migraine headache without aura, with status migrainosus- refractory to treatment.INSTRUCTIONSTake Tylenol (Acetaminophen) or Motrin (Ibuprofen) as needed for fever control. Take medicationaccording to label instructions. No strenuous activity for two weeks (Recommend no PT as this mayexcerbate your symptoms.).(Please f/u with the [facility] TBI clinic as you have [...] Other triggers include certain 2 General Instructions [facility] Emergency Department [address] [place] [address] Phone #: ext- [phone] 12/18/2020 15:09 Patient: [...] salami Liver Avocados Bananas 3 General Instructions [facility] Emergency Department [address] [place] [address] Phone #: ext- [phone] 12/18/2020 15:09 Patient: [...] sinuses, ears, or throat 4 General Instructions [facility] Emergency Department [address] [place] [address] Phone #: ext- [phone] 12/18/2020 15:09 Patient: [...] of your face Trouble talking or seeing [phone] [place] [address]. All rights reserved. This information is not [...] rce(s) Supporting Document(s) ID Date Data Source [id number] 12/18/2020 03:12:00 PM EDT [facility] 1 Clinical Report - Nurses [facility] Emergency Department [address] [place] [address] Phone #: ext- [phone] 12/18/2020 15:09 Patient: [...] carrier of 2 Clinical Report - Nurses [facility] Emergency Department [address] [place] [address] Phone #: ext- [phone] 12/18/2020 15:09 Patient: [...] Horton RN 3 Clinical Report - Nurses [facility] Emergency Department [address] [place] [address] Phone #: ext- [phone] 12/18/2020 15:09 Patient: MICHEL GHOSH Sex: M [...] and birthdate. Blood samples drawn by tech. ([id number]). --16:41 12/18/20 Richard Horton RN Patient transported to [place] by wheelchair with mask and radiology interventional physician. ([id number]). --16:58 12/18/20 Richard Horton RN 17:40 12/18/2020 [...] patient was discharged home and accompanied by clinic specialist. He left ambulatory and via private vehicle. [employer]itcher driving. --18:04 12/18/20 Lucrecia Lynn R.N. Departure time: 18:04 12/18/2020. --18:04 12/18/20 Lucrecia Lynn R.N. 4 Clinical Report - Nurses [facility] Emergency Department [address] [place] [address] Phone #: ext- [phone] 12/18/2020 15:09 Patient: MICHEL GHOSH Sex: M : 2000 Age: 20yLocked/Released at 12/18/2020 18:04 by Lucrecia Lynn R.N. Name Value Range Interpretation Code Description Data Ina rce(s) Supporting Document(s) ID Date Data Source [id number] 12/18/2020 03:12:00 PM EDT [facility] 1 Clinical Report - Physicians/Mid Levels [facility] Emergency Department [address] [place] [address] Phone #: ext- [phone] 12/18/2020 15:09 Patient: MICHEL GHOSH Sex: M [...] NAYAK. Sts that he eventaully went to [facility] for eval and imaigng. PT sts that he finally seen by the [facility] TBI clinic last month and [...] NOTES 2 Clinical Report - Physicians/Mid Levels [facility] Emergency Department [address] [place] [address] Phone #: ext- [phone] 12/18/2020 15:09 Patient: MICHEL GHOSH Sex: M [...] 51.0) 3 Clinical Report - Physicians/Mid Levels [facility] Emergency Department [address] [place] [address] Phone #: ext- [phone] 12/18/2020 15:09 Patient: MICHEL GHOSH Sex: M [...] NOT INDICATEDSed. Rate: (CARMEN: 12/18/2020 16:14) ( [facility] [place] [facility] 16:40) Final results Test Result Flag Units (Reference) SED RATE 1 mm/hr (0 - 15) SED RATE REENTER 1CRP: (CARMEN: 12/18/2020 16:14) ( [facility] 12/18/2020 16:39) Final results Test Result Flag [...] 56) 4 Clinical Report - Physicians/Mid Levels [facility] Emergency Department [address] [place] [address] Phone #: ext- [phone] 12/18/2020 15:09 Patient: MICHEL GHOSH Sex: M [...] had since August 05 injury. Seen at [facility] ER and TBI clinic. Seen by TBI clinic yesterday. PE demos NV intact b/l UE. Noted sinus tenderness. ? acute sinusititis vs acute on chronic. Will obtian labs and imaigng for further evla. Pending resutls. Reviewed results. Enter room and patient lying peacefully in bed in NAD. Patient stable. Denies any new issues, concerns, or complaints. Pt sts that he feels [facility] better. Sts that s/s are almost resolved. [...] treatment. 5 Clinical Report - Physicians/Mid Levels [facility] Emergency Department [address] [place] [address] Phone #: ext- [phone] 12/18/2020 15:09 Patient: MICHEL GHOSH Sex: M : 2000 Age: 20yINSTRUCTIONS Take Tylenol (Acetaminophen) or Motrin (Ibuprofen) as needed for fever control. Take medication according to label instructions. No strenuous activity for two weeks (Recommend no PT as this may excerbate your symptoms.). (Please f/u with the [facility] TBI clinic as you have [...] rce(s) Supporting Document(s) ID Date Data Source [id number] 12/18/2020 04:40:00 PM EDT [facility] Name Value Range Interpretation Code Description Data Ina rce(s) Supporting Document(s) Erythrocyte sedimentation rate by Westergren method 1 mm/hr 0 - 15 [facility] SED RATE REENTER 1 [facility] ID Date Data Source [id number] 12/18/2020 04:39:00 PM EDT [facility] Name Value Range Interpretation Code Description Data Ina rce(s) Supporting Document(s) C reactive protein [Mass/volume] in Serum or Plasma by High sensitivity method 0.20 MG/L 1.00 - 3.00 L [facility] CDC/S HS-CRP CUT-OFF: RELATIVE RISK: <1.0 mg/L Low 1.0 - 3.0 mg/L Average >3.0 mg/L High Optimally, the average of HS-CRP results repeated two weeks apart should be used for risk assessment. ID Date Data Source [id number] 12/18/2020 04:37:00 PM EDT [facility] Name Value Range Interpretation Code Description Data Ina rce(s) Supporting Document(s) COMPREHENSIVE METABOLIC PANEL [facility] COMPREHENSIVE METABOLIC PANEL Sodium [Moles/volume] in Serum or Plasma 139 mEq/L 134 - 153 [facility] Potassium [Moles/volume] in Serum or Plasma 4.0 mEq/L 3.6 - 5.0 [facility] Chloride [Moles/volume] in Serum or Plasma 105 mEq/L 98 - 107 [facility] Carbon dioxide, total [Moles/volume] in Serum or Plasma 26 MEQ/L 22 - 30 [facility] Glucose [Mass/volume] in Serum or Plasma 97 MG/DL 70 - 99 [facility] BUN 10 MG/DL 7 - 21 [facility] al Creatinine [Mass/volume] in Serum or Plasma 0.9 MG/DL 0.7 - 1.5 [facility] BUN/CREAT 11 8 - 27 [facility] Protein [Mass/volume] in Serum or Plasma 7.6 G/DL 6.3 - 8.2 [facility] Albumin [Mass/volume] in Serum or Plasma 4.5 G/DL 3.9 - 5.0 [facility] Globulin [Mass/volume] in Serum by calculation 3.1 GM/DL 2.4 - 3.2 [facility] A/G RATIO 1.5 0.8 - 2.0 [facility] Calcium [Mass/volume] in Serum or Plasma 9.7 MG/DL 8.4 - 10.2 [facility] Bilirubin.total [Mass/volume] in Serum or Plasma 1.0 MG/DL 0.2 - 1.3 [facility] Alkaline phosphatase [Enzymatic activity/volume] in Serum or Plasma 76 U/L 38 - 126 [facility] Aspartate aminotransferase [Enzymatic activity/volume] in Serum or Plasma 21 U/L 5 - 40 [facility] Alanine aminotransferase [Enzymatic activity/volume] in Seru m or Plasma 15 U/L 7 - 56 [facility] Anion gap 3 in Serum or Plasma 8.0 mmol/L 8.0 - 16.0 [facility] AGE 20 yrs [facility] NON-AA GFR >60 mL/min [facility] ital AFR AMER GFR >60 mL/min [facility] Male GFR In terprentation [...] >32 mL/min Normal ID Date Data Source [id number] 12/18/2020 04:19:00 PM EDT [facility] Name Value Range Interpretation Code Description Data Ina rce(s) Supporting Document(s) CBC W/AUTOMATED DIFF [facility] COMPLETE BLOOD COUNT Leukocytes [#/volume] in Blood by Automated count 5.1 10^3/uL 4.2 - 1 1.0 [facility] Erythrocytes [#/volume] in Blood by Automated count 4.61 10^6/uL 4. 50 - 6.30 [facility] Hemoglobin [Mass/volume] in Blood 14.7 g/dL 14.0 - 16.0 [facility] Hematocrit [Volume Fraction] of Blood by Automated count 43.0 % 4 1.0 - 51.0 [facility] Erythrocyte mean corpuscular volume [Entitic volume] by Auto mated count 93.3 fL 80.0 - 94.0 [facility] Erythrocyte mean corpuscular hemoglobin [Entitic mass] by Automated count 31.9 pg 27.0 - 34.0 [facility] Erythrocyte mean corpuscular hemoglobin concentration [Mass/volume] by Automated count 34.2 g/dL 31.0 - 36.0 [facility] Erythrocyte distribution width [Ratio] by Automated count 11.9 % 11.5 - 14.8 [facility] Platelets [#/volume] in Blood by Automated count 181 10^3/uL 150 - 45 0 [facility] Platelet mean volume [Entitic volume] in Blood by Automated count 10.9 fL 7.4 - 10.4 H [facility] Neutrophils/100 leukocytes in Blood by Automated count 47.6 % 37. 0 - 80.0 [facility] Lymphocytes/100 leukocytes in Blood by Manual count 42.2 % 25.0 - 40.0 H [facility] Monocytes/100 leukocytes in Blood by Automated count 8.2 % 3.0 - 8.0 H [facility] Eosinophils/100 leukocytes in Blood by Automated count 1.2 % 0.0 - 7.0 [facility] Basophils/100 leukocytes in Blood by Automated count 0.6 % 0.0 - 2.0 [facility] %IG 0.2 % 0.0 - [facility] % 0.0 - 0.0 [facility] al Neutrophils [#/volume] in Blood by Automated count 2.45 10^3/uL 2.00 - 6.90 [facility] Lymphocytes [#/volume] in Blood by Automated count 2.17 10^3/uL 0.60 - 3.40 [facility] Monocytes [#/volume] in Blood by Automated count 0.42 10^3/uL 0.00 - 0.90 [facility] Eosinophils [#/volume] in Blood by Automated count 0.06 10^3/uL 0.00 - 0.70 [facility] Basophils [#/volume] in Blood by Automated count 0.03 10^3/uL 0.00 - 0.20 [facility] #IG 0.01 10^3/uL 0.00 - 0.10 [facility] #NRBC 0.00 10^3/uL 0.00 - 0.00 [facility] ospital MANUAL DIFF NOT INDICATED [facility] RBC MORPH NOT INDICATED [facility] Procedure Social History No Information Vital Signs ID Date Data Source UNK Name Value Range Interpretation Code Description Data Source(s) Diastolic blood pressure 79 mm[Hg] 79 mm[Hg] CHANEL ([facility]) Body height 73 [in_i] 73 [in_i] CHANEL ([facility]) Systolic blood pressure 123 mm[Hg] 123 mm[Hg] A THENA ([facility]) Diastolic blood pressure 83 mm[Hg] 83 mm[Hg] CHANEL ([facility]) Body height 73 [in_i] 73 [in_i] CHANEL ([facility]) Body mass index (BMI) [Ratio] 22.6 kg/m2 22.6 k g/m2 [facility] ([facility]) Systolic blood pressure 160 mm[Hg] 160 mm[Hg] A THENA ([facility]) Body weight 171 [lb_av] 171 [lb_av] [facility]ANEL ([facility]) Diastolic blood pressure 83 mm[Hg] 83 mm[Hg] CHANEL ([facility]) Body height 73 [in_i] 73 [in_i] CHANEL ([facility]) Body mass index (BMI) [Ratio] 22.6 kg/m2 22.6 k g/m2 CHANEL ([facility]) Systolic blood pressure 160 mm[Hg] 160 mm[Hg] A THENA ([facility]) Body weight 171 [lb_av] 171 [lb_av] CHANEL ([facility]) Body mass index (BMI) [Ratio] 23.8 kg/m2 23.8 k g/m2 [facility] ([facility], ) [place] body weight 172 [lb_av] 172 [lb_av] MEDEN T ([facility], ) Respiratory rate 12 /min 12 /min [facility] ( [facility], ) Body height 71 [in_i] 71 [in_i] [facility] ([facility], ) 5'11" Body weight 171.00 [lb_av] 171.00 [lb_av] MEDEN T ([facility], ) Patient Treatment Plan of Care Planned Activity Planned Date Details Description Data Source (s) Diclofenac Sodium 0.01 MG/MG Topical Gel [Voltaren] CHANEL ([facility]) topiramate 25 MG Oral Tablet [facility]ANEL ([facility]) Sumatriptan 50 MG Oral Tablet CHANEL ([facility]) Hydrocortisone 25 MG/ML Topical Cream [Proctosol] [facility]ANEL ([facility]) Natural Fiber Laxative Therapy oral powder CHANEL ([facility]) Naproxen 500 MG Oral Tablet [facility]ANEL ([facility]) Methocarbamol 750 MG Oral Tablet CHANEL ([facility]) Methocarbamol 500 MG Oral Tablet CHANEL ([facility]) duloxetine 20 MG Delayed Release Oral Capsule CHANEL ([facility]) Cyclobenzaprine hydrochloride 5 MG Oral Tablet CHANEL ([facility]) Ciprofloxacin 500 MG Oral Tablet CHANEL ([facility]) Amitriptyline Hydrochloride 25 MG Oral Tablet CHANEL ([facility]) Amitriptyline Hydrochloride 10 MG Oral Tablet CHANEL ([facility]) Diclofenac Sodium 0.01 MG/MG Topical Gel [Voltaren] CHANEL ([facility]) topiramate 25 MG Oral Tablet CHANEL ([facility]) Sumatriptan 50 MG Oral Tablet CHANEL ([facility]) Hydrocortisone 25 MG/ML Topical Cream [Proctosol] CHANEL ([facility]) Natural Fiber Laxative Therapy oral powder CHANEL ([facility]) Naproxen 500 MG Oral Tablet CHANEL ([facility]) Methocarbamol 750 MG Oral Tablet CHANEL ([facility]) Methocarbamol 500 MG Oral Tablet CHANEL ([facility]) duloxetine 20 MG Delayed Release Oral Capsule CHANEL ([facility]) Cyclobenzaprine hydrochloride 5 MG Oral Tablet CHANEL ([facility]) Ciprofloxacin 500 MG Oral Tablet CHANEL ([facility]) Amitriptyline Hydrochloride 25 MG Oral Tablet CHANEL ([facility]) Amitriptyline Hydrochloride 10 MG Oral Tablet CHANEL ([facility]) Acetaminophen 325 MG Oral Tablet CHANEL ([facility])
[2021-04-11] MEDS ORDERED: AIMO70IN SC (08:21)
[2021-04-11] MEDS ORDERED: CELE1CAP9 PO (08:21)
[2021-04-11] MEDS ORDERED: BENA25CA4 PO (08:21)
[2021-04-11] MEDS ORDERED: DOCU100C16 PO (08:21)
[2021-04-11] MEDS ORDERED: DICY10CA13 PO (08:21)
[2021-04-11] MEDS ORDERED: AUGM875T28 PO (08:28)
[2021-04-11] MEDS ORDERED: MUCI600T31 PO (08:29)
== END 2021-04-11 08:47 | disposition home or self-care (01) ==
LOC: M ED 06:56
DX: J01.90 Acute sinusitis, unspecified (principal); J31.0 Chronic rhinitis; Z88.2 Allergy status to sulfonamides; Z88.6 Allergy status to analgesic agent; Z79.899 Other long term (current) drug therapy

== ENCOUNTER 2021-04-15 10:32 | Inpatient (IN) | payer OTHER ==
[~2021-04-15] VITALS: Ht 185.4 cm; Wt 9.0 kg
[~2021-04-15 10:32] MED LIST changes: +AIMO70IN SC; +AUGM875T28 PO; +BENA25CA4 PO; +CELE1CAP9 PO; +DICY10CA13 PO; +DOCU100C16 PO; +MUCI600T31 PO
--- OUTSIDE RECORDS SUMMARY | 2021-04-15 10:39 | CCD ---
Author Author [facility] Organization [facility] Address Unknown Phone Unavailable Care Team Providers Care Slurry Mixer Name Role Phone NO, PCP Unavailable Unavailable [...] Alexander PA-C Unavailable Unavailable Jumalon, M Annemarie POWDER LINE REPAIRER Unavailable Unavailable Jumalon, M Annemarie POWDER LINE REPAIRER Unavailable Unavailable Jumalon, M Annemarie POWDER LINE REPAIRER Unavailable Unavailable Jumalon, M Annemarie POWDER LINE REPAIRER Unavailable Unavailable Jumalon, M Annemarie POWDER LINE REPAIRER Unavailable Unavailable Jumalon, M Annemarie POWDER LINE REPAIRER Unavailable Unavailable Jumalon, M Annemarie POWDER LINE REPAIRER Unavailable Unavailable Jumalon, M Annemarie POWDER LINE REPAIRER Unavailable Unavailable Jumalon, M Annemarie POWDER LINE REPAIRER Unavailable Unavailable Jumalon, M Annemarie POWDER LINE REPAIRER Unavailable Unavailable Jumalon, M Annemarie POWDER LINE REPAIRER Unavailable Unavailable Jumalon, M Annemarie POWDER LINE REPAIRER Unavailable Unavailable Jumalon, M Annemarie POWDER LINE REPAIRER Unavailable Unavailable Jumalon, M Annemarie POWDER LINE REPAIRER Unavailable Unavailable Jumalon, M Annemarie POWDER LINE REPAIRER Unavailable Unavailable Jumalon, M Annemarie POWDER LINE REPAIRER Unavailable Unavailable Jumalon, M Annemarie POWDER LINE REPAIRER Unavailable Unavailable Jumalon, M Annemarie POWDER LINE REPAIRER Unavailable Unavailable Jumalon, M Annemarie POWDER LINE REPAIRER Unavailable Unavailable Jumalon, M Annemarie POWDER LINE REPAIRER Unavailable Unavailable Jumalon, M Annemarie POWDER LINE REPAIRER Unavailable Unavailable Jumalon, M Annemarie POWDER LINE REPAIRER Unavailable Unavailable Jumalon, M Annemarie POWDER LINE REPAIRER Unavailable Unavailable Jumalon, M Annemarie POWDER LINE REPAIRER Unavailable Unavailable Jumalon, M Annemarie POWDER LINE REPAIRER Unavailable Unavailable Jumalon, M Annemarie POWDER LINE REPAIRER Unavailable Unavailable Jumalon, M Annemarie POWDER LINE REPAIRER Unavailable Unavailable Jumalon, M Annemarie POWDER LINE REPAIRER Unavailable Unavailable Jumalon, M Annemarie POWDER LINE REPAIRER Unavailable Unavailable Jumalon, M Annemarie POWDER LINE REPAIRER Unavailable Unavailable Shivani Winn MD Unavailable Unavailable [...] is protected by Article 27-F of the [facility] Public Health law. If you continue you may have access to information: Regarding HIV / AIDS; Provided by facilities licensed or operated by the [facility] Office of Mental Health; or Provided by the [facility] Office for People With Developmental Disabilities. If such information is present, then the following [facility] mandated warning applies: This information has been [...] law may result in a fine or mcc sentence or both. A general authorization for the release of medical or other information is NOT sufficient authorization for further disc losure. Encounters Encounter Providers Location Date Indications Data Source(s ) Emergency Attender: Alexander Degroot PA-C 07:34:00 PM EDT - 03/31/2021 11:08:00 PM EDT STOMACH PAIN,RECTUM BLEEDING, VOMITING [facility] STOMACH PAIN,RECTUM BLEEDING, VOMITING Patient discharged. Annemarie Pickens, PHYSICAL BIOCHEMIST: [address], [place] [address], Ph. Attender: Annemarie PALOMINO [place] - [facility] 03/25/2021 12:00:00 AM EDT ATHKarl WAYNE ([facility]) Emergency Attender: CECY VALENCIA MDConsultant: PCP NO 03/15/2021 03:33:00 PM EDT - 03/15/2021 03:53:00 PM EDT [facility] Patient discharged. Lucas Leiva MD: [address], [place] [address], Ph. Attender: Lucas Leiva MD [facility] 03/10/2021 12:00:00 AM EDT [facility] ([facility]) Lucas Leiva MD: [address], [place] [address], Ph. Attender: Lucas Leiva MD [facility] 03/10/2021 12:00:00 AM EDT [facility] ([facility]) Emergency Attender: CECY VALENCIA MDConsultant: PCP NO 02/28/2021 01:50:00 PM EDT - 02/28/2021 04:32:00 PM EDT [facility] Patient discharged. Outpatient Attender: Deirdre Winn MD Main office - [facility] 02/02/2021 08:00:00 AM EDT [facility] ([facility] ) Outpatient Attender: SUNIL ZAPATAConsultant: PCP NO 12/22/2020 07:01:00 AM EDT - 12/22/2020 08:01:00 AM EDT [facility] Emergency Attender: CECY VALENCIA MDConsultant: PCP NO 12/18/2020 03:12:00 PM EDT - 12/18/2020 06:04:00 PM EDT [facility] Patient discharged. Medications Medication Brand Name Start Date Product Form Dose Route Admi nistrative Instructions Pharmacy Instructions Status Indications Reaction Description Data Source(s) Emgality Emgality 03/18/2021 12:00:00 AM EDT activ e [facility] ([facility], ) topiramate 100 MG Oral Tablet Topiramate 03/09/2021 12:00:00 AM EDT completed [facility] ([facility], ) topiramate 25 MG Oral Tablet Topiramate 02/02/2021 12:00:00 AM EDT completed [facility] ([facility], ) Nurtec Nurtec 02/02/2021 12:00:00 AM EDT active [facility] ([facility], ) topiramate 100 MG Oral Tablet Topiramate 02/02/2021 12:00:00 AM EDT ORAL completed [facility] ([facility], ) Diclofenac Sodium 0.01 MG/MG Topical Gel [Voltaren] Vo ltaren 1 % topical gel Voltaren 1 % topical gel completed diclofenac sodium 0.01 MG/MG Topical Gel [Voltaren] [facility] ([facility]) Methocarbamol 750 MG Oral Tablet methocarbamol 750 mg tablet methocarbamol 750 mg tablet completed methocarbamo l 750 MG Oral Tablet [facility] ([facility]) Natural Fiber Laxative Therapy oral powder completed Natural Fiber Laxative Therapy oral powder [facility] ([facility]) Sumatriptan 50 MG Oral Tablet sumatriptan 50 mg tablet sumat riptan 50 mg tablet completed sumatriptan 50 MG Oral Tablet [facility] ([facility]) Acetaminophen 325 MG Oral Tablet acetaminophen 325 mg tablet acetaminophen 325 mg tablet completed acetaminophe n 325 MG Oral Tablet [facility] ([facility]) Ciprofloxacin 500 MG Oral Tablet ciprofl oxacin 500 mg tablet TAKE 1 TABLET BY MOUTH TWICE DAILY ciprofloxacin 500 mg tablet TAKE 1 TABLE T BY MOUTH TWICE DAILY completed ciprofloxacin 50 0 MG Oral Tablet [facility] ([facility]) Methocarbamol 500 MG Oral Tablet methocarbamol 500 mg tablet methocarbamol 500 mg tablet completed methocarbamo l 500 MG Oral Tablet [facility] ([facility]) Amitriptyline Hydrochloride 25 MG Oral Tablet amitript yline 25 mg tablet amitriptyline 25 mg tablet completed amitriptyline hydrochloride 25 MG Oral Tablet [facility] ([facility]) Diclofenac Sodium 0.01 MG/MG Topical Gel [Voltaren] Vo ltaren 1 % topical gel Voltaren 1 % topical gel completed diclofenac sodium 0.01 MG/MG Topical Gel [Voltaren] [facility] ([facility]) topiramate 25 MG Oral Tablet topiramate 25 mg tablet topiramate 25 mg tablet completed topiramate 25 MG Oral Tablet [facility] ([facility]) duloxetine 20 MG Delayed Release Oral Ca psule duloxetine 20 mg capsule,delayed release duloxetine 20 mg capsule,delayed release completed duloxetine 20 MG Delayed Release Oral Capsule [facility] ([facility]) Methocarbamol 750 MG Oral Tablet methocarbamol 750 mg tablet methocarbamol 750 mg tablet completed methocarbamo l 750 MG Oral Tablet [facility] ([facility]) Cyclobenzaprine hydrochloride 5 MG Oral Tablet cyclobe nzaprine 5 mg tablet cyclobenzaprine 5 mg tablet completed cyclobenzaprine hydrochloride 5 MG Oral Tablet [facility] ([facility]) Amitriptyline Hydrochloride 10 MG Oral Tablet amitript yline 10 mg tablet amitriptyline 10 mg tablet completed amitriptyline hydrochloride 10 MG Oral Tablet [facility] ([facility]) Methocarbamol 500 MG Oral Tablet methocarbamol 500 mg tablet methocarbamol 500 mg tablet completed methocarbamo l 500 MG Oral Tablet [facility] ([facility]) Hydrocortisone 25 MG/ML Topical Cream [P roctosol] Proctosol HC 2.5 % topical cream perineal applicator Proctosol HC 2.5 % topical cream perineal applicator completed hydrocortisone 25 MG/ML Topical Cream [Proctosol] [facility] ([facility]) Amitriptyline Hydrochloride 10 MG Oral Tablet amitript yline 10 mg tablet amitriptyline 10 mg tablet completed amitriptyline hydrochloride 10 MG Oral Tablet [facility] ([facility]) duloxetine 20 MG Delayed Release Oral Ca psule duloxetine 20 mg capsule,delayed release duloxetine 20 mg capsule,delayed release completed duloxetine 20 MG Delayed Release Oral Capsule [facility] ([facility]) Naproxen 500 MG Oral Tablet naproxen 500 mg tablet TAKE 1 TABLET BY MOUTH TWICE DAILY TAKE WITH FOOD naproxen 500 mg tablet TAKE 1 TABLET BY MOUTH TWICE DAILY TAKE WITH FOOD completed naproxe n 500 MG Oral Tablet [facility] ([facility]) Hydrocortisone 25 MG/ML Topical Cream [P roctosol] Proctosol HC 2.5 % topical cream perineal applicator Proctosol HC 2.5 % topical cream perineal applicator completed hydrocortisone 25 MG/ML Topical Cream [Proctosol] [facility] ([facility]) Cyclobenzaprine hydrochloride 5 MG Oral Tablet cyclobe nzaprine 5 mg tablet cyclobenzaprine 5 mg tablet completed cyclobenzaprine hydrochloride 5 MG Oral Tablet [facility] ([facility]) Amitriptyline Hydrochloride 25 MG Oral Tablet amitript yline 25 mg tablet amitriptyline 25 mg tablet completed amitriptyline hydrochloride 25 MG Oral Tablet [facility] ([facility]) Sumatriptan 50 MG Oral Tablet sumatriptan 50 mg tablet sumat riptan 50 mg tablet completed sumatriptan 50 MG Oral Tablet [facility] ([facility]) Naproxen 500 MG Oral Tablet naproxen 500 mg tablet TAKE 1 TABLET BY MOUTH TWICE DAILY TAKE WITH FOOD naproxen 500 mg tablet TAKE 1 TABLET BY MOUTH TWICE DAILY TAKE WITH FOOD completed naproxe n 500 MG Oral Tablet [facility] ([facility]) topiramate 25 MG Oral Tablet topiramate 25 mg tablet topiramate 25 mg tablet completed topiramate 25 MG Oral Tablet [facility] ([facility]) Natural Fiber Laxative Therapy oral powder completed Natural Fiber Laxative Therapy oral powder [facility] ([facility]) Ciprofloxacin 500 MG Oral Tablet ciprofl oxacin 500 mg tablet TAKE 1 TABLET BY MOUTH TWICE DAILY ciprofloxacin 500 mg tablet TAKE 1 TABLE T BY MOUTH TWICE DAILY completed ciprofloxacin 50 0 MG Oral Tablet [facility] ([facility]) Insurance Providers Payer name Policy type / Coverage type Policy ID Covered green party ID Covered green party's relationship to covarrubias Policy Covarrubias Plan Information [facility] [employer] [id number] SP [id number] [facility] HU[employer] - O/P [id number] 18 [id number] [facility] [employer] - O/P [id number] 18 [id number] [facility] [employer] - O/P . 18 . 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 Diagnosis 02/28/2021 01:5 0:00 PM EDT [facility] N433 Hydrocele, unspecified Hydrocele, unspecified Diagnosi s 02/28/2021 01:50:00 PM EDT [facility] R300 Dysuria Dysuria Diagnosis 02/28/2021 01:50:00 PM ED [facility] [id number] Personal history of traumatic brain inju ry Personal history of traumatic brain injury Diagnosis 12/22/2020 07:01:00 AM [facility] R2689 Other abnormalities of gait and mobility Other abnormalities of gait and mobility Diagnosis 12/22/2020 07:01:00 AM T [facility] [id number] Migraine, unspecified, not intractable, without status migrainosus Migraine, unspecified, not intractable, without status migrainosus Diagnosis 12/22/2020 07:01:00 AM [facility] [id number] Chronic migraine without aura, intractab le, with status migrainosus Chronic migraine without aura, intractable, with status migrainosus Diagnosis 12/18/2020 03:12:00 PM T [facility] R519 Headache, unspecified Headache, unspecified Diagnosis 12/18/2020 03:12:00 PM T [facility] [id number] Concussion injury of brain Concussion injury of brain Problem 02/02/2021 12:00:00 AM EDT [facility] ([facility] ) [id number] Migraine Migraine Problem 02/02/2021 12:00:00 AM ED T [facility] ([facility] ) Surgeries/Procedures Procedure Description Date Indications Data Source(s) Chemotherpy Admin Subcutaneous/Im Non-Hormonal Anti-Neoplast ic 04/01/2021 12:00:00 AM EDT [facility] ([facility] ) MRI, lumbar spine, w/o contrast 03/10/2021 12:00:00 AM EDT [facility] ([facility]) OFFICE CONSULTATION NEW/ESTAB PATIENT 60 MIN 12:00:00 AM EDT [facility] ([facility] ) Results ID Date Data Source [id number] 03/31/2021 09:53:00 PM EDT [facility] ED Physician Documentation NAME: JULISA GHOSH : 2000 AGE: 21 MR#: [id number] SERVICE DATE: 03/31/[address]: Alexander Degroot MD PRIMARY CARE DR: No Family PHYS Provided ROOM#: [facility] (Adult, General) General Chief Complaint: GI [...] % (Auto) 53.2, Lymph % (Auto) 36.9, [place] % (Auto) 8.3, Eos % (Auto) 0.8, [...] Appearance Clear, Urine pH 6.5, Ur Specific Moira 1.031 A, Urine Protein Negative, Urine Ketones [...] rce(s) Supporting Document(s) ID Date Data Source [id number] 03/31/2021 09:48:00 PM EDT [facility] [address] [place] [address] [phone] NAME SEX PT STATUS ACCOUNT NUMBER JULISA GHOSH [facility] ER [id number] ORDERING PHYSICIAN LOCATION MEDICAL RECORD NO. Alexander Degroot MD ER [id number] ATTENDING PHYSICIAN DATE OF DATE OF EXAM/TIME [...] Trans Dt/Tm: Trans by: DT Prt Dt/Tm: 0734-9718: Total DLP = 405.00 mGy-cm 6856-1566: Total Radiation Dose = 6.0750 mSv Lifetime Dose: 6.0750 mSv Name Value Range Interpretation Code Description Data Ina rce(s) Supporting Document(s) ID Date Data Source [id number] 03/31/2021 11:53:00 PM EDT [facility] CT/NG IS A QUALITATIVE IN VITRO [...] rce(s) Supporting Document(s) ID Date Data Source [id number] 03/31/2021 09:03:00 PM EDT [facility] Reason for ordering culture: Abnormal fi ndings UAMethod of Collection:: Voided Name Value Range Interpretation Code Description Data Ina rce(s) Supporting Document(s) Color of Urine [facility] Appearance of Urine CLEAR [facility] pH of Urine by Test strip 6.5 5-8 [facility] Specific gravity of Urine by Refractometry 1.031 1.005 -1.030 Abnormal (applies to non-numeric results) [facility] Leukocyte esterase [Presence] in Urine by Test strip NEGAT ABENA [facility] Nitrite [Presence] in Urine by Test strip NEGATIVE [facility] Protein [Presence] in Urine by Test strip NEGATIVE [facility] Glucose [Mass/volume] in Urine by Automated test strip NEGATIVE NEG ATIVE [facility] Ketones [Presence] in Urine by Test strip NEGATI VE Abnormal (applies to non- numeric results) [facility] Urobilinogen [Presence] in Urine 0.2-1 EU/dl [facility] Bilirubin.total [Presence] in Urine by Automated test strip NEGATIVE [facility] Erythrocytes [#/volume] in Urine by Test strip NEGATIVE NEGATIVE [facility] URINE MICROSCOPIC? (CIF) NO [facility] ID Date Data Source [id number] 04/01/2021 08:51:00 AM EDT [facility] Special Instructions: Lab may order repe at test if initial test elevatedPhysician If elevated, reflex second test in 4-6 hrs Name Value Range Interpretation Code Description Data Ina rce(s) Supporting Document(s) Campylobacter coli+jejuni+mihai fusA gene [Presence] in Stool by Probe and target amplification method [facility] Salmonella sp rpoD gene [Presence] in [facility] by Probe and target amplification method [facility] ital Shigella species+EIEC invasion plasmid a ntigen H (ipaH) gene [Presence] in Stool by Probe and target amplification method [facility] Vibrio cholerae+parahaemolyticus rfbL+tr kH+tnaA genes [Presence] in Stool by Probe and target amplification method [facility] Yersinia enterocolitica recN gene [Prese nce] in Stool by Probe and target amplification method [facility] Escherichia coli shiga-like toxin 1 (stx 1) gene [Presence] in Stool by Probe and target amplification method [facility] Escherichia coli shiga-like toxin 2 (stx 2) gene [Presence] in Stool by Probe and target amplification method [facility] Norovirus genogroup I+II orf1-orf2 junct ion region [Presence] in Stool by Probe and target amplification method [facility] Rotavirus A nsp5 gene [Presence] in Stoo l by Probe and target amplification method [facility] ital NORMAL VALUE FOR TEST IS "NOT DETECTED"T he [employer] Enteric Pathogens Nucleic Acid Test (EP) is amultiplexed, qualitative test for simultaneous detection andidentification of common pathogenic enteric bacteria,viuruses, and genetic virulence markers from liquid or softstool preserved in Letha-Luca medium, collected fromindividuals with signs and symptoms of gastrointestinalinfection.The test is performed on the automated Aptito Systemutilizing reverse web press roll tender (RT), polymerase chainreaction (PCR), and array hybridization [...] syndrome or Crohn'sdisease. ID Date Data Source [id number] 03/31/2021 09:04:00 PM EDT [facility] Special Instructions: Lab may order repe at test if initial test elevatedPhysician If elevated, reflex second test in 4-6 hrs Name Value Range Interpretation Code Description Data Ina rce(s) Supporting Document(s) Leukocytes [#/volume] in Blood by Automated count 6.3 10*3/uL 4.45-10 .71 N [facility] Erythrocytes [#/volume] in Blood by Automated count 4.90 10*6/uL 4.3- 6.1 N [facility] Hemoglobin [Moles/volume] in Blood 15.6 g/dL 13-18 N [facility] Hematocrit [Volume Fraction] of Blood by Automated count 44.6 % 4 2-52 N [facility] Erythrocyte mean corpuscular volume [Ent itic volume] in Cord blood by Automated count 91 fL 80-96 N [facility] ital Erythrocyte mean corpuscular hemoglobin [Entitic mass] by Au tomated count 32 pg 27-31 Above high normal [facility] Erythrocyte mean corpuscular hemoglobin concentration [Mass/volume] in Cord blood 35 g/dL 33-37 N [facility] ital Erythrocyte distribution width [Entitic volume] by Automated count 12 % 11-15 N [facility] Platelets [#/volume] in Blood by Automated count 174 10*3/uL 130-472 N [facility] Platelet mean volume [Entitic volume] in Blood 11.1 fL 9.1-13.1 N [facility] Neutrophils/100 leukocytes in Blood by Automated count 53.2 % 41- 77 N [facility] Neutrophils [#/volume] in Blood by Automated count 3.3 U 1.7-7.6 N [facility] Lymphocytes/100 leukocytes in Blood by Automated count 36.9 % 14- 46 N [facility] Lymphocytes [#/volume] in Blood by Automated count 2.3 U 0.6-4.6 N [facility] Monocytes/100 leukocytes in Blood by Automated count 8.3 % 4-12 N [facility] Monocytes [#/volume] in Blood by Automated count 0.5 U 0.2-1.2 N [facility] Eosinophils/100 leukocytes in Blood by Automated count 0.8 % 0-7 N [facility] Eosinophils [#/volume] in Blood by Automated count 0.1 U 0.0-0.5 N [facility] Basophils/100 leukocytes in Blood by Automated count 0.5 % 0.4-1 .3 N [facility] Basophils [#/volume] in Blood by Automated count 0.0 U 0.0-0.2 N [facility] NUCLEATED RED BLOOD CELL 0 % [facility] NUCLEATED RED BLOOD CELL# 0 [facility] Immature granulocytes [Presence] in Blood by Automated count 0-2 N [facility] Immature granulocytes [#/volume] in Blood by Automated count 0.0 U 0-0.1 N [facility] Manual Differential panel - Blood NO [facility] ID Date Data Source [id number] 03/31/2021 09:26:00 PM EDT [facility] Special Instructions: Lab may order repe at test if initial test elevatedPhysician If elevated, reflex second test in 4-6 hrs Name Value Range Interpretation Code Description Data Ina rce(s) Supporting Document(s) Urea nitrogen [Mass/volume] in Serum or Plasma 16 mg/dL 9-23 N [facility] Sodium [Moles/volume] in Serum or Plasma 139 mmol/L 132-146 [facility] Potassium [Moles/volume] in Serum or Plasma 3.8 mmol/L 3.5-5.5 [facility] Chloride [Moles/volume] in Serum or Plasma 106 mmol/L 99-109 [facility] Carbon dioxide, total [Moles/volume] in Serum or Plasma 28 mmol/L 20 -31 N [facility] Anion gap in Serum or Plasma 9 mmol/L 8-16 N [facility] Glucose [Mass/volume] in Serum or Plasma 102 mg/dL 74-106 N [facility] Creatinine 1.1 mg/dL 0.5-1.1 [facility] Glomerular filtration rate/1.73 sq M.pre dicted [Volume Rate/Area] in Serum or Plasma Greater Than 60 ABOVE 60 [facility] Alanine aminotransferase [Enzymatic acti vity/volume] in Serum or Plasma by With P-5'-P 39 U/L 10-49 N [facility] ital Aspartate aminotransferase [Enzymatic ac tivity/volume] in Serum or Plasma by With P-5'-P 25 U/L 0-33 N [facility] pital Alkaline phosphatase [Enzymatic activity/volume] in Serum or Plasma 81 U/L 45-129 N [facility] Calcium [Mass/volume] in Serum or Plasma 10.0 mg/dL 8.5-10.1 [facility] Bilirubin.total [Mass/volume] in Serum or Plasma 1.3 mg/dL 0.3-1.2 Above high normal [facility] Albumin [Mass/volume] in Serum or Plasma by Bromocresol purple (BCP) dye binding method 4.2 g/dL 3.2-4.8 N [facility] ital Protein [Mass/volume] in Serum or Plasma 8.6 g/dL 5.7-8.2 Above [facility] ID Date Data Source [id number] [facility]21 [facility]: Lab may order repe at test if initial test elevatedPhysician If elevated, reflex second test in 4-6 hrs Name Value Range Interpretation Code Description Data Ina rce(s) Supporting Document(s) Lactic w Rfx (if elevated) 0.7 mmol/L 0.5-2.0 [facility] ID Date Data Source [id number] 04/05/2021 08:54:00 PM [facility] Special Instructions: Lab may order repe at test if initial test elevatedPhysician If elevated, reflex second test in 4-6 hrs Name Value Range Interpretation Code Description Data Ina rce(s) Supporting Document(s) Bacteria identified in Blood by Culture [facility] NO GROWTH AFTER 5 DAYS ID Date Data Source [id number] 03/31/2021 09:26:00 PM [facility] Special Instructions: Lab may order repe at test if initial test elevatedPhysician If elevated, reflex second test in 4-6 hrs Name Value Range Interpretation Code Description Data Ina rce(s) Supporting Document(s) Amylase [Enzymatic activity/volume] in Serum or Plasma 93 U/L 30- 118 N [facility] ID Date Data Source [id number] 03/31/2021 09:26:00 PM [facility] Special Instructions: Lab may order repe at test if initial test elevatedPhysician If elevated, reflex second test in 4-6 hrs Name Value Range Interpretation Code Description Data Ina rce(s) Supporting Document(s) Lipase [Enzymatic activity/volume] in Serum or Plasma 90 U/L 73-3 93 [address] [facility] ID Date Data Source [id number] 03/15/2021 03:33:00 PM EDT [facility] 1 Medication Reconciliation Report [facility] Emergency Department [address] [place] [address] Phone #: ext- [phone] 03/15/2021 15:01 Patient: [...] needed for 10 days -- for pruritus. Cxladdoc51 capsule. Refills: 0. Substitution permitted.Pharmacy - REPLACED BY [facility] - [address] ; [place] [address]. . -- MICHAEL Ramsey Name Value Range Interpretation Code Description Data Ina rce(s) Supporting Document(s) ID Date Data Source [id number] 03/15/2021 03:33:00 PM EDT [facility] 1 Medication Administration Record [facility] Emergency Department [address] [place] [address] Phone #: ext- [phone] 03/2021 15:01 Patient: JULISA GHOSH Sex: M : 2000 Age: 21yWeight: 77.5 kgHeight/Length: 73 inBMI: 22.5ALLERGIES: No Known Drug AllergyDate/Time Medication Administered Medication Ordered Name Value Range Interpretation Code Description Data Ina rce(s) Supporting Document(s) ID Date Data Source [id number] 03/15/2021 03:33:00 PM EDT [facility] 1 General Instructions [facility] Emergency Department [address] [place] [address] Phone #: ext- [phone] 03/15/2021 15:01 Patient: JULISA GHOSH Sex: M [...] needed for 10 days -- for pruritus. Ctvhaoxf61 capsule. Refills: 0. Substitution permitted.Pharmacy - REPLACED BY [facility] - [address] ; [place] [address]. .Understanding of the discharge instructions verbalized by patient. Expected course of illness, dischargeinstructions, activity level, follow-up appointment and risks and bene fits of treatment reviewed with patientand understanding verbalized. Agrees to plan of care.Follow-up with: [facility], , , [address], , [place], [place], [facility] Follow up in one even if well. Call for the next available appointment. Reason for referral: evaluation andrecommend dermatology/reservoir engineering consultant referral if symptoms persist. Summary of care provided to patient viapaper. 2 General Instructions [facility] Emergency Department [address] [place] [address] Phone #: ext- [phone] 03/15/2021 15:01 Patient: JULISA GHOSH Sex: M : 2000 Age: 21y(Electronically signed by MICHAEL Ramsey 03/15/2021 16:26) Name Value Range Interpretation Code Description Data Ina rce(s) Supporting Document(s) ID Date Data Source [id number] 03/15/2021 03:33:00 PM EDT [facility] 1 Clinical Report - Nurses [facility] Emergency Department [address] [place] [address] Phone #: ext- [phone] 03/15/2021 15:01 Patient: JULISA GHOSH Sex: M : 2000 Age: 21yTRIAGEArrived by private vehicle. Historian: patient. Accompanied by friend.Acuity: LEVEL 4.Chief Complaint: (generalized itching).Onset. (6 months ago). ( pt states he has no rash but has had a generalized itching for about the past 6months, has not been seen for this as of yet).Treatment [facility]:None.SEPSIS SCREEN: SIRS SCREEN NEGATIVE. SEPSIS SCREEN NEGATIVE. [...] Immunizations: up-to-date. 2 Clinical Report - Nurses [facility] Emergency Department [address] [place] [address] Phone #: ext- [phone] 03/15/2021 15:01 Patient: JULISA GHOSH Sex: M [...] To treatment room. --15:03/15/21 Roe Hurley RN.PHYSICAL [id number] 03/15/21. Ambulatory to room.GENERAL / NEURO / [...] Discharge instructions 3 Clinical Report - Nurses [facility] Emergency Department [address] [place] [address] Phone #: ext- [phone] 03/15/2021 15:01 Patient: JULISA GHOSH Sex: M : 2000 Age: 21y provided and reviewed with the patient. Reviewed medication(s) side effects, precautions, dosing and course information. Prescription(s) sent electronically to pharmacy ([facility]). Patient verbalized understanding. Written instructions provided in Libyan. The patient was discharged home. He left [...] rce(s) Supporting Document(s) ID Date Data Source [id number] 03/15/2021 03:33:00 PM EDT [facility] 1 Clinical Report - Physicians/Mid Levels [facility] Emergency Department [address] [place] [address] Phone #: ext- [phone] 03/15/2021 15:01 Patient: [...] allergies. 2 Clinical Report - Physicians/Mid Levels [facility] Emergency Department [address] [place] [address] Phone #: ext- [phone] 03/15/2021 15:01 Patient: JULISA GHOSH Sex: M [...] permitted. 3 Clinical Report - Physicians/Mid Levels [facility] Emergency Department [address] [place] [address] Phone #: ext- [phone] 03/15/2021 15:01 Patient: JULISA GHOSH Sex: M : 2000 Age: 21y Pharmacy - [facility] - [id number] ; [place] [address]. . Understanding of the discharge instructions verbalized by patient. Expected course of illness, discharge instructions, activity level, follow-up appointment and risks and benefits of treatment reviewed with patient and understanding verbalized. Agrees to plan of care. Follow-up with: [facility] [place] [facility], , , [id number] [place] [address], , [place], [address] Follow up in one even if well. Call for the next available appointment. Reason for referral: evaluation and recommend dermatology/reservoir engineering consultant referral if symptoms persist. Summary of care provided to patient via paper.(Electronically signed by MICHAEL Ramsey 03/15/2021 16:26) Name Value Range Interpretation Code Description Data Ina rce(s) Supporting Document(s) ID Date Data Source [id number] 03/02/2021 09:25:00 PM EDT [facility] Name Value Range Interpretation Code Description Data Ina rce(s) Supporting Document(s) SARS COVID ANTIGEN NEGATIVE [facility] This lab was ordered by KAUSHAL goins nd reported by [facility]. ID Date Data Source [id number] 03/01/2021 10:32:00 AM EDT [facility] [address] [facility] [place] [address] PHONE: [phone] FAX: [phone] Name .................. : DAVINA Parrish Acct Number.................. : [id number] ROOM. ................. : VT-08 MR Number ................... : [id number] Stay type ............. : E/R Discharge Date......... ... : 02/28/21 Admit Date ......... : 02/28/21 Admit Phys .................... : COONEYNORM Date of ....... : 2000 Family Phys ................... : NO PCP Phone .................. : [phone] Age ................................ : 21 Film# .................. .:[id number] Sex ................................. : M Unsigned transcriptions are preliminary reports and do not represent a medical or legal document SCROTAL [id number] COMPLETE:02/28/21 14:22 [id number] Reason(s): Testicle/Scrotum Pain ULTRASOUND SCROTUM INDICATION: Testicular/scrotal [...] of testicular torsion. Page 1 of 2 [facility] [address] [place] [address] PHONE: [phone] FAX: [phone] Name .................. : DAVINA Parrish Acct Number.................. : [id number] ROOM. ................. : VT-08 Number ................... : [id number] Stay type ............. : E/R Discharge Date......... ... : 02/28/21 Admit Date ......... : 02/28/21 Admit Phys .................... : COONEYNORM Date of ....... : 2000 Family Phys ................... : NO PCP Phone .................. : [phone] Age ................................ : 21 Film# .................. .:[id number] Sex ................................. : M Unsigned transcriptions are preliminary reports and do not represent a medical or legal document SCROTAL [id number] COMPLETE:02/28/21 14:22 [id number] Reason(s): Testicle/Scrotum Pain 2. Bilateral varicoceles, right [...] rce(s) Supporting Document(s) ID Date Data Source [id number] 02/28/2021 01:50:00 PM EDT [facility] 1 OrderSheet [facility] Emergency Department [address] [place] [address] Phone #: ext- [phone] 02/28/2021 13:48 Patient: JULISA GHOSH Sex: M : 2000 Age: 21yWEIGHT:77.5 kg HEIGHT:73 inches BMI:22.5ALLERGIES: Aspirin, Macrobid, Primaquine Phosphate, SulfaCHIEF COMPLAINT: dysuria, Rt, testicular pain:, LtDIAGNOSIS: Hydrocele, Scrotal varicesLAB ORDERSOrder Description Priority Entered Acknowledged InitialedUA Reflex to UA 14:22 02/28/2021 14:31 NirmalaCulture Johnnie Ulrich physician executiveLewis Peterson; Bugi7Ypmrrpykc/GC STAT 14:22 02/28/2021 14:31 [facility] ED; Tech1 NOTES: urineSyphilis 14:22 02/28/2021 15:03 Johnnie Mcclain R.N.;DIAGNOSTIC STUDY ORDERSOrder Description Priority Entered Acknowledged InitialedUS Scrotal STAT 14:22 02/28/2021 14:34 Nirmala(Oxygen?(No)) Johnnie Ulrich physician executiveLewis Peterson; Tech1 Reason for Study: Testicle/Scrotum PainMEDICATION/IV/DRIP/FLUID ORDERSOrder Description Priority Entered Acknowledged InitialedGENERAL ORDERSOrder Description Priority Entered Acknowledged Initialed[Electronically signed by Sheri Drew R.N. (16:32 02/28/2021)][Electronically signed by Johnnie Ulrich (22:06 02/28/2021)][Electronically locked by Sheri Drew R.N. (16:32 02/28/2021)] Name Value Range Interpretation Code Description Data Ina rce(s) Supporting Document(s) ID Date Data Source [id number] 02/28/2021 01:50:00 PM EDT [facility] 1 Medication Reconciliation Report [facility] Emergency Department [address] [place] [address] Phone #: tds- [phone] 02/28/2021 13:48 Patient: JULISA GHOSH Sex: M [...] 45 tablet. Refills: 0. Substitution permitted.Pharmacy - [id number] [id number] ; [place] [address]. . -- MICHAEL Buck Name Value Range Interpretation Code Description Data Ina rce(s) Supporting Document(s) ID Date Data Source [id number] 02/28/2021 01:50:00 PM EDT [facility] 1 Medication Administration Record [facility] Emergency Department [address] [place] [address] Phone #: ext- [phone] 02/28/2021 13:48 Patient: JULISA GHOSH Acct#: [id number] Sex: M : 2000 Age: 21yWeight: 77.5 kgHeight/Length: 73 inBMI: 22.5ALLERGIES: Macrobid, Aspirin, Sulfa, Primaquine PhosphateDate/Time Medication Administered Medication Ordered Name Value Range Interpretation Code Description Data Ina rce(s) Supporting Document(s) ID Date Data Source [id number] 02/28/2021 01:50:00 PM EDT [facility] 1 General Instructions [facility] Emergency Department [address] [place] [address] Phone #: ext- [phone] 02/28/2021 13:48 Patient: [...] 45 tablet. Refills: 0. Substitution permitted.Pharmacy - [facility] [id number] ; [place] [address]. .Understanding of the discharge instructions verbalized by patient.Follow-up with: Rajan Doe M.D., Urology, , [address] [place] [address], [facility] Follow up. Call for the next available appointment. Reason for referral: evaluation and treatment.Summary of care provided to patient. ADDITIONAL INFORMATIONHydrocele (Type Not Specified) 2 General Instructions [facility] Emergency Department [address] [place] [address] Phone #: ext- [phone] 02/28/2021 13:48 Patient: JULISA GHOSH Sex: M [...] that happens with nausea, vomiting, or both [id number] [employer] [address] [place] [address]. All rights reserved. This information is not intended as asubstitute for professional medical care. Always follow your healthcare professional's instructions.VaricoceleA varicocele is a swelling in the veins above the testicles. It's similar to a varicose vein in the legs. 3 General Instructions [facility] Emergency Department [address] [place] [address] Phone #: ext- [phone] 02/28/2021 13:48 Patient: JULISA GHOSH Sex: M [...] jockstrap or snug underwear 4 General Instructions [facility] Emergency Department [address] [place] [address] Phone #: ext- [phone] 02/28/2021 13:48 Patient: JULISA GHOSH Sex: M : 2000 Age: 21y Take an zhjp-[id number]-[id number] pain reliever, such as ibuprofenFollow-up careFollow up [...] groin area appears or gets bigger [employer] [address] [place] [address]. All rights reserved. This information is not intended as asubstitute for professional medical care. Always follow your healthcare professional's instructions. You have been given the following additional information: Hydrocele, Type Not Specified Varicocele(Electronically signed by MICHAEL Buck 02/28/2021 22:06) Name Value Range Interpretation Code Description Data Ina rce(s) Supporting Document(s) ID Date Data Source [id number] 02/28/2021 01:50:00 PM EDT [facility] 1 Clinical Report - Nurses [facility] Emergency Department [address] [place] [address] Phone #: ext- [phone] 02/28/2021 13:48 Patient: [...] to Coronavirus. 2 Clinical Report - Nurses [facility] Emergency Department [address] [place] [address] Phone #: ext- [phone] 02/28/2021 13:48 Patient: [...] 02/28/21 Adele Cruz R.N. 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 --14:35 02/28/21 Earling physician executive, Lewis, VETO Tech1.DISPOSITION / DISCHARGE 16:32 02/28/21. [place] Coma Scale: 15- eyes open- spontaneous (4); best verbal response- oriented (5); best motor response- obeys commands (6). Condition at departure: improved and stable. No learning barriers present. Discharge instructions provided and reviewed with the patient. Reviewed medication(s) side effects, precautions, dosing and course information. Prescription(s) sent electronically to pharmacy. Patient verbalized understanding. Written instructions provided in Libyan. The patient was discharged by the physician. He was discharged home. He left ambulatory and via private vehicle. Patient driving. --16:32 02/28/21 Sheri Drew R.N. 16:31 02/28/21. BP: 115/69. MAP: 84. HR: 61. RR: 16. O2 saturation: 100%. Temp: 98.1 F. Pain level 3 Clinical Report - Nurses [facility] Emergency Department [address] [place] [address] Phone #: ext- [phone] 02/28/2021 13:48 Patient: JULISA GHOSH Sex: M : 2000 Age: 21y now: 12/13. --16:32 02/28/21 Sheri Drew R.N.Locked/Released at 02/28/2021 16:32 by Sheri Drew R.N. Name Value Range Interpretation Code Description Data Ina rce(s) Supporting Document(s) ID Date Data Source [id number] 02/28/2021 01:50:00 PM EDT [facility] 1 Clinical Report - Physicians/Mid Levels [facility] Emergency Department [address] [place] [address] Phone #: ext- [phone] 02/28/2021 13:48 Patient: JULISA GHOSH Sex: M [...] use. 2 Clinical Report - Physicians/Mid Levels [facility] Emergency Department [address] [place] [address] Phone #: ext- [phone] 02/28/2021 13:48 Patient: [...] varicocele. The exam was performed by a sound recording technician. The study was interpreted by theradiologist and contemporaneously by me. Interpretation time: 16:19 02/28/2021.Laboratory Tests: Laboratory tests have been ordered, with results reviewed and considered in themedical decision making process. UA REFLEX TO UA CULTURE: (CARMEN: 02/28/2021 14:20) ( [facility] 02/28/2021 14:58) Final results Test Result Flag [...] Not Indicate Syphilis: (CARMEN: 02/28/2021 14:30) ( [facility] 02/28/2021 16:01) Final results Test Result Flag Units (Reference) SYPHILIS NON-REACTIVE (NORMAL:NON RE. 3 Clinical Report - Physicians/Mid Levels [facility] Emergency Department [address] [place] [address] Phone #: ext- [phone] 02/28/2021 13:48 Patient: JULISA GHOSH Sex: M [...] tablet. Refills: 0. Substitution permitted. Pharmacy - [facility] [address] ; [place] [address]. . Understanding of the discharge instructions verbalized by patient. 4 Clinical Report - Physicians/Mid Levels [facility] Emergency Department [address] [place] [address] Phone #: ext- [phone] 02/28/2021 13:48 Patient: JULISA GHOSH Sex: M : 2000 Age: 21y Follow-up with: Rajan Doe M.D., Urology, , [address] [place] [address], [id number] Follow up. Call for the next available appointment. Reason for referral: evaluation and treatment. Summary of care provided to patient.(Electronically signed by MICHAEL Buck 02/28/2021 22:06) Name Value Range Interpretation Code Description Data Ina rce(s) Supporting Document(s) ID Date Data Source [id number] 02/28/2021 04:01:00 PM EDT [facility] Name Value Range Interpretation Code Description Data Ina rce(s) Supporting Document(s) Treponema pallidum Ab [Presence] in Serum NON-REACTIVE NORMAL:NON VELMA CTIVE [facility] ID Date Data Source [id number] 03/03/2021 07:40:00 AM EDT [facility] Name Value Range Interpretation Code Description Data Ina rce(s) Supporting Document(s) Chlamydia trachomatis rRNA [Presence] in Unspecified specimen by Probe and target amplification method Negative Negative [facility] Neisseria gonorrhoeae rRNA [Presence] in Unspecified specimen by Probe and target amplification method Negative Negative [facility] ID Date Data Source [id number] 02/28/2021 02:57:00 PM EDT [facility] Name Value Range Interpretation Code Description Data Ina rce(s) Supporting Document(s) UA REFLEX TO UA CULTURE [facility] URINALYSIS SOURCE Clean Catch [facility] ital COLOR yellow NORMAL: Yellow [facility] CLARITY clear NORMAL: Clear [facility] Specific gravity of Urine by Test strip 1.015 1.001 - 1.030 [facility] pH 6 5 - 9 [facility] al Glucose [Mass/volume] in Urine by Test strip NORM NORMAL: Negat [facility] Bilirubin.total [Presence] in Urine by Test strip NEG NORMAL: Negative [facility] Ketones [Presence] in Urine by Test strip NEG NORMAL: Negative [facility] Protein [Mass/volume] in Urine by Test strip NEG NORMAL: Negat [facility] Nitrite [Presence] in Urine by Test strip NEG NORMAL: Negative [facility] BLOOD NEG NORMAL: Negative [facility] Leukocyte esterase [Presence] in Urine by Test strip NEG CECY L: Negative [facility] Urobilinogen [Mass/volume] in Urine by Test strip NOR less bernie n 1.0 mg/dL [facility] MICROSCOPIC Not Indicate [facility] ID Date Data Source [id number] 12/23/2020 09:58:00 AM EDT [facility] [address] [place] [address] PHONE: [phone] FAX: [phone] Name .................. : DAVINA EGAN Shivani Acct Number.................. : [id number] ROOM. ................. : Number ................... : [id number] Stay type ............. : O/P Discharge Date......... ... : 12/22/20 Admit Date ......... : 12/22/20 Admit Phys .................... : BENNY STILES Date of ....... : 2000 Family Phys ................... : NO PCP Phone .................. : [phone] Age ................................ : 20 Film# .................. .:[id number] Sex ................................. : M Unsigned transcriptions are preliminary reports and do not represent a medical or legal document MRI BRAIN W/O CONTRAST [id number] COMPLETE:12/22/20 08:35 ALDA [id number] Reason for Exam: TBI 08/24, MIGRAINES WORSENING, [...] , Transcribe Date: 12/22/20 21:44, Dictation Date: Account Planner y for: BENNY GRANDE Copy for: [address] [place] [address] REC Page 1 of 1 Name Value Range Interpretation Code Description Data Ina rce(s) Supporting Document(s) ID Date Data Source [id number] 12/19/2020 02:07:00 PM EDT [facility] [address] [place] [address] PHONE: [phone] FAX: [phone] Name .................. : DAVINA Parrish Acct Number.................. : [id number] ROOM. ................. : VT-02 MR Number ................... : [id number] Stay type ............. : E/R Discharge Date......... ... : 12/18/20 Admit Date ......... : 12/18/20 Admit Phys .................... : COONEYNORM Date of ....... : 2000 Family Phys ................... : NO PCP Phone .................. : [phone] Age ................................ : 20 Film# .................. .:[id number] Sex ................................. : M Unsigned transcriptions are preliminary reports and do not represent a medical or legal document CT HEAD W/O CONTRAST [id number] COMPLETE:12/18/20 20:24 DLA [id number] Reason(s): Head Injury CT OF THE HEAD [...] 02:56, Dictation Date: Page 1 of 2 [facility] [address] [place] [address] PHONE: [phone] FAX: [phone] Name .................. : DAVINA PEARSON Shivani Acct Number.................. : [id number] ROOM. ................. : VT-02 Number ................... : [id number] Stay type ............. : E/R Discharge Date......... ... : 12/18/20 Admit Date ......... : 12/18/20 Admit Phys .................... : COONEYNORM Date of ....... : 2000 Family Phys ................... : NO PCP Phone .................. : [phone] Age ................................ : 20 Film# .................. .:[id number] Sex ................................. : M Unsigned transcriptions are preliminary reports and do not represent a medical or legal document CT HEAD W/O CONTRAST [id number] COMPLETE:12/18/20 20:24 DLA [id number] Reason(s): Head Injury Copy for: CARLOZ LOZANO via fax Copy for: EMERGENCY DEPT via modem Copy for: 710 MED REC DISCHARGED Page 2 of 2 Name Value Range Interpretation Code Description Data Ina rce(s) Supporting Document(s) ID Date Data Source [id number] 12/18/2020 03:12:00 PM EDT [facility] 1 OrderSheet [facility] Emergency Department [address] [place] [address] Phone #: ext- [phone] 12/18/2020 15:09 Patient: [...] 16:40 Richard Horton RN P.A.-C; 2 OrderSheet [facility] Emergency Department [address] [place] [address] Phone #: ext- [phone] 12/18/2020 15:09 Patient: [...] rce(s) Supporting Document(s) ID Date Data Source [id number] 12/18/2020 03:12:00 PM EDT [facility] 1 Medication Reconciliation Report [facility] Emergency Department [address] [place] [address] Phone #: ext- [phone] 12/18/2020 15:09 Patient: [...] rce(s) Supporting Document(s) ID Date Data Source [id number] 12/18/2020 03:12:00 PM EDT [facility] 1 Medication Administration Record [facility] Emergency Department [address] [place] [address] Phone #: ext- [phone] 12/18/2020 15:09 Patient: MICHEL GHOSH Sex: M : 2000 Age: 20yWeight: 77.5 kgHeight/Length: 71 inBMI: 23.8ALLERGIES: Primaquine Phosphate, Macrobid, Aspirin, Sulfa Antibiotics Date/Time Medication Administered Medication OrderedStart NS [IV] IV NS 1000 mL Bolus : Bolus [id number] 12/18/2020 Dose: IV Fluids mL (X1)Richard Horton RN Bolus: 1000 mL over 1 hour(s)---- Dispensed: 1000 mL bagStop Site: #1 right [id number] 12/18/2020Richard Horton RNGiven ZOFRAN [IVP] (ONDANSETRON HCL) Zofran IVP 4 mg16:32 12/18/2020 Dose: 4 mg IVManny Horton RN Site: #1 right forearmGiven BENADRYL [IVP] (DIPHENHYDRAMINE Benadryl IVP 25 mg16:31 12/18/2020 HCL)Richard Horton RN Dose: 25 mg IVP Site: #1 right forearm Name Value Range Interpretation Code Description Data Ina rce(s) Supporting Document(s) ID Date Data Source [id number] 12/18/2020 03:12:00 PM EDT [facility] 1 General Instructions [facility] Emergency Department [address] [place] [address] Phone #: [phone]- [phone] 12/18/2020 15:09 Patient: MICHEL GHOSH Sex: M : 2000 Age: 20yChronic migraine headache without aura, with status migrainosus- refractory to treatment.INSTRUCTIONSTake Tylenol (Acetaminophen) or Motrin (Ibuprofen) as needed for fever control. Take medicationaccording to label instructions. No strenuous activity for two weeks (Recommend no PT as this mayexcerbate your symptoms.).(Please f/u with the [facility] TBI clinic as you have a [...] Other triggers include certain 2 General Instructions [facility] Emergency Department [address] [place] [address] Phone #: ext- [phone] 12/18/2020 15:09 Patient: [...] salami Liver Avocados Bananas 3 General Instructions [facility] Emergency Department [address] [place] [address] Phone #: ext- [phone] 12/18/2020 15:09 Patient: [...] sinuses, ears, or throat 4 General Instructions [facility] Emergency Department [address] [place] [address] Phone #: ext- [phone] 12/18/2020 15:09 Patient: [...] of your face Trouble talking or seeing [phone] [place] [id number]. All rights reserved. This information is not [...] rce(s) Supporting Document(s) ID Date Data Source [id number] 12/18/2020 03:12:00 PM EDT [facility] 1 Clinical Report - Nurses [facility] Emergency Department [address] [place] [address] Phone #: ext- [phone] 12/18/2020 15:09 Patient: [...] carrier of 2 Clinical Report - Nurses [facility] Emergency Department [address] [place] [address] Phone #: ext- [phone] 12/18/2020 15:09 Patient: [...] Horton RN 3 Clinical Report - Nurses [facility] Emergency Department [address] [place] [address] Phone #: ext- [phone] 12/18/2020 15:09 Patient: MICHEL GHOSH Sex: M [...] and birthdate. Blood samples drawn by tech. ([id number]). --16:41 12/18/20 Richard Horton RN Patient transported to [place] by wheelchair with mask and associate professor of radiology. ([id number]). --16:58 12/18/20 Richard Horton RN 17:40 12/18/2020 [...] patient was discharged home and accompanied by clinical study manager. He left ambulatory and via private vehicle. [employer]erry[employer] driving. --18:04 12/18/20 Lucrecia Lynn R.N. Departure time: 18:04 12/18/2020. --18:04 12/18/20 Lucrecia Lynn R.N. 4 Clinical Report - Nurses [facility] Emergency Department [address] [place] [address] Phone #: ext- [phone] 12/18/2020 15:09 Patient: MICHEL GHOSH Sex: M : 2000 Age: 20yLocked/Released at 12/18/2020 18:04 by Lucrecia Lynn R.N. Name Value Range Interpretation Code Description Data Ina rce(s) Supporting Document(s) ID Date Data Source [id number] 12/18/2020 03:12:00 PM EDT [facility] 1 Clinical Report - Physicians/Mid Levels [facility] Emergency Department [address] [place] [address] Phone #: ext- [phone] 12/18/2020 15:09 Patient: MICHEL GHOSH Sex: M [...] NAYAK. Sts that he eventaully went to [facility] for eval and imaigng. PT sts that he finally seen by the [facility] TBI clinic last month and seen [...] NOTES 2 Clinical Report - Physicians/Mid Levels [facility] Emergency Department [address] [place] [address] Phone #: ext- [phone] 12/18/2020 15:09 Patient: MICHEL GHOSH Sex: M [...] 51.0) 3 Clinical Report - Physicians/Mid Levels [facility] Emergency Department [address] [place] [address] Phone #: ext- [phone] 12/18/2020 15:09 Patient: MICHEL GHOSH Sex: M [...] NOT INDICATEDSed. Rate: (CARMEN: 12/18/2020 16:14) ( [facility] 12/18/2020 16:40) Final results Test Result Flag Units (Reference) SED RATE 1 mm/hr (0 - 15) SED RATE REENTER 1CRP: (CARMEN: 12/18/2020 16:14) ( [facility] 12/18/2020 16:39) Final results Test Result Flag [...] 56) 4 Clinical Report - Physicians/Mid Levels [facility] Emergency Department [address] [place] [address] Phone #: ext- [phone] 12/18/2020 15:09 Patient: MICHEL GHOSH Sex: M [...] had since August 05 injury. Seen at [facility] ER and TBI clinic. Seen by TBI clinic yesterday. PE demos NV intact b/l UE. Noted sinus tenderness. ? acute sinusititis vs acute on chronic. Will obtian labs and imaigng for further evla. Pending resutls. Reviewed results. Enter room and patient lying peacefully in bed in NAD. Patient stable. Denies any new issues, concerns, or complaints. Pt sts that he feels [facility] better. Sts that s/s are almost resolved. [...] treatment. 5 Clinical Report - Physicians/Mid Levels [facility] Emergency Department [address] [place] [address] Phone #: ext- [phone] 12/18/2020 15:09 Patient: MICHEL GHOSH Sex: M : 2000 Age: 20yINSTRUCTIONS Take Tylenol (Acetaminophen) or Motrin (Ibuprofen) as needed for fever control. Take medication according to label instructions. No strenuous activity for two weeks (Recommend no PT as this may excerbate your symptoms.). (Please f/u with the [facility] TBI clinic as you have a [...] rce(s) Supporting Document(s) ID Date Data Source [id number] 12/18/2020 04:40:00 PM EDT [facility] Name Value Range Interpretation Code Description Data Ina rce(s) Supporting Document(s) Erythrocyte sedimentation rate by Westergren method 1 mm/hr 0 - 15 [facility] SED RATE REENTER 1 [facility] ID Date Data Source [id number] 12/18/2020 04:39:00 PM EDT [facility] Name Value Range Interpretation Code Description Data Ina rce(s) Supporting Document(s) C reactive protein [Mass/volume] in Serum or Plasma by High sensitivity method 0.20 MG/L 1.00 - 3.00 L [facility] CDC/S HS-CRP CUT-OFF: RELATIVE RISK: <1.0 mg/L Low 1.0 - 3.0 mg/L Average >3.0 mg/L High Optimally, the average of HS-CRP results repeated two weeks apart should be used for risk assessment. ID Date Data Source [id number] 12/18/2020 04:37:00 PM EDT [facility] Name Value Range Interpretation Code Description Data Ina rce(s) Supporting Document(s) COMPREHENSIVE METABOLIC PANEL [facility] COMPREHENSIVE METABOLIC PANEL Sodium [Moles/volume] in Serum or Plasma 139 mEq/L 134 - 153 [facility] Potassium [Moles/volume] in Serum or Plasma 4.0 mEq/L 3.6 - 5.0 [facility] Chloride [Moles/volume] in Serum or Plasma 105 mEq/L 98 - 107 [facility] Carbon dioxide, total [Moles/volume] in Serum or Plasma 26 MEQ/L 22 - 30 [facility] Glucose [Mass/volume] in Serum or Plasma 97 MG/DL 70 - 99 [facility] BUN 10 MG/DL 7 - 21 [facility] al Creatinine [Mass/volume] in Serum or Plasma 0.9 MG/DL 0.7 - 1.5 [facility] BUN/CREAT 11 8 - 27 [facility] Protein [Mass/volume] in Serum or Plasma 7.6 G/DL 6.3 - 8.2 [facility] Albumin [Mass/volume] in Serum or Plasma 4.5 G/DL 3.9 - 5.0 [facility] Globulin [Mass/volume] in Serum by calculation 3.1 GM/DL 2.4 - 3.2 [facility] A/G RATIO 1.5 0.8 - 2.0 [facility] Calcium [Mass/volume] in Serum or Plasma 9.7 MG/DL 8.4 - 10.2 [facility] Bilirubin.total [Mass/volume] in Serum or Plasma 1.0 MG/DL 0.2 - 1.3 [facility] Alkaline phosphatase [Enzymatic activity/volume] in Serum or Plasma 76 U/L 38 - 126 [facility] Aspartate aminotransferase [Enzymatic activity/volume] in Serum or Plasma 21 U/L 5 - 40 [facility] Alanine aminotransferase [Enzymatic activity/volume] in Seru m or Plasma 15 U/L 7 - 56 [facility] Anion gap 3 in Serum or Plasma 8.0 mmol/L 8.0 - 16.0 [facility] AGE 20 yrs [facility] NON-AA GFR >60 mL/min [facility] AFR AMER GFR >60 mL/min [facility] Male GFR In [...] >32 mL/min Normal ID Date Data Source [id number] 12/18/2020 04:19:00 PM EDT [facility] Name Value Range Interpretation Code Description Data Ina rce(s) Supporting Document(s) CBC W/AUTOMATED DIFF [facility] COMPLETE BLOOD COUNT Leukocytes [#/volume] in Blood by Automated count 5.1 10^3/uL 4.2 - 1 1.0 [facility] Erythrocytes [#/volume] in Blood by Automated count 4.61 10^6/uL 4. 50 - 6.30 [facility] Hemoglobin [Mass/volume] in Blood 14.7 g/dL 14.0 - 16.0 [facility] Hematocrit [Volume Fraction] of Blood by Automated count 43.0 % 4 1.0 - 51.0 [facility] Erythrocyte mean corpuscular volume [Entitic volume] by Auto mated count 93.3 fL 80.0 - 94.0 [facility] Erythrocyte mean corpuscular hemoglobin [Entitic mass] by Automated count 31.9 pg 27.0 - 34.0 [facility] Erythrocyte mean corpuscular hemoglobin concentration [Mass/volume] by Automated count 34.2 g/dL 31.0 - 36.0 [facility] Erythrocyte distribution width [Ratio] by Automated count 11.9 % 11.5 - 14.8 [facility] Platelets [#/volume] in Blood by Automated count 181 10^3/uL 150 - 45 0 [facility] Platelet mean volume [Entitic volume] in Blood by Automated count 10.9 fL 7.4 - 10.4 H [facility] Neutrophils/100 leukocytes in Blood by Automated count 47.6 % 37. 0 - 80.0 [facility] Lymphocytes/100 leukocytes in Blood by Manual count 42.2 % 25.0 - 40.0 H [facility] Monocytes/100 leukocytes in Blood by Automated count 8.2 % 3.0 - 8.0 H [facility] Eosinophils/100 leukocytes in Blood by Automated count 1.2 % 0.0 - 7.0 [facility] Basophils/100 leukocytes in Blood by Automated count 0.6 % 0.0 - 2.0 [facility] %IG 0.2 % 0.0 - 0.0 [facility] %NRBC 0.0 % 0.0 - 0.0 [facility] al Neutrophils [#/volume] in Blood by Automated count 2.45 10^3/uL 2.00 - 6.90 [facility] Lymphocytes [#/volume] in Blood by Automated count 2.17 10^3/uL 0.60 - 3.40 [facility] Monocytes [#/volume] in Blood by Automated count 0.42 10^3/uL 0.00 - 0.90 [facility] Eosinophils [#/volume] in Blood by Automated count 0.06 10^3/uL 0.00 - 0.70 [facility] Basophils [#/volume] in Blood by Automated count 0.03 10^3/uL 0.00 - 0.20 [facility] #IG 0.01 10^3/uL 0.00 - 0.10 [facility]ital #NRBC 0.00 10^3/uL 0.00 - 0.00 [facility] ospital MANUAL DIFF NOT INDICATED [facility] RBC MORPH NOT INDICATED [facility] Procedure Social History No Information Vital Signs ID Date Data Source UNK Name Value Range Interpretation Code Description Data Source(s) Diastolic blood pressure 79 mm[Hg] 79 mm[Hg] CHANEL ([facility]) Body height 73 [in_i] 73 [in_i] [facility] ([facility]) Systolic blood pressure 123 mm[Hg] 123 mm[Hg] A THENA ([facility]) Diastolic blood pressure 83 mm[Hg] 83 mm[Hg] [facility]ANEL ([facility]) Body height 73 [in_i] 73 [in_i] [facility] ([facility]) Body mass index (BMI) [Ratio] 22.6 kg/m2 22.6 k g/m2 [facility] ([facility]) Systolic blood pressure 160 mm[Hg] 160 mm[Hg] A THENA ([facility]) Body weight 171 [lb_av] 171 [lb_av] [facility] ([facility]) Diastolic blood pressure 83 mm[Hg] 83 mm[Hg] CHANEL ([facility]) Body height 73 [in_i] 73 [in_i] [facility]ANEL ([facility]) Body mass index (BMI) [Ratio] 22.6 kg/m2 22.6 k g/m2 [facility] ([facility]) Systolic blood pressure 160 mm[Hg] 160 mm[Hg] A THENA ([facility]) Body weight 171 [lb_av] 171 [lb_av] [facility]ANEL ([facility]) Body mass index (BMI) [Ratio] 23.8 kg/m2 23.8 k g/m2 [facility] ([facility], ) [place] body weight 172 [lb_av] 172 [lb_av] MEDEN T ([facility], ) Respiratory rate 12 /min 12 /min [facility] ( [facility], ) Body height 71 [in_i] 71 [in_i] [facility] ([facility], ) 5'11" Body weight 171.00 [lb_av] 171.00 [lb_av] MEDEN T ([facility], ) Patient Treatment Plan of Care Planned Activity Planned Date Details Description Data Source (s) Diclofenac Sodium 0.01 MG/MG Topical Gel [Voltaren] [facility]ANEL ([facility]) topiramate 25 MG Oral Tablet [facility] ([facility]) Sumatriptan 50 MG Oral Tablet [facility] ([facility]) Hydrocortisone 25 MG/ML Topical Cream [Proctosol] [facility]EL ([facility]) Natural Fiber Laxative Therapy oral powder [facility]ANEL ([facility]) Naproxen 500 MG Oral Tablet [facility] ([facility]) Methocarbamol 750 MG Oral Tablet [facility]ANEL ([facility]) Methocarbamol 500 MG Oral Tablet [facility]EL ([facility]) duloxetine 20 MG Delayed Release Oral Capsule CHANEL ([facility]) Cyclobenzaprine hydrochloride 5 MG Oral Tablet [facility]ANEL ([facility]) Ciprofloxacin 500 MG Oral Tablet [facility]AN[facility] ([facility]) Amitriptyline Hydrochloride 25 MG Oral Tablet [facility]ANEL ([facility]) Amitriptyline Hydrochloride 10 MG Oral Tablet [facility] ([facility]) Diclofenac Sodium 0.01 MG/MG Topical Gel [Voltaren] CHANEL ([facility]) topiramate 25 MG Oral Tablet [facility] ([facility]) Sumatriptan 50 MG Oral Tablet [facility] ([facility]) Hydrocortisone 25 MG/ML Topical Cream [Proctosol] CHANEL ([facility]) Natural Fiber Laxative Therapy oral powder [facility]ANEL ([facility]) Naproxen 500 MG Oral Tablet CHNAEL ([facility]) Methocarbamol 750 MG Oral Tablet CHANEL ([facility]) Methocarbamol 500 MG Oral Tablet [facility]EL ([facility]) duloxetine 20 MG Delayed Release Oral Capsule CHANEL ([facility]) Cyclobenzaprine hydrochloride 5 MG Oral Tablet [facility]ANEL ([facility]) Ciprofloxacin 500 MG Oral Tablet [facility]ANEL ([facility]) Amitriptyline Hydrochloride 25 MG Oral Tablet [facility]ANEL ([facility]) Amitriptyline Hydrochloride 10 MG Oral Tablet [facility]ANEL ([facility]) Acetaminophen 325 MG Oral Tablet [facility]ANEL ([facility])
[2021-04-15] MEDS ORDERED: ONDANSETRON 4 MG ORAL DISINTEGRATING TAB PO ONE (10:45)
[2021-04-15 12:35] LABS: HEMATOCRIT 46.5 % (42.0-52.0); HEMOGLOBIN 15.9 g/dl (13.5-17.5); MEAN CORPUSCULAR HEMOGLOBIN 31.5 pg (27.0-33.0); MEAN CORPUSCULAR HGB CONC 34.2 g/dl (32.0-36.5); MEAN CORPUSCULAR VOLUME 92.3 fl (80.0-96.0); PLATELET COUNT, AUTOMATED 176 10^3/uL (150-450); RED BLOOD COUNT 5.04 10^6/uL (4.30-6.10); WHITE BLOOD COUNT 4.5 10^3/uL (4.0-10.0)
[2021-04-15 13:05] LABS: ACETAMINOPHEN LEVEL < 2.0 UG/ML (10.0-30.0); ALBUMIN 4.5 GM/DL (3.2-5.2); ALT/SGPT 30 U/L (12-78); BILIRUBIN,DIRECT 0.3 MG/DL (0.0-0.2); BILIRUBIN,TOTAL 1.2 MG/DL (0.2-1.0); BLOOD UREA NITROGEN 15 MG/DL (7-18); CALCIUM LEVEL 10.2 MG/DL (8.5-10.1); CARBON DIOXIDE LEVEL 28 MEQ/L (21-32); CHLORIDE LEVEL 104 MEQ/L (98-107); CREATININE FOR GFR 0.99 MG/DL (0.70-1.30); ETHYL ALCOHOL (ETHANOL) < 0.003 % (0.000-0.010); GLOMERULAR FILTRATION RATE > 60.0 (>60); GLUCOSE, FASTING 88 MG/DL (70-100); POTASSIUM SERUM 4.2 MEQ/L (3.5-5.1); SALICYLATE LEVEL < 1.7 MG/DL (5.0-30.0); SODIUM LEVEL 137 MEQ/L (136-145); THYROID STIMULATING HORMONE 0.754 uIU/ML (0.358-3.740); TOTAL PROTEIN 8.5 GM/DL (6.4-8.2)
[2021-04-15 13:10] LABS: AMPHETAMINES LEVEL URINE NEGATIVE (NEGATIVE); BARBITURATES URINE NEGATIVE (NEGATIVE); BENZODIAZEPINES URINE NEGATIVE (NEGATIVE); CANNABINOIDS URINE NEGATIVE (NEGATIVE); COCAINE METABOLITE URINE NEGATIVE (NEGATIVE); METHADONE URINE NEGATIVE (NEGATIVE); OPIATES URINE NEGATIVE (NEGATIVE); PHENCYCLIDINE URINE NEGATIVE (NEGATIVE)
--- OUTSIDE RECORDS SUMMARY | 2021-04-15 13:29 | CCD ---
Author Author [facility] Organization [facility] Address Unknown Phone Unavailable Care Team Providers Care Underpresser Hand Name Role Phone NO, PCP Unavailable Unavailable [...] Unavailable Unavailable Alexi Leiva MD Unavailable Unavailable Aleix Leiva MD Unavailable Unavailable Alexi Leiva MD Unavailable Unavailable Alexi Leiva MD Unavailable Unavailable Alexi Leiva MD Unavailable Unavailable Alexi Leiva MD Unavailable Unavailable Alexi Leiva MD Unavailable Unavailable Aelxi Leiva MD Unavailable Unavailable Alexi Leiva MD [...] Alexander PA-C Unavailable Unavailable Jumalon, M Annemarie COUNTERINTELLIGENCE/HUMINT SPECIALIST Unavailable Unavailable Jumalon, M Annemarie COUNTERINTELLIGENCE/HUMINT SPECIALIST Unavailable Unavailable Jumalon, M Annemarie COUNTERINTELLIGENCE/HUMINT SPECIALIST Unavailable Unavailable Jumalon, M Annemarie COUNTERINTELLIGENCE/HUMINT SPECIALIST Unavailable Unavailable Jumalon, M Annemarie COUNTERINTELLIGENCE/HUMINT SPECIALIST Unavailable Unavailable Jumalon, M Annemarie COUNTERINTELLIGENCE/HUMINT SPECIALIST Unavailable Unavailable Jumalon, M Annemarie COUNTERINTELLIGENCE/HUMINT SPECIALIST Unavailable Unavailable Jumalon, M Annemarie COUNTERINTELLIGENCE/HUMINT SPECIALIST Unavailable Unavailable Jumalon, M Annemarie COUNTERINTELLIGENCE/HUMINT SPECIALIST Unavailable Unavailable Jumalon, M Annemarie COUNTERINTELLIGENCE/HUMINT SPECIALIST Unavailable Unavailable Jumalon, M Annemarie COUNTERINTELLIGENCE/HUMINT SPECIALIST Unavailable Unavailable Jumalon, M Annemarie COUNTERINTELLIGENCE/HUMINT SPECIALIST Unavailable Unavailable Jumalon, M Annemarie COUNTERINTELLIGENCE/HUMINT SPECIALIST Unavailable Unavailable Jumalon, M Annemarie COUNTERINTELLIGENCE/HUMINT SPECIALIST Unavailable Unavailable Jumalon, M Annemarie COUNTERINTELLIGENCE/HUMINT SPECIALIST Unavailable Unavailable Jumalon, M Annemarie COUNTERINTELLIGENCE/HUMINT SPECIALIST Unavailable Unavailable Jumalon, M Annemarie COUNTERINTELLIGENCE/HUMINT SPECIALIST Unavailable Unavailable Jumalon, M Annemarie COUNTERINTELLIGENCE/HUMINT SPECIALIST Unavailable Unavailable Jumalon, M Annemarie COUNTERINTELLIGENCE/HUMINT SPECIALIST Unavailable Unavailable Jumalon, M Annemarie COUNTERINTELLIGENCE/HUMINT SPECIALIST Unavailable Unavailable Jumalon, M Annemarie COUNTERINTELLIGENCE/HUMINT SPECIALIST Unavailable Unavailable Jumalon, M Annemarie COUNTERINTELLIGENCE/HUMINT SPECIALIST Unavailable Unavailable Jumalon, M Annemarie COUNTERINTELLIGENCE/HUMINT SPECIALIST Unavailable Unavailable Jumalon, M Annemarie COUNTERINTELLIGENCE/HUMINT SPECIALIST Unavailable Unavailable Jumalon, M Annemarie COUNTERINTELLIGENCE/HUMINT SPECIALIST Unavailable Unavailable Jumalon, M Annemarie COUNTERINTELLIGENCE/HUMINT SPECIALIST Unavailable Unavailable Jumalon, M Annemarie COUNTERINTELLIGENCE/HUMINT SPECIALIST Unavailable Unavailable Jumalon, M Annemarie COUNTERINTELLIGENCE/HUMINT SPECIALIST Unavailable Unavailable Jumalon, M Annemarie COUNTERINTELLIGENCE/HUMINT SPECIALIST Unavailable Unavailable Jumalon, M Annemarie COUNTERINTELLIGENCE/HUMINT SPECIALIST Unavailable Unavailable Shivani Winn MD Unavailable Unavailable [...] by Article 27-F of the [facility] Public Health law. If you continue you may have access to information: Regarding HIV / AIDS; Provided by facilities licensed or operated by the [facility] Office of Mental Health; or Provided by the [facility] Office for People With Developmental Disabilities. If such information is present, then the following [facility] mandated warning applies: This information has been [...] law may result in a fine or fci sentence or both. A general authorization for the release of medical or other information is NOT sufficient authorization for further disc losure. Encounters Encounter Providers Location Date Indications Data Source(s ) Emergency Attender: Alexander Degroot PA-C 07:34:00 PM EDT - 03/31/2021 11:08:00 PM EDT STOMACH PAIN,RECTUM BLEEDING, VOMITING [facility] STOMACH PAIN,RECTUM BLEEDING, VOMITING Patient discharged. Annemarie Pickens, INCIDENT ENGINEER: [address], [place] [address], Ph. Attender: Annemarie PALOMINO [place] - [facility] 03/25/2021 12:00:00 AM EDT ATHKarl WAYNE ([facility]) Emergency Attender: CECY VALENCIA MDConsultant: PCP NO 03/15/2021 03:33:00 PM EDT - 03/15/2021 03:53:00 PM EDT [facility] Patient discharged. Lucas Leiva MD: [id number] [facility] [address], [place] [address], Ph. Attender: Lucas Leiva MD [facility] 03/10/2021 12:00:00 AM EDT [facility] ([facility]) Lucas Leiva MD: [id number] [facility] [address], [place] [address], Ph. Attender: Lucas Leiva MD [facility] 03/10/2021 12:00:00 AM EDT [facility] ([facility]) Emergency Attender: CECY VALENCIA MDConsultant: PCP NO 02/28/2021 01:50:00 PM EDT - 02/28/2021 04:32:00 PM EDT [facility] Patient discharged. Outpatient Attender: Deirdre Winn MD Main office - [facility] 02/02/2021 08:00:00 AM EDT [facility] ([facility], ) Outpatient Attender: SUNIL ZAPATAConsultant: PCP NO 12/22/2020 07:01:00 AM EDT - 12/22/2020 08:01:00 AM EDT [facility] Emergency Attender: CECY VALENCIA MDConsultant: PCP NO 12/18/2020 03:12:00 PM EDT - 12/18/2020 06:04:00 PM EDT [facility] Patient discharged. Medications Medication Brand Name Start Date Product Form Dose Route Admi nistrative Instructions Pharmacy Instructions Status Indications Reaction Description Data Source(s) Emgality Emgality 03/18/2021 12:00:00 AM EDT activ e [facility] ([facility], ) topiramate 100 MG Oral Tablet Topiramate 03/09/2021 12:00:00 AM EDT completed [facility] ([facility], ) topiramate 25 MG Oral Tablet Topiramate 02/02/2021 12:00:00 AM EDT completed [facility] ([facility], ) Nurtec Nurtec 02/02/2021 12:00:00 AM EDT active [facility] ([facility], ) topiramate 100 MG Oral Tablet Topiramate 02/02/2021 12:00:00 AM EDT ORAL completed [facility] ([facility], ) Diclofenac Sodium 0.01 MG/MG Topical Gel [Voltaren] Vo ltaren 1 % topical gel Voltaren 1 % topical gel completed diclofenac sodium 0.01 MG/MG Topical Gel [Voltaren] [facility] ([facility]) Methocarbamol 750 MG Oral Tablet methocarbamol 750 mg tablet methocarbamol 750 mg tablet completed methocarbamo l 750 MG Oral Tablet [facility] ([facility]) Natural Fiber Laxative Therapy oral powder completed Natural Fiber Laxative Therapy oral powder [facility] ([facility]) Sumatriptan 50 MG Oral Tablet sumatriptan 50 mg tablet sumat riptan 50 mg tablet completed sumatriptan 50 MG Oral Tablet [facility] ([facility]) Acetaminophen 325 MG Oral Tablet acetaminophen 325 mg tablet acetaminophen 325 mg tablet completed acetaminophe n 325 MG Oral Tablet [facility] ([facility]) Ciprofloxacin 500 MG Oral Tablet ciprofl oxacin 500 mg tablet TAKE 1 TABLET BY MOUTH TWICE DAILY ciprofloxacin 500 mg tablet TAKE 1 TABLE T BY MOUTH TWICE DAILY completed ciprofloxacin 50 0 MG Oral Tablet [facility] ([facility]) Methocarbamol 500 MG Oral Tablet methocarbamol 500 mg tablet methocarbamol 500 mg tablet completed methocarbamo l 500 MG Oral Tablet [facility] ([facility]) Amitriptyline Hydrochloride 25 MG Oral Tablet amitript yline 25 mg tablet amitriptyline 25 mg tablet completed amitriptyline hydrochloride 25 MG Oral Tablet [facility] ([facility]) Diclofenac Sodium 0.01 MG/MG Topical Gel [Voltaren] Vo ltaren 1 % topical gel Voltaren 1 % topical gel completed diclofenac sodium 0.01 MG/MG Topical Gel [Voltaren] [facility] ([facility]) topiramate 25 MG Oral Tablet topiramate 25 mg tablet topiramate 25 mg tablet completed topiramate 25 MG Oral Tablet [facility] ([facility]) duloxetine 20 MG Delayed Release Oral Ca psule duloxetine 20 mg capsule,delayed release duloxetine 20 mg capsule,delayed release completed duloxetine 20 MG Delayed Release Oral Capsule [facility] ([facility]) Methocarbamol 750 MG Oral Tablet methocarbamol 750 mg tablet methocarbamol 750 mg tablet completed methocarbamo l 750 MG Oral Tablet [facility] ([facility]) Cyclobenzaprine hydrochloride 5 MG Oral Tablet cyclobe nzaprine 5 mg tablet cyclobenzaprine 5 mg tablet completed cyclobenzaprine hydrochloride 5 MG Oral Tablet [facility] ([facility]) Amitriptyline Hydrochloride 10 MG Oral Tablet amitript yline 10 mg tablet amitriptyline 10 mg tablet completed amitriptyline hydrochloride 10 MG Oral Tablet [facility] ([facility]) Methocarbamol 500 MG Oral Tablet methocarbamol 500 mg tablet methocarbamol 500 mg tablet completed methocarbamo l 500 MG Oral Tablet [facility] ([facility]) Hydrocortisone 25 MG/ML Topical Cream [P roctosol] Proctosol HC 2.5 % topical cream perineal applicator Proctosol HC 2.5 % topical cream perineal applicator completed hydrocortisone 25 MG/ML Topical Cream [Proctosol] [facility] ([facility]) Amitriptyline Hydrochloride 10 MG Oral Tablet amitript yline 10 mg tablet amitriptyline 10 mg tablet completed amitriptyline hydrochloride 10 MG Oral Tablet [facility] ([facility]) duloxetine 20 MG Delayed Release Oral Ca psule duloxetine 20 mg capsule,delayed release duloxetine 20 mg capsule,delayed release completed duloxetine 20 MG Delayed Release Oral Capsule [facility] ([facility]) Naproxen 500 MG Oral Tablet naproxen 500 mg tablet TAKE 1 TABLET BY MOUTH TWICE DAILY TAKE WITH FOOD naproxen 500 mg tablet TAKE 1 TABLET BY MOUTH TWICE DAILY TAKE WITH FOOD completed naproxe n 500 MG Oral Tablet [facility] ([facility]) Hydrocortisone 25 MG/ML Topical Cream [P roctosol] Proctosol HC 2.5 % topical cream perineal applicator Proctosol HC 2.5 % topical cream perineal applicator completed hydrocortisone 25 MG/ML Topical Cream [Proctosol] [facility] ([facility]) Cyclobenzaprine hydrochloride 5 MG Oral Tablet cyclobe nzaprine 5 mg tablet cyclobenzaprine 5 mg tablet completed cyclobenzaprine hydrochloride 5 MG Oral Tablet [facility] ([facility]) Amitriptyline Hydrochloride 25 MG Oral Tablet amitript yline 25 mg tablet amitriptyline 25 mg tablet completed amitriptyline hydrochloride 25 MG Oral Tablet [facility] ([facility]) Sumatriptan 50 MG Oral Tablet sumatriptan 50 mg tablet sumat riptan 50 mg tablet completed sumatriptan 50 MG Oral Tablet [facility] ([facility]) Naproxen 500 MG Oral Tablet naproxen 500 mg tablet TAKE 1 TABLET BY MOUTH TWICE DAILY TAKE WITH FOOD naproxen 500 mg tablet TAKE 1 TABLET BY MOUTH TWICE DAILY TAKE WITH FOOD completed naproxe n 500 MG Oral Tablet [facility] ([facility]) topiramate 25 MG Oral Tablet topiramate 25 mg tablet topiramate 25 mg tablet completed topiramate 25 MG Oral Tablet [facility] ([facility]) Natural Fiber Laxative Therapy oral powder completed Natural Fiber Laxative Therapy oral powder [facility] ([facility]) Ciprofloxacin 500 MG Oral Tablet ciprofl oxacin 500 mg tablet TAKE 1 TABLET BY MOUTH TWICE DAILY ciprofloxacin 500 mg tablet TAKE 1 TABLE T BY MOUTH TWICE DAILY completed ciprofloxacin 50 0 MG Oral Tablet [facility] ([facility]) Insurance Providers Payer name Policy type / Coverage type Policy ID Covered constitution party ID Covered constitution party's relationship to covarrubias Policy Covarrubias Plan Information [facility] ACTIVE DUTY [id number] SP [id number] [facility] HUMANA - O/P [id number] [id number] [facility] [employer] - O/P [id number] [id number] [facility] [employer] - O/P . 18 . 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 Diagnosis 02/28/2021 01:5 0:00 PM EDT [facility] N433 Hydrocele, unspecified Hydrocele, unspecified Diagnosi s 02/28/2021 01:50:00 PM EDT [facility] R300 Dysuria Dysuria Diagnosis 02/28/2021 01:50:00 PM ED [facility] [id number] Personal history of traumatic brain inju ry Personal history of traumatic brain injury Diagnosis 12/22/2020 07:01:00 AM [facility] R2689 Other abnormalities of gait and mobility Other abnormalities of gait and mobility Diagnosis 12/22/2020 07:01:00 AM T [facility] [id number] Migraine, unspecified, not intractable, without status migrainosus Migraine, unspecified, not intractable, without status migrainosus Diagnosis 12/22/2020 07:01:00 AM [facility] [id number] Chronic migraine without aura, intractab le, with status migrainosus Chronic migraine without aura, intractable, with status migrainosus Diagnosis 12/18/2020 03:12:00 PM T [facility] R519 Headache, unspecified Headache, unspecified Diagnosis 12/18/2020 03:12:00 PM T [facility] [id number] Concussion injury of brain Concussion injury of brain Problem 02/02/2021 12:00:00 AM EDT [facility] ([facility], ) [id number] Migraine Migraine Problem 02/02/2021 12:00:00 AM ED T [facility] ([facility], ) Surgeries/Procedures Procedure Description Date Indications Data Source(s) Chemotherpy Admin Subcutaneous/Im Non-Hormonal Anti-Neoplast ic 04/01/2021 12:00:00 AM EDT [facility] ([facility] ) MRI, lumbar spine, w/o contrast 03/10/2021 12:00:00 AM EDT [facility] ([facility]) OFFICE CONSULTATION NEW/ESTAB PATIENT 60 MIN 12:00:00 AM EDT [facility] ([facility], ) Results ID Date Data Source [id number] 03/31/2021 09:53:00 PM EDT [facility] ED Physician Documentation NAME: JULISA GHOSH : 2000 AGE: 21 MR#: [id number] SERVICE DATE: 03/31/[address]: Alexander Degroot MD PRIMARY CARE DR: No Family PHYS Provided ROOM#: [facility] (Adult, General) General Chief Complaint: GI Stated Complaint: STOMACH PAIN,RECTUM BLEEDING, VOMITING Time Seen by Provider: 03/31/21 20:19 History of Present Illness Initial Comments: Pleasant 21-year-old male from [facility] here [place] [...] % (Auto) 53.2, Lymph % (Auto) 36.9, [place] % (Auto) 8.3, Eos % (Auto) 0.8, [...] Appearance Clear, Urine pH 6.5, Ur Specific [place] 1.031 A, Urine Protein Negative, Urine Ketones [...] rce(s) Supporting Document(s) ID Date Data Source [id number] 03/31/2021 09:48:00 PM EDT [facility] [address] [place] [address] [phone] NAME SEX PT STATUS ACCOUNT NUMBER JULISA GHOSH [facility] ER [id number] ORDERING PHYSICIAN LOCATION MEDICAL RECORD NO. Alexander Degroot MD ER [id number] ATTENDING PHYSICIAN DATE OF DATE OF EXAM/TIME [...] Trans Dt/Tm: Trans by: DT Prt Dt/Tm: 9290-3708: Total DLP = 405.00 mGy-cm 0125-2704: Total Radiation Dose = 6.0750 mSv Lifetime Dose: 6.0750 mSv Name Value Range Interpretation Code Description Data Ina rce(s) Supporting Document(s) ID Date Data Source [id number] 03/31/2021 11:53:[address] [facility] CT/NG IS A QUALITATIVE IN VITRO REAL-SHASHANK [...] rce(s) Supporting Document(s) ID Date Data Source [id number] 03/31/2021 09:03:00 PM EDT [facility] Reason for ordering culture: Abnormal fi ndings UAMethod of Collection:: Voided Name Value Range Interpretation Code Description Data Ina rce(s) Supporting Document(s) Color of Urine [facility] Appearance of Urine CLEAR [facility] pH of Urine by Test strip 6.5 5-8 [facility] Specific gravity of Urine by Refractometry 1.031 1.005 -1.030 Abnormal (applies to non-numeric results) [facility] Leukocyte esterase [Presence] in Urine by Test strip NEGAT ABENA [facility] Nitrite [Presence] in Urine by Test strip NEGATIVE [facility] Protein [Presence] in Urine by Test strip NEGATIVE [facility] Glucose [Mass/volume] in Urine by Automated test strip NEGATIVE NEG ATIVE [facility] Ketones [Presence] in Urine by Test strip NEGATI VE Abnormal (applies to non- numeric results) [facility] Urobilinogen [Presence] in Urine 0.2-1 EU/dl [facility] Bilirubin.total [Presence] in Urine by Automated test strip NEGATIVE [facility] Erythrocytes [#/volume] in Urine by Test strip NEGATIVE NEGATIVE [facility] URINE MICROSCOPIC? (CIF) NO [facility] ID Date Data Source [id number] 04/01/2021 08:51:00 AM EDT [facility] Special Instructions: Lab may order repe at test if initial test elevatedPhysician If elevated, reflex second test in 4-6 hrs Name Value Range Interpretation Code Description Data Ina rce(s) Supporting Document(s) Campylobacter coli+jejuni+mihai fusA gene [Presence] in Stool by Probe and target amplification method [facility] Salmonella sp rpoD gene [Presence] in [facility] by Probe and target amplification method [facility] ital Shigella species+EIEC invasion plasmid a ntigen H (ipaH) gene [Presence] in Stool by Probe and target amplification method [facility] Vibrio cholerae+parahaemolyticus rfbL+tr kH+tnaA genes [Presence] in Stool by Probe and target amplification method [facility] Yersinia enterocolitica recN gene [Prese nce] in Stool by Probe and target amplification method [facility] Escherichia coli shiga-like toxin 1 (stx 1) gene [Presence] in Stool by Probe and target amplification method [facility] Escherichia coli shiga-like toxin 2 (stx 2) gene [Presence] in Stool by Probe and target amplification method [facility] Norovirus genogroup I+II orf1-orf2 junct ion region [Presence] in Stool by Probe and target amplification method [facility] Rotavirus A nsp5 gene [Presence] in Stoo l by Probe and target amplification method [facility] ital NORMAL VALUE FOR TEST IS "NOT DETECTED"T he EVRYTHNGigene Enteric Pathogens Nucleic Acid Test (EP) is amultiplexed, qualitative test for simultaneous detection andidentification of common pathogenic enteric bacteria,viuruses, and genetic virulence markers from liquid or softstool preserved in Letha-Luca medium, collected fromindividuals with signs and symptoms of gastrointestinalinfection.The test is performed on the automated Wannyi Systemutilizing reverse lead setter (RT), polymerase chainreaction (PCR), and array hybridization [...] syndrome or Crohn'sdisease. ID Date Data Source [id number] 03/31/2021 09:04:00 PM EDT [facility] Special Instructions: Lab may order repe at test if initial test elevatedPhysician If elevated, reflex second test in 4-6 hrs Name Value Range Interpretation Code Description Data Ina rce(s) Supporting Document(s) Leukocytes [#/volume] in Blood by Automated count 6.3 10*3/uL 4.45-10 .71 N [facility] Erythrocytes [#/volume] in Blood by Automated count 4.90 10*6/uL 4.3- 6.1 N [facility] Hemoglobin [Moles/volume] in Blood 15.6 g/dL 13-18 N [facility] Hematocrit [Volume Fraction] of Blood by Automated count 44.6 % 4 2-52 N [facility] Erythrocyte mean corpuscular volume [Ent itic volume] in Cord blood by Automated count 91 fL 80-96 N [facility] ital Erythrocyte mean corpuscular hemoglobin [Entitic mass] by Au tomated count 32 pg 27-31 Above high normal [facility] Erythrocyte mean corpuscular hemoglobin concentration [Mass/volume] in Cord blood 35 g/dL 33-37 N [facility] ital Erythrocyte distribution width [Entitic volume] by Automated count 12 % 11-15 N [facility] Platelets [#/volume] in Blood by Automated count 174 10*3/uL 130-472 N [facility] Platelet mean volume [Entitic volume] in Blood 11.1 fL 9.1-13.1 N [facility] Neutrophils/100 leukocytes in Blood by Automated count 53.2 % 41- 77 N [facility] Neutrophils [#/volume] in Blood by Automated count 3.3 U 1.7-7.6 N [facility] Lymphocytes/100 leukocytes in Blood by Automated count 36.9 % 14- 46 N [facility] Lymphocytes [#/volume] in Blood by Automated count 2.3 U 0.6-4.6 N [facility] Monocytes/100 leukocytes in Blood by Automated count 8.3 % 4-12 N [facility] Monocytes [#/volume] in Blood by Automated count 0.5 U 0.2-1.2 N [facility] Eosinophils/100 leukocytes in Blood by Automated count 0.8 % 0-7 N [facility] Eosinophils [#/volume] in Blood by Automated count 0.1 U 0.0-0.5 N [facility] Basophils/100 leukocytes in Blood by Automated count 0.5 % 0.4-1 .3 N [facility] Basophils [#/volume] in Blood by Automated count 0.0 U 0.0-0.2 N [facility] NUCLEATED RED BLOOD CELL 0 % [facility] RED BLOOD CELL# [facility] Immature granulocytes [Presence] in Blood by Automated count 0-2 N [facility] Immature granulocytes [#/volume] in Blood by Automated count 0.0 U 0-0.1 N [facility] Manual Differential panel - Blood NO [facility] ID Date Data Source [id number] 03/31/2021 09:26:00 PM EDT [facility] Special Instructions: Lab may order repe at test if initial test elevatedPhysician If elevated, reflex second test in 4-6 hrs Name Value Range Interpretation Code Description Data Ina rce(s) Supporting Document(s) Urea nitrogen [Mass/volume] in Serum or Plasma 16 mg/dL 9-23 N [facility] Sodium [Moles/volume] in Serum or Plasma 139 mmol/L 132-146 [facility] Potassium [Moles/volume] in Serum or Plasma 3.8 mmol/L 3.5-5.5 [facility] Chloride [Moles/volume] in Serum or Plasma 106 mmol/L 99-109 [facility] Carbon dioxide, total [Moles/volume] in Serum or Plasma 28 mmol/L 20 -31 N [facility] Anion gap in Serum or Plasma 9 mmol/L 8-[address] [facility] Glucose [Mass/volume] in Serum or Plasma 102 mg/dL 74-106 N [facility] Creatinine 1.1 mg/dL 0.5-1.1 [facility] Glomerular filtration rate/1.73 sq M.pre dicted [Volume Rate/Area] in Serum or Plasma Greater Than 60 ABOVE 60 [facility] Alanine aminotransferase [Enzymatic acti vity/volume] in Serum or Plasma by With P-5'-P 39 U/L 10-49 N [facility] ital Aspartate aminotransferase [Enzymatic ac tivity/volume] in Serum or Plasma by With P-5'-P 25 U/L 0-33 N [facility] pital Alkaline phosphatase [Enzymatic activity/volume] in Serum or Plasma 81 U/L 45-129 N [facility] Calcium [Mass/volume] in Serum or Plasma 10.0 mg/dL 8.5-10.1 [facility] Bilirubin.total [Mass/volume] in Serum or Plasma 1.3 mg/dL 0.3-1.2 Above high normal [facility] Albumin [Mass/volume] in Serum or Plasma by Bromocresol purple (BCP) dye binding method 4.2 g/dL 3.2-4.8 N [facility] ital Protein [Mass/volume] in Serum or Plasma 8.6 g/dL 5.7-8.2 Above [facility] ID Date Data Source [id number] 03/31/2021 09[facility]29[facility]: Lab may order repe at test if initial test elevatedPhysician If elevated, reflex second test in 4-6 hrs Name Value Range Interpretation Code Description Data Ina rce(s) Supporting Document(s) Lactic w Rfx (if elevated) 0.7 mmol/L 0.5-2.0 N [facility] ID Date Data Source [id number] 04/05/2021 08:54:[address] [facility] Special Instructions: Lab may order repe at test if initial test elevatedPhysician If elevated, reflex second test in 4-6 hrs Name Value Range Interpretation Code Description Data Ina rce(s) Supporting Document(s) Bacteria identified in Blood by Culture [facility] NO GROWTH AFTER 5 DAYS ID Date Data Source [id number] 03/31/2021 09:26:[address] [facility] Special Instructions: Lab may order repe at test if initial test elevatedPhysician If elevated, reflex second test in 4-6 hrs Name Value Range Interpretation Code Description Data Ina rce(s) Supporting Document(s) Amylase [Enzymatic activity/volume] in Serum or Plasma 93 U/L 30- [address] [facility] ID Date Data Source [id number] 03/31/2021 09:26:[address] [facility] Special Instructions: Lab may order repe at test if initial test elevatedPhysician If elevated, reflex second test in 4-6 hrs Name Value Range Interpretation Code Description Data Ina rce(s) Supporting Document(s) Lipase [Enzymatic activity/volume] in Serum or Plasma 90 U/L 73-3 [address] [facility] ID Date Data Source [id number] 03/15/2021 03:33:00 PM EDT [facility] 1 Medication Reconciliation Report [facility] Emergency Department [address] [place] [address] Phone #: ext- [phone] 03/15/2021 15:01 Patient: [...] needed for 10 days -- for pruritus. Aseoutpv94 capsule. Refills: 0. Substitution permitted.Pharmacy - [facility] - [address] ; [place] [address]. . -- MICHAEL Ramsey Name Value Range Interpretation Code Description Data Ina rce(s) Supporting Document(s) ID Date Data Source [id number] 03/15/2021 03:33:00 PM EDT [facility] 1 Medication Administration Record [facility] Emergency Department [address] [place] [address] Phone #: ext- [phone] 03/2021 15:01 Patient: JULISA GHOSH Sex: M : 2000 Age: 21yWeight: 77.5 kgHeight/Length: 73 inBMI: 22.5ALLERGIES: No Known Drug AllergyDate/Time Medication Administered Medication Ordered Name Value Range Interpretation Code Description Data Ina rce(s) Supporting Document(s) ID Date Data Source [id number] 03/15/2021 03:33:00 PM EDT [facility] 1 General Instructions [facility] Emergency Department [address] [place] [address] Phone #: ext- [phone] 03/15/2021 15:01 Patient: JULISA GHOSH Sex: M [...] needed for 10 days -- for pruritus. Suolyhim28 capsule. Refills: 0. Substitution permitted.Pharmacy - [facility] - [address] ; [place] [address]. .Understanding of the discharge instructions verbalized by patient. Expected course of illness, dischargeinstructions, activity level, follow-up appointment and risks and bene fits of treatment reviewed with patientand understanding verbalized. Agrees to plan of care.Follow-up with: [facility] [place] GUSTAVO SEYMOUR, , , [address], , [place], [place], [facility] Follow up in one even if well. Call for the next available appointment. Reason for referral: evaluation andrecommend dermatology/design/animation instructor referral if symptoms persist. Summary of care provided to patient viapaper. 2 General Instructions [facility] Emergency Department [address] [place] [address] Phone #: ext- [phone] 03/15/2021 15:01 Patient: JULISA GHOSH Sex: M : 2000 Age: 21y(Electronically signed by MICHAEL Ramsey 03/15/2021 16:26) Name Value Range Interpretation Code Description Data Ina rce(s) Supporting Document(s) ID Date Data Source [id number] 03/15/2021 03:33:00 PM EDT [facility] 1 Clinical Report - Nurses [facility] Emergency Department [address] [place] [address] Phone #: ext- [phone] 03/15/2021 15:01 Patient: JULISA GHOSH Sex: M : 2000 Age: 21yTRIAGEArrived by private vehicle. Historian: patient. Accompanied by friend.Acuity: LEVEL 4.Chief Complaint: (generalized itching).Onset. (6 months ago). ( pt states he has no rash but has had a generalized itching for about the past 6months, has not been seen for this as of yet).Treatment ACLS SPECIALIST:None.SEPSIS SCREEN: SIRS SCREEN NEGATIVE. SEPSIS SCREEN NEGATIVE. [...] Immunizations: up-to-date. 2 Clinical Report - Nurses [facility] Emergency Department [address] [place] [address] Phone #: ext- [phone] 03/15/2021 15:01 Patient: JULISA GHOSH Sex: M [...] To treatment room. --15:03/15/21 Roe Hurley RN.PHYSICAL [id number] 03/15/21. Ambulatory to room.GENERAL / NEURO / [...] Discharge instructions 3 Clinical Report - Nurses [facility] Emergency Department [address] [place] [address] Phone #: ext- [phone] 03/15/2021 15:01 Patient: JULISA GHOSH Sex: M : 2000 Age: 21y provided and reviewed with the patient. Reviewed medication(s) side effects, precautions, dosing and course information. Prescription(s) sent electronically to pharmacy ([facility]). Patient verbalized understanding. Written instructions provided in Greek. The patient was discharged home. He left [...] rce(s) Supporting Document(s) ID Date Data Source [id number] 03/15/2021 03:33:00 PM EDT [facility] 1 Clinical Report - Physicians/Mid Levels [facility] Emergency Department [address] [place] [address] Phone #: ext- [phone] 03/15/2021 15:01 Patient: [...] allergies. 2 Clinical Report - Physicians/Mid Levels [facility] Emergency Department [address] [place] [address] Phone #: ext- [phone] 03/15/2021 15:01 Patient: JULISA GHOSH Sex: M [...] permitted. 3 Clinical Report - Physicians/Mid Levels [facility] Emergency Department [address] [place] [address] Phone #: ext- [phone] 03/15/2021 15:01 Patient: JULISA GHOSH Sex: M : 2000 Age: 21y Pharmacy - [facility] - [address] ; [place] [address]. . Understanding of the discharge instructions verbalized by patient. Expected course of illness, discharge instructions, activity level, follow-up appointment and risks and benefits of treatment reviewed with patient and understanding verbalized. Agrees to plan of care. Follow-up with: [facility] [place] GUSTAVO SEYMOUR, , , [id number] [place] [address], , [place], [address] Follow up in one even if well. Call for the next available appointment. Reason for referral: evaluation and recommend dermatology/design/animation instructor referral if symptoms persist. Summary of care provided to patient via paper.(Electronically signed by MICHAEL Ramsey 03/15/2021 16:26) Name Value Range Interpretation Code Description Data Ina rce(s) Supporting Document(s) ID Date Data Source [id number] 03/02/2021 09:25:00 PM EDT [facility] Name Value Range Interpretation Code Description Data Ina rce(s) Supporting Document(s) SARS COVID ANTIGEN NEGATIVE [facility] This lab was ordered by KAUSHAL goins nd reported by [facility]. ID Date Data Source [id number] 03/01/2021 10:32:00 AM EDT [facility] [address] [place] [address] PHONE: [phone] FAX: [phone] Name .................. : DAVNIA Parrish Acct Number.................. : [id number] ROOM. ................. : VT-08 MR Number ................... : [id number] Stay type ............. : E/R Discharge Date......... ... : 02/28/21 Admit Date ......... : 02/28/21 Admit Phys .................... : COONEYNORM Date of ....... : 2000 Family Phys ................... : NO PCP Phone .................. : [phone] Age ................................ : 21 Film# .................. .:[id number] Sex ................................. : M Unsigned transcriptions are preliminary reports and do not represent a medical or legal document SCROTAL [id number] COMPLETE:02/28/21 14:22 [id number] Reason(s): Testicle/Scrotum Pain ULTRASOUND SCROTUM INDICATION: Testicular/scrotal [...] of testicular torsion. Page [address] [facility] [address] [place] [address] PHONE: [phone] FAX: [phone] Name .................. : DAVINA Parrish Acct Number.................. : [id number] ROOM. ................. : VT-08 Number ................... : [id number] Stay type ............. : E/R Discharge Date......... ... : 02/28/21 Admit Date ......... : 02/28/21 Admit Phys .................... : COONEYNORM Date of ....... : 2000 Family Phys ................... : NO PCP Phone .................. : [phone] Age ................................ : 21 Film# .................. .:[id number] Sex ................................. : M Unsigned transcriptions are preliminary reports and do not represent a medical or legal document SCROTAL [id number] COMPLETE:02/28/21 14:22 [id number] Reason(s): Testicle/Scrotum Pain 2. Bilateral varicoceles, right [...] rce(s) Supporting Document(s) ID Date Data Source [id number] 02/28/2021 01:50:00 PM EDT [facility] 1 OrderSheet [facility] Emergency Department [address] [place] [address] Phone #: ext- [phone] 02/28/2021 13:48 Patient: JULISA GHOSH Sex: M : 2000 Age: 21yWEIGHT:77.5 kg HEIGHT:73 inches BMI:22.5ALLERGIES: Aspirin, Macrobid, Primaquine Phosphate, SulfaCHIEF COMPLAINT: dysuria, Rt, testicular pain:, LtDIAGNOSIS: Hydrocele, Scrotal varicesLAB ORDERSOrder Description Priority Entered Acknowledged InitialedUA Reflex to UA 14:22 02/28/2021 14:31 NirmalaCulture Johnnie Ulrich sweater operatorLewis Peterson; Vvug2Tbvivgmbx/GC STAT 14:22 02/28/2021 14:31 Lewis [place] ED; Tech1 NOTES: urineSyphilis 14:22 02/28/2021 15:03 Johnnie Mcclain R.N.;DIAGNOSTIC STUDY ORDERSOrder Description Priority Entered Acknowledged InitialedUS Scrotal STAT 14:22 02/28/2021 14:34 Nirmala(Oxygen?(No)) Johnnie Ulrich sweater operatorLewis Peterson; Tech1 Reason for Study: Testicle/Scrotum PainMEDICATION/IV/DRIP/FLUID ORDERSOrder Description Priority Entered Acknowledged InitialedGENERAL ORDERSOrder Description Priority Entered Acknowledged Initialed[Electronically signed by Sheri Drew R.N. (16:32 02/28/2021)][Electronically signed by Johnnie Ulrich (22:06 02/28/2021)][Electronically locked by Sheri Drew R.N. (16:32 02/28/2021)] Name Value Range Interpretation Code Description Data Ina rce(s) Supporting Document(s) ID Date Data Source [id number] 02/28/2021 01:50:00 PM EDT [facility] 1 Medication Reconciliation Report [facility] Emergency Department [address] [place] [address] Phone #: [phone] rhb- [phone] 02/28/2021 13:48 Patient: JULISA GHOSH Sex: M [...] tablet. Refills: 0. Substitution permitted.Pharmacy - [facility] [address] ; [place] [address]. . -- MICHAEL Buck Name Value Range Interpretation Code Description Data Ina rce(s) Supporting Document(s) ID Date Data Source [id number] 02/28/2021 01:50:00 PM EDT [facility] 1 Medication Administration Record [facility] Emergency Department [address] [place] [address] Phone #: ext- [phone] 02/28/2021 13:48 Patient: JULISA GHOSH Acct#: [id number] Sex: M : 2000 Age: 21yWeight: 77.5 kgHeight/Length: 73 inBMI: 22.5ALLERGIES: Macrobid, Aspirin, Sulfa, Primaquine PhosphateDate/Time Medication Administered Medication Ordered Name Value Range Interpretation Code Description Data Ina rce(s) Supporting Document(s) ID Date Data Source [id number] 02/28/2021 01:50:00 PM EDT [facility] 1 General Instructions [facility] Emergency Department [address] [place] [address] Phone #: ext- [phone] 02/28/2021 13:48 Patient: [...] 45 tablet. Refills: 0. Substitution permitted.Pharmacy - [facility] [address] ; [place] [address]. .Understanding of the discharge instructions verbalized by patient.Follow-up with: Rajan Doe M.D., Urology, , [address] [place] [address], [facility] Follow up. Call for the next available appointment. Reason for referral: evaluation and treatment.Summary of care provided to patient. ADDITIONAL INFORMATIONHydrocele (Type Not Specified) 2 General Instructions [facility] Emergency Department [address] [place] [address] Phone #: ext- [phone] 02/28/2021 13:48 Patient: JULISA GHOSH Sex: M [...] that happens with nausea, vomiting, or both [id number] [employer]. [address] [place] [address]. All rights reserved. This information is not intended as asubstitute for professional medical care. Always follow your healthcare professional's instructions.VaricoceleA varicocele is a swelling in the veins above the testicles. It's similar to a varicose vein in the legs. 3 General Instructions [facility] Emergency Department [address] [place] [address] Phone #: ext- [phone] 02/28/2021 13:48 Patient: JULISA GHOSH Sex: M [...] jockstrap or snug underwear 4 General Instructions [facility] Emergency Department [address] [place] [address] Phone #: ext- [phone] 02/28/2021 13:48 Patient: JULISA GHOSH Sex: M : 2000 Age: 21y Take an vhpl-qxf-plclloa pain reliever, such as ibuprofenFollow-up careFollow up [...] groin area appears or gets bigger [employer]. [address] [place] [address]. All rights reserved. This information is not intended as asubstitute for professional medical care. Always follow your healthcare professional's instructions. You have been given the following additional information: Hydrocele, Type Not Specified Varicocele(Electronically signed by MICHAEL Buck 02/28/2021 22:06) Name Value Range Interpretation Code Description Data Ina rce(s) Supporting Document(s) ID Date Data Source [id number] 02/28/2021 01:50:00 PM EDT [facility] 1 Clinical Report - Nurses [facility] Emergency Department [address] [place] [address] Phone #: ext- [phone] 02/28/2021 13:48 Patient: [...] to Coronavirus. 2 Clinical Report - Nurses [facility] Emergency Department [address] [place] [address] Phone #: ext- [phone] 02/28/2021 13:48 Patient: [...] 02/28/21 Adele Cruz R.N. [facility] with mask and electronic equipment maint tech. --14:35 02/28/21 [place] sweater operator, Lewis, VETO Tech1.DISPOSITION / DISCHARGE 16:32 02/28/21. [place] Coma Scale: 15- eyes open- spontaneous (4); best verbal response- oriented (5); best motor response- obeys commands (6). Condition at departure: improved and stable. No learning barriers present. Discharge instructions provided and reviewed with the patient. Reviewed medication(s) side effects, precautions, dosing and course information. Prescription(s) sent electronically to pharmacy. Patient verbalized understanding. Written instructions provided in Greek. The patient was discharged by the physician. He was discharged home. He left ambulatory and via private vehicle. Patient driving. --16:32 02/28/21 Sheri Drew R.N. 16:31 02/28/21. BP: 115/69. MAP: 84. HR: 61. RR: 16. O2 saturation: 100%. Temp: 98.1 F. Pain level 3 Clinical Report - Nurses [facility] Emergency Department [address] [place] [address] Phone #: ext- [phone] 02/28/2021 13:48 Patient: JULISA HGOSH Sex: M : 2000 Age: 21y now: 12/13. --16:32 02/28/21 Sheri Drew R.N.Locked/Released at 02/28/2021 16:32 by Sheri Drew R.N. Name Value Range Interpretation Code Description Data Ina rce(s) Supporting Document(s) ID Date Data Source [id number] 02/28/2021 01:50:00 PM EDT [facility] 1 Clinical Report - Physicians/Mid Levels [facility] Emergency Department [address] [place] [address] Phone #: ext- [phone] 02/28/2021 13:48 Patient: JULISA GHOSH Sex: M [...] use. 2 Clinical Report - Physicians/Mid Levels [facility] Emergency Department [address] [place] [address] Phone #: ext- [phone] 02/28/2021 13:48 Patient: [...] varicocele. The exam was performed by a supply technician. The study was interpreted by theradiologist and contemporaneously by me. Interpretation time: 16:19 02/28/2021.Laboratory Tests: Laboratory tests have been ordered, with results reviewed and considered in themedical decision making process. UA REFLEX TO UA CULTURE: (CARMEN: 02/28/2021 14:20) ( [facility] 02/28/2021 14:58) Final results Test Result Flag [...] Indicate Syphilis: (CARMEN: 02/28/2021 14:30) ( [facility] 02/28/2021 16:01) Final results Test Result Flag Units (Reference) SYPHILIS NON-REACTIVE (NORMAL:NON RE. 3 Clinical Report - Physicians/Mid Levels [facility] Emergency Department [address] [place] [address] Phone #: ext- [phone] 02/28/2021 13:48 Patient: JULISA GHOSH Sex: M [...] Refills: 0. Substitution permitted. Pharmacy - [facility] [address] ; [place] [address]. . Understanding of the discharge instructions verbalized by patient. 4 Clinical Report - Physicians/Mid Levels [facility] Emergency Department [address] [place] [address] Phone #: ext- [phone] 02/28/2021 13:48 Patient: JULISA GHOSH Sex: M : 2000 Age: 21y Follow-up with: Rajan Doe M.D., Urology, , [address] [place] [address], [address] Follow up. Call for the next available appointment. Reason for referral: evaluation and treatment. Summary of care provided to patient.(Electronically signed by MICHAEL Buck 02/28/2021 22:06) Name Value Range Interpretation Code Description Data Ina rce(s) Supporting Document(s) ID Date Data Source [id number] 02/28/2021 04:01:00 PM EDT [facility] Name Value Range Interpretation Code Description Data Ina rce(s) Supporting Document(s) Treponema pallidum Ab [Presence] in Serum NON-REACTIVE NORMAL:NON VELMA CTIVE [facility] ID Date Data Source [id number] 03/03/2021 07:40:00 AM EDT [facility] Name Value Range Interpretation Code Description Data Ina rce(s) Supporting Document(s) Chlamydia trachomatis rRNA [Presence] in Unspecified specimen by Probe and target amplification method Negative Negative [facility] Neisseria gonorrhoeae rRNA [Presence] in Unspecified specimen by Probe and target amplification method Negative Negative [facility] ID Date Data Source [id number] 02/28/2021 02:57:00 PM EDT [facility] Name Value Range Interpretation Code Description Data Ina rce(s) Supporting Document(s) UA REFLEX TO UA CULTURE [facility] URINALYSIS SOURCE Clean Catch [facility] COLOR yellow NORMAL: Yellow [facility] CLARITY clear NORMAL: Clear [facility] Specific gravity of Urine by Test strip 1.015 1.001 - 1.030 [facility] pH 6 5 - 9 [facility] Glucose [Mass/volume] in Urine by Test strip NORM NORMAL: Negat [facility] Bilirubin.total [Presence] in Urine by Test strip NEG NORMAL: Negative [facility] Ketones [Presence] in Urine by Test strip NEG NORMAL: Negative [facility] Protein [Mass/volume] in Urine by Test strip NEG NORMAL: Negat [facility] Nitrite [Presence] in Urine by Test strip NEG NORMAL: Negative [facility] BLOOD NEG NORMAL: Negative [facility] Leukocyte esterase [Presence] in Urine by Test strip NEG CECY L: Negative [facility] Urobilinogen [Mass/volume] in Urine by Test strip NOR less bernie n 1.0 mg/dL [facility] MICROSCOPIC Not Indicate [facility] ID Date Data Source [id number] 12/23/2020 09:58:00 AM EDT [facility] [address] [place] [address] PHONE: [phone] FAX: [phone] Name .................. : DAVINA EGAN Shivani Acct Number.................. : [id number] ROOM. ................. : Number ................... : [id number] Stay type ............. : O/P Discharge Date......... ... : 12/22/20 Admit Date ......... : 12/22/20 Admit Phys .................... : BENNY STILES Date of ....... : 2000 Family Phys ................... : NO PCP Phone .................. : [phone] Age ................................ : 20 Film# .................. .:[id number] Sex ................................. : M Unsigned transcriptions are preliminary reports and do not represent a medical or legal document MRI BRAIN W/O CONTRAST [id number] COMPLETE:12/22/20 08:35 ALDA [id number] Reason for Exam: TBI 08/24, MIGRAINES WORSENING, [...] , Transcribe Date: 12/22/20 21:44, Dictation Date: Kinesiologist y for: BENNY GRANDE Copy for: [address] [place] [address] REC Page 1 of 1 Name Value Range Interpretation Code Description Data Ina rce(s) Supporting Document(s) ID Date Data Source [id number] 12/19/2020 02:07:00 PM EDT [facility] [address] [place] [address] PHONE: [phone] FAX: [phone] Name .................. : DAVINA Parrish Acct Number.................. : [id number] ROOM. ................. : VT-02 MR Number ................... : [id number] Stay type ............. : E/R Discharge Date......... ... : 12/18/20 Admit Date ......... : 12/18/20 Admit Phys .................... : COONEYNORM Date of ....... : 2000 Family Phys ................... : NO PCP Phone .................. : [phone] Age ................................ : 20 Film# .................. .:[id number] Sex ................................. : M Unsigned transcriptions are preliminary reports and do not represent a medical or legal document CT HEAD W/O CONTRAST [id number] COMPLETE:12/18/20 20:24 DLA [id number] Reason(s): Head Injury CT OF THE HEAD [...] 02:56, Dictation Date: Page [address] [facility] [address] [place] [address] PHONE: [phone] FAX: [phone] Name .................. : DAVINA PEARSON Shivani Acct Number.................. : [id number] ROOM. ................. : VT-02 Number ................... : [id number] Stay type ............. : E/R Discharge Date......... ... : 12/18/20 Admit Date ......... : 12/18/20 Admit Phys .................... : COONEYNORM Date of ....... : 2000 Family Phys ................... : NO PCP Phone .................. : [phone] Age ................................ : 20 Film# .................. .:[id number] Sex ................................. : M Unsigned transcriptions are preliminary reports and do not represent a medical or legal document CT HEAD W/O CONTRAST [id number] COMPLETE:12/18/20 20:24 DLA [id number] Reason(s): Head Injury Copy for: CARLOZ LOZANO via fax Copy for: EMERGENCY DEPT via modem Copy for: 710 MED REC DISCHARGED Page 2 of 2 Name Value Range Interpretation Code Description Data Ina rce(s) Supporting Document(s) ID Date Data Source [id number] 12/18/2020 03:12:00 PM EDT [facility] 1 OrderSheet [facility] Emergency Department [address] [place] [address] Phone #: ext- [phone] 12/18/2020 15:09 Patient: [...] 16:40 Richard Horton RN P.A.-C; 2 OrderSheet [facility] Emergency Department [address] [place] [address] Phone #: ext- [phone] 12/18/2020 15:09 Patient: [...] rce(s) Supporting Document(s) ID Date Data Source [id number] 12/18/2020 03:12:00 PM EDT [facility] 1 Medication Reconciliation Report [facility] Emergency Department [address] [place] [address] Phone #: ext- [phone] 12/18/2020 15:09 Patient: [...] rce(s) Supporting Document(s) ID Date Data Source [id number] 12/18/2020 03:12:00 PM EDT [facility] 1 Medication Administration Record [facility] Emergency Department [address] [place] [address] Phone #: ext- [phone] 12/18/2020 15:09 Patient: MICHEL GHOSH Sex: M : 2000 Age: 20yWeight: 77.5 kgHeight/Length: 71 inBMI: 23.8ALLERGIES: Primaquine Phosphate, Macrobid, Aspirin, Sulfa Antibiotics Date/Time Medication Administered Medication OrderedStart NS [IV] IV NS 1000 mL Bolus : Bolus 202997:30 12/18/2020 Dose: IV Fluids mL (X1)Richard Horton RN Bolus: 1000 mL over 1 hour(s)---- Dispensed: 1000 mL bagStop Site: #1 right :40 12/18/2020Richard Horton RNGiven ZOFRAN [IVP] (ONDANSETRON HCL) Zofran IVP 4 mg16:32 12/18/2020 Dose: 4 mg IVManny Horton RN Site: #1 right forearmGiven BENADRYL [IVP] (DIPHENHYDRAMINE Benadryl IVP 25 mg16:31 12/18/2020 HCL)Richard Horton RN Dose: 25 mg IVP Site: #1 right forearm Name Value Range Interpretation Code Description Data Ina rce(s) Supporting Document(s) ID Date Data Source [id number] 12/18/2020 03:12:00 PM EDT [facility] 1 General Instructions [facility] Emergency Department [address] [place] [address] Phone #: [phone]- [phone] 12/18/2020 15:09 Patient: MICHEL GHOSH Sex: M : 2000 Age: 20yChronic migraine headache without aura, with status migrainosus- refractory to treatment.INSTRUCTIONSTake Tylenol (Acetaminophen) or Motrin (Ibuprofen) as needed for fever control. Take medicationaccording to label instructions. No strenuous activity for two weeks (Recommend no PT as this mayexcerbate your symptoms.).(Please f/u with the [facility] TBI clinic as you have a chronic NYAAK. Please take medications as rx'ed.).Warnings: Further evaluation [...] Other triggers include certain 2 General Instructions [facility] Emergency Department [address] [place] [address] Phone #: ext- [phone] 12/18/2020 15:09 Patient: [...] salami Liver Avocados Bananas 3 General Instructions [facility] Emergency Department [address] [place] [address] Phone #: ext- [phone] 12/18/2020 15:09 Patient: [...] sinuses, ears, or throat 4 General Instructions [facility] Emergency Department [address] [place] [address] Phone #: ext- [phone] 12/18/2020 15:09 Patient: [...] of your face Trouble talking or seeing [phone] [employer] [place] [id number]. All rights reserved. This information is not [...] rce(s) Supporting Document(s) ID Date Data Source [id number] 12/18/2020 03:12:00 PM EDT [facility] 1 Clinical Report - Nurses [facility] Emergency Department [address] [place] [address] Phone #: ext- [phone] 12/18/2020 15:09 Patient: [...] carrier of 2 Clinical Report - Nurses [facility] Emergency Department [address] [place] [address] Phone #: ext- [phone] 12/18/2020 15:09 Patient: [...] Horton RN 3 Clinical Report - Nurses [facility] Emergency Department [address] [place] [address] Phone #: ext- [phone] 12/18/2020 15:09 Patient: MIHCEL GHOSH Sex: M : 2000 Age: 20y [...] and birthdate. Blood samples drawn by tech. ([id number]). --16:41 12/18/20 Richard Horton RN Patient transported to [place] by wheelchair with mask and electronic equipment maint tech. ([id number]). --16:58 12/18/20 Richard Horton RN 17:40 12/18/2020 [...] patient was discharged home and accompanied by retail equipment associate. He left ambulatory and via private vehicle. It Generalist driving. --18:04 12/18/20 Lucrecia Lynn R.N. Departure time: 18:04 12/18/2020. --18:04 12/18/20 Lucrecia Lynn R.N. 4 Clinical Report - Nurses [facility] Emergency Department [address] [place] [address] Phone #: ext- [phone] 12/18/2020 15:09 Patient: MICHEL GHOSH Sex: M : 2000 Age: 20yLocked/Released at 12/18/2020 18:04 by Lucrecia Lynn R.N. Name Value Range Interpretation Code Description Data Ina rce(s) Supporting Document(s) ID Date Data Source [id number] 12/18/2020 03:12:00 PM EDT [facility] 1 Clinical Report - Physicians/Mid Levels [facility] Emergency Department [address] [place] [address] Phone #: ext- [phone] 12/18/2020 15:09 Patient: MICHEL GHOSH Sex: M [...] NAYAK. Sts that he eventaully went to [facility] for eval and imaigng. PT sts that he finally seen by the [facility] TBI clinic last month and seen [...] NOTES 2 Clinical Report - Physicians/Mid Levels [facility] Emergency Department [address] [place] [address] Phone #: ext- [phone] 12/18/2020 15:09 Patient: MICHEL GHOSH Sex: M [...] 51.0) 3 Clinical Report - Physicians/Mid Levels [facility] Emergency Department [address] [place] [address] Phone #: ext- [phone] 12/18/2020 15:09 Patient: MICHEL GHOSH Sex: M [...] NOT INDICATEDSed. Rate: (CARMEN: 12/18/2020 16:14) [facility] 16:40[facility] Final results Test Result Flag Units (Reference) SED RATE 1 mm/hr (0 - 15) SED RATE REENTER 1CRP: (CARMEN: 12/18/2020 16:14) ( [facility] 12/18/2020 16:39) Final results Test Result Flag [...] 56) 4 Clinical Report - Physicians/Mid Levels [facility] Emergency Department [address] [place] [address] Phone #: ext- [phone] 12/18/2020 15:09 Patient: MICHEL GHOSH Sex: M [...] had since August 05 injury. Seen at [facility] ER and TBI clinic. Seen by TBI clinic yesterday. PE demos NV intact b/l UE. Noted sinus tenderness. ? acute sinusititis vs acute on chronic. Will obtian labs and imaigng for further evla. Pending resutls. Reviewed results. Enter room and patient lying peacefully in bed in NAD. Patient stable. Denies any new issues, concerns, or complaints. Pt sts that he feels [facility] better. Sts that s/s are almost [...] treatment. 5 Clinical Report - Physicians/Mid Levels [facility] Emergency Department [address] [place] [address] Phone #: ext- [phone] 12/18/2020 15:09 Patient: MICHEL GHOSH Sex: M : 2000 Age: 20yINSTRUCTIONS Take Tylenol (Acetaminophen) or Motrin (Ibuprofen) as needed for fever control. Take medication according to label instructions. No strenuous activity for two weeks (Recommend no PT as this may excerbate your symptoms.). (Please f/u with the [facility] TBI clinic as you have a [...] rce(s) Supporting Document(s) ID Date Data Source [id number] 12/18/2020 04:40:00 PM EDT [facility] Name Value Range Interpretation Code Description Data Ina rce(s) Supporting Document(s) Erythrocyte sedimentation rate by Westergren method 1 mm/hr 0 - 15 [facility] SED RATE REENTER 1 [facility] ID Date Data Source [id number] 12/18/2020 04:39:00 PM EDT [facility] Name Value Range Interpretation Code Description Data Ina rce(s) Supporting Document(s) C reactive protein [Mass/volume] in Serum or Plasma by High sensitivity method 0.20 MG/L 1.00 - 3.00 L [facility] CDC/S HS-CRP CUT-OFF: RELATIVE RISK: <1.0 mg/L Low 1.0 - 3.0 mg/L Average >3.0 mg/L High Optimally, the average of HS-CRP results repeated two weeks apart should be used for risk assessment. ID Date Data Source [id number] 12/18/2020 04:37:00 PM EDT [facility] Name Value Range Interpretation Code Description Data Ina rce(s) Supporting Document(s) COMPREHENSIVE METABOLIC PANEL [facility] COMPREHENSIVE METABOLIC PANEL Sodium [Moles/volume] in Serum or Plasma 139 mEq/L 134 - 153 [facility] Potassium [Moles/volume] in Serum or Plasma 4.0 mEq/L 3.6 - 5.0 [facility] Chloride [Moles/volume] in Serum or Plasma 105 mEq/L 98 - 107 [facility] Carbon dioxide, total [Moles/volume] in Serum or Plasma 26 MEQ/L 22 - 30 [facility] Glucose [Mass/volume] in Serum or Plasma 97 MG/DL 70 - 99 [facility] BUN 10 MG/DL 7 - 21 [facility] al Creatinine [Mass/volume] in Serum or Plasma 0.9 MG/DL 0.7 - 1.5 [facility] BUN/CREAT 11 8 - 27 [facility] Protein [Mass/volume] in Serum or Plasma 7.6 G/DL 6.3 - 8.2 [facility] Albumin [Mass/volume] in Serum or Plasma 4.5 G/DL 3.9 - 5.0 [facility] Globulin [Mass/volume] in Serum by calculation 3.1 GM/DL 2.4 - 3.2 [facility] A/G RATIO 1.5 0.8 - 2.0 [facility] Calcium [Mass/volume] in Serum or Plasma 9.7 MG/DL 8.4 - 10.2 [facility] Bilirubin.total [Mass/volume] in Serum or Plasma 1.0 MG/DL 0.2 - 1.3 [facility] Alkaline phosphatase [Enzymatic activity/volume] in Serum or Plasma 76 U/L 38 - 126 [facility] Aspartate aminotransferase [Enzymatic activity/volume] in Serum or Plasma 21 U/L 5 - 40 [facility] Alanine aminotransferase [Enzymatic activity/volume] in Seru m or Plasma 15 U/L 7 - 56 [facility] Anion gap 3 in Serum or Plasma 8.0 mmol/L 8.0 - 16.0 [facility] AGE 20 yrs [facility] Hospit al NON-AA GFR >60 mL/min [facility] Hosp ital AFR AMER GFR >60 mL/min [facility] Ho spital Male GFR In [...] >32 mL/min Normal ID Date Data Source [id number] 12/18/2020 04:19:00 PM EDT [facility] Name Value Range Interpretation Code Description Data Ina rce(s) Supporting Document(s) CBC W/AUTOMATED DIFF [facility] COMPLETE BLOOD COUNT Leukocytes [#/volume] in Blood by Automated count 5.1 10^3/uL 4.2 - 1 1.0 [facility] Erythrocytes [#/volume] in Blood by Automated count 4.61 10^6/uL 4. 50 - 6.30 [facility] Hemoglobin [Mass/volume] in Blood 14.7 g/dL 14.0 - 16.0 [facility] Hematocrit [Volume Fraction] of Blood by Automated count 43.0 % 4 1.0 - 51.0 [facility] Erythrocyte mean corpuscular volume [Entitic volume] by Auto mated count 93.3 fL 80.0 - 94.0 [facility] Erythrocyte mean corpuscular hemoglobin [Entitic mass] by Automated count 31.9 pg 27.0 - 34.0 [facility] Erythrocyte mean corpuscular hemoglobin concentration [Mass/volume] by Automated count 34.2 g/dL 31.0 - 36.0 [facility] Erythrocyte distribution width [Ratio] by Automated count 11.9 % 11.5 - 14.8 [facility] Platelets [#/volume] in Blood by Automated count 181 10^3/uL 150 - 45 0 [facility] Platelet mean volume [Entitic volume] in Blood by Automated count 10.9 fL 7.4 - 10.4 H [facility] Neutrophils/100 leukocytes in Blood by Automated count 47.6 % 37. 0 - 80.0 [facility] Lymphocytes/100 leukocytes in Blood by Manual count 42.2 % 25.0 - 40.0 H [facility] Monocytes/100 leukocytes in Blood by Automated count 8.2 % 3.0 - 8.0 H [facility] Eosinophils/100 leukocytes in Blood by Automated count 1.2 % 0.0 - 7.0 [facility] Basophils/100 leukocytes in Blood by Automated count 0.6 % 0.0 - 2.0 [facility] %IG 0.2 % 0.0 - 0.0 [facility] 0.0 % 0.0 - 0.0 [facility] al Neutrophils [#/volume] in Blood by Automated count 2.45 10^3/uL 2.00 - 6.90 [facility] Lymphocytes [#/volume] in Blood by Automated count 2.17 10^3/uL 0.60 - 3.40 [facility] Monocytes [#/volume] in Blood by Automated count 0.42 10^3/uL 0.00 - 0.90 [facility] Eosinophils [#/volume] in Blood by Automated count 0.06 10^3/uL 0.00 - 0.70 [facility] Basophils [#/volume] in Blood by Automated count 0.03 10^3/uL 0.00 - 0.20 [facility] #IG 0.01 10^3/uL 0.00 - 0.10 [facility] H ospital #NRBC 0.00 10^3/uL 0.00 - 0.00 [facility] ospital MANUAL DIFF NOT INDICATED [facility] RBC MORPH NOT INDICATED [facility] Procedure Social History No Information Vital Signs ID Date Data Source UNK Name Value Range Interpretation Code Description Data Source(s) Diastolic blood pressure 79 mm[Hg] 79 mm[Hg] CHANEL ([facility]) Body height 73 [in_i] 73 [in_i] [facility]ANEL ([facility]) Systolic blood pressure 123 mm[Hg] 123 mm[Hg] A THENA ([facility]) Diastolic blood pressure 83 mm[Hg] 83 mm[Hg] CHANEL ([facility]) Body height 73 [in_i] 73 [in_i] CHANEL ([facility]) Body mass index (BMI) [Ratio] 22.6 kg/m2 22.6 k g/m2 [facility]AN[facility] ([facility]) Systolic blood pressure 160 mm[Hg] 160 mm[Hg] A THENA ([facility]) Body weight 171 [lb_av] 171 [lb_av] [facility]ANEL ([facility]) Diastolic blood pressure 83 mm[Hg] 83 mm[Hg] CHANEL ([facility]) Body height 73 [in_i] 73 [in_i] CHANEL ([facility]) Body mass index (BMI) [Ratio] 22.6 kg/m2 22.6 k g/m2 CHANEL ([facility]) Systolic blood pressure 160 mm[Hg] 160 mm[Hg] A THENA ([facility]) Body weight 171 [lb_av] 171 [lb_av] CHANEL ([facility]) Body mass index (BMI) [Ratio] 23.8 kg/m2 23.8 k g/m2 [facility] ([facility] ) [place] body weight 172 [lb_av] 172 [lb_av] MEDEN T ([facility], ) Respiratory rate 12 /min 12 /min [facility] ( [facility] ) Body height 71 [in_i] 71 [in_i] [facility] ([facility], ) 5'11" Body weight 171.00 [lb_av] 171.00 [lb_av] MEDEN T ([facility], ) Patient Treatment Plan of Care Planned Activity Planned Date Details Description Data Source (s) Diclofenac Sodium 0.01 MG/MG Topical Gel [Voltaren] CHANEL ([facility]) topiramate 25 MG Oral Tablet [facility]ANEL ([facility]) Sumatriptan 50 MG Oral Tablet CHANEL ([facility]) Hydrocortisone 25 MG/ML Topical Cream [Proctosol] CHANEL ([facility]) Natural Fiber Laxative Therapy oral powder CHANEL ([facility]) Naproxen 500 MG Oral Tablet [facility]ANEL ([facility]) Methocarbamol 750 MG Oral Tablet CHANEL ([facility]) Methocarbamol 500 MG Oral Tablet CHANEL ([facility]) duloxetine 20 MG Delayed Release Oral Capsule CHANEL ([facility]) Cyclobenzaprine hydrochloride 5 MG Oral Tablet CHANEL ([facility]) Ciprofloxacin 500 MG Oral Tablet [facility]ANEL ([facility]) Amitriptyline Hydrochloride 25 MG Oral Tablet [facility]ANEL ([facility]) Amitriptyline Hydrochloride 10 MG Oral Tablet CHANEL ([facility]) Diclofenac Sodium 0.01 MG/MG Topical Gel [Voltaren] CHANEL ([facility]) topiramate 25 MG Oral Tablet CHANEL ([facility]) Sumatriptan 50 MG Oral Tablet [facility]ANEL ([facility]) Hydrocortisone 25 MG/ML Topical Cream [Proctosol] CHANEL ([facility]) Natural Fiber Laxative Therapy oral powder CHANEL ([facility]) Naproxen 500 MG Oral Tablet CHANEL ([facility]) Methocarbamol 750 MG Oral Tablet CHANEL ([facility]) Methocarbamol 500 MG Oral Tablet CHANEL ([facility]) duloxetine 20 MG Delayed Release Oral Capsule CHANEL ([facility]) Cyclobenzaprine hydrochloride 5 MG Oral Tablet CHANEL ([facility]) Ciprofloxacin 500 MG Oral Tablet CHANEL ([facility]) Amitriptyline Hydrochloride 25 MG Oral Tablet CHANEL ([facility]) Amitriptyline Hydrochloride 10 MG Oral Tablet CHANEL ([facility]) Acetaminophen 325 MG Oral Tablet CHANEL ([facility])
[2021-04-15 14:26] LABS: RSV AMPLIFICATION NEGATIVE (NEGATIVE)
--- NOTE | 2021-04-15 16:00 | MHIPNPDOC ---
[facility] Progress Note Progress Note DATE OF SERVICE: 04/15/21 Patient presented by PSA, meets criteria for involuntary admission, reports SI, HI, has flat affect and reports AVH. See PSA notes for details. Vital Signs Vital Signs Date Time Temp Pulse Resp B/P (MAP) Pulse Ox O2 Delivery O2 Flow Rate FiO2 04/15/21 10:34 98.3 70 18 137/98 (111) 100 Room Air Laboratory Data 24H Labs Laboratory Tests 2 04/15/21 12:06: Nucleated Red Blood Cells % (auto) 0.0, Anion Gap 5L, Glomerular Filtration Rate > 60.0, Calcium Level 10.2H, Total Bilirubin 1.2H, Direct Bilirubin 0.3H, Aspartate Amino Transf (AST/SGOT) 24, Alanine Aminotransferase (ALT/SGPT) 30, Alkaline Phosphatase 74, Total Protein 8.5H, Albumin 4.5, Albumin/Globulin Ratio 1.1, Thyroid Stimulating Hormone (TSH) 0.754, Salicylates Level < 1.7L, Acetaminophen Level < 2.0L, Ethyl Alcohol Level < 0.003 04/15/21 12:24: Urine Opiates Screen NEGATIVE, Urine Methadone Screen NEGATIVE, Urine Barbiturates Screen NEGATIVE, Urine Phencyclidine Screen NEGATIVE, Urine Amphetamines Screen NEGATIVE, Urine Benzodiazepines Screen NEGATIVE, Urine Cocaine Metabolite Screen NEGATIVE, Urine Cannabinoids Screen NEGATIVE 04/15/21 13:28: Coronavirus (COVID-19)(PCR) NEGATIVE, Influenza Type A (RT-PCR) NEGATIVE, Influenza Type B (RT-PCR) NEGATIVE, Respiratory Syncytial Virus (PCR) NEGATIVE CBC/BMP Laboratory Tests 04/15/21 12:06 Allergies Coded Allergies: Sulfa (Sulfonamide Antibiotics) (Verified Allergy, Intermediate, G6PD, 04/11/21) ibuprofen (Verified Allergy, Intermediate, G6PD, 04/11/21) primaquine (Verified Allergy, Intermediate, G6PD, 04/11/21) acetaminophen (Verified Allergy, Unknown, G6PD, 04/11/21) aspirin (Verified Allergy, Unknown, G6PD, 04/11/21) ANAND VALDES MD Apr 15, 2021 15:59
[2021-04-15] MEDS ORDERED: TOPI100T9 PO (16:02)
[2021-04-15] MEDS ORDERED: HYDR25SU23 PR (16:02)
[2021-04-15] MEDS ORDERED: MUCI600T31 PO (16:02)
[2021-04-15] MEDS ORDERED: AUGM875T28 PO (16:02)
[2021-04-15] MEDS ORDERED: EMGA120I SQ (16:02)
[2021-04-15] MEDS ORDERED: HOME MED LIST COMPLETE! XX SCH (16:05)
[2021-04-15] MEDS ORDERED: MAALOX 30 ML SUSP *UDC PO PRN (16:25)
[2021-04-15] MEDS ORDERED: MOM 30ML SUSPENSION UDC PO PRN (16:25)
[2021-04-15] MEDS ORDERED: IBUPROFEN 400MG TAB PO PRN (16:25)
[2021-04-15] MEDS ORDERED: OLANZapine 5 MG TAB PO PRN (16:25)
--- OUTSIDE RECORDS SUMMARY | 2021-04-15 17:02 | CCD ---
Author Author [facility] Organization [facility] Address Unknown Phone Unavailable Care Team Providers Care Zone Supervisor Firearms Name Role Phone NO, PCP Unavailable Unavailable [...] Alexander PA-C Unavailable Unavailable Jumalon, M Annemarie HAND BOOKBINDER Unavailable Unavailable Jumalon, M Annemarie HAND BOOKBINDER Unavailable Unavailable Jumalon, M Annemarie HAND BOOKBINDER Unavailable Unavailable Jumalon, M Annemarie HAND BOOKBINDER Unavailable Unavailable Jumalon, M Annemarie HAND BOOKBINDER Unavailable Unavailable Jumalon, M Annemarie HAND BOOKBINDER Unavailable Unavailable Jumalon, M Annemarie HAND BOOKBINDER Unavailable Unavailable Jumalon, M Annemarie HAND BOOKBINDER Unavailable Unavailable Jumalon, M Annemarie HAND BOOKBINDER Unavailable Unavailable Jumalon, M Annemarie HAND BOOKBINDER Unavailable Unavailable Jumalon, M Annemarie HAND BOOKBINDER Unavailable Unavailable Jumalon, M Annemarie HAND BOOKBINDER Unavailable Unavailable Jumalon, M Annemarie HAND BOOKBINDER Unavailable Unavailable Jumalon, M Annemarie HAND BOOKBINDER Unavailable Unavailable Jumalon, M Annemarie HAND BOOKBINDER Unavailable Unavailable Jumalon, M Annemarie HAND BOOKBINDER Unavailable Unavailable Jumalon, M Annemarie HAND BOOKBINDER Unavailable Unavailable Jumalon, M Annemarie HAND BOOKBINDER Unavailable Unavailable Jumalon, M Annemarie HAND BOOKBINDER Unavailable Unavailable Jumalon, M Annemarie HAND BOOKBINDER Unavailable Unavailable Jumalon, M Annemarie HAND BOOKBINDER Unavailable Unavailable Jumalon, M Annemarie HAND BOOKBINDER Unavailable Unavailable Jumalon, M Annemarie HAND BOOKBINDER Unavailable Unavailable Jumalon, M Annemarie HAND BOOKBINDER Unavailable Unavailable Jumalon, M Annemarie HAND BOOKBINDER Unavailable Unavailable Jumalon, M Annemarie HAND BOOKBINDER Unavailable Unavailable Jumalon, M Annemarie HAND BOOKBINDER Unavailable Unavailable Jumalon, M Annemarie HAND BOOKBINDER Unavailable Unavailable Jumalon, M Annemarie HAND BOOKBINDER Unavailable Unavailable Jumalon, M Annemarie HAND BOOKBINDER Unavailable Unavailable Shivani Winn MD Unavailable Unavailable [...] Unavailable Shivani Winn MD Unavailable Unavailable Shivani Wnin MD Unavailable Unavailable Shivani Winn MD Unavailable [...] is protected by Article 27-F of the [facility] Public Health law. If you continue you may have access to information: Regarding HIV / AIDS; Provided by facilities licensed or operated by the [facility] Office of Mental Health; or Provided by the [facility] Office for People With Developmental Disabilities. If such information is present, then the following [facility] mandated warning applies: This information has [...] law may result in a fine or retirement sentence or both. A general authorization for the release of medical or other information is NOT sufficient authorization for further disc losure. Encounters Encounter Providers Location Date Indications Data Source(s ) Emergency Attender: Alexander Degroot PA-C 07:34:00 PM EDT - 03/31/2021 11:08:00 PM EDT STOMACH PAIN,RECTUM BLEEDING, VOMITING [facility] STOMACH PAIN,RECTUM BLEEDING, VOMITING Patient discharged. Annemarie Pickens, MISSILE FACILITIES REPAIRER: [address], [place] [address], Ph. Attender: Annemarie PALOMINO [place] - [facility] 03/25/2021 12:00:00 AM EDT ATHKarl WAYNE ([facility]) Emergency Attender: CECY VALENCIA MDConsultant: PCP NO 03/15/2021 03:33:00 PM EDT - 03/15/2021 03:53:00 PM EDT [facility] Patient discharged. Lucas Leiva MD: [id number] [facility] [address], [place] [address], Ph. Attender: Lucas Leiva MD [facility] 03/10/2021 12:00:00 AM EDT [facility] ([facility]) Lucas Leiva MD: [id number] [facility] [address], [place] [address], Ph. Attender: Lucas Leiva MD [facility] 03/10/2021 12:00:00 AM EDT [facility] ([facility]) Emergency Attender: CECY VALENCIA MDConsultant: PCP NO 02/28/2021 01:50:00 PM EDT - 02/28/2021 04:32:00 PM EDT [facility] Patient discharged. Outpatient Attender: Deirdre Winn MD Main office - [facility] 02/02/2021 08:00:00 AM EDT [facility] ([facility], ) Outpatient Attender: SUNIL ZAPATAConsultant: PCP NO 12/22/2020 07:01:00 AM EDT - 12/22/2020 08:01:00 AM EDT [facility] Emergency Attender: CECY VALENCIA MDConsultant: PCP NO 12/18/2020 03:12:00 PM EDT - 12/18/2020 06:04:00 PM EDT [facility] Patient discharged. Medications Medication Brand Name Start Date Product Form Dose Route Admi nistrative Instructions Pharmacy Instructions Status Indications Reaction Description Data Source(s) Emgality Emgality 03/18/2021 12:00:00 AM EDT activ e [facility] ([facility], ) topiramate 100 MG Oral Tablet Topiramate 03/09/2021 12:00:00 AM EDT completed [facility] ([facility], ) topiramate 25 MG Oral Tablet Topiramate 02/02/2021 12:00:00 AM EDT completed [facility] ([facility], ) Nurtec Nurtec 02/02/2021 12:00:00 AM EDT active [facility] ([facility], ) topiramate 100 MG Oral Tablet Topiramate 02/02/2021 12:00:00 AM EDT ORAL completed [facility] ([facility], ) Diclofenac Sodium 0.01 MG/MG Topical Gel [Voltaren] Vo ltaren 1 % topical gel Voltaren 1 % topical gel completed diclofenac sodium 0.01 MG/MG Topical Gel [Voltaren] [facility] ([facility]) Methocarbamol 750 MG Oral Tablet methocarbamol 750 mg tablet methocarbamol 750 mg tablet completed methocarbamo l 750 MG Oral Tablet [facility] ([facility]) Natural Fiber Laxative Therapy oral powder completed Natural Fiber Laxative Therapy oral powder [facility] ([facility]) Sumatriptan 50 MG Oral Tablet sumatriptan 50 mg tablet sumat riptan 50 mg tablet completed sumatriptan 50 MG Oral Tablet [facility] ([facility]) Acetaminophen 325 MG Oral Tablet acetaminophen 325 mg tablet acetaminophen 325 mg tablet completed acetaminophe n 325 MG Oral Tablet [facility] ([facility]) Ciprofloxacin 500 MG Oral Tablet ciprofl oxacin 500 mg tablet TAKE 1 TABLET BY MOUTH TWICE DAILY ciprofloxacin 500 mg tablet TAKE 1 TABLE T BY MOUTH TWICE DAILY completed ciprofloxacin 50 0 MG Oral Tablet [facility] ([facility]) Methocarbamol 500 MG Oral Tablet methocarbamol 500 mg tablet methocarbamol 500 mg tablet completed methocarbamo l 500 MG Oral Tablet [facility] ([facility]) Amitriptyline Hydrochloride 25 MG Oral Tablet amitript yline 25 mg tablet amitriptyline 25 mg tablet completed amitriptyline hydrochloride 25 MG Oral Tablet [facility] ([facility]) Diclofenac Sodium 0.01 MG/MG Topical Gel [Voltaren] Vo ltaren 1 % topical gel Voltaren 1 % topical gel completed diclofenac sodium 0.01 MG/MG Topical Gel [Voltaren] [facility] ([facility]) topiramate 25 MG Oral Tablet topiramate 25 mg tablet topiramate 25 mg tablet completed topiramate 25 MG Oral Tablet [facility] ([facility]) duloxetine 20 MG Delayed Release Oral Ca psule duloxetine 20 mg capsule,delayed release duloxetine 20 mg capsule,delayed release completed duloxetine 20 MG Delayed Release Oral Capsule [facility] ([facility]) Methocarbamol 750 MG Oral Tablet methocarbamol 750 mg tablet methocarbamol 750 mg tablet completed methocarbamo l 750 MG Oral Tablet [facility] ([facility]) Cyclobenzaprine hydrochloride 5 MG Oral Tablet cyclobe nzaprine 5 mg tablet cyclobenzaprine 5 mg tablet completed cyclobenzaprine hydrochloride 5 MG Oral Tablet [facility] ([facility]) Amitriptyline Hydrochloride 10 MG Oral Tablet amitript yline 10 mg tablet amitriptyline 10 mg tablet completed amitriptyline hydrochloride 10 MG Oral Tablet [facility] ([facility]) Methocarbamol 500 MG Oral Tablet methocarbamol 500 mg tablet methocarbamol 500 mg tablet completed methocarbamo l 500 MG Oral Tablet [facility] ([facility]) Hydrocortisone 25 MG/ML Topical Cream [P roctosol] Proctosol HC 2.5 % topical cream perineal applicator Proctosol HC 2.5 % topical cream perineal applicator completed hydrocortisone 25 MG/ML Topical Cream [Proctosol] [facility] ([facility]) Amitriptyline Hydrochloride 10 MG Oral Tablet amitript yline 10 mg tablet amitriptyline 10 mg tablet completed amitriptyline hydrochloride 10 MG Oral Tablet [facility] ([facility]) duloxetine 20 MG Delayed Release Oral Ca psule duloxetine 20 mg capsule,delayed release duloxetine 20 mg capsule,delayed release completed duloxetine 20 MG Delayed Release Oral Capsule [facility] ([facility]) Naproxen 500 MG Oral Tablet naproxen 500 mg tablet TAKE 1 TABLET BY MOUTH TWICE DAILY TAKE WITH FOOD naproxen 500 mg tablet TAKE 1 TABLET BY MOUTH TWICE DAILY TAKE WITH FOOD completed naproxe n 500 MG Oral Tablet [facility] ([facility]) Hydrocortisone 25 MG/ML Topical Cream [P roctosol] Proctosol HC 2.5 % topical cream perineal applicator Proctosol HC 2.5 % topical cream perineal applicator completed hydrocortisone 25 MG/ML Topical Cream [Proctosol] [facility] ([facility]) Cyclobenzaprine hydrochloride 5 MG Oral Tablet cyclobe nzaprine 5 mg tablet cyclobenzaprine 5 mg tablet completed cyclobenzaprine hydrochloride 5 MG Oral Tablet [facility] ([facility]) Amitriptyline Hydrochloride 25 MG Oral Tablet amitript yline 25 mg tablet amitriptyline 25 mg tablet completed amitriptyline hydrochloride 25 MG Oral Tablet [facility] ([facility]) Sumatriptan 50 MG Oral Tablet sumatriptan 50 mg tablet sumat riptan 50 mg tablet completed sumatriptan 50 MG Oral Tablet [facility] ([facility]) Naproxen 500 MG Oral Tablet naproxen 500 mg tablet TAKE 1 TABLET BY MOUTH TWICE DAILY TAKE WITH FOOD naproxen 500 mg tablet TAKE 1 TABLET BY MOUTH TWICE DAILY TAKE WITH FOOD completed naproxe n 500 MG Oral Tablet [facility] ([facility]) topiramate 25 MG Oral Tablet topiramate 25 mg tablet topiramate 25 mg tablet completed topiramate 25 MG Oral Tablet [facility] ([facility]) Natural Fiber Laxative Therapy oral powder completed Natural Fiber Laxative Therapy oral powder [facility] ([facility]) Ciprofloxacin 500 MG Oral Tablet ciprofl oxacin 500 mg tablet TAKE 1 TABLET BY MOUTH TWICE DAILY ciprofloxacin 500 mg tablet TAKE 1 TABLE T BY MOUTH TWICE DAILY completed ciprofloxacin 50 0 MG Oral Tablet [facility] ([facility]) Insurance Providers Payer name Policy type / Coverage type Policy ID Covered democrat ID Covered democrat's relationship to covarrubias Policy Cov[place] Plan Information [facility] [employer] [id number] SP [id number] [facility] [employer] - O/P [id number] 18 [id number] [facility] [employer] - O/P [id number] 18 [id number] [facility] [employer] - O/P . 18 . 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 Diagnosis 02/28/2021 01:5 0:00 PM EDT [facility] N433 Hydrocele, unspecified Hydrocele, unspecified Diagnosi s 02/28/2021 01:50:00 PM EDT [facility] R300 Dysuria Dysuria Diagnosis 02/28/2021 01:50:00 PM ED [facility] [id number] Personal history of traumatic brain inju ry Personal history of traumatic brain injury Diagnosis 12/22/2020 07:01:00 AM [facility] R2689 Other abnormalities of gait and mobility Other abnormalities of gait and mobility Diagnosis 12/22/2020 07:01:00 AM T [facility] [id number] Migraine, unspecified, not intractable, without status migrainosus Migraine, unspecified, not intractable, without status migrainosus Diagnosis 12/22/2020 07:01:00 AM [facility] [id number] Chronic migraine without aura, intractab le, with status migrainosus Chronic migraine without aura, intractable, with status migrainosus Diagnosis 12/18/2020 03:12:00 PM T [facility] R519 Headache, unspecified Headache, unspecified Diagnosis 12/18/2020 03:12:00 PM T [facility] [id number] Concussion injury of brain Concussion injury of brain Problem 02/02/2021 12:00:00 AM EDT [facility] ([facility], ) [id number] Migraine Migraine Problem 02/02/2021 12:00:00 AM ED T [facility] ([facility], ) Surgeries/Procedures Procedure Description Date Indications Data Source(s) Chemotherpy Admin Subcutaneous/Im Non-Hormonal Anti-Neoplast ic 04/01/2021 12:00:00 AM EDT [facility] ([facility] ) MRI, lumbar spine, w/o contrast 03/10/2021 12:00:00 AM EDT [facility] ([facility]) OFFICE CONSULTATION NEW/ESTAB PATIENT 60 MIN 12:00:00 AM EDT [facility] ([facility], ) Results ID Date Data Source [id number] 03/31/2021 09:53:00 PM EDT [facility] ED Physician Documentation NAME: JULISA GHOSH : 2000 AGE: 21 MR#: [id number] SERVICE DATE: 03/31/[address]: Alexander Degroot MD PRIMARY CARE DR: No Family PHYS Provided ROOM#: [facility] (Adult, General) General Chief Complaint: GI Stated Complaint: STOMACH PAIN,RECTUM BLEEDING, VOMITING Time Seen by Provider: 03/31/21 20:19 History of Present Illness Initial Comments: Pleasant 21-year-old male from [facility] [place] [...] % (Auto) 53.2, Lymph % (Auto) 36.9, [place] % (Auto) 8.3, Eos % (Auto) 0.8, [...] Appearance Clear, Urine pH 6.5, Ur Specific [place] 1.031 A, Urine Protein Negative, Urine Ketones [...] rce(s) Supporting Document(s) ID Date Data Source [id number] 03/31/2021 09:48:00 PM EDT [facility] [address] [place] [address] [phone] NAME SEX PT STATUS ACCOUNT NUMBER JULISA GHOSH [facility] ER [id number] ORDERING PHYSICIAN LOCATION MEDICAL RECORD NO. Alexander Degroot MD ER [id number] ATTENDING PHYSICIAN DATE OF DATE OF EXAM/TIME [...] Trans Dt/Tm: Trans by: DT Prt Dt/Tm: 5394-4243: Total DLP = 405.00 mGy-cm 4758-2063: Total Radiation Dose = 6.0750 mSv Lifetime Dose: 6.0750 mSv Name Value Range Interpretation Code Description Data Ina rce(s) Supporting Document(s) ID Date Data Source [id number] 03/31/2021 11:53:00 PM EDT [facility] CT/NG IS A QUALITATIVE IN VITRO [...] rce(s) Supporting Document(s) ID Date Data Source [id number] 03/31/2021 09:03:00 PM EDT [facility] Reason for ordering culture: Abnormal fi ndings UAMethod of Collection:: Voided Name Value Range Interpretation Code Description Data Ina rce(s) Supporting Document(s) Color of Urine [facility] Appearance of Urine CLEAR [facility] pH of Urine by Test strip 6.5 5-8 [facility] Specific gravity of Urine by Refractometry 1.031 1.005 -1.030 Abnormal (applies to non-numeric results) [facility] Leukocyte esterase [Presence] in Urine by Test strip NEGAT ABENA [facility] Nitrite [Presence] in Urine by Test strip NEGATIVE [facility] Protein [Presence] in Urine by Test strip NEGATIVE [facility] Glucose [Mass/volume] in Urine by Automated test strip NEGATIVE NEG ATIVE [facility] Ketones [Presence] in Urine by Test strip NEGATI VE Abnormal (applies to non- numeric results) [facility] Urobilinogen [Presence] in Urine 0.2-1 EU/dl [facility] Bilirubin.total [Presence] in Urine by Automated test strip NEGATIVE [facility] Erythrocytes [#/volume] in Urine by Test strip NEGATIVE NEGATIVE [facility] URINE MICROSCOPIC? (CIF) NO [facility] ID Date Data Source [id number] 04/01/2021 08:51:00 AM EDT [facility] Special Instructions: Lab may order repe at test if initial test elevatedPhysician If elevated, reflex second test in 4-6 hrs Name Value Range Interpretation Code Description Data Ina rce(s) Supporting Document(s) Campylobacter coli+jejuni+mihai fusA gene [Presence] in Stool by Probe and target amplification method [facility] Salmonella sp rpoD gene [Presence] in [facility] by Probe and target amplification method [facility] ital Shigella species+EIEC invasion plasmid a ntigen H (ipaH) gene [Presence] in Stool by Probe and target amplification method [facility] Vibrio cholerae+parahaemolyticus rfbL+tr kH+tnaA genes [Presence] in Stool by Probe and target amplification method [facility] Yersinia enterocolitica recN gene [Prese nce] in Stool by Probe and target amplification method [facility] Escherichia coli shiga-like toxin 1 (stx 1) gene [Presence] in Stool by Probe and target amplification method [facility] Escherichia coli shiga-like toxin 2 (stx 2) gene [Presence] in Stool by Probe and target amplification method [facility] Norovirus genogroup I+II orf1-orf2 junct ion region [Presence] in Stool by Probe and target amplification method [facility] Rotavirus A nsp5 gene [Presence] in Stoo l by Probe and target amplification method [facility] ital NORMAL VALUE FOR TEST IS "NOT DETECTED"T he [facility] Enteric Pathogens Nucleic Acid Test (EP) is amultiplexed, qualitative test for simultaneous detection andidentification of common pathogenic enteric bacteria,viuruses, and genetic virulence markers from liquid or softstool preserved in Letha-Luca medium, collected fromindividuals with signs and symptoms of gastrointestinalinfection.The test is performed on the automated C3DNA Systemutilizing reverse blanket maker (RT), polymerase chainreaction (PCR), and array [...] syndrome or Crohn'sdisease. ID Date Data Source [id number] 03/31/2021 09:04:00 PM EDT [facility] Special Instructions: Lab may order repe at test if initial test elevatedPhysician If elevated, reflex second test in 4-6 hrs Name Value Range Interpretation Code Description Data Ina rce(s) Supporting Document(s) Leukocytes [#/volume] in Blood by Automated count 6.3 10*3/uL 4.45-10 .71 N [facility] Erythrocytes [#/volume] in Blood by Automated count 4.90 10*6/uL 4.3- 6.1 N [facility] Hemoglobin [Moles/volume] in Blood 15.6 g/dL 13-18 N [facility] Hematocrit [Volume Fraction] of Blood by Automated count 44.6 % 4 2-52 N [facility] Erythrocyte mean corpuscular volume [Ent itic volume] in Cord blood by Automated count 91 fL 80-96 N [facility] ital Erythrocyte mean corpuscular hemoglobin [Entitic mass] by Au tomated count 32 pg 27-31 Above high normal [facility] Erythrocyte mean corpuscular hemoglobin concentration [Mass/volume] in Cord blood 35 g/dL 33-37 N [facility] ital Erythrocyte distribution width [Entitic volume] by Automated count 12 % 11-15 N [facility] Platelets [#/volume] in Blood by Automated count 174 10*3/uL 130-472 N [facility] Platelet mean volume [Entitic volume] in Blood 11.1 fL 9.1-13.1 N [facility] Neutrophils/100 leukocytes in Blood by Automated count 53.2 % 41- 77 N [facility] Neutrophils [#/volume] in Blood by Automated count 3.3 U 1.7-7.6 N [facility] Lymphocytes/100 leukocytes in Blood by Automated count 36.9 % 14- 46 N [facility] Lymphocytes [#/volume] in Blood by Automated count 2.3 U 0.6-4.6 N [facility] Monocytes/100 leukocytes in Blood by Automated count 8.3 % 4-12 N [facility] Monocytes [#/volume] in Blood by Automated count 0.5 U 0.2-1.2 N [facility] Eosinophils/100 leukocytes in Blood by Automated count 0.8 % 0-7 N [facility] Eosinophils [#/volume] in Blood by Automated count 0.1 U 0.0-0.5 N [facility] Basophils/100 leukocytes in Blood by Automated count 0.5 % 0.4-1 .3 N [facility] Basophils [#/volume] in Blood by Automated count 0.0 U 0.0-0.2 N [facility] NUCLEATED RED BLOOD CELL 0 % [facility] BLOOD CELL# [facility] Immature granulocytes [Presence] in Blood by Automated count 0-2 N [facility] Immature granulocytes [#/volume] in Blood by Automated count 0.0 U 0-0.1 N [facility] Manual Differential panel - Blood NO [facility] ID Date Data Source [id number] 03/31/2021 09:26:00 PM EDT [facility] Special Instructions: Lab may order repe at test if initial test elevatedPhysician If elevated, reflex second test in 4-6 hrs Name Value Range Interpretation Code Description Data Ina rce(s) Supporting Document(s) Urea nitrogen [Mass/volume] in Serum or Plasma 16 mg/dL 9-23 N [facility] Sodium [Moles/volume] in Serum or Plasma 139 mmol/L 132-146 [facility] Potassium [Moles/volume] in Serum or Plasma 3.8 mmol/L 3.5-5.5 [facility] Chloride [Moles/volume] in Serum or Plasma 106 mmol/L 99-109 [facility] Carbon dioxide, total [Moles/volume] in Serum or Plasma 28 mmol/L 20 -31 N [facility] Anion gap in Serum or Plasma 9 mmol/L 8-16 N [facility] Glucose [Mass/volume] in Serum or Plasma 102 mg/dL 74-106 N [facility] Creatinine 1.1 mg/dL 0.5-1.1 [facility] Glomerular filtration rate/1.73 sq M.pre dicted [Volume Rate/Area] in Serum or Plasma Greater Than 60 ABOVE 60 [facility] Alanine aminotransferase [Enzymatic acti vity/volume] in Serum or Plasma by With P-5'-P 39 U/L 10-49 N [facility] ital Aspartate aminotransferase [Enzymatic ac tivity/volume] in Serum or Plasma by With P-5'-P 25 U/L 0-33 N [facility] pital Alkaline phosphatase [Enzymatic activity/volume] in Serum or Plasma 81 U/L 45-129 N [facility] Calcium [Mass/volume] in Serum or Plasma 10.0 mg/dL 8.5-10.1 [facility] Bilirubin.total [Mass/volume] in Serum or Plasma 1.3 mg/dL 0.3-1.2 Above high normal [facility] Albumin [Mass/volume] in Serum or Plasma by Bromocresol purple (BCP) dye binding method 4.2 g/dL 3.2-4.8 N [facility] ital Protein [Mass/volume] in Serum or Plasma 8.6 g/dL 5.7-8.2 Above [facility] ID Date Data Source [id number] [facility]: [facility] may order repe at test if initial test elevatedPhysician If elevated, reflex second test in 4-6 hrs Name Value Range Interpretation Code Description Data Ina rce(s) Supporting Document(s) Lactic w Rfx (if elevated) 0.7 mmol/L 0.5-2.0 N [facility] ID Date Data Source [id number] 04/05/2021 08:54:00 PM [facility] Special Instructions: Lab may order repe at test if initial test elevatedPhysician If elevated, reflex second test in 4-6 hrs Name Value Range Interpretation Code Description Data Ina rce(s) Supporting Document(s) Bacteria identified in Blood by [facility] NO GROWTH AFTER 5 DAYS ID Date Data Source [id number] 03/31/2021 09:26:00 PM [facility] Special Instructions: Lab may order repe at test if initial test elevatedPhysician If elevated, reflex second test in 4-6 hrs Name Value Range Interpretation Code Description Data Ina rce(s) Supporting Document(s) Amylase [Enzymatic activity/volume] in Serum or Plasma 93 U/L 30- 118 [facility] ID Date Data Source [id number] 03/31/2021 09:26:00 PM [facility] Special Instructions: Lab may order repe at test if initial test elevatedPhysician If elevated, reflex second test in 4-6 hrs Name Value Range Interpretation Code Description Data Ina rce(s) Supporting Document(s) Lipase [Enzymatic activity/volume] in Serum or Plasma 90 U/L 73-3 [address] [facility] ID Date Data Source [id number] 03/15/2021 03:33:00 PM EDT [facility] 1 Medication Reconciliation Report [facility] Emergency Department [address] [place] [address] Phone #: ext- [phone] 03/15/2021 15:01 Patient: [...] needed for 10 days -- for pruritus. [id number] capsule. Refills: 0. Substitution permitted.Pharmacy - [facility] - [address] [facility] ; [place] [address]. . -- MICHAEL Ramsey Name Value Range Interpretation Code Description Data Ina rce(s) Supporting Document(s) ID Date Data Source [id number] 03/15/2021 03:33:00 PM EDT [facility] 1 Medication Administration Record [facility] Emergency Department [address] [place] [address] Phone #: ext- [phone] 03/2021 15:01 Patient: JULISA GHOSH Sex: M : 2000 Age: 21yWeight: 77.5 kgHeight/Length: 73 inBMI: 22.5ALLERGIES: No Known Drug AllergyDate/Time Medication Administered Medication Ordered Name Value Range Interpretation Code Description Data Ina rce(s) Supporting Document(s) ID Date Data Source [id number] 03/15/2021 03:33:00 PM EDT [facility] 1 General Instructions [facility] Emergency Department [address] [place] [address] Phone #: ext- [phone] 03/15/2021 15:01 Patient: JULISA GHOSH Sex: M [...] needed for 10 days -- for pruritus. [id number] capsule. Refills: 0. Substitution permitted.Pharmacy - [facility] - [address] [facility] ; [place] [address]. .Understanding of the discharge instructions verbalized by patient. Expected course of illness, dischargeinstructions, activity level, follow-up appointment and risks and bene fits of treatment reviewed with patientand understanding verbalized. Agrees to plan of care.Follow-up with: [facility], , , [address], , [place], [place], [facility] Follow up in one even if well. Call for the next available appointment. Reason for referral: evaluation andrecommend dermatology/pilot plant research technician referral if symptoms persist. Summary of care provided to patient viapaper. 2 General Instructions [facility] Emergency Department [address] [place] [address] Phone #: ext- [phone] 03/15/2021 15:01 Patient: JULISA GHOSH Sex: M : 2000 Age: 21y(Electronically signed by MICHAEL Ramsey 03/15/2021 16:26) Name Value Range Interpretation Code Description Data Ina rce(s) Supporting Document(s) ID Date Data Source [id number] 03/15/2021 03:33:00 PM EDT [facility] 1 Clinical Report - Nurses [facility] Emergency Department [address] [place] [address] Phone #: ext- [phone] 03/15/2021 15:01 Patient: JULISA GHOSH Sex: M : 2000 Age: 21yTRIAGEArrived by private vehicle. Historian: patient. Accompanied by friend.Acuity: LEVEL 4.Chief Complaint: (generalized itching).Onset. (6 months ago). ( pt states he has no rash but has had a generalized itching for about the past 6months, has not been seen for this as of yet).Treatment CRITICAL CARE RN:None.SEPSIS SCREEN: SIRS SCREEN NEGATIVE. SEPSIS SCREEN NEGATIVE. [...] Immunizations: up-to-date. 2 Clinical Report - Nurses [facility] Emergency Department [address] [place] [address] Phone #: ext- [phone] 03/15/2021 15:01 Patient: JULISA GHOSH Sex: M [...] To treatment room. --15:03/15/21 Roe Hurley RN.PHYSICAL [id number] 03/15/21. Ambulatory to room.GENERAL / NEURO / [...] Discharge instructions 3 Clinical Report - Nurses [facility] Emergency Department [address] [place] [address] Phone #: ext- [phone] 03/15/2021 15:01 Patient: JULISA GHOSH Sex: M : 2000 Age: 21y provided and reviewed with the patient. Reviewed medication(s) side effects, precautions, dosing and course information. Prescription(s) sent electronically to pharmacy ([facility]). Patient verbalized understanding. Written instructions provided in Vietnamese. The patient was discharged home. He left [...] rce(s) Supporting Document(s) ID Date Data Source [id number] 03/15/2021 03:33:00 PM EDT [facility] 1 Clinical Report - Physicians/Mid Levels [facility] Emergency Department [address] [place] [address] Phone #: ext- [phone] 03/15/2021 15:01 Patient: [...] allergies. 2 Clinical Report - Physicians/Mid Levels [facility] Emergency Department [address] [place] [address] Phone #: ext- [phone] 03/15/2021 15:01 Patient: JULISA GHOSH Sex: M [...] permitted. 3 Clinical Report - Physicians/Mid Levels [facility] Emergency Department [address] [place] [address] Phone #: ext- [phone] 03/15/2021 15:01 Patient: JULISA GHOSH Sex: M : 2000 Age: 21y Pharmacy - [facility] - [address] [facility] ; [place] [address]. . Understanding of the discharge instructions verbalized by patient. Expected course of illness, discharge instructions, activity level, follow-up appointment and risks and benefits of treatment reviewed with patient and understanding verbalized. Agrees to plan of care. Follow-up with: [facility], , , [address] [place] [address], , [place], [address] Follow up in one even if well. Call for the next available appointment. Reason for referral: evaluation and recommend dermatology/pilot plant research technician referral if symptoms persist. Summary of care provided to patient via paper.(Electronically signed by MICHAEL Ramsey 03/15/2021 16:26) Name Value Range Interpretation Code Description Data Ina rce(s) Supporting Document(s) ID Date Data Source [id number] 03/02/2021 09:25:00 PM EDT [facility] Name Value Range Interpretation Code Description Data Ina rce(s) Supporting Document(s) SARS COVID ANTIGEN NEGATIVE [facility] This lab was ordered by KAUSHAL goins nd reported by [facility]. ID Date Data Source [id number] 03/01/2021 10:32:00 AM EDT [facility] [address] [facility] [place] [address] PHONE: [phone] FAX: [phone] Name .................. : DAVINA Parrish Acct Number.................. : [id number] ROOM. ................. : VT-08 MR Number ................... : [id number] Stay type ............. : E/R Discharge Date......... ... : 02/28/21 Admit Date ......... : 02/28/21 Admit Phys .................... : COONEYNORM Date of ....... : 2000 Family Phys ................... : NO PCP Phone .................. : [phone] Age ................................ : 21 Film# .................. .:[id number] Sex ................................. : M Unsigned transcriptions are preliminary reports and do not represent a medical or legal document SCROTAL [id number] COMPLETE:02/28/21 14:22 [id number] Reason(s): Testicle/Scrotum Pain ULTRASOUND SCROTUM INDICATION: Testicular/scrotal [...] of testicular torsion. Page 1 of 2 [facility] [address] [place] [address] PHONE: [phone] FAX: [phone] Name .................. : DAVINA Parrish Acct Number.................. : [id number] ROOM. ................. : VT-08 Number ................... : [id number] Stay type ............. : E/R Discharge Date......... ... : 02/28/21 Admit Date ......... : 02/28/21 Admit Phys .................... : COONEYNORM Date of ....... : 2000 Family Phys ................... : NO PCP Phone .................. : [phone] Age ................................ : 21 Film# .................. .:[id number] Sex ................................. : M Unsigned transcriptions are preliminary reports and do not represent a medical or legal document SCROTAL [id number] COMPLETE:02/28/21 14:22 [id number] Reason(s): Testicle/Scrotum Pain 2. Bilateral varicoceles, right [...] rce(s) Supporting Document(s) ID Date Data Source [id number] 02/28/2021 01:50:00 PM EDT [facility] 1 OrderSheet [facility] Emergency Department [address] [place] [address] Phone #: ext- [phone] 02/28/2021 13:48 Patient: JULISA GHOSH Sex: M : 2000 Age: 21yWEIGHT:77.5 kg HEIGHT:73 inches BMI:22.5ALLERGIES: Aspirin, Macrobid, Primaquine Phosphate, SulfaCHIEF COMPLAINT: dysuria, Rt, testicular pain:, LtDIAGNOSIS: Hydrocele, Scrotal varicesLAB ORDERSOrder Description Priority Entered Acknowledged InitialedUA Reflex to UA 14:22 02/28/2021 14:31 NirmalaCulture Johnnie Ulrich environmental compliance officerLewis Peterson; Yytz0Hgidulawz/GC STAT 14:22 02/28/2021 14:31 [facility] [place] ED; Tech1 NOTES: urineSyphilis 14:22 02/28/2021 15:03 Johnnie Mcclain R.N.;DIAGNOSTIC STUDY ORDERSOrder Description Priority Entered Acknowledged InitialedUS Scrotal STAT 14:22 02/28/2021 14:34 Nirmala(Oxygen?(No)) Johnnie Ulrihc environmental compliance officerLewis Peterson; Tech1 Reason for Study: Testicle/Scrotum PainMEDICATION/IV/DRIP/FLUID ORDERSOrder Description Priority Entered Acknowledged InitialedGENERAL ORDERSOrder Description Priority Entered Acknowledged Initialed[Electronically signed by Sheri Drew R.N. (16:32 02/28/2021)][Electronically signed by Johnnie Ulrich (22:06 02/28/2021)][Electronically locked by Sheri Drew R.N. (16:32 02/28/2021)] Name Value Range Interpretation Code Description Data Ina rce(s) Supporting Document(s) ID Date Data Source [id number] 02/28/2021 01:50:00 PM EDT [facility] 1 Medication Reconciliation Report [facility] Emergency Department [address] [place] [address] Phone #: [phone] xub- [phone] 02/28/2021 13:48 Patient: JULISA GHOSH Sex: M [...] 45 tablet. Refills: 0. Substitution permitted.Pharmacy - [facility] [address] ; [place] [address]. . -- MICHAEL Buck Name Value Range Interpretation Code Description Data Ina rce(s) Supporting Document(s) ID Date Data Source [id number] 02/28/2021 01:50:00 PM EDT [facility] 1 Medication Administration Record [facility] Emergency Department [address] [place] [address] Phone #: ext- [phone] 02/28/2021 13:48 Patient: JULISA GHOSH Acct#: [id number] Sex: M : 2000 Age: 21yWeight: 77.5 kgHeight/Length: 73 inBMI: 22.5ALLERGIES: Macrobid, Aspirin, Sulfa, Primaquine PhosphateDate/Time Medication Administered Medication Ordered Name Value Range Interpretation Code Description Data Ina rce(s) Supporting Document(s) ID Date Data Source [id number] 02/28/2021 01:50:00 PM EDT [facility] 1 General Instructions [facility] Emergency Department [address] [place] [address] Phone #: ext- [phone] 02/28/2021 13:48 Patient: [...] Refills: 0. Substitution permitted.Pharmacy - [facility] [address] ; [place] [address]. .Understanding of the discharge instructions verbalized by patient.Follow-up with: Rajan Doe M.D., Urology, , [address] [place] [address], [facility] Follow up. Call for the next available appointment. Reason for referral: evaluation and treatment.Summary of care provided to patient. ADDITIONAL INFORMATIONHydrocele (Type Not Specified) 2 General Instructions [facility] Emergency Department [address] [place] [address] Phone #: ext- [phone] 02/28/2021 13:48 Patient: JULISA GHOSH Sex: M [...] that happens with nausea, vomiting, or both [id number] [employer]. [address] [place] [address]. All rights reserved. This information is not intended as asubstitute for professional medical care. Always follow your healthcare professional's instructions.VaricoceleA varicocele is a swelling in the veins above the testicles. It's similar to a varicose vein in the legs. 3 General Instructions [facility] Emergency Department [address] [place] [address] Phone #: ext- [phone] 02/28/2021 13:48 Patient: JULISA GHOSH Sex: M [...] jockstrap or snug underwear 4 General Instructions [facility] Emergency Department [address] [place] [address] Phone #: ext- [phone] 02/28/2021 13:48 Patient: JULISA GHOSH Sex: M : 2000 Age: 21y Take an [id number]-[id number] pain reliever, such as ibuprofenFollow-up careFollow up [...] groin area appears or gets bigger [employer]. [address] [place] [address]. All rights reserved. This information is not intended as asubstitute for professional medical care. Always follow your healthcare professional's instructions. You have been given the following additional information: Hydrocele, Type Not Specified Varicocele(Electronically signed by MICHAEL Buck 02/28/2021 22:06) Name Value Range Interpretation Code Description Data Ina rce(s) Supporting Document(s) ID Date Data Source [id number] 02/28/2021 01:50:00 PM EDT [facility] 1 Clinical Report - Nurses [facility] Emergency Department [address] [place] [address] Phone #: ext- [phone] 02/28/2021 13:48 Patient: [...] to Coronavirus. 2 Clinical Report - Nurses [facility] Emergency Department [address] [place] [address] Phone #: ext- [phone] 02/28/2021 13:48 Patient: [...] 02/28/21 Adele Cruz R.N. Patient transported to [facility] by wheelchair with mask and radiology special procedure tech. --14:35 02/28/21 Cameron environmental compliance officer, Lewis, VETO Tech1.DISPOSITION / DISCHARGE 16:32 02/28/21. [place] Coma Scale: 15- eyes open- spontaneous (4); best verbal response- oriented (5); best motor response- obeys commands (6). Condition at departure: improved and stable. No learning barriers present. Discharge instructions provided and reviewed with the patient. Reviewed medication(s) side effects, precautions, dosing and course information. Prescription(s) sent electronically to pharmacy. Patient verbalized understanding. Written instructions provided in Vietnamese. The patient was discharged by the physician. He was discharged home. He left ambulatory and via private vehicle. Patient driving. --16:32 02/28/21 Sheri Drew R.N. 16:31 02/28/21. BP: 115/69. MAP: 84. HR: 61. RR: 16. O2 saturation: 100%. Temp: 98.1 F. Pain level 3 Clinical Report - Nurses [facility] Emergency Department [address] [place] [address] Phone #: ext- [phone] 02/28/2021 13:48 Patient: JULISA GHOSH Sex: M : 2000 Age: 21y now: 12/13. --16:32 02/28/21 Sheri Drew R.N.Locked/Released at 02/28/2021 16:32 by Sheri Drew R.N. Name Value Range Interpretation Code Description Data Ina rce(s) Supporting Document(s) ID Date Data Source [id number] 02/28/2021 01:50:00 PM EDT [facility] 1 Clinical Report - Physicians/Mid Levels [facility] Emergency Department [address] [place] [address] Phone #: ext- [phone] 02/28/2021 13:48 Patient: JULISA GHOHS Sex: M : 2000 Age: 21y Time [...] use. 2 Clinical Report - Physicians/Mid Levels [facility] Emergency Department [address] [place] [address] Phone #: ext- [phone] 02/28/2021 13:48 Patient: [...] varicocele. The exam was performed by a library circulation technician. The study was interpreted by theradiologist and contemporaneously by me. Interpretation time: 16:19 02/28/2021.Laboratory Tests: Laboratory tests have been ordered, with results reviewed and considered in themedical decision making process. UA REFLEX TO UA CULTURE: (CARMEN: 02/28/2021 14:20) ( [facility]/28[facility] 14:58) Final results Test Result Flag [...] Not Indicate Syphilis: (CARMEN: 02/28/2021 14:30) ( [facility] 02/28/2021 16:01) Final results Test Result Flag Units (Reference) SYPHILIS NON-REACTIVE (NORMAL:NON RE. 3 Clinical Report - Physicians/Mid Levels [facility] Emergency Department [address] [place] [address] Phone #: ext- [phone] 02/28/2021 13:48 Patient: JULISA GHOSH Sex: M [...] tablet. Refills: 0. Substitution permitted. Pharmacy - [facility] [address] ; [place] [address]. . Understanding of the discharge instructions verbalized by patient. 4 Clinical Report - Physicians/Mid Levels [facility] Emergency Department [address] [place] [address] Phone #: ext- [phone] 02/28/2021 13:48 Patient: JULISA GHOSH Sex: M : 2000 Age: 21y Follow-up with: Rajan Doe M.D., Urology, , [address] [place] [address], [id number] Follow up. Call for the next available appointment. Reason for referral: evaluation and treatment. Summary of care provided to patient.(Electronically signed by MICHAEL Buck 02/28/2021 22:06) Name Value Range Interpretation Code Description Data Ina rce(s) Supporting Document(s) ID Date Data Source [id number] 02/28/2021 04:01:00 PM EDT [facility] Name Value Range Interpretation Code Description Data Ina rce(s) Supporting Document(s) Treponema pallidum Ab [Presence] in Serum NON-REACTIVE NORMAL:NON VELMA CTIVE [facility] ID Date Data Source [id number] 03/03/2021 07:40:00 AM EDT [facility] Name Value Range Interpretation Code Description Data Ina rce(s) Supporting Document(s) Chlamydia trachomatis rRNA [Presence] in Unspecified specimen by Probe and target amplification method Negative Negative [facility] Neisseria gonorrhoeae rRNA [Presence] in Unspecified specimen by Probe and target amplification method Negative Negative [facility] ID Date Data Source [id number] 02/28/2021 02:57:00 PM EDT [facility] Name Value Range Interpretation Code Description Data Ina rce(s) Supporting Document(s) UA REFLEX TO UA CULTURE [facility] URINALYSIS SOURCE Clean Catch [facility] COLOR yellow NORMAL: Yellow [facility] CLARITY clear NORMAL: Clear [facility] Specific gravity of Urine by Test strip 1.015 1.001 - 1.030 [facility] pH 6 5 - 9 [facility] Glucose [Mass/volume] in Urine by Test strip NORM NORMAL: Negat [facility] Bilirubin.total [Presence] in Urine by Test strip NEG NORMAL: Negative [facility] Ketones [Presence] in Urine by Test strip NEG NORMAL: Negative [facility] Protein [Mass/volume] in Urine by Test strip NEG NORMAL: Negat [facility] Nitrite [Presence] in Urine by Test strip NEG NORMAL: Negative [facility] BLOOD NEG NORMAL: Negative [facility] Leukocyte esterase [Presence] in Urine by Test strip NEG CECY L: Negative [facility] Urobilinogen [Mass/volume] in Urine by Test strip NOR less bernie n 1.0 mg/dL [facility] MICROSCOPIC Not Indicate [facility] ID Date Data Source [id number] 12/23/2020 09:58:00 AM EDT [facility] [address] [place] [address] PHONE: [phone] FAX: [phone] Name .................. : DAVINA EGAN Shivani Acct Number.................. : [id number] ROOM. ................. : Number ................... : [id number] Stay type ............. : O/P Discharge Date......... ... : 12/22/20 Admit Date ......... : 12/22/20 Admit Phys .................... : BENNY STILES Date of ....... : 2000 Family Phys ................... : NO PCP Phone .................. : [phone] Age ................................ : 20 Film# .................. .:[id number] Sex ................................. : M Unsigned transcriptions are preliminary reports and do not represent a medical or legal document MRI BRAIN W/O CONTRAST [id number] COMPLETE:12/22/20 08:35 ALDA [id number] Reason for Exam: TBI 08/24, MIGRAINES WORSENING, [...] , Transcribe Date: 12/22/20 21:44, Dictation Date: Boiler Installer y for: BENNY GRANDE Copy for: [address] [place] [address] REC Page 1 of 1 Name Value Range Interpretation Code Description Data Ina rce(s) Supporting Document(s) ID Date Data Source [id number] 12/19/2020 02:07:00 PM EDT [facility] [address] [place] [address] PHONE: [phone] FAX: [phone] Name .................. : DAVINA Parrish Acct Number.................. : [id number] ROOM. ................. : VT-02 MR Number ................... : [id number] Stay type ............. : E/R Discharge Date......... ... : 12/18/20 Admit Date ......... : 12/18/20 Admit Phys .................... : COONEYNORM Date of ....... : 2000 Family Phys ................... : NO PCP Phone .................. : [phone] Age ................................ : 20 Film# .................. .:[id number] Sex ................................. : M Unsigned transcriptions are preliminary reports and do not represent a medical or legal document CT HEAD W/O CONTRAST [id number] COMPLETE:12/18/20 20:24 DLA [id number] Reason(s): Head Injury CT OF THE HEAD [...] 02:56, Dictation Date: Page 1 of 2 [facility] [address] [place] [address] PHONE: [phone] FAX: [phone] Name .................. : DAVINA PEARSON Shivani Acct Number.................. : [id number] ROOM. ................. : VT-02 Number ................... : [id number] Stay type ............. : E/R Discharge Date......... ... : 12/18/20 Admit Date ......... : 12/18/20 Admit Phys .................... : COONEYNORM Date of ....... : 2000 Family Phys ................... : NO PCP Phone .................. : [phone] Age ................................ : 20 Film# .................. .:[id number] Sex ................................. : M Unsigned transcriptions are preliminary reports and do not represent a medical or legal document CT HEAD W/O CONTRAST [id number] COMPLETE:12/18/20 20:24 DLA [id number] Reason(s): Head Injury Copy for: CARLOZ LOZANO via fax Copy for: EMERGENCY DEPT via modem Copy for: 710 MED REC DISCHARGED Page 2 of 2 Name Value Range Interpretation Code Description Data Ina rce(s) Supporting Document(s) ID Date Data Source [id number] 12/18/2020 03:12:00 PM EDT [facility] 1 OrderSheet [facility] Emergency Department [address] [place] [address] Phone #: ext- [phone] 12/18/2020 15:09 Patient: [...] 16:40 Richard Horton RN P.A.-C; 2 OrderSheet [facility] Emergency Department [address] [place] [address] Phone #: ext- [phone] 12/18/2020 15:09 Patient: [...] rce(s) Supporting Document(s) ID Date Data Source [id number] 12/18/2020 03:12:00 PM EDT [facility] 1 Medication Reconciliation Report [facility] Emergency Department [address] [place] [address] Phone #: ext- [phone] 12/18/2020 15:09 Patient: [...] rce(s) Supporting Document(s) ID Date Data Source [id number] 12/18/2020 03:12:00 PM EDT [facility] 1 Medication Administration Record [facility] Emergency Department [address] [place] [address] Phone #: ext- [phone] 12/18/2020 15:09 Patient: MICHEL GHOSH Sex: M : 2000 Age: 20yWeight: 77.5 kgHeight/Length: 71 inBMI: 23.8ALLERGIES: Primaquine Phosphate, Macrobid, Aspirin, Sulfa Antibiotics Date/Time Medication Administered Medication OrderedStart NS [IV] IV NS 1000 mL Bolus : Bolus 190951:30 12/18/2020 Dose: IV Fluids mL (X1)Richard Horton RN Bolus: 1000 mL over 1 hour(s)---- Dispensed: 1000 mL bagStop Site: #1 right [id number]:40 12/18/2020Richard Horton RNGiven ZOFRAN [IVP] (ONDANSETRON HCL) Zofran IVP 4 mg16:32 12/18/2020 Dose: 4 mg IVManny Horton RN Site: #1 right forearmGiven BENADRYL [IVP] (DIPHENHYDRAMINE Benadryl IVP 25 mg16:31 12/18/2020 HCL)Richard Horton RN Dose: 25 mg IVP Site: #1 right forearm Name Value Range Interpretation Code Description Data Ina rce(s) Supporting Document(s) ID Date Data Source [id number] 12/18/2020 03:12:00 PM EDT [facility] 1 General Instructions [facility] Emergency Department [address] [place] [address] Phone #: lan- [phone] 12/18/2020 15:09 Patient: MICHEL GHOSH Sex: M : 2000 Age: 20yChronic migraine headache without aura, with status migrainosus- refractory to treatment.INSTRUCTIONSTake Tylenol (Acetaminophen) or Motrin (Ibuprofen) as needed for fever control. Take medicationaccording to label instructions. No strenuous activity for two weeks (Recommend no PT as this mayexcerbate your symptoms.).(Please f/u with the [facility] TBI clinic as you have a [...] Other triggers include certain 2 General Instructions [facility] Emergency Department [address] [place] [address] Phone #: ext- [phone] 12/18/2020 15:09 Patient: [...] salami Liver Avocados Bananas 3 General Instructions [facility] Emergency Department [address] [place] [address] Phone #: ext- [phone] 12/18/2020 15:09 Patient: [...] sinuses, ears, or throat 4 General Instructions [facility] Emergency Department [address] [place] [address] Phone #: ext- [phone] 12/18/2020 15:09 Patient: [...] of your face Trouble talking or seeing [phone] [employer] [place] [address]. All rights reserved. This information is not [...] rce(s) Supporting Document(s) ID Date Data Source [id number] 12/18/2020 03:12:00 PM EDT [facility] 1 Clinical Report - Nurses [facility] Emergency Department [address] [place] [address] Phone #: ext- [phone] 12/18/2020 15:09 Patient: [...] carrier of 2 Clinical Report - Nurses [facility] Emergency Department [address] [place] [address] Phone #: ext- [phone] 12/18/2020 15:09 Patient: [...] Horton RN 3 Clinical Report - Nurses [facility] Emergency Department [address] [place] [address] Phone #: ext- [phone] 12/18/2020 15:09 Patient: MICHEL GHOSH Sex: M [...] and birthdate. Blood samples drawn by tech. ([id number]). --16:41 12/18/20 Richard Horton RN Patient transported to [place] by wheelchair with mask and radiology special procedure tech. ([id number]). --16:58 12/18/20 Richard Horton RN 17:40 12/18/2020 [...] patient was discharged home and accompanied by electrical superintendent. He left ambulatory and via private vehicle. Conveyor Attendant driving. --18:04 12/18/20 Lucrecia Lynn R.N. Departure time: 18:04 12/18/2020. --18:04 12/18/20 Lucrecia Lynn R.N. 4 Clinical Report - Nurses [facility] Emergency Department [address] [place] [address] Phone #: ext- [phone] 12/18/2020 15:09 Patient: MICHEL GHOSH Sex: M : 2000 Age: 20yLocked/Released at 12/18/2020 18:04 by Lucrecia Lynn R.N. Name Value Range Interpretation Code Description Data Ina rce(s) Supporting Document(s) ID Date Data Source [id number] 12/18/2020 03:12:00 PM EDT [facility] 1 Clinical Report - Physicians/Mid Levels [facility] Emergency Department [address] [place] [address] Phone #: ext- [phone] 12/18/2020 15:09 Patient: MICHEL GHOSH Sex: M [...] NAYAK. Sts that he eventaully went to [facility] for eval and imaigng. PT sts that he finally seen by the [facility] TBI clinic last month and seen [...] NOTES 2 Clinical Report - Physicians/Mid Levels [facility] Emergency Department [address] [place] [address] Phone #: ext- [phone] 12/18/2020 15:09 Patient: MICHEL GHOSH Sex: M [...] 51.0) 3 Clinical Report - Physicians/Mid Levels [facility] Emergency Department [address] [place] [address] Phone #: ext- [phone] 12/18/2020 15:09 Patient: MICHEL GHOSH Sex: M [...] NOT INDICATEDSed. Rate: (CARMEN: 12/18/2020 16:14) ( [facility] 16:40[facility] Final results Test Result Flag Units (Reference) SED RATE 1 mm/hr (0 - 15) SED RATE REENTER 1CRP: (CARMEN: 12/18/2020 16:14) ( [facility] 12/18/2020 16:39) Final results Test Result Flag Units (Reference) CRP-HS 0.20 L MG/L (1.00 - 3.00) CDC/S HS-CRP CUT-OFF: RELATIVE RISK: <1.0 mg/LLow 1.0 - 3.0 mg/L Average >3.0 mg/LHigh Optimally, the average of HS-CRP results repeated two weeks apart should be used forrisk assessment.CMP: (CRAMEN: 12/18/2020 16:14) ( [facility]cvd 12/18/2020 16:37) Final [...] 56) 4 Clinical Report - Physicians/Mid Levels [facility] Emergency Department [address] [place] [address] Phone #: ext- [phone] 12/18/2020 15:09 Patient: MICHEL GHOSH Sex: M [...] had since August 05 injury. Seen at [facility] ER and TBI clinic. Seen by TBI clinic yesterday. PE demos NV intact b/l UE. Noted sinus tenderness. ? acute sinusititis vs acute on chronic. Will obtian labs and imaigng for further evla. Pending resutls. Reviewed results. Enter room and patient lying peacefully in bed in NAD. Patient stable. Denies any new issues, concerns, or complaints. [facility] Sts that s/s are almost resolved. [...] treatment. 5 Clinical Report - Physicians/Mid Levels [facility] Emergency Department [address] [place] [address] Phone #: ext- [phone] 12/18/2020 15:09 Patient: MICHEL GHOSH Sex: M : 2000 Age: 20yINSTRUCTIONS Take Tylenol (Acetaminophen) or Motrin (Ibuprofen) as needed for fever control. Take medication according to label instructions. No strenuous activity for two weeks (Recommend no PT as this may excerbate your symptoms.). (Please f/u with the [facility] TBI clinic as you have a [...] rce(s) Supporting Document(s) ID Date Data Source [id number] 12/18/2020 04:40:00 PM EDT [facility] Name Value Range Interpretation Code Description Data Ina rce(s) Supporting Document(s) Erythrocyte sedimentation rate by Westergren method 1 mm/hr 0 - 15 [facility] SED RATE REENTER 1 [facility] ID Date Data Source [id number] 12/18/2020 04:39:00 PM EDT [facility] Name Value Range Interpretation Code Description Data Ina rce(s) Supporting Document(s) C reactive protein [Mass/volume] in Serum or Plasma by High sensitivity method 0.20 MG/L 1.00 - 3.00 L [facility] CDC/S HS-CRP CUT-OFF: RELATIVE RISK: <1.0 mg/L Low 1.0 - 3.0 mg/L Average >3.0 mg/L High Optimally, the average of HS-CRP results repeated two weeks apart should be used for risk assessment. ID Date Data Source [id number] 12/18/2020 04:37:00 PM EDT [facility] Name Value Range Interpretation Code Description Data Ina rce(s) Supporting Document(s) COMPREHENSIVE METABOLIC PANEL [facility] COMPREHENSIVE METABOLIC PANEL Sodium [Moles/volume] in Serum or Plasma 139 mEq/L 134 - 153 [facility] Potassium [Moles/volume] in Serum or Plasma 4.0 mEq/L 3.6 - 5.0 [facility] Chloride [Moles/volume] in Serum or Plasma 105 mEq/L 98 - 107 [facility] Carbon dioxide, total [Moles/volume] in Serum or Plasma 26 MEQ/L 22 - 30 [facility] Glucose [Mass/volume] in Serum or Plasma 97 MG/DL 70 - 99 [facility] BUN 10 MG/DL 7 - 21 [facility] al Creatinine [Mass/volume] in Serum or Plasma 0.9 MG/DL 0.7 - 1.5 [facility] BUN/CREAT 11 8 - 27 [facility] Protein [Mass/volume] in Serum or Plasma 7.6 G/DL 6.3 - 8.2 [facility] Albumin [Mass/volume] in Serum or Plasma 4.5 G/DL 3.9 - 5.0 [facility] Globulin [Mass/volume] in Serum by calculation 3.1 GM/DL 2.4 - 3.2 [facility] A/G RATIO 1.5 0.8 - 2.0 [facility] Calcium [Mass/volume] in Serum or Plasma 9.7 MG/DL 8.4 - 10.2 [facility] Bilirubin.total [Mass/volume] in Serum or Plasma 1.0 MG/DL 0.2 - 1.3 [facility] Alkaline phosphatase [Enzymatic activity/volume] in Serum or Plasma 76 U/L 38 - 126 [facility] Aspartate aminotransferase [Enzymatic activity/volume] in Serum or Plasma 21 U/L 5 - 40 [facility] Alanine aminotransferase [Enzymatic activity/volume] in Seru m or Plasma 15 U/L 7 - 56 [facility] Anion gap 3 in Serum or Plasma 8.0 mmol/L 8.0 - 16.0 [facility] AGE 20 yrs [facility] Hospit al NON-AA GFR >60 mL/min [facility] Hosp ital AFR AMER GFR >60 mL/min [facility] [...] >32 mL/min Normal ID Date Data Source [id number] 12/18/2020 04:19:00 PM EDT [facility] Name Value Range Interpretation Code Description Data Ina rce(s) Supporting Document(s) CBC W/AUTOMATED DIFF [facility] COMPLETE BLOOD COUNT Leukocytes [#/volume] in Blood by Automated count 5.1 10^3/uL 4.2 - 1 1.0 [facility] Erythrocytes [#/volume] in Blood by Automated count 4.61 10^6/uL 4. 50 - 6.30 [facility] Hemoglobin [Mass/volume] in Blood 14.7 g/dL 14.0 - 16.0 [facility] Hematocrit [Volume Fraction] of Blood by Automated count 43.0 % 4 1.0 - 51.0 [facility] Erythrocyte mean corpuscular volume [Entitic volume] by Auto mated count 93.3 fL 80.0 - 94.0 [facility] Erythrocyte mean corpuscular hemoglobin [Entitic mass] by Automated count 31.9 pg 27.0 - 34.0 [facility] Erythrocyte mean corpuscular hemoglobin concentration [Mass/volume] by Automated count 34.2 g/dL 31.0 - 36.0 [facility] Erythrocyte distribution width [Ratio] by Automated count 11.9 % 11.5 - 14.8 [facility] Platelets [#/volume] in Blood by Automated count 181 10^3/uL 150 - 45 0 [facility] Platelet mean volume [Entitic volume] in Blood by Automated count 10.9 fL 7.4 - 10.4 H [facility] Neutrophils/100 leukocytes in Blood by Automated count 47.6 % 37. 0 - 80.0 [facility] Lymphocytes/100 leukocytes in Blood by Manual count 42.2 % 25.0 - 40.0 H [facility] Monocytes/100 leukocytes in Blood by Automated count 8.2 % 3.0 - 8.0 H [facility] Eosinophils/100 leukocytes in Blood by Automated count 1.2 % 0.0 - 7.0 [facility] Basophils/100 leukocytes in Blood by Automated count 0.6 % 0.0 - 2.0 [facility] %IG 0.2 % 0.0 - 0.0 [facility] 0.0 % 0.0 - 0.0 [facility] al Neutrophils [#/volume] in Blood by Automated count 2.45 10^3/uL 2.00 - 6.90 [facility] Lymphocytes [#/volume] in Blood by Automated count 2.17 10^3/uL 0.60 - 3.40 [facility] Monocytes [#/volume] in Blood by Automated count 0.42 10^3/uL 0.00 - 0.90 [facility] Eosinophils [#/volume] in Blood by Automated count 0.06 10^3/uL 0.00 - 0.70 [facility] Basophils [#/volume] in Blood by Automated count 0.03 10^3/uL 0.00 - 0.20 [facility] #IG 0.01 10^3/uL 0.00 - 0.10 [facility] H ospital #NRBC 0.00 10^3/uL 0.00 - 0.00 [facility] ospital MANUAL DIFF NOT INDICATED [facility] RBC MORPH NOT INDICATED [facility] Procedure Social History No Information Vital Signs ID Date Data Source UNK Name Value Range Interpretation Code Description Data Source(s) Diastolic blood pressure 79 mm[Hg] 79 mm[Hg] [facility]ANEL ([facility]) Body height 73 [in_i] 73 [in_i] [facility] ([facility]) Systolic blood pressure 123 mm[Hg] 123 mm[Hg] A THENA ([facility]) Diastolic blood pressure 83 mm[Hg] 83 mm[Hg] [facility] ([facility]) Body height 73 [in_i] 73 [in_i] [facility] ([facility]) Body mass index (BMI) [Ratio] 22.6 kg/m2 22.6 k g/m2 [facility] ([facility]) Systolic blood pressure 160 mm[Hg] 160 mm[Hg] A THENA ([facility]) Body weight 171 [lb_av] 171 [lb_av] [facility] ([facility]) Diastolic blood pressure 83 mm[Hg] 83 mm[Hg] CHANEL ([facility]) Body height 73 [in_i] 73 [in_i] [facility]ANEL ([facility]) Body mass index (BMI) [Ratio] 22.6 kg/m2 22.6 k g/m2 [facility]EL ([facility]) Systolic blood pressure 160 mm[Hg] 160 mm[Hg] A THENA ([facility]) Body weight 171 [lb_av] 171 [lb_av] [facility]ANEL ([facility]) Body mass index (BMI) [Ratio] 23.8 kg/m2 23.8 k g/m2 [facility] ([facility] ) [place] body weight 172 [lb_av] 172 [lb_av] MEDEN T ([facility], ) Respiratory rate 12 /min 12 /min [facility] ( [facility] ) Body height 71 [in_i] 71 [in_i] [facility] ([facility] ) 5'11" Body weight 171.00 [lb_av] 171.00 [lb_av] MEDEN T ([facility], ) Patient Treatment Plan of Care Planned Activity Planned Date Details Description Data Source (s) Diclofenac Sodium 0.01 MG/MG Topical Gel [Voltaren] [facility] ([facility]) topiramate 25 MG Oral Tablet [facility] ([facility]) Sumatriptan 50 MG Oral Tablet [facility] ([facility]) Hydrocortisone 25 MG/ML Topical Cream [Proctosol] [facility] ([facility]) Natural Fiber Laxative Therapy oral powder [facility] ([facility]) Naproxen 500 MG Oral Tablet [facility] ([facility]) Methocarbamol 750 MG Oral Tablet [facility] ([facility]) Methocarbamol 500 MG Oral Tablet [facility] ([facility]) duloxetine 20 MG Delayed Release Oral Capsule [facility] ([facility]) Cyclobenzaprine hydrochloride 5 MG Oral Tablet [facility] ([facility]) Ciprofloxacin 500 MG Oral Tablet [facility] ([facility]) Amitriptyline Hydrochloride 25 MG Oral Tablet [facility] ([facility]) Amitriptyline Hydrochloride 10 MG Oral Tablet [facility] ([facility]) Diclofenac Sodium 0.01 MG/MG Topical Gel [Voltaren] CHANEL ([facility]) topiramate 25 MG Oral Tablet [facility] ([facility]) Sumatriptan 50 MG Oral Tablet [facility] ([facility]) Hydrocortisone 25 MG/ML Topical Cream [Proctosol] [facility]ANEL ([facility]) Natural Fiber Laxative Therapy oral powder CHANEL ([facility]) Naproxen 500 MG Oral Tablet [facility] ([facility]) Methocarbamol 750 MG Oral Tablet [facility] ([facility]) Methocarbamol 500 MG Oral Tablet [facility]EL ([facility]) duloxetine 20 MG Delayed Release Oral Capsule [facility]ANEL ([facility]) Cyclobenzaprine hydrochloride 5 MG Oral Tablet [facility]ANEL ([facility]) Ciprofloxacin 500 MG Oral Tablet [facility] ([facility]) Amitriptyline Hydrochloride 25 MG Oral Tablet [facility] ([facility]) Amitriptyline Hydrochloride 10 MG Oral Tablet [facility] ([facility]) Acetaminophen 325 MG Oral Tablet [facility]AN[facility] ([facility])
[2021-04-15 17:48] VITALS: BP 133/77
[2021-04-16 06:46] VITALS: BP 102/50
--- NOTE | 2021-04-16 08:54 | MHHPEPDOC ---
General Date Of Admission: Apr 15, 2021 Legal Status: 9.39 Chief Complaint "I wanted to kill NCO" History of Present Illness HISTORY OF THE PRESENT ILLNESS: Patient is a 21 -year-old , male, who was referred to ED from [facility]. States "I'm fed up, my NCO is asking me about my medical info, he hates me for no reason". Patient reports is on profile. Has been going to [facility] for 4 months, reports lack of benefit, states does not take any medications, has reported depression started 2018, states he continues to have ongoing low moods, poor concentration, erratic sleep, reports nightmares which she has trouble elaborating on, auditory hallucinations and visual hallucinations, reports multiple voices and does not elaborate on details, denies that they are command auditory hallucinations and reports they only occur in the evenings and nighttime. Reports has been struggling with these symptoms and wants to be met boarded from the [employer]. Has been coming to the ED with multiple medical complaints, including pains all over his body, headache. Total imaging studies have been negative including CTs, MRIs, x-rays. 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 [place] is from [place] and [place] the [place]. He has a few family members here but he did not wish to discuss them. It took several minutes for PT to speak with TW and he remained gaurded. PT had been moved from the main ED into the [facility] due to him becoming agitated and punching his wall. When asked why he did that he claims to not remember. 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 Per EMR PT has presented to this ED 18x in 2020 for various issues. PT feels homicidal towards this NCO and states it has been going on since they met and he feels singled out. When asked how he w ould harm "I would grab anything close to me. If its a gun Ill shoot him. If its something else Ill use it". PT is also admitting to and denies plan "I am fed up". PT self enrolled at the [facility] 4 months ago and does not feel that it has been beneficial. He denies mental health hx prior except to say he had mild depression in 2019 and that he talked to his family and the depression resolved. When asked about hallucinations PT states he does not wish to discuss but did admit to having AH and VH. He is requesting admission "I need to be here"" Psychiatric Review of Systems Depression (2 or more weeks): depressed mood, anhedonia, insomnia/hypersomnia (3-4), feelings of worthlesness, decreased energy, difficulty concentrating, psychomotor changes, suicidal thoughts ("last night, headache so bad, can't go to sleep") Kristina (4 or more days of): denies Psychosis: auditory hallucination ("when I try to sleep, many voices, I don't remember, almost every day, started after [facility]), visual hallucination ("states sees people when asleep"), delusions, paranoia ("I don't trust people") PTSD: nightmares and flashbacks (recuuring nightmare "friend that from headache") Past Psychiatric History Previous Psychiatric Diagnosis: unknown Previous Psychiatric Admissions: none Suicide Attempts: denies Psychiatric Follow-up: [facility] 4 months Psychiatric medications: denies Past Medical History Medical Problems migraines, hx TBI, hemorrhoids Head Injury: Yes Seizures: No Hospitalizations: No Surgeries: No Family Medical/Psychiatric HX Medical Problems denies Psychiatric Disorders: No Addiction: No Suicide Attemps/Completions: No Addiction History denies Social History Childhood: Grew up in [place], came 3 years ago to the [facility] with father, mother came after, 1 younger sister. Reports "good childhood". 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 Social Support: friendSheron Legal: denies Marital: never , no kids, gf 1 year ago Mental Status Examination General Appearance: well groomed, other (glasses) Build: average Demeanor: mistrustful, preoccupied, guarded Eye Contact: avoidant, intense Activity: slowed, anxious Behavior: cooperative, withdrawn Speech: clear, spontaneous, slow Mood: anxious, angry Affect: flat, inappropriate, anxious, disorganized Thought Process: circumstantial, associative, slow Thought Content (Delusions): persecutory, somatic, paranoia Thought Content (Other): preoccupied, guarded, phobic, internal-stimuli Thought Content (Aggressive): aggressive (assess), intent Perception (Hallucinations): auditory, visual Perception (Other): none reported Cognition (Impairment of): attention/concentration Cognition(Intelligence Est.): average Oriented: Awake, Alert, Oriented times three Insight: poor Judgment: Poor Psychosis: Psychotic Perceptions Diagnoses MDD, single episode, moderate, with psychotic features vs Schizophrenia, schizoaffective disorder Somatic symptoms disorder Hx TBI A-FIB/CHADSVASC A-FIB History Current/History of A-Fib/PAF?: No Current PO Anticoag Therapy: No Age/Risk Factor Scoring CHADSVASC: CHADSVASC Response (Comments) Value Age Risk Factor Age < 65 years old 0 Gender Risk Factor Male 0 Hx of CHF No 0 Hx of HTN No 0 Hx of Stroke/TIA/or VTE No 0 Hx of Diabetes No 0 Hx of Vascular Disease No 0 Total 0 Treatment Treatment ordered: NONE Reason Anticoagulant not given: Not indicated/[id number] Assessment Patient is a 21-year-old Ivorian male, who is been getting treatment at [facility] for 4 months and presents due to homicidal ideation towards [facility], managing supervisor has been made aware per chart review, on interview patient appears internally preoccupied looking around the room things on the wall which are not there, somewhat disorganized, reports hearing auditory visualizations in the evenings only, low moods, low energy, poor concentration, worthlessness, suicidal ideations which are vague, and preoccupations with multiple physical symptoms he cannot explain and have been ruled out on multiple visits to the emergency room with imaging/testing. Patient is agreeable to starting sertraline 50 mg p.o. daily and Abilify 10 mg nightly, made aware, rare side effects including EPS, NMS, serotonin syndrome, SI in those under age 25, allergy, metabolic side effects. Patient denies drug use, toxicology screen negative. Initial Treatment Plan 1. Patient was admitted on a [9.39] status. 2. Complete history was obtained. 3. With patients permission, family will be contacted and database will be expanded. 4. Patients medication regimen will be reviewed and changed accordingly. 5. Patient will be provided with protected environment. 6. Patient will be treated with individual, group, and milieu therapies. 7. Patient will receive supportive psych-education. 8. Discharge planning will commence immediately. 9. Outpatient follow-up treatment will be strongly recommended. 10. The initial treatment plan will focus initially on: * Depression. * Risk for suicide. ESTIMATED LENGTH OF STAY: 5-10 DAYS. TIME SPENT COUNSELING AND COORDINATING INITIAL CARE: 60 minutes. Tobacco Cessation Screen If Patient is a Smoker no Ordered/Pending Vital Signs Vital Signs Date Time Temp Pulse Resp B/P (MAP) Pulse Ox O2 Delivery O2 Flow Rate FiO2 04/16/21 06:46 98.7 68 17 102/50 (67) Room Air 04/15/21 16:31 99 Laboratory Data 24H Labs Laboratory Tests 2 04/15/21 12:06: Nucleated Red Blood Cells % (auto) 0.0, Anion Gap 5L, Glomerular Filtration Rate > 60.0, Calcium Level 10.2H, Total Bilirubin 1.2H, Direct Bilirubin 0.3H, A spartate Amino Transf (AST/SGOT) 24, Alanine Aminotransferase (ALT/SGPT) 30, Alkaline Phosphatase 74, Total Protein 8.5H, Albumin 4.5, Albumin/Globulin Ratio 1.1, Thyroid Stimulating Hormone (TSH) 0.754, Salicylates Level < 1.7L, Acetaminophen Level < 2.0L, Ethyl Alcohol Level < 0.003 04/15/21 12:24: Urine Opiates Screen NEGATIVE, Urine Methadone Screen NEGATIVE, Urine Barbit urates Screen NEGATIVE, Urine Phencyclidine Screen NEGATIVE, Urine Amphetamines Screen NEGATIVE, Urine Benzodiazepines Screen NEGATIVE, Urine Cocaine Metabolite Screen NEGATIVE, Urine Cannabinoids Screen NEGATIVE 04/15/21 13:28: Coronavirus (COVID-19)(PCR) NEGATIVE, Influenza Type A (RT-PCR) NEGATIVE, Influenza Type B (RT-PCR) NEGATIVE, Respiratory Syncytial Virus (PCR) NEGATIVE CBC/BMP Laboratory Tests 04/15/21 12:06 Medications Scheduled Amoxicillin/Potassium Clav (Augmentin 875-125 Tablet) 1 Each Tablet, 875 MG PO BID, (Reported) STARTED 04/13/21 FOR 10 DAYS Celecoxib (Celecoxib) 200 Mg Capsule, 200 MG PO QHS, (Reported) Dicyclomine HCl (Dicyclomine HCl) 10 Mg Capsule, 10 MG PO QHS, (Reported) Diphenhydramine HCl (Benadryl) 25 Mg Capsule, 25 MG PO QHS, (Reported) Docusate Sodium (Docusate Sodium) 100 Mg Capsule, 100 MG PO BID, (Reported) Galcanezumab-Gnlm (Emgality Pen) 120 Mg/1 Ml Pen.injctr, 120 MG SQ QMONTH, (Reported) DUE SOMETIME IN APRIL, UNSURE OF EXACT DATE OF LAST DOSE Psyllium Husk (with Sugar) (Natural Fiber Powder) 368 Gm Powder, 1 DOSE PO QHS, (Reported) Topiramate (Topiramate) 100 Mg Tablet, 150 MG PO QHS, (Reported) Scheduled PRN Acetaminophen (Acetaminophen) 325 Mg Tablet, 650 MG PO PRN PRN for PAIN LEVEL 1- 5, (Reported) Guaifenesin (Mucinex) 600 Mg Tab.er.12h, 600 MG PO BID PRN for CONGESTION, (Reported) Hydrocortisone Acetate (Hydrocortisone Acetate) 25 Mg Supp.rect, 25 MG IN QHS PRN for HEMORRHOIDS, (Reported) Allergies Coded Allergies: Sulfa (Sulfonamide Antibiotics) (Verified Allergy, Intermediate, G6PD, 04/11/21) ibuprofen (Verified Allergy, Intermediate, G6PD, 04/11/21) primaquine (Verified Allergy, Intermediate, G6PD, 04/11/21) acetaminophen (Verified Allergy, Unknown, G6PD, 04/11/21) aspirin (Verified Allergy, Unknown, G6PD, 04/11/21) ANAND VALDES MD Apr 16, 2021 08:54
[2021-04-16] MEDS ORDERED: DOCUSATE SODIUM 100MG CAPSULE PO PRN (09:00)
[2021-04-16] MEDS ORDERED: DICYCLOMINE 10 MG CAP PO PRN (09:00)
[2021-04-16] MEDS: SERTRALINE HCL 50 MG TAB PO SCH (09:52)
--- NOTE | 2021-04-16 14:14 | HPEPDOC ---
[facility] Medical History & Physical Date of Admission Apr 15, 2021 Date of Service: Apr 16, 2021 History and Physical CHIEF COMPLAINT: Homicidal ideation HISTORY OF PRESENT ILLNESS: 21M referred to ED from [facility]. As per chart review: he has stated he had thoughts of harm to his NCO. He has been going to [facility] for 4 months, with reports of lack of benefit. He has stated that he does not take any medications. Ther is documented history of depression starting in 2019, with ongoing difficulty with concentration, sleep, and nightmares. He is also possibly experiencing auditory and visual hallucinations. On examination he denies any medical complaints including chest pain, shortness of breath, abdominal pain, nausea, vomiting, diarrhea, headaches. He is not very talkative, with only word answers to questioning. PAST MEDICAL HISTORY: Patient denies, however per chart review: #Migraines #Traumatic brain injury #Hemorrhoids PAST SURGICAL HISTORY: Denies. SOCIAL HISTORY: Denies alcohol, nicotine or illicit drug use. FAMILY HISTORY: Denies. ALLERGIES: Please see below. REVIEW OF SYSTEMS: Negative except as per HPI. HOME MEDICATIONS: Please see below. PHYSICAL EXAMINATION: Vital Signs: reviewed General: NAD, sitting comfortably in chair, flat affect HEENT: NC/AT, EOMI Neck: supple, no masses Chest: lungs CTA B/L Heart: +S1S2, RRR Abd: soft, NT, ND, +BS Ext: no edema Skin: no rashes MSK: full ROM at large joints Neuro: no gross focal deficits Psych: AAOx3 LABORATORY DATA: See below. MICROBIOLOGY: Please see below. A/P: 21-year-old male admitted for psychiatric disturbance, major depressive disorder with psychotic features versus schizophrenia, schizoaffective disorder. #Psych - as per primary team Thank you for this consultation. Please reconsult as needed. Vital Signs Vital Signs Date Time Temp Pulse Resp B/P (MAP) Pulse Ox O2 Delivery O2 Flow Rate FiO2 04/16/21 06:46 98.7 68 17 102/50 (67) Room Air 04/15/21 16:31 99 Home Medications Scheduled Amoxicillin/Potassium Clav (Augmentin 875-125 Tablet) 1 Each Tablet, 875 MG PO BID STARTED 04/13/21 FOR 10 DAYS Celecoxib (Celecoxib) 200 Mg Capsule, 200 MG PO QHS Dicyclomine HCl (Dicyclomine HCl) 10 Mg Capsule, 10 MG PO QHS Diphenhydramine HCl (Benadryl) 25 Mg Capsule, 25 MG PO QHS Docusate Sodium (Docusate Sodium) 100 Mg Capsule, 100 MG PO BID Galcanezumab-Gnlm (Emgality Pen) 120 Mg/1 Ml Pen.injctr, 120 MG SQ QMONTH DUE SOMETIME IN APRIL, UNSURE OF EXACT DATE OF LAST DOSE Psyllium Husk (with Sugar) (Natural Fiber Powder) 368 Gm Powder, 1 DOSE PO QHS Topiramate (Topiramate) 100 Mg Tablet, 150 MG PO QHS Scheduled PRN Acetaminophen (Acetaminophen) 325 Mg Tablet, 650 MG PO PRN PRN for PAIN LEVEL 1- 5 Guaifenesin (Mucinex) 600 Mg Tab.er.12h, 600 MG PO BID PRN for CONGESTION Hydrocortisone Acetate (Hydrocortisone Acetate) 25 Mg Supp.rect, 25 MG MO QHS PRN for HEMORRHOIDS Allergies Coded Allergies: Sulfa (Sulfonamide Antibiotics) (Verified Allergy, Intermediate, G6PD, 04/11/21) ibuprofen (Verified Allergy, Intermediate, G6PD, 04/11/21) primaquine (Verified Allergy, Intermediate, G6PD, 04/11/21) acetaminophen (Verified Allergy, Unknown, G6PD, 04/11/21) aspirin (Verified Allergy, Unknown, G6PD, 04/11/21) A-FIB/CHADSVASC A-FIB History Current/History of A-Fib/PAF?: No Age/Risk Factor Scoring CHADSVASC: CHADSVASC Response (Comments) Value Age Risk Factor Age < 65 years old 0 Gender Risk Factor Male 0 Hx of CHF No 0 Hx of HTN No 0 Hx of Stroke/TIA/or VTE No 0 Hx of Diabetes No 0 Hx of Vascular Disease No 0 Total 0 LAVELL DEE MD Apr 16, 2021 14:14
[2021-04-16 18:37] VITALS: BP 98/54
[2021-04-16] MEDS ORDERED: ARIPiprazole 10 MG TAB PO SCH (21:00)
[2021-04-17 06:24] VITALS: BP 112/59
[2021-04-17] MEDS ORDERED: TOPIRAMATE (TopAMAX) 25 MG TAB PO SCH (09:00)
[2021-04-17] MEDS ORDERED: risperiDONE 1 MG TAB PO SCH ×2 (09:00)
[2021-04-17] MEDS: SERTRALINE HCL 50 MG TAB PO SCH (10:02)
[2021-04-17] MEDS ORDERED: CelecoXIB (CeleBREX) 100 MG CAP PO PRN (12:35)
--- NOTE | 2021-04-17 12:51 | MHIPNPDOC ---
[facility] Progress Note Progress Note DATE OF SERVICE: 04/17/21 HISTORY: Patient is a 21 -year-old , male, who was referred to ED from [facility]. States "I'm fed up, my NCO is asking me about my medical info, he hates me for no reason". Patient reports is on profile. Has been going to [facility] for 4 months, reports lack of benefit, states does not take any medications, has reported depression started 2018, states he continues to have ongoing low moods, poor concentration, erratic sleep, reports nightmares which she has trouble elaborating on, auditory hallucinations and visual hallucinations, reports multiple voices and does not elaborate on details, denies that they are command auditory hallucinations and reports they only occur in the evenings and nighttime. Reports has been struggling with these symptoms and wants to be met boarded from the [employer]. Has been coming to the ED with multiple medical complaints, including pains all over his body, headache. Total imaging studies have been negative including CTs (CT head November 2020, migraines since this time), MRIs, x-rays. Interval: Patient states he continues to hear voices, appears internally preoccupied, lying in bed, reports chronic headache and is due for his monthly injection, spoke to hospitalist team to address, is non-formulary, patient did not bring medication with him, reviewed chart and continue medications for chronic pain, hemorrhoids. VITAL SIGNS: See below. NEW TEST RESULTS: LDL 149, total cholesterol 220 CURRENT MEDICATIONS: See below. MENTAL STATUS EXAMINATION: Patient is a 21-year old -Tristanian male, who is in no acute distress, lying in bed, with good hygiene Speech: Is slowed, nonspontaneous Language skills are poor Thought processes including: Circumstantial, thought blocking Thought content: Perseverates of physical symptoms including headaches, not attending group abstract reasoning, and computation: Unable to fully assess patient poorly description of associations: [place] Description of abnormal or psychotic thoughts: Appears internally preoccupied, withdrawn Judgment: Poor Insight: Poor Orientation: x3 Recent and remote memory: fair Attention span and concentration: decreased Language: speaks scottish Fund of knowledge: Unable to fully assess Mood: Depressed affect: Dysthymic, withdrawn, possibly internally preoccupied, m ildly disorganized DIAGNOSES: MDD, single episode, moderate, with psychotic features vs Schizophrenia, schizoaffective disorder Somatic symptoms disorder Hx TBI ASSESSMENT: Patient continues to endorse low mood, low energy, poor appetite, suicidal ideations, homicidal ideations towards NCO, psychotic symptoms including auditory hallucinations and paranoia, agreeable to discontinue Abilify and starting Risperdal. MANAGEMENT PLAN: Ordered low-cholesterol, low-fat diet in context of elevated LDL and total cholesterol, patient agrees to start Risperdal for voices, paranoia 1 mg twice daily, patient made aware of common and rare side effects. TIME SPENT: 20 minutes. Vital Signs Vital Signs Date Time Temp Pulse Resp B/P (MAP) Pulse Ox O2 Delivery O2 Flow Rate FiO2 04/17/21 06:24 99.0 78 16 112/59 (76) 98 Room Air Laboratory Data 24H Labs Laboratory Tests 2 04/17/21 07:07: Triglycerides Level 78, Total Cholesterol 220H, LDL Cholesterol 149H, Non-HDL Cholesterol (LDL + VLDL) 165, Total HDL Cholesterol 55, Cholesterol/HDL Ratio 4. 000 Current Medications Current Medications Medications (Trade) Dose Ordered Sig/Augie Route PRN Reason Start Time Stop Time Status Last Admin Dose Admin Al Hydrox/Mg Hydrox/Simethicone (Mylanta) 30 ml Q4HP PRN PO HEARTBURN/INDIGESTION 04/15/21 16:25 Aripiprazole (AbiLIFY) 10 mg QHS PO 04/16/21 21:00 04/17/21 12:07 DC 04/16/21 22:16 Dicyclomine HCl (Bentyl) 10 mg QIDP PRN PO CRAMPS 04/16/21 09:00 Docusate Sodium (Colace) 100 mg BIDP PRN PO CONSTIPATION 04/16/21 09:00 Home Med (Home Med List Complete!) ASDIRECTED XX 04/15/21 16:05 04/15/21 16:04 DC Ibuprofen (Advil) 400 mg Q6HP PRN PO MODERATE PAIN (PS 5-7) 04/15/21 16:25 04/16/21 11:21 Magnesium Hydroxide (Milk Of Magnesia) 30 ml DAILYPRN PRN PO CONSTIPATION 04/15/21 16:25 Olanzapine (ZyPREXA) 5 mg Q6HP PRN PO ANXIETY/AGITATION 04/15/21 16:25 Risperidone (RisperDAL) 1 mg BID PO 04/17/21 09:00 Sertraline HCl (Zoloft) 50 mg DAILY PO 04/16/21 09:00 04/17/21 10:02 Topiramate (TopAMAX) 150 mg BID PO 04/17/21 21:00 UNV Allergies Coded Allergies: Sulfa (Sulfonamide Antibiotics) (Verified Allergy, Intermediate, G6PD, 04/11/21) ibuprofen (Verified Allergy, Intermediate, G6PD, 04/11/21) primaquine (Verified Allergy, Intermediate, G6PD, 04/11/21) acetaminophen (Verified Allergy, Unknown, G6PD, 04/11/21) aspirin (Verified Allergy, Unknown, G6PD, 04/11/21) ANAND VALDES MD Apr 17, 2021 12:51
[2021-04-17] MEDS ORDERED: BENZTROPINE 1 MG TAB PO PRN (12:55)
[2021-04-17] MEDS: ONDANSETRON 4 MG TAB PO SCH ×2 (16:19→22:49)
[2021-04-17] MEDS: DOCUSATE SODIUM 100MG CAPSULE PO SCH (16:20)
[2021-04-17 18:18] VITALS: BP 100/55
[2021-04-17] MEDS ORDERED: ANUSOL HC 25MG SUPP PR SCH (21:00)
[2021-04-17] MEDS: ANUSOL HC 25MG SUPP PR SCH (22:49)
[2021-04-17] MEDS: TOPIRAMATE (TopAMAX) 25 MG TAB PO SCH (22:49)
[2021-04-17] MEDS: CYCLOBENZAPRINE 5MG TABLET PO SCH (22:49)
[2021-04-17] MEDS: risperiDONE 1 MG TAB PO SCH (22:49)
[2021-04-18] MEDS: ONDANSETRON 4 MG TAB PO SCH ×3 (06:04→21:38)
[2021-04-18 06:20] VITALS: BP 141/68
[2021-04-18] MEDS: ANUSOL HC 25MG SUPP PR SCH ×2 (09:13→21:37)
[2021-04-18] MEDS: SERTRALINE HCL 50 MG TAB PO SCH (09:13)
[2021-04-18] MEDS: risperiDONE 1 MG TAB PO SCH ×2 (09:14→21:37)
[2021-04-18 16:34] VITALS: BP 112/62
--- NOTE | 2021-04-18 16:48 | MHIPNPDOC ---
[facility] Progress Note Progress Note DATE OF SERVICE: 04/18/21 HISTORY: Patient is a 21 -year-old , male, who was referred to ED from [facility]. States "I'm fed up, my NCO is asking me about my medical info, he hates me for no reason". Patient reports is on profile. Has been going to [facility] for 4 months, reports lack of benefit, states does not take any medications, has reported depression started 2018, states he continues to have ongoing low moods, poor concentration, erratic sleep, reports nightmares which she has trouble elaborating on, auditory hallucinations and visual hallucinations, reports multiple voices and does not elaborate on details, denies that they are command auditory hallucinations and reports they only occur in the evenings and nighttime. Reports has been struggling with these symptoms and wants to be met boarded from the [employer]. Has been coming to the ED with multiple medical complaints, including pains all over his body, headache. Total imaging studies have been negative including CTs (CT head November 2020, migraines since this time), MRIs, x-rays. Interval: Patient continues to report depressed mood and continue to hear voices. He states that his sleep is also been poor and that he has a difficult time, the medications at night have not been helpful for him. We discussed options for him increasing his doses and discussed that I would review his medications and increase as appropriate in order to better help his mood and sleep. VITAL SIGNS: See below. NEW TEST RESULTS: LDL 149, total cholesterol 220 CURRENT MEDICATIONS: See below. MENTAL STATUS EXAMINATION: Patient is a 21-year old -Monegasque male, who is in no acute distress, lying in bed, with good hygiene Speech: Is slowed, nonspontaneous Language skills are poor Thought processes including: Circumstantial, thought blocking Thought content: Perseverates on poor mood and voices in his head, not attending group abstract reasoning, and computation: Unable to fully assess patient poorly description of associations: [place] Description of abnormal or psychotic thoughts: Appears internally preoccupied, withdrawn Judgment: Poor Insight: Poor Orientation: x3 Recent and remote memory: fair Attention span and concentration: decreased Language: speaks montenegrin Fund of knowledge: Unable to fully assess Mood: Depressed affect: Dysthymic, withdrawn, possibly internally preoccupied, mildly disorganized DIAGNOSES: MDD, single episode, moderate, with psychotic features vs Schizophrenia, schizoaffective disorder Somatic symptoms disorder Hx TBI ASSESSMENT: Patient continues to endorse low mood, low energy, poor appetite, suicidal ideations, homicidal ideations towards NCO, psychotic symptoms including auditory hallucinations and paranoia, agreeable to discontinue Abilify and starting Risperdal. MANAGEMENT PLAN: No changes at this time, patient has been on sertraline for less than 3 days and risperidone 424 hours. We will continue to monitor and consider adjustments tomorrow. TIME SPENT: 20 minutes. Vital Signs Vital Signs Date Time Temp Pulse Resp B/P (MAP) Pulse Ox O2 Delivery O2 Flow Rate FiO2 04/18/21 16:34 98.1 66 16 112/62 (79) 98 Room Air Current Medications Current Medications Medications (Trade) Dose Ordered Sig/Augie Route PRN Reason Start Time Stop Time Status Last Admin Dose Admin Al Hydrox/Mg Hydrox/Simethicone (Mylanta) 30 ml Q4HP PRN PO HEARTBURN/INDIGESTION 04/15/21 16:25 Aripiprazole (AbiLIFY) 10 mg QHS PO 04/16/21 21:00 04/17/21 12:07 DC 04/16/21 22:16 Benztropine Mesylate (Cogentin) 1 mg BIDP PRN PO MUSCLE PARALYSIS 04/17/21 12:55 Celecoxib (CeleBREX) 200 mg DAILYPRN PRN PO MUSCLE SPASMS 04/17/21 12:35 Cyclobenzaprine HCl (Flexeril) 5 mg QHS PO 04/17/21 21:00 04/17/21 22:49 Dicyclomine HCl (Bentyl) 10 mg QIDP PRN PO CRAMPS 04/16/21 09:00 Docusate Sodium (Colace) 100 mg BIDP PRN PO CONSTIPATION 04/16/21 09:00 Docusate Sodium (Colace) 100 mg Q2D PO 04/17/21 09:00 04/17/21 16:20 Home Med (Home Med List Complete!) ASDIRECTED XX 04/15/21 16:05 04/15/21 16:04 DC Hydrocortisone Acetate (Anusol Hc Supp) 25 mg BID [place] 04/17/21 21:00 04/17/21 13:16 DC Hydrocortisone Acetate (Anusol Hc Supp) 25 mg BID [place] 04/17/21 21:00 04/18/21 09:13 Ibuprofen (Advil) 400 mg Q6HP PRN PO MODERATE PAIN (PS 5-7) 04/15/21 16:25 04/17/21 12:44 DC 04/16/21 11:21 Magnesium Hydroxide (Milk Of Magnesia) 30 ml DAILYPRN PRN PO CONSTIPATION 04/15/21 16:25 Olanzapine (ZyPREXA) 5 mg Q6HP PRN PO ANXIETY/AGITATION 04/15/21 16:25 Ondansetron HCl (Zofran) 4 mg Q8H PO 04/17/21 14:00 04/18/21 06:04 Risperidone (RisperDAL) 1 mg BID PO 04/17/21 09:00 04/17/21 12:13 DC Risperidone (RisperDAL) 1 mg BID PO 04/17/21 09:00 Cancel Risperidone (RisperDAL) 1 mg BID PO 04/17/21 21:00 04/18/21 09:14 Sertraline HCl (Zoloft) 50 mg DAILY PO 04/16/21 09:00 04/18/21 09:13 Topiramate (TopAMAX) 150 mg BID PO 04/17/21 09:00 04/17/21 12:44 DC Topiramate (TopAMAX) 150 mg QHS PO 04/17/21 21:00 04/17/21 22:49 Allergies Coded Allergies: Sulfa (Sulfonamide Antibiotics) (Verified Allergy, Intermediate, G6PD, 04/11/21) ibuprofen (Verified Allergy, Intermediate, G6PD, 04/11/21) primaquine (Verified Allergy, Intermediate, G6PD, 04/11/21) acetaminophen (Verified Allergy, Unknown, G6PD, 04/11/21) aspirin (Verified Allergy, Unknown, G6PD, 04/11/21) LAMBERT WATERS MD Apr 18, 2021 16:48
[2021-04-18] MEDS ORDERED: traZODone 50 MG TAB PO PRN (16:50)
[2021-04-18] MEDS: TOPIRAMATE (TopAMAX) 25 MG TAB PO SCH (21:37)
[2021-04-18] MEDS: CYCLOBENZAPRINE 5MG TABLET PO SCH (21:37)
[2021-04-19] MEDS: ONDANSETRON 4 MG TAB PO SCH ×3 (05:51→22:20)
[2021-04-19 06:30] VITALS: BP 90/52
[2021-04-19] MEDS: DOCUSATE SODIUM 100MG CAPSULE PO SCH (08:44)
[2021-04-19] MEDS: SERTRALINE HCL 50 MG TAB PO SCH (08:44)
[2021-04-19] MEDS: risperiDONE 1 MG TAB PO SCH (08:44)
[2021-04-19] MEDS: ANUSOL HC 25MG SUPP PR SCH ×2 (08:44→22:20)
--- NOTE | 2021-04-19 11:45 | MHIPNPDOC ---
[facility] Progress Note Progress Note DATE OF SERVICE: 04/19/21 HISTORY: Patient is a 21 -year-old , male, who was referred to ED from [facility]. States "I'm fed up, my NCO is asking me about my medical info, he hates me for no reason". Patient reports is on profile. Has been going to [facility] for 4 months, reports lack of benefit, states does not take any medications, has reported depression started 2018, states he continues to have ongoing low moods, poor concentration, erratic sleep, reports nightmares which he has trouble elaborating on, auditory hallucinations and visual hallucinations, reports multiple voices and does not elaborate on details, denies that they are command auditory hallucinations and reports they only occur in the evenings and nighttime. Reports has been struggling with these symptoms and wants to be met [facility] from [facility] [employer]. Has been coming to the ED with multiple medical complaints, including pains all over his body, headache. Total imaging studies have been negative including CTs (CT head November 2020, migraines since this time), MRIs, x-rays. Interval: Patient was laying in bed today with a sheet pulled up over his head, uncovered himself when I addressed him. Made intense eye contact and answer questions briefly, endorses still having auditory hallucinations and feelings of depression along with thoughts of suicide. VITAL SIGNS: See below. NEW TEST RESULTS: None today CURRENT MEDICATIONS: See below. MENTAL STATUS EXAMINATION: Patient is a 21-year old -Malawian male, who is in no acute distress, lying in bed, with good hygiene Speech: Is slowed, nonspontaneous Language skills are poor Thought processes including: Circumstantial, thought blocking Thought content: Perseverates on poor mood and voices in his head, not attending group abstract reasoning, and computation: Unable to fully assess patient poorly description of associations: [place] Description of abnormal or psychotic thoughts: Appears internally preoccupied, withdrawn Judgment: Poor Insight: Poor Orientation: x3 Recent and remote memory: fair Attention span and concentration: decreased Language: speaks liberian Fund of knowledge: Unable to fully assess Mood: Depressed affect: Dysthymic, withdrawn, possibly internally preoccupied, mildly disorganized DIAGNOSES: MDD, single episode, moderate, with psychotic features vs Schizophrenia, schizoaffective disorder Somatic symptoms disorder Hx TBI ASSESSMENT: Patient continues to endorse low mood, low energy, poor appetite, suicidal ideations, homicidal ideations towards NCO, psychotic symptoms including auditory hallucinations and paranoia, agreeable to discontinue Abilify and starting Risperdal. MANAGEMENT PLAN: We will continue sertraline at current dose, and increased risperidone in order to better control auditory hallucinations along with paranoia. TIME SPENT: 20 minutes. Vital Signs Vital Signs Date Time Temp Pulse Resp B/P (MAP) Pulse Ox O2 Delivery O2 Flow Rate FiO2 04/19/21 06:30 98.5 63 16 90/52 (65) 99 Room Air Laboratory Data 24H Labs Laboratory Tests 2 04/18/21 17:35: Current Medications Current Medications Medications (Trade) Dose Ordered Sig/Augie Route PRN Reason Start Time Stop Time Status Last Admin Dose Admin Al Hydrox/Mg Hydrox/Simethicone (Mylanta) 30 ml Q4HP PRN PO HEARTBURN/INDIGESTION 04/15/21 16:25 Aripiprazole (AbiLIFY) 10 mg QHS PO 04/16/21 21:00 04/17/21 12:07 DC 04/16/21 22:16 Benztropine Mesylate (Cogentin) 1 mg BIDP PRN PO MUSCLE PARALYSIS 04/17/21 12:55 Celecoxib (CeleBREX) 200 mg DAILYPRN PRN PO MUSCLE SPASMS 04/17/21 12:35 Cyclobenzaprine HCl (Flexeril) 5 mg QHS PO 04/17/21 21:00 04/18/21 21:37 Dicyclomine HCl (Bentyl) 10 mg QIDP PRN PO CRAMPS 04/16/21 09:00 Docusate Sodium (Colace) 100 mg BIDP PRN PO CONSTIPATION 04/16/21 09:00 Docusate Sodium (Colace) 100 mg Q2D PO 04/17/21 09:00 04/19/21 08:44 Home Med (Home Med List Complete!) ASDIRECTED XX 04/15/21 16:05 04/15/21 16:04 DC Hydrocortisone Acetate (Anusol Hc Supp) 25 mg BID [place] 04/17/21 21:00 04/17/21 13:16 DC Hydrocortisone Acetate (Anusol Hc Supp) 25 mg BID [place] 04/17/21 21:00 04/19/21 08:44 Ibuprofen (Advil) 400 mg Q6HP PRN PO MODERATE PAIN (PS 5-7) 04/15/21 16:25 04/17/21 12:44 DC 04/16/21 11:21 Magnesium Hydroxide (Milk Of Magnesia) 30 ml DAILYPRN PRN PO CONSTIPATION 04/15/21 16:25 Olanzapine (ZyPREXA) 5 mg Q6HP PRN PO ANXIETY/AGITATION 04/15/21 16:25 Ondansetron HCl (Zofran) 4 mg Q8H PO 04/17/21 14:00 04/19/21 05:51 Risperidone (RisperDAL) 1 mg BID PO 04/17/21 09:00 04/17/21 12:13 DC Risperidone (RisperDAL) 1 mg BID PO 04/17/21 09:00 Cancel Risperidone (RisperDAL) 1 mg BID PO 04/17/21 21:00 04/19/21 08:44 Sertraline HCl (Zoloft) 50 mg DAILY PO 04/16/21 09:00 04/19/21 08:44 Topiramate (TopAMAX) 150 mg BID PO 04/17/21 09:00 04/17/21 12:44 DC Topiramate (TopAMAX) 150 mg QHS PO 04/17/21 21:00 04/18/21 21:37 Trazodone HCl (Desyrel) 50 mg QHSP PRN PO INSOMNIA 04/18/21 16:50 Allergies Coded Allergies: Sulfa (Sulfonamide Antibiotics) (Verified Allergy, Intermediate, G6PD, 04/11/21) ibuprofen (Verified Allergy, Intermediate, G6PD, 04/11/21) primaquine (Verified Allergy, Intermediate, G6PD, 04/11/21) acetaminophen (Verified Allergy, Unknown, G6PD, 04/11/21) aspirin (Verified Allergy, Unknown, G6PD, 04/11/21) LAMBERT WAETRS MD Apr 19, 2021 11:45
[2021-04-19 16:17] VITALS: BP 105/59
[2021-04-19] MEDS ORDERED: risperiDONE 0.5 MG TAB PO SCH (21:00)
[2021-04-19] MEDS: CYCLOBENZAPRINE 5MG TABLET PO SCH (21:00)
[2021-04-19] MEDS: TOPIRAMATE (TopAMAX) 25 MG TAB PO SCH (22:19)
[2021-04-20] MEDS: ONDANSETRON 4 MG TAB PO SCH ×3 (05:58→21:46)
[2021-04-20 06:40] VITALS: BP 109/55
[2021-04-20] MEDS: risperiDONE 2 MG TAB PO SCH ×2 (09:34→21:47)
[2021-04-20] MEDS: SERTRALINE HCL 25 MG TABLET PO SCH (09:34)
[2021-04-20] MEDS: ANUSOL HC 25MG SUPP PR SCH ×2 (09:35→21:45)
--- NOTE | 2021-04-20 12:41 | MHIPNPDOC ---
[facility] Progress Note Progress Note DATE OF SERVICE: 04/20/21 HISTORY: Patient is a 21 -year-old , male, who was referred to ED from [facility]. States "I'm fed up, my NCO is asking me about my medical info, he hates me for no reason". Patient reports is on profile. Has been going to [facility] for 4 months, reports lack of benefit, states does not take any medications, has reported depression started 2018, states he continues to have ongoing low moods, poor concentration, erratic sleep, reports nightmares which she has trouble elaborating on, auditory hallucinations and visual hallucinations, reports multiple voices and does not elaborate on details, denies that they are command auditory hallucinations and reports they only occur in the evenings and nighttime. Reports has been struggling with these symptoms and wants to be met boarded from [facility] [employer]. Has been coming to the ED with multiple medical complaints, including pains all over his body, headache. Total imaging studies have been negative including CTs (CT head November 2020, migraines since this time), MRIs, x-rays. Interval: Today patient is report mood is average, not better, states he is no longer hearing voices no longer has homicidal ideations towards NCO. Reports constipation with some stomach upset, and thick urine which is yellow. Agrees to urinalysis and medication adjustments. VITAL SIGNS: See below. NEW TEST RESULTS: None, see below CURRENT MEDICATIONS: See below. MENTAL STATUS EXAMINATION: Patient is a 21-year old -[place] male, who is in no acute distress, lying in bed, with good hygiene Speech: Is slowed, non-spontaneous Language skills are poor Thought processes including: Circumstantial Thought content: Did not endorsing headaches, denies suicidal ideations, intent or plan. Denies homicidal ideations, intent or plan abstract reasoning, and computation: Unable to fully assess patient poorly description of associations: [place] Description of abnormal or psychotic thoughts: Denies hallucinations, delusions, but appears somewhat withdrawn Judgment: Improving Insight: improving Orientation: x3 Recent and remote memory: fair Attention span and concentration: decreased Language: speaks luxembourgish Fund of knowledge: Unable to fully assess Mood: "average, not better" affect: Blunted, withdrawn, appropriate DIAGNOSES: MDD, single episode, moderate, with psychotic features vs Schizophrenia, schizoaffective disorder Somatic symptoms disorder Hx TBI ASSESSMENT: Patient continues to endorse low mood, anxiety symptoms, denies auditory hallucinations or homicidal ideations towards NCL, denies SI, states he feels the medications are helping him but he needs more time to adjust to the treatment, patient agrees to increase Risperdal to 2 mg twice daily and increasing sertraline to 75 mg p.o. daily for anxiety, low mood, reports constipation and irritable bowel, added MiraLAX to bowel regimen consisting of Colace every other day. Otherwise denies medication side effects, other acute physical complaints, AIMS scoring is 0 today on interview. If continues to improve possible discharge within the next 2 to 3 days, needs extended stay for stabilization of mood and psychotic symptoms. MANAGEMENT PLAN: Increase Risperdal to 2 mg twice daily, increase sertraline to 75 mg p.o. daily TIME SPENT: 20 minutes. Vital Signs Vital Signs Date Time Temp Pulse Resp B/P (MAP) Pulse Ox O2 Delivery O2 Flow Rate FiO2 04/20/21 06:40 97.7 63 20 109/55 (73) 99 Room Air Current Medications Current Medications Medications (Trade) Dose Ordered Sig/Augie Route PRN Reason Start Time Stop Time Status Last Admin Dose Admin Al Hydrox/Mg Hydrox/Simethicone (Mylanta) 30 ml Q4HP PRN PO HEARTBURN/INDIGESTION 04/15/21 16:25 Aripiprazole (AbiLIFY) 10 mg QHS PO 04/16/21 21:00 04/17/21 12:07 DC 04/16/21 22:16 Benztropine Mesylate (Cogentin) 1 mg BIDP PRN PO MUSCLE PARALYSIS 04/17/21 12:55 Celecoxib (CeleBREX) 200 mg DAILYPRN PRN PO MUSCLE SPASMS 04/17/21 12:35 Cyclobenzaprine HCl (Flexeril) 5 mg QHS PO 04/17/21 21:00 04/19/21 21:00 Dicyclomine HCl (Bentyl) 10 mg QIDP PRN PO CRAMPS 04/16/21 09:00 Docusate Sodium (Colace) 100 mg BIDP PRN PO CONSTIPATION 04/16/21 09:00 Cancel Docusate Sodium (Colace) 100 mg Q2D PO 04/17/21 09:00 04/19/21 08:44 Home Med (Home Med List Complete!) ASDIRECTED XX 04/15/21 16:05 04/15/21 16:04 DC Hydrocortisone Acetate (Anusol Hc Supp) 25 mg BID [place] 04/17/21 21:00 04/17/21 13:16 DC Hydrocortisone Acetate (Anusol Hc Supp) 25 mg BID [place] 04/17/21 21:00 04/20/21 09:35 Ibuprofen (Advil) 400 mg Q6HP PRN PO MODERATE PAIN (PS 5-7) 04/15/21 16:25 04/17/21 12:44 DC 04/16/21 11:21 Magnesium Hydroxide (Milk Of Magnesia) 30 ml DAILYPRN PRN PO CONSTIPATION 04/15/21 16:25 Olanzapine (ZyPREXA) 5 mg Q6HP PRN PO ANXIETY/AGITATION 04/15/21 16:25 Ondansetron HCl (Zofran) 4 mg Q8H PO 04/17/21 14:00 04/20/21 05:58 Polyethylene Glycol (Miralax) 1 pkt DAILYPRN PRN PO CONSTIPATION 04/20/21 09:05 Risperidone (RisperDAL) 1 mg BID PO 04/17/21 09:00 04/17/21 12:13 DC Risperidone (RisperDAL) 1 mg BID PO 04/17/21 09:00 Cancel Risperidone (RisperDAL) 1 mg BID PO 04/17/21 21:00 04/19/21 11:42 DC 04/19/21 08:44 Risperidone (RisperDAL) 1.5 mg BID PO 04/19/21 21:00 04/20/21 09:07 DC 04/19/21 22:19 Risperidone (RisperDAL) 2 mg BID PO 04/20/21 09:00 04/20/21 09:34 Sertraline HCl (Zoloft) 50 mg DAILY PO 04/16/21 09:00 04/20/21 09:07 DC 04/19/21 08:44 Sertraline HCl (Zoloft) 75 mg DAILY PO 04/20/21 09:00 04/20/21 09:34 Topiramate (TopAMAX) 150 mg BID PO 04/17/21 09:00 04/17/21 12:44 DC Topiramate (TopAMAX) 150 mg QHS PO 04/17/21 21:00 04/19/21 22:19 Trazodone HCl (Desyrel) 50 mg QHSP PRN PO INSOMNIA 04/18/21 16:50 Allergies Coded Allergies: Sulfa (Sulfonamide Antibiotics) (Verified Allergy, Intermediate, G6PD, 04/11/21) ibuprofen (Verified Allergy, Intermediate, G6PD, 04/11/21) primaquine (Verified Allergy, Intermediate, G6PD, 04/11/21) acetaminophen (Verified Allergy, Unknown, G6PD, 04/11/21) aspirin (Verified Allergy, Unknown, G6PD, 04/11/21) ANAND VALDES MD Apr 20, 2021 12:41
[2021-04-20 14:23] LABS: APPEARANCE, URINE CLEAR (CLEAR); BACTERIA, URINE AUTO NEGATIVE (NEGATIVE); BILIRUBIN, URINE AUTO NEGATIVE (NEGATIVE); BLOOD, URINE BLOOD NEGATIVE (NEGATIVE); COLOR, URINE YELLOW (YELLOW); GLUCOSE, URINE (UA) AUTO NEGATIVE (NEGATIVE); KETONE, URINE AUTO NEGATIVE (NEGATIVE); LEUKOCYTE ESTERASE, URINE AUTO NEGATIVE (NEGATIVE); NITRITE, URINE AUTO NEGATIVE (NEGATIVE); PROTEIN, URINE AUTO NEGATIVE (NEGATIVE); RBC, URINE AUTO 0 /HPF (0-3); SPECIFIC GRAVITY URINE AUTO 1.021 (1.002-1.035); SQUAMOUS EPITHELIAL CELL UR AU 0 /HPF (0-6); WBC, URINE AUTO 0 /HPF (0-3)
[2021-04-20] MEDS: CYCLOBENZAPRINE 5MG TABLET PO SCH (21:47)
[2021-04-20] MEDS: TOPIRAMATE (TopAMAX) 25 MG TAB PO SCH (21:47)
[2021-04-21] MEDS: ONDANSETRON 4 MG TAB PO SCH ×3 (06:15→21:56)
[2021-04-21 06:36] VITALS: BP 124/57
[2021-04-21] MEDS: risperiDONE 2 MG TAB PO SCH ×2 (09:41→21:56)
[2021-04-21] MEDS: SERTRALINE HCL 25 MG TABLET PO SCH (09:41)
[2021-04-21] MEDS: DOCUSATE SODIUM 100MG CAPSULE PO SCH (09:41)
[2021-04-21] MEDS: ANUSOL HC 25MG SUPP PR SCH ×2 (09:42→21:55)
[2021-04-21] MEDS ORDERED: hydrOXYzine 50 MG TAB PO PRN (12:15)
[2021-04-21] MEDS: MIRALAX *UNIT DOSE* 17GM PACKET PO PRN (12:20)
--- NOTE | 2021-04-21 14:34 | MHIPNPDOC ---
[facility] Progress Note Progress Note DATE OF SERVICE: 04/21/21 HISTORY: Patient is a 21 -year-old , male, who was referred to ED from [facility]. States "I'm fed up, my NCO is asking me about my medical info, he hates me for no reason". Patient is on profile. Has been going to [facility] for 4 months, reports lack of benefit, states does not take any medications, has reported depression started 2018, states he continues to have ongoing low moods, poor concentration, erratic sleep, reports nightmares which she has trouble elaborating on, auditory hallucinations and visual hallucinations, reports multiple voices and does not elaborate on details, denies that they are command auditory hallucinations and reports they only occur in the evenings and nighttime. Reports has been struggling with these symptoms and wants to be met boarded from [facility] [employer]. Has been coming to the ED with multiple medical complaints, including pains all over his body, headache. Total imaging studies have been negative including CTs (CT head November 2020, migraines since this time), MRIs, x-rays. Interval: Today states that his mood is finally not that bad, 7 out of 10, energy is good, little tired, denies homicidal or suicidal ideation, continues to report faint mumbling voices in the background, not as often no longer able to be made out in the evenings. Denies medication side effects but reports his medications for constipation are helping, encouraged to drink adequate amounts of water intake as needed MiraLAX which she had not been taking. Reviewed labs together, urinalysis unremarkable. Also reports some stomach irritation after taking medications which, goes away, encouraged to take with food. Otherwise reports he is doing well is agreeable to possible discharge tomorrow. No longer having thoughts of harming NCO. VITAL SIGNS: See below. NEW TEST RESULTS: None, see below CURRENT MEDICATIONS: See below. MENTAL STATUS EXAMINATION: Patient is a 21-year old -Croatian male, who is in no acute distress, sitting in a chair, with good hygiene, glasses Speech: Is slowed, spontaneous Language skills are fair Thought processes including: Linear and logical Thought content: denies suicidal ideations, intent or plan. Denies homicidal ideations, intent or plan abstract reasoning, and computation: Normal description of associations: Normal Description of abnormal or psychotic thoughts: Denies hallucinations, delusions, but appears somewhat withdrawn Judgment: Fair Insight: Fair Orientation: x3 Recent and remote memory: Intact Attention span and concentration: Normal Language: speaks hungarian Fund of knowledge: Average based interview Mood: "7 out of 10" affect: Patient is reportedly somewhat withdrawn and introv erted at baseline, was able to engage appropriate with full affect on further discussion, appropriate, mood congruent DIAGNOSES: MDD, single episode, moderate, with psychotic features vs Schizophrenia, schizoaffective disorder Somatic symptoms disorder Hx TBI ASSESSMENT: Patient is agreeable to continue medications and possible discharge tomorrow, reports improvements in psychotic symptoms including reduction of auditory hallucinations, no longer experiencing SI or HI. He feels medications are helping him and that [place]. MANAGEMENT PLAN: Continue Risperdal to 2 mg twice daily, continue sertraline to 75 mg p.o. daily, has bowel regimen including Colace and as needed MiraLAX which she has not asked for, encouraged to ask for medications to help with constipation, also adequate p.o. water intake, if persist can be evaluated. TIME SPENT: 15 minutes. Vital Signs Vital Signs Date Time Temp Pulse Resp B/P (MAP) Pulse Ox O2 Delivery O2 Flow Rate FiO2 04/21/21 06:36 98.9 69 18 124/57 (79) 98 Room Air Current Medications Current Medications Medications (Trade) Dose Ordered Sig/Augie Route PRN Reason Start Time Stop Time Status Last Admin Dose Admin Al Hydrox/Mg Hydrox/Simethicone (Mylanta) 30 ml Q4HP PRN PO HEARTBURN/INDIGESTION 04/15/21 16:25 Aripiprazole (AbiLIFY) 10 mg QHS PO 04/16/21 21:00 04/17/21 12:07 DC 04/16/21 22:16 Benztropine Mesylate (Cogentin) 1 mg BIDP PRN PO MUSCLE PARALYSIS 04/17/21 12:55 Celecoxib (CeleBREX) 200 mg DAILYPRN PRN PO MUSCLE SPASMS 04/17/21 12:35 Cyclobenzaprine HCl (Flexeril) 5 mg QHS PO 04/17/21 21:00 04/20/21 21:47 Dicyclomine HCl (Bentyl) 10 mg QIDP PRN PO CRAMPS 04/16/21 09:00 Docusate Sodium (Colace) 100 mg BIDP PRN PO CONSTIPATION 04/16/21 09:00 Cancel Docusate Sodium (Colace) 100 mg Q2D PO 04/17/21 09:00 04/21/21 09:41 Home Med (Home Med List Complete!) ASDIRECTED XX 04/15/21 16:05 04/15/21 16:04 DC Hydrocortisone Acetate (Anusol Hc Supp) 25 mg BID [place] 04/17/21 21:00 04/17/21 13:16 DC Hydrocortisone Acetate (Anusol Hc Supp) 25 mg BID [place] 04/17/21 21:00 04/21/21 09:42 Hydroxyzine HCl (Atarax) 50 mg Q6HP PRN PO ANXIETY/AGITATION 04/21/21 12:15 Ibuprofen (Advil) 400 mg Q6HP PRN PO MODERATE PAIN (PS 5-7) 04/15/21 16:25 04/17/21 12:44 DC 04/16/21 11:21 Magnesium Hydroxide (Milk Of Magnesia) 30 ml DAILYPRN PRN PO CONSTIPATION 04/15/21 16:25 Olanzapine (ZyPREXA) 5 mg Q6HP PRN PO ANXIETY/AGITATION 04/15/21 16:25 Ondansetron HCl (Zofran) 4 mg Q8H PO 04/17/21 14:00 04/21/21 06:15 Polyethylene Glycol (Miralax) 1 pkt DAILYPRN PRN PO CONSTIPATION 04/20/21 09:05 04/21/21 12:20 Risperidone (RisperDAL) 1 mg BID PO 04/17/21 09:00 04/17/21 12:13 DC Risperidone (RisperDAL) 1 mg BID PO 04/17/21 09:00 Cancel Risperidone (RisperDAL) 1 mg BID PO 04/17/21 21:00 04/19/21 11:42 DC 04/19/21 08:44 Risperidone (RisperDAL) 1.5 mg BID PO 04/19/21 21:00 04/20/21 09:07 DC 04/19/21 22:19 Risperidone (RisperDAL) 2 mg BID PO 04/20/21 09:00 04/21/21 09:41 Sertraline HCl (Zoloft) 50 mg DAILY PO 04/16/21 09:00 04/20/21 09:07 DC 04/19/21 08:44 Sertraline HCl (Zoloft) 75 mg DAILY PO 04/20/21 09:00 04/21/21 09:41 Topiramate (TopAMAX) 150 mg BID PO 04/17/21 09:00 04/17/21 12:44 DC Topiramate (TopAMAX) 150 mg QHS PO 04/17/21 21:00 04/20/21 21:47 Trazodone HCl (Desyrel) 50 mg QHSP PRN PO INSOMNIA 04/18/21 16:50 Allergies Coded Allergies: Sulfa (Sulfonamide Antibiotics) (Verified Allergy, Intermediate, G6PD, 04/11/21) ibuprofen (Verified Allergy, Intermediate, G6PD, 04/11/21) primaquine (Verified Allergy, Intermediate, G6PD, 04/11/21) acetaminophen (Verified Allergy, Unknown, G6PD, 04/11/21) aspirin (Verified Allergy, Unknown, G6PD, 04/11/21) ANAND VALDES MD Apr 21, 2021 14:34
[2021-04-21] MEDS ORDERED: ONDA-83 PO (15:59)
[2021-04-21] MEDS ORDERED: BENZ-52 PO (15:59)
[2021-04-21] MEDS ORDERED: HYDR50TA70 PO (15:59)
[2021-04-21] MEDS ORDERED: SERT25TA21 PO (15:59)
[2021-04-21] MEDS ORDERED: RISP-9 PO (15:59)
[2021-04-21 16:19] LABS: Lyme Disease IgG/IgM Antibodie <0.91 ISR (0.00-0.90); Lyme Disease IgM Ab Quantitati <0.80 index (0.00-0.79)
[2021-04-21 18:42] VITALS: BP 121/81
[2021-04-21] MEDS: TOPIRAMATE (TopAMAX) 25 MG TAB PO SCH (21:56)
[2021-04-21] MEDS: CYCLOBENZAPRINE 5MG TABLET PO SCH (21:56)
[2021-04-22] MEDS: ONDANSETRON 4 MG TAB PO SCH (05:47)
[2021-04-22 07:03] VITALS: BP 88/53
[2021-04-22] MEDS: ANUSOL HC 25MG SUPP PR SCH (09:00)
[2021-04-22] MEDS: SERTRALINE HCL 25 MG TABLET PO SCH (09:15)
[2021-04-22] MEDS: risperiDONE 2 MG TAB PO SCH (09:15)
[2021-04-22] MEDS: MIRALAX *UNIT DOSE* 17GM PACKET PO PRN (09:17)
--- NOTE | 2021-04-22 13:27 | MHDSPDOC ---
[facility] Discharge Summary Discharge Summary DATE OF ADMISSION: Apr 15, 2021 at 16:21 DATE OF DISCHARGE: Apr 22, 2021 at 11:59 Discharge diagnoses: Unspecified schizophrenia spectrum or other psychotic disorder Somatic symptom disorder Hx TBI Reason for admission: Patient is a 21 -year-old , male, who was referred to ED from [facility]. States "I'm fed up, my NCO is asking me about my medical info, he hates me for no reason". Patient reports is on profile. Has been going to [facility] for 4 months, reports lack of benefit, states does not take any medications, has reported depression started 2019, states he continues to have ongoing low moods, poor concentration, erratic sleep, reports nightmares which she has trouble elaborating on, auditory hallucinations and visual hallucinations, reports multiple voices and does not elaborate on details, denies that they are command auditory hallucinations and reports they only occur in the evenings and nighttime. Reports has been struggling with these symptoms and wants to be met boarded from [facility] [employer]. Has been coming to the ED with multiple medical complaints, including pains all over his body, headache. Total imaging studies have been negative including CTs, MRIs, x-rays. Vital signs: See below Consultants involved: See medical H&P by hospitalist Treatment and progress on the unit: Patient was admitted to the [facility] 9.39 legal status and was afforded the following treatment modalities: 1. Individual therapy 2. Group therapy 3. Medication management 4. Milieu therapy 5. Safe environment Hospital course: Patient was admitted to the [facility] on a 9.39 legal status. Was medically cleared prior to coming up to the [facility]. Patient initially reported HI towards NCO, paranoia that others were out to get him, heard voices in the evenings primarily which she did not recognize, multiple, consistent with hypnagogic versus auditory hallucinations. Was started on sertraline which was increased to 75 mg nightly, and Risperdal which is increased to 2 mg twice daily, with good response, did report some constipation, despite bowel regimen including Colace every other day, as needed MiraLAX, stated continue to pass gas, appetite was normal, denied consistent abdominal pain apart from some gastrointestinal disturbance, nausea after taking medications when he did not t regina with food, encouraged to take with food, encouraged adequate p.o. liquid intake, has medical appointment in 2 days, if symptoms persist told to discuss with outpatient doctor or if new or severe symptoms including abdominal pain encouraged to get evaluated the hospital, has history of chronic constipation, which needs outpatient evaluation. Patient found medications beneficial and tolerated them well. Denies mood anxiety and intrusive thoughts which improved with treatment. Patient symptoms improved with treatment. On day of discharge patient denied depression, anxiety, insomnia, suicidal or homicidal ideations intent or plan, hallucinations, delusions. Patient was discharged home with follow-up. Patient felt safe for discharge. Was offered continued stay involuntary admission but refused. Discharge assessment: On today's interview patient is alert and oriented, dressed appropriately. Hygiene and grooming is well-kept. Smiles on approach and is pleasant and engaged on interview. Denies depression and anxiety. Denies suicidal homicidal ideation, intent or planning. Denies and is not observed with tom or psychotic symptoms of delusions, hallucinations, bizarre thinking, obsessions, paranoia, ruminations, illogical thoughts, flight of ideas or having poor insight or judgment. Patient has normal mentation, declines further hospitalization of voluntary status and meets criteria for discharge today, patient encouraged to return the hospital if symptoms worsen or change and encouraged to call unit if they feel they need provider's questions to be answered or help with medications or care. Patient's affect appeared more nelda ght, was engaged with other patients in the social milieu, was seen smiling. Mental status: Patient is a 21-year old -[place] male, who is in no acute distress, sitting in a chair, with good hygiene Speech: Is normal rate, amount, spontaneous Language skills are fair Thought processes including: Linear and logical, goal-directed Thought content: denies suicidal ideations, intent or plan. Denies homicidal ideations, intent or plan abstract reasoning, and computation: Normal description of associations: Normal Description of abnormal or psychotic thoughts: Denies hallucinations, delusions, but appears somewhat withdrawn Judgment: Fair Insight: Fair Orientation: x3 Recent and remote memory: Intact Attention span and concentration: Normal Language: speaks lao Fund of knowledge: Average based interview Mood: "good, better" affect: Patient today was smiling, full, euthymic, no longer flat like previous days Medications on discharge: see medication reconciliation: CSSRS on discharge: Wish to be : No nonspecific active suicidal thoughts: No lifetime attempts: 0 interrupted attempts: 0 aborted attempts: 0 preparatory acts or behavior: None Taking into consideration safety state, status, safety plan, active factors, modifiable, non-modifiable risk factors patient is at low risk on discharge for suicide according to [place] suicide evaluation. PLAN/FOLLOWUP ARRANGEMENTS: Follow Up Care Education Label * Medical Follow Up [facility] * Established With This Provider Yes * Therapist Pepe OCHOA * Date Apr 24, 2021 * Time 15:00 * Address of Clinic or Practice [facility]/ [place] * Follow Up Care Education Label * Mental Health Appt 1 * Mental Health [facility] * Additional information Safety check Apr [facility]/CT DEBBI COLON [id number]@0901 FTR/60 PENDING [facility]/CT Cruz DORANTES [id number]@0900 SPEC/90 PENDING [facility] [place] [id number]@1000 FTR/60 PENDING [facility]/[place] [id number]@0900 FTR/60 PENDING [facility]/[place] [id number]@0900 FTR/60 PENDING [facility]/[place] [id number]@0900 FTR/60 PENDING The amount of time spent in the coordination of care for this patient was approximately 35 minutes. ETOH/Disorder Med Rx ETOH/DRUG DISORDER RX: Offrd @ d/c & pt refused Vital Signs/I&Os Vital Signs Date Time Temp Pulse Resp B/P (MAP) Pulse Ox O2 Delivery O2 Flow Rate FiO2 04/22/21 07:03 98.3 57 16 88/53 (65) 97 Room Air Medications Scheduled Amoxicillin/Potassium Clav (Augmentin 875-125 Tablet) 1 Each Tablet, 875 MG PO BID, (Reported) STARTED 04/13/21 FOR 10 DAYS Celecoxib (Celecoxib) 200 Mg Capsule, 200 MG PO QHS, (Reported) Dicyclomine HCl (Dicyclomine HCl) 10 Mg Capsule, 10 MG PO QHS, (Reported) Diphenhydramine HCl (Benadryl) 25 Mg Capsule, 25 MG PO QHS, (Reported) Docusate Sodium (Docusate Sodium) 100 Mg Capsule, 100 MG PO BID, (Reported) Galcanezumab-Gnlm (Emgality Pen) 120 Mg/1 Ml Pen.injctr, 120 MG SQ QMONTH, (Reported) DUE SOMETIME IN APRIL, UNSURE OF EXACT DATE OF LAST DOSE Ondansetron HCl (Ondansetron HCl) 4 Mg Tablet, 4 MG PO Q8H for nausea, #21 Psyllium Husk (with Sugar) (Natural Fiber Powder) 368 Gm Powder, 1 DOSE PO QHS, (Reported) Risperidone (Risperidone) 2 Mg Tablet, 2 MG PO BID for psychosis, #14 Sertraline HCl (Sertraline HCl) 25 Mg Tablet, 75 MG PO DAILY for mood, #7 Topiramate (Topiramate) 100 Mg Tablet, 150 MG PO QHS, (Reported) Scheduled PRN Acetaminophen (Acetaminophen) 325 Mg Tablet, 650 MG PO PRN PRN for PAIN LEVEL 1- 5, (Reported) Benztropine Mesylate (Benztropine Mesylate) 1 Mg Tablet, 1 MG PO BIDP PRN for MUSCLE PARALYSIS, #7 Guaifenesin (Mucinex) 600 Mg Tab.er.12h, 600 MG PO BID PRN for CONGESTION, (Reported) Hydrocortisone Acetate (Hydrocortisone Acetate) 25 Mg Supp.rect, 25 MG MI QHS PRN for HEMORRHOIDS, (Reported) Hydroxyzine HCl (Hydroxyzine HCl) 50 Mg Tablet, 50 MG PO Q6HP PRN for ANXIETY/AGITATION, #14 Allergies Coded Allergies: Sulfa (Sulfonamide Antibiotics) (Verified Allergy, Intermediate, G6PD, 04/11/21) ibuprofen (Verified Allergy, Intermediate, G6PD, 04/11/21) primaquine (Verified Allergy, Intermediate, G6PD, 04/11/21) acetaminophen (Verified Allergy, Unknown, G6PD, 04/11/21) aspirin (Verified Allergy, Unknown, G6PD, 04/11/21) ANAND VALDES MD Apr 22, 2021 13:27
== END 2021-04-22 11:59 | disposition home or self-care (01) | DRG 885 ==
LOC: M ED 10:32 → M ED INP 16:21 → M PSY 17:30
PROVIDERS: ADMIT Student in an Organized Health Care Education/Training Program; ATTEND Student in an Organized Health Care Education/Training Program
DX: F20.9 Schizophrenia, unspecified (principal); R45.851 Suicidal ideations; R45.850 Homicidal ideations; F45.1 Undifferentiated somatoform disorder; F29 Unspecified psychosis not due to a substance or known physiological condition; G43.909 Migraine, unspecified, not intractable, without status migrainosus; K64.9 Unspecified hemorrhoids; Z88.2 Allergy status to sulfonamides; Z88.6 Allergy status to analgesic agent; Z88.8 Allergy status to other drugs, medicaments and biological substances; Z20.822 Contact with and (suspected) exposure to COVID-19; Z87.820 Personal history of traumatic brain injury; Z56.4 Discord with boss and workmates

== ENCOUNTER 2021-06-26 20:49 | Emergency (ER) | payer OTHER ==
[~2021-06-26] VITALS: Ht 185.4 cm; Wt 79.1 kg
[~2021-06-26 20:49] MED LIST changes: +BENZ-52 PO; +EMGA120I SQ; +HYDR25SU23 PR; +HYDR50TA70 PO; +ONDA-83 PO; +RISP-9 PO; +SERT25TA21 PO; +TIZA10TA; -TIZA4TAB4; +TOPI100T9 PO
[2021-06-26] MEDS ORDERED: TRAZ-252 PO (20:59)
[2021-06-26] MEDS ORDERED: ONDANSETRON 4 MG ORAL DISINTEGRATING TAB PO ONE (22:05)
[2021-06-26] MEDS ORDERED: ONDA4TAB6 PO (22:18)
[2021-06-26 22:35] VITALS: BP 124/73
== END 2021-06-26 22:36 | disposition home or self-care (01) ==
LOC: M ED 20:49
DX: U07.1 COVID-19 (principal); D55.0 Anemia due to glucose-6-phosphate dehydrogenase [G6PD] deficiency; R51.9 Headache, unspecified; Z88.2 Allergy status to sulfonamides; Z88.6 Allergy status to analgesic agent; Z88.8 Allergy status to other drugs, medicaments and biological substances
CPT/HCPCS: 99283; Q0162

== ENCOUNTER 2021-08-10 19:12 | Emergency (ER) | payer OTHER ==
[~2021-08-10] VITALS: Ht 185.4 cm; Wt 86.4 kg
[~2021-08-10 19:12] MED LIST changes: +ONDA4TAB6 PO; +TRAZ-252 PO
[2021-08-10 19:13] VITALS: BP 129/58
[2021-08-10] MEDS ORDERED: NORCO, ANEXSIA 5/325MG TABLET (HYDROcodone/ACETAMINOPHEN) PO ONE ×2 (21:45→22:40)
== END 2021-08-10 22:48 | disposition home or self-care (01) ==
LOC: M ED 19:12
DX: S39.012A Strain of muscle, fascia and tendon of lower back, initial encounter (principal); R10.9 Unspecified abdominal pain; G89.29 Other chronic pain; X50.0XXA Overexertion from strenuous movement or load, initial encounter; Y92.89 Other specified places as the place of occurrence of the external cause; Y93.B3 Activity, free weights; Y99.8 Other external cause status; Z88.2 Allergy status to sulfonamides; Z88.6 Allergy status to analgesic agent; Z88.8 Allergy status to other drugs, medicaments and biological substances

== ENCOUNTER → 2021-09-10 | Outpatient (CLI) | payer OTHER | LOC: M CARPUL 08:53 | PROVIDERS: ATTEND Internal Medicine | DX: R07.9 Chest pain, unspecified (principal) ==

== ENCOUNTER 2021-09-21 17:18 | Emergency (ER) | payer OTHER ==
[~2021-09-21] VITALS: Ht 185.4 cm; Wt 88.0 kg
[2021-09-21] MEDS ORDERED: GABA-282 PO (17:23)
[2021-09-21] MEDS ORDERED: diphenhydrAMINE 50MG/ML VIAL (J1200) IV STA (21:23)
[2021-09-21] MEDS ORDERED: dexameTHASONE 20MG/5ML VIAL (J1100 PER 1MG) IV ONE (21:25)
[2021-09-21] MEDS ORDERED: METOCLOPRAMIDE INJ 10MG/2ML VIAL (J2765 PER 1) IV ONE (21:25)
[2021-09-21] MEDS ORDERED: NS 1,000 ML IV ONE (21:25)
[2021-09-21] MEDS ORDERED: ACETAMINOPHEN 500 MG TAB PO ONE (21:25)
[2021-09-21 21:44] LABS: BASO % 0.5 % (0.0-1.0); EOS # 0.1 10^3/uL (0.0-0.5); EOS % 1.1 % (0.0-3.0); HEMATOCRIT 46.4 % (42.0-52.0); HEMOGLOBIN 16.2 g/dl (13.5-17.5); LYMPH # 2.5 10^3/uL (1.5-5.0); LYMPH % 39.3 % (24.0-44.0); MEAN CORPUSCULAR HEMOGLOBIN 32.4 pg (27.0-33.0); MEAN CORPUSCULAR HGB CONC 34.9 g/dl (32.0-36.5); MEAN CORPUSCULAR VOLUME 92.8 fl (80.0-96.0); MONO # 0.5 10^3/uL (0.0-0.8); MONO % 8.5 % (2.0-8.0); NEUTROPHILS # 3.1 10^3/uL (1.5-8.5); NEUTROPHILS % 50.4 % (36.0-66.0); PLATELET COUNT, AUTOMATED 171 10^3/uL (150-450); WHITE BLOOD COUNT 6.2 10^3/uL (4.0-10.0)
[2021-09-21 21:51] VITALS: BP 122/63
[2021-09-21 22:11] LABS: BLOOD UREA NITROGEN 17 MG/DL (7-18); CALCIUM LEVEL 9.6 MG/DL (8.5-10.1); CARBON DIOXIDE LEVEL 29 MEQ/L (21-32); CHLORIDE LEVEL 105 MEQ/L (98-107); GLOMERULAR FILTRATION RATE > 60.0 (>60); GLUCOSE, FASTING 89 MG/DL (70-100); POTASSIUM SERUM 3.9 MEQ/L (3.5-5.1); SODIUM LEVEL 138 MEQ/L (136-145)
== END 2021-09-21 22:53 | disposition home or self-care (01) ==
LOC: M ED 17:18
DX: R51.9 Headache, unspecified (principal); D55.0 Anemia due to glucose-6-phosphate dehydrogenase [G6PD] deficiency; Z88.2 Allergy status to sulfonamides; Z88.6 Allergy status to analgesic agent; Z88.8 Allergy status to other drugs, medicaments and biological substances; Z79.899 Other long term (current) drug therapy
CPT/HCPCS: 70450; 80048; 83735; 85025; 96374; 96375; 99284; J1100; J1200; J2765

== ENCOUNTER → 2021-10-22 | Outpatient (REF) ==
[~2021-10-22] MED LIST changes: +GABA-282 PO
== END ==
LOC: M PLALAB 08:46
PROVIDERS: ATTEND Internal Medicine
DX: Z00.00 Encounter for general adult medical examination without abnormal findings (principal)

== ENCOUNTER → 2021-12-16 | Outpatient (CLI) | payer OTHER ==
[~2021-12-16] MED LIST changes: +CHOL50002 PO; +DIVA250T67 PO; +MELO7.5T35 PO; +NALT50TA4 PO; +OMEP40CA5 PO; +PROHANCE 279.3MG/ML 15ML VIAL ONE; +PROHANCE 279.3MG/ML 5ML VIAL ONE; +TADA20TA PO; +TRAZ-257 PO; +ZOLO100T PO
== END ==
LOC: M PLAIMG 09:21
DX: M89.9 Disorder of bone, unspecified (principal)
CPT/HCPCS: 72197; A9576

== ENCOUNTER 2021-12-23 11:14 | Day surgery (SDC) | payer OTHER ==
[~2021-12-23] VITALS: Ht 182.9 cm; Wt 81.1 kg
[~2021-12-23 11:14] MED LIST changes: +LIDOCAINE 2% 100MG/5ML SDV (FOR ANES.) As Ordered ONE; +NS 1,000 ML IV ONE; -PROHANCE 279.3MG/ML 15ML VIAL ONE; -PROHANCE 279.3MG/ML 5ML VIAL ONE; +fentaNYL 100 MCG/2 ML INJECTION As Ordered ONE; +propofoL 500 MG/50 ML VIAL As Ordered ONE
[2021-12-23 13:15] VITALS: BP 97/52
== END 2021-12-23 13:25 | disposition home or self-care (01) ==
LOC: M OPP 11:14
PROVIDERS: ATTEND Internal Medicine Gastroenterology
DX: K51.40 Inflammatory polyps of colon without complications (principal); K64.0 First degree hemorrhoids; R10.30 Lower abdominal pain, unspecified; B96.81 Helicobacter pylori [H. pylori] as the cause of diseases classified elsewhere; K29.50 Unspecified chronic gastritis without bleeding; R10.13 Epigastric pain; K92.1 Melena; Z79.1 Long term (current) use of non-steroidal anti-inflammatories (NSAID); Z79.899 Other long term (current) drug therapy; Z88.2 Allergy status to sulfonamides; Z88.6 Allergy status to analgesic agent; Z88.8 Allergy status to other drugs, medicaments and biological substances
CPT/HCPCS: 43239; 45385; 88305; J3010